=== PATIENT | female | born 1960 | race Caucasian/White ===

== ENCOUNTER → 2019-10-01 00:01 | Outpatient (RCR) | payer MEDICAID, SELFPAY | LOC: WOUND 09-03 13:32 | PROVIDERS: Family Provider Family Medicine; Visit Provider Thoracic Surgery (Cardiothoracic Vascular Surgery) | DX: I87.2 Venous insufficiency (chronic) (peripheral) (principal); L97.812 Non-pressure chronic ulcer of other part of right lower leg with fat layer exposed | CPT/HCPCS: 11042 ×4 ==

== ENCOUNTER 2019-10-16 17:57 | Outpatient (CLI) | payer MEDICAID, SELFPAY ==
[2019-10-16 18:36] LABS: Glucose Urine UA Trace (Normal); Specific Gravity, Urine 1.015 (1.005-1.030); Urine Appearance Cloudy (CLEAR); Urine Color Yellow (Yellow); pH Urine 5 (5-7)
[2019-10-16 18:37] LABS: Add Urine Microscopic? YES; Bilirubin Urine Neg (NEGATIVE); Blood Urine 3+ (Negative); Ketones Urine Negative (Negative); Leukocyte Esterase Urine 2+ (Negative); Nitrate Urine Negative (Negative); Protein Urine 3+ (Negative); Urobilinogen Urine Norm (Negative)
[2019-10-16 18:44] LABS: Add Urine Culture? Yes; Bacteria Urine 2+; Mucus Urine 1+; RBC Urine 25-40 /hpf (0-2); WBC Urine >100 /hpf (0-5)
== END 2019-10-16 17:58 | disposition home or self-care (01) ==
PROVIDERS: Family Provider Family Medicine; PCP Family Medicine; Visit Provider Family Medicine
DX: R32 Unspecified urinary incontinence (principal)
CPT/HCPCS: 81003; 87077; 87086; 87186

== ENCOUNTER 2019-10-29 12:57 | Outpatient (RCR) | payer MEDICAID, SELFPAY | END 2019-11-01 23:59 | disposition home or self-care (01) | LOC: WOUND 12:57 | PROVIDERS: Family Provider Family Medicine; PCP Family Medicine; Visit Provider Thoracic Surgery (Cardiothoracic Vascular Surgery) | DX: I87.2 Venous insufficiency (chronic) (peripheral) (principal); L97.812 Non-pressure chronic ulcer of other part of right lower leg with fat layer exposed | CPT/HCPCS: 11042 ==

== ENCOUNTER 2019-11-26 10:46 | Outpatient (RCR) | payer MEDICAID, SELFPAY | END 2019-11-30 23:59 | disposition home or self-care (01) | LOC: WOUND 10:46 | PROVIDERS: Family Provider Family Medicine; PCP Family Medicine; Visit Provider Thoracic Surgery (Cardiothoracic Vascular Surgery) | DX: I87.2 Venous insufficiency (chronic) (peripheral) (principal); L97.812 Non-pressure chronic ulcer of other part of right lower leg with fat layer exposed | CPT/HCPCS: 11042 ==

== ENCOUNTER 2019-12-31 13:39 | Outpatient (RCR) | payer MEDICAID, SELFPAY | END 2019-12-31 23:59 | disposition home or self-care (01) | LOC: WOUND 13:39 | PROVIDERS: Family Provider Family Medicine; PCP Family Medicine; Visit Provider Thoracic Surgery (Cardiothoracic Vascular Surgery) | DX: I87.2 Venous insufficiency (chronic) (peripheral) (principal); L97.812 Non-pressure chronic ulcer of other part of right lower leg with fat layer exposed | CPT/HCPCS: 11042; 15271; Q4110 ==

== ENCOUNTER 2020-01-28 15:02 | Outpatient (RCR) | payer MEDICAID, SELFPAY | END 2020-01-30 23:59 | disposition home or self-care (01) | LOC: WOUND 15:02 | PROVIDERS: Family Provider Family Medicine; PCP Family Medicine; Visit Provider Thoracic Surgery (Cardiothoracic Vascular Surgery) | DX: I87.2 Venous insufficiency (chronic) (peripheral) (principal); L97.822 Non-pressure chronic ulcer of other part of left lower leg with fat layer exposed; L97.812 Non-pressure chronic ulcer of other part of right lower leg with fat layer exposed | CPT/HCPCS: 11042; 97597 ==

== ENCOUNTER 2020-02-04 14:13 | Outpatient (CLI) | payer MEDICAID, SELFPAY | END 2020-02-04 14:14 | disposition home or self-care (01) | LOC: WOUND 14:14 | PROVIDERS: Family Provider Family Medicine; PCP Family Medicine; Visit Provider Thoracic Surgery (Cardiothoracic Vascular Surgery) | DX: I87.2 Venous insufficiency (chronic) (peripheral) (principal); L97.812 Non-pressure chronic ulcer of other part of right lower leg with fat layer exposed | CPT/HCPCS: 11042 ==

== ENCOUNTER 2020-02-07 19:51 | Outpatient (CLI) | payer MEDICAID, SELFPAY ==
[2020-02-07 20:48] LABS: Add Urine Microscopic? YES; Bilirubin Urine Neg (NEGATIVE); Blood Urine 2+ (Negative); Glucose Urine UA Norm (Normal); Ketones Urine Negative (Negative); Leukocyte Esterase Urine 2+ (Negative); Nitrate Urine Negative (Negative); Protein Urine 1+ (Negative); Specific Gravity, Urine 1.005 (1.005-1.030); Urine Appearance Cloudy (CLEAR); Urine Color Straw (Yellow); Urobilinogen Urine Norm (Negative); pH Urine 7 (5-7)
[2020-02-07 20:49] LABS: WBC Urine >100 /hpf (0-5)
[2020-02-07 20:50] LABS: Add Urine Culture? Yes; Amorphous Sediment Urine 2+; Bacteria Urine 3+; Squamous Epithelial Cell Urine 0-4 (0-5)
== END 2020-02-07 19:52 | disposition home or self-care (01) ==
LOC: LAB 19:55
PROVIDERS: PCP Family Medicine; Visit Provider Family Medicine
DX: R32 Unspecified urinary incontinence (principal)
CPT/HCPCS: 81001; 87077; 87086; 87186

== ENCOUNTER 2020-02-11 13:26 | Outpatient (CLI) | payer MEDICAID, SELFPAY | END 2020-02-11 13:27 | disposition home or self-care (01) | LOC: WOUND 13:27 | PROVIDERS: PCP Family Medicine; Visit Provider Thoracic Surgery (Cardiothoracic Vascular Surgery) | DX: I87.2 Venous insufficiency (chronic) (peripheral) (principal); L97.812 Non-pressure chronic ulcer of other part of right lower leg with fat layer exposed | CPT/HCPCS: 11042 ==

== ENCOUNTER 2020-02-18 13:56 | Outpatient (CLI) | payer MEDICAID, SELFPAY | END 2020-02-18 13:57 | disposition home or self-care (01) | LOC: WOUND 13:57 | PROVIDERS: PCP Family Medicine; Visit Provider Thoracic Surgery (Cardiothoracic Vascular Surgery) | DX: I87.2 Venous insufficiency (chronic) (peripheral) (principal); L97.812 Non-pressure chronic ulcer of other part of right lower leg with fat layer exposed | CPT/HCPCS: 11042 ==

== ENCOUNTER 2020-02-25 13:51 | Outpatient (CLI) | payer MEDICAID, SELFPAY | END 2020-02-25 13:52 | disposition home or self-care (01) | LOC: WOUND 13:52 | PROVIDERS: PCP Family Medicine; Visit Provider Thoracic Surgery (Cardiothoracic Vascular Surgery) | DX: I87.2 Venous insufficiency (chronic) (peripheral) (principal); L97.812 Non-pressure chronic ulcer of other part of right lower leg with fat layer exposed | CPT/HCPCS: 11042 ==

== ENCOUNTER 2020-03-03 13:54 | Outpatient (CLI) | payer MEDICAID, SELFPAY | END 2020-03-03 13:55 | disposition home or self-care (01) | LOC: WOUND 13:54 | PROVIDERS: PCP Family Medicine; Visit Provider Thoracic Surgery (Cardiothoracic Vascular Surgery) | DX: Z09 Encounter for follow-up examination after completed treatment for conditions other than malignant neoplasm (principal) | CPT/HCPCS: 99212 ==

== ENCOUNTER → 2020-03-11 12:48 | Outpatient (BNVA) | payer MEDICAID, SELFPAY | PROVIDERS: PCP Family Medicine; Visit Provider Family Medicine | DX: N39.0 Urinary tract infection, site not specified (principal) | CPT/HCPCS: 80053; 81000; 87077; 87086; 87186 ==

== ENCOUNTER → 2020-04-22 12:03 | Outpatient (BNVA) | payer MEDICAID, SELFPAY | PROVIDERS: PCP Family Medicine; Visit Provider Family Medicine | DX: E11.59 Type 2 diabetes mellitus with other circulatory complications (principal); R52 Pain, unspecified; E11.9 Type 2 diabetes mellitus without complications | CPT/HCPCS: 83036 ==

== ENCOUNTER 2020-04-28 12:42 | Outpatient (CLI) | payer MEDICAID, SELFPAY ==
--- NOTE | 2020-04-28 13:00 | MM_ITS ---
WS: [id number] BILATERAL DIGITAL SCREENING MAMMOGRAPHY WITH CAD CLINICAL INFORMATION: screen HISTORY: Screening mammogram. No current complaints. COMPARISON: 5 16,019 and 4 17,019. TECHNIQUE: Bilateral CC and MLO views. FINDINGS: Postoperative changes right breast with lumpectomy and surgical clips. Proximal fibrosis. V ascular calcification. Lucent centered calcifications. Scattered fibroglandular densities bilaterally. No suspicious focal mass, asymmetry, calcifications, or architectural distortion. No evidence of malignancy. MM/[place] [id number] IMPRESSION: BI-RADS: 2-Benign FOLLOW UP: 1 Year Follow-up Recommend return to annual diagnostic mammography..
== END 2020-04-28 12:43 | disposition home or self-care (01) ==
PROVIDERS: PCP Family Medicine; Visit Provider Family Medicine
DX: Z12.31 Encounter for screening mammogram for malignant neoplasm of breast (principal)
CPT/HCPCS: 77067

== ENCOUNTER 2020-07-02 16:06 | Outpatient (CLI) | payer MEDICAID, SELFPAY ==
[2020-07-02 16:37] LABS: Add Urine Microscopic? YES; Bilirubin Urine Neg (Negative); Blood Urine 2+ (Negative); Glucose Urine UA Norm (Normal); Ketones Urine 1+ (Negative); Leukocyte Esterase Urine 2+ (Negative); Nitrate Urine Negative (Negative); Protein Urine 3+ (Negative); RBC Urine 15-25 /hpf (0-2); Urine Appearance Cloudy (CLEAR); Urine Color Yellow (Yellow); Urobilinogen Urine Norm (Negative)
[2020-07-02 16:38] LABS: Add Urine Culture? Yes; Bacteria Urine 4+ /hpf; Mucus Urine TRACE /hpf; Squamous Epithelial Cell Urine 0-4 /hpf (0-5); WBC Urine 25-40 /hpf (0-5)
== END 2020-07-02 16:07 | disposition home or self-care (01) ==
LOC: LAB 16:08
PROVIDERS: PCP Family Medicine; Visit Provider Family Medicine
DX: Z87.440 Personal history of urinary (tract) infections (principal)
CPT/HCPCS: 81001

== ENCOUNTER 2020-08-25 16:07 | Outpatient (CLI) | payer MEDICAID, SELFPAY ==
[2020-08-25 17:10] LABS: Add Urine Microscopic? YES; Bilirubin Urine Neg (Negative); Blood Urine 3+ (Negative); Glucose Urine UA Trace (Normal); Ketones Urine 1+ (Negative); Leukocyte Esterase Urine 2+ (Negative); Nitrate Urine Negative (Negative); Protein Urine 3+ (Negative); Specific Gravity, Urine 1.015 (1.005-1.030); Urine Appearance Cloudy (CLEAR); Urine Color Yellow (Yellow); Urobilinogen Urine Norm (Negative); pH Urine 5 (5-7)
[2020-08-25 17:12] LABS: Add Urine Culture? Yes; Bacteria Urine 1+ /hpf; Calcium Oxalate Crystals Urine 25-40 /hpf; WBC Urine >100 /hpf (0-5)
== END 2020-08-25 16:08 | disposition home or self-care (01) ==
LOC: LAB 16:08
PROVIDERS: PCP Family Medicine; Visit Provider Family Medicine
DX: N39.0 Urinary tract infection, site not specified (principal)
CPT/HCPCS: 81001; 87077; 87086; 87186

== ENCOUNTER 2020-10-14 11:26 | Outpatient (CLI) | payer MEDICAID, SELFPAY ==
--- NOTE | 2020-10-14 11:42 | US_ITS ---
WS: [id number] LEFT DIGITAL MAMMOGRAPHY WITH CAD CLINICAL INFORMATION: N63.20 - Unspecified lump in the left breast, unspecified quadrant HISTORY: Left breast lump. Left breast pain and soreness. COMPARISON: April 28, 2020 and TECHNIQUE: 7 views of the left breast were obtained. FINDINGS: Scattered fibroglandular densities of the left breast. Punctate and lucent centered calcifications. V ascular calcification. Benign clustered calcifications. No mammographic abnormalities in the area of palpable marker. Ultrasound is pending. ULTRASOUND BREAST LEFT TECHNIQUE: Ultrasound left breast focused area of concern. CLINICAL INFORMATION: N63.20 - Unspecified lump in the left breast, unspecified quadrant COMPARISON: None. FINDINGS: Ultrasound left breast at the 10:00 position. Prominent vessel in the area of palpable concern. No ev idence of pathologic mass or lesion. No lesions to target for biopsy. US/US breast LT limited* [id number] BI-RADS: 2-Benign FOLLOW UP: 1 Year Follow-up Recommend return to annual diagnostic mammography.
--- NOTE | 2020-10-14 12:00 | MM_ITS ---
WS: [id number] LEFT DIGITAL MAMMOGRAPHY WITH CAD CLINICAL INFORMATION: N63.20 - Unspecified lump in the left breast, unspecified quadrant HISTORY: Left breast lump. Left breast pain and soreness. COMPARISON: April 28, 2020 and TECHNIQUE: 7 views of the left breast were obtained. FINDINGS: Scattered fibroglandular densities of the left breast. Punctate and lucent centered calcifications. V ascular calcification. Benign clustered calcifications. No mammographic abnormalities in the area of palpable marker. Ultrasound is pending. ULTRASOUND BREAST LEFT TECHNIQUE: Ultrasound left breast focused area of concern. CLINICAL INFORMATION: N63.20 - Unspecified lump in the left breast, unspecified quadrant COMPARISON: None. FINDINGS: Ultrasound left breast at the 10:00 position. Prominent vessel in the area of palpable concern. No ev idence of pathologic mass or lesion. No lesions to target for biopsy. MM/[place] [id number] BI-RADS: 2-Benign FOLLOW UP: 1 Year Follow-up Recommend return to annual diagnostic mammography.
== END 2020-10-14 11:27 | disposition home or self-care (01) ==
LOC: RADSHAW 11:33
PROVIDERS: PCP Family Medicine; Visit Provider Family Medicine
DX: N63.21 Unspecified lump in the left breast, upper outer quadrant (principal)
CPT/HCPCS: 76642; 77065

== ENCOUNTER → 2020-12-10 12:35 | Outpatient (BNVA) | payer MEDICAID, SELFPAY | PROVIDERS: PCP Family Medicine; Visit Provider Family Medicine | DX: N39.0 Urinary tract infection, site not specified (principal) | CPT/HCPCS: 81000; 87077; 87086; 87184 ==

== ENCOUNTER 2021-01-30 18:53 | Emergency (ER) | payer MEDICAID, SELFPAY ==
[2021-01-30] VITALS (16 sets, daily range): BP systolic 87–148; BP diastolic 37–82; PULSE 39–46; RESP 13–30; TEMP 36.3–37.2; O2SAT 96–100; BMI 74.2
--- NOTE | 2021-01-30 19:04 | XRR_ITS ---
PROCEDURE INFORMATION: Exam: XR Chest Exam date and time: 01/30/2021 7:15 PM Age: 60 years old Clinical indication: Dyspnea TECHNIQUE: Imaging protocol: XR of the chest. Views: 1 view. Total images: 1 COMPARISON: No relevant prior studies available. FINDINGS: Lungs: Diffuse right pneumonitis/pneumonia with predominantly ground-glass interstitial lung disease and early consolidated alveolar airspace disease. Minimal discoid atelectasis left lung base. Pleural spaces: Unremarkable. No pleural effusion. No pneumothorax. Heart/Mediastinum: Cardiac structures and configuration with cardiomegaly and arteriosclerosis. Hiatal hernia. Bones/joints: Unremarkable. Other findings: Obesity. XR/XR chest 1V portable [id number] IMPRESSION: 1. Right pneumonitis/pneumonia. 2. Minimal discoid atelectasis left mid lung. 3. Cardiomegaly with arteriosclerosis. 4. Hiatal hernia.
--- NOTE | 2021-01-30 19:05 | ECG_ITS ---
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1960 Requested By: Jules Polanco Order Number: [id number] Morgan MD: LYNNETTE CROOK Measurements Intervals [place] Rate: 49 P: MD: QRS: -12 QRSD: 119 T: 182 QT: 526 QTc: 479 Interpretive Statements ATRIAL FIBRILLATION WITH SLOW VENTRICULAR RESPONSE MODERATE INTRAVENTRICULAR CONDUCTION DELAY [105+ ms QRS DURATION, 80+ ms Q/S IN V1/V2, NO Q AND 60+ ms R IN I/aVL/V5/V6] MODERATE T-WAVE ABNORMALITY, CONSIDER LATERAL ISCHEMIA [-0.1+ mV T WAVE IN I/aVL/V5/V6] MODERATE T-WAVE ABNORMALITY, CONSIDER INFERIOR ISCHEMIA [-0.1+ mV T WAVE IN II/aVF] No previous ECG available for comparison Electronically Signed On 01-31-2021 22:24:39 CDT by LYNNETTE CROOK [id number]
[2021-01-30 19:22] LABS: ABG PCO2 43.8 mmHg (35-45); Arterial Blood Gas Hematocrit 20.1 % (37-47); Base Excess ABG 2.3 mmol/L (-2.0-2.0); Blood Gas Allen Test Pos; Blood Gas Sample Site Brachial, right; Blood Gas Sample Type Arterial; Carboxyhemoglobin 1.7 %THgb (0.4-20.1); HCO3 ABG 27.3 mmol/L (22-26); HGB O2 Sat 89.8 % (95-100); Methemoglobin 1.3 % (0.4-1.5); PO2 ABG 60.5 mmHg (80.0-100.0); Total Hemoglobin 6.6 g/dL (12-16)
[2021-01-30 19:47] LABS: Basophils # 0.1 10^3/uL (0.0-0.1); Basophils % 0.6 %; Eosinophils # 0.6 10^3/uL (0.0-0.8); Eosinophils % 3.3 %; Lymphocytes # 1.4 10^3/uL (0.8-4.8); Lymphocytes % 8.3 %; Mean Corpuscular HGB Conc 32.1 g/dL (30.0-36.0); Mean Corpuscular Hemoglobin 32.2 pg (28.0-34.0); Mean Corpuscular Volume 100.5 fL (81-99); Mean Platelet Volume 9.5 fL (7.4-10.4); Monocytes % 5.7 %; Neutrophils # 13.86 10^3/uL (1.8-7.7); Neutrophils % 80.9 %; Nucleated Red Blood Cells % 0 %; Platelet Count 516 10^3/cmm (130-400); Red Blood Count 1.83 10^6/uL (4.1-5.3); Red Cell Distribution Width 17.9 % (12.1-15.1); White Blood Count 17.1 10^3/uL (4.0-10.0)
[2021-01-30 19:56] LABS: Add Urine Microscopic? YES; Bilirubin Urine Neg (Negative); Blood Urine 2+ (Negative); Glucose Urine UA Norm (Normal); Ketones Urine 1+ (Negative); Leukocyte Esterase Urine 2+ (Negative); Nitrate Urine Negative (Negative); Protein Urine Trace (Negative); Urine Color Yellow (Yellow); Urobilinogen Urine Norm (Negative); pH Urine 5 (5-7)
[2021-01-30 19:58] LABS: Hematocrit 18.4 % (37.0-47.0); Hemoglobin 5.9 g/dL (11.5-15.3)
[2021-01-30 20:03] LABS: Lactate (Lactic Acid level) 2.6 mmol/L (0.5-2.2)
[2021-01-30 20:07] LABS: Troponin(5th) Baseline 227 ng/L (0-10)
[2021-01-30 20:11] LABS: WBC Urine TOO NUMEROUS TO CNT /hpf (0-5)
[2021-01-30 20:12] LABS: Add Urine Culture? No; Amorphous Sediment Urine 1+ /hpf; Bacteria Urine 4+ /hpf; Mucus Urine 2+ /hpf; Squamous Epithelial Cell Urine >100 /hpf (0-5)
[2021-01-30 20:15] LABS: Alanine Aminotransferase 8 U/L (0-33); Albumin Level 3.6 g/dL (3.5-5.2); Alkaline Phosphatase 69 IU/L (35-105); Anion Gap 18.7 (5-19); Aspartate Amino Transferase 18 U/L (0-32); Calcium 8.7 mg/dL (8.5-10.5); Carbon Dioxide 26 mmol/L (22-29); Chloride 91 mmol/L (98-107); Globulin 2.2 g/dL (1.3-4.6); Glomerular Filtration Rate 19.5 mL/min (90-130); Glucose 140 mg/dL (65-115); NT Pro B Type Natriuretic Pept 3557 pg/mL (0-125); Potassium 4.7 mmol/L (3.5-5.1); Sodium 131 mmol/L (136-145); Total Bilirubin 0.6 mg/dL (0.15-1.2); Total Protein 5.8 g/dL (6.6-8.7)
[2021-01-30 20:25] LABS: Osmolality Calculated 313 mOsm/kg (285-295)
[2021-01-30 20:26] LABS: Blood Urea Nitrogen 122 mg/dL (8-23)
[2021-01-30] MEDS: aspirin 81 mg Chew Tablet 324 MG PO (20:31)
--- NOTE | 2021-01-30 21:05 | ECG_ITS ---
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1960 Requested By: Jules Polanco Order Number: [id number] Morgan MD: LYNNETTE CROOK Measurements Intervals [place] Rate: 39 P: -48 MT: 134 QRS: -10 QRSD: 119 T: 200 QT: 578 QTc: 470 Interpretive Statements Junctional rhythm/bradycardia MODERATE INTRAVENTRICULAR CONDUCTION DELAY [105+ ms QRS DURATION, 80+ ms Q/S IN V1/V2, NO Q AND 60+ ms R IN I/aVL/V5/V6] ST DEVIATION AND MODERATE T-WAVE ABNORMALITY, CONSIDER ANTEROLATERAL ISCHEMIA [-0.1+ mV T WAVE IN V3-V6] ST DEVIATION AND MODERATE T-WAVE ABNORMALITY, CONSIDER INFERIOR ISCHEMIA [-0.1+ mV T WAVE IN II/aVF] PROLONGED QT INTERVAL CRITICAL TEST RESULT Compared to ECG 01/30/2021 19:06:17 Prolonged QT interval now present Atrial fibrillation no longer present T-wave abnormality still present Possible ischemia still present Electronically Signed On 01-31-2021 22:28:29 CDT by LYNNETTE CROOK [id number]
[2021-01-30] MEDS: sodium chloride 0.9% 1,000 ML 30 ML IV (21:28)
--- NOTE | 2021-01-30 21:41 | PC.PHAR ---
Vancomycin is dosed at 1gm IVPB every 24 hours to produce a predicted trough level of 15.53 (population based pharmacokinetic analysis). A trough level has been ordered to be obtained before the fourth dose to confirm and adjust if needed. The Zosyn is dosed at 3.375gm IVPB every 8 hours on basis of the creatinine clearance of 35.45
[2021-01-30] MEDS: vancomycin 1,000 MG in sodium chloride 0.9% 250 ML 250 MG IV (21:44)
[2021-01-30 22:04] LABS: Lactate (Lactic Acid level) 1.7 mmol/L (0.5-2.2)
[2021-01-30 22:07] LABS: Troponin 5 2HR 226.8 ng/L (0-10); Troponin 5 2HR Delta -0.2 ABS# (0-10)
[2021-01-30] MEDS: piperacillin-tazobactam 3.375 GM in sodium chloride 0.9% (plus) 50 ML IV (22:56)
--- NOTE | 2021-01-30 23:25 | PM.HP ---
Providers/Chief Complaint Primary Care Provider: Wang Tillman DO Chief Complaint: pain all over/stents recently placed History of Present Illness Nia Gomes is a 60 year old female Medications/Allergies Home Medications Medication Instructions Recorded Confirmed Last Taken Type acetaminophen 325 mg capsule 325 mg PO Q6H PRN cap 10/21/19 07/06/20 Unknown History albuterol sulfate 90 mcg/actuation 2 puff INHALATION Q6H PRN 10/21/19 07/06/20 Unknown History aerosol inhaler budesonide-formoterol HFA 160 2 puff INHALATION BID 10/21/19 07/06/20 Unknown History mcg-4.5 mcg/actuation aerosol inhaler cholecalciferol (vitamin D3) 25 2,000 unit PO QDAY cap 10/21/19 07/06/20 Unknown History mcg (1,000 unit) capsule fluticasone propionate 50 1 spray INTRANASAL BID 10/21/19 07/06/20 Unknown History mcg/actuation nasal spray,suspension multivitamin 1 tab PO QAM 10/21/19 07/06/20 Unknown History mv-min-vit C-ascorb mg PO DAILY tab 10/28/19 07/06/20 Unknown History En-Bct-Ahe-herb #124 333 mg-1.7 mg chewable tablet pioglitazone 30 mg tablet 30 mg PO QDAY #30 tab 10/28/19 07/06/20 Unknown Rx guaifenesin 600 mg tablet, 600 mg PO Q12H PRN 02/12/20 07/06/20 Unknown History extended release 12 hr cranberry 400 mg capsule 400 mg PO BID cap 04/22/20 07/06/20 Unknown History glipizide 10 mg tablet 10 mg PO BID #60 tab 04/22/20 07/06/20 Unknown Rx metformin 500 mg tablet 500 mg PO BID #30 tab 05/20/20 07/06/20 Unknown Rx cetirizine 10 mg capsule 10 mg PO QDAY #30 cap 07/13/20 Unknown Rx pantoprazole 40 mg tablet,delayed See Rx Instructions .ROUTE 08/11/20 Unknown Rx release .COMPLEX #30 tab ciprofloxacin HCl 500 mg tablet 500 mg PO BID 7 Days #14 tab 08/26/20 Unknown Rx amoxicillin 500 mg-potassium 1 tab PO TID #21 tab 08/31/20 Unknown Rx clavulanate 125 mg tablet furosemide 80 mg tablet See Rx Instructions .ROUTE 09/07/20 Unknown Rx .COMPLEX #30 tab ondansetron 4 mg disintegrating See Rx Instructions .ROUTE 10/13/20 Unknown Rx tablet .COMPLEX #30 tab carvedilol 6.25 mg tablet 6.25 mg PO DAILY #90 tab 11/03/20 Unknown Rx tramadol 50 mg tablet 50 mg PO BID #60 tab 12/03/20 Unknown Rx oxybutynin chloride 15 mg 15 mg PO QDAY #30 tab 12/07/20 Unknown Rx tablet,extended release 24 hr amoxicillin 500 mg-potassium 1 tab PO TID #30 tab 12/16/20 Unknown Rx clavulanate 125 mg tablet Allergies Allergy/AdvReac Type Severity Reaction Status Date / Time Sulfa (Sulfonamide Allergy Severe ALGY-Anaphy Verified 05/20/20 09:04 Antibiotics) laxis aspirin Allergy Intermediate nose bleeds Verified 05/20/20 09:04 clonidine Allergy Unknown chest pain Verified 05/20/20 09:04 rofecoxib [From Vioxx] Allergy Unknown unknown Verified 05/20/20 09:04 PFSH Acute PFSH: Medical History Acid reflux CAD (coronary artery disease) Cellulitis of left leg CHF (congestive heart failure) Diabetes Diabetes Hypertension Ischemic cardiomyopathy Lump of breast, right OAB (overactive bladder) Pain UTI (urinary tract infection) Surgical History H/O breast biopsy right H/O: section S/P cardiac cath Family History Other CAD (coronary artery disease) Hypertension Stroke Social History Smoking and tobacco status: former smoker Alcohol intake: never Vitals/I&O/Wt Last Vital Signs Temp 97.5 F L 01/30/21 22:53 Pulse 39 L 01/30/21 23:01 Resp 16 01/30/21 23:01 BP 134/60 01/30/21 23:01 Pulse Ox 100 01/30/21 23:01 01/30/21 01/30/21 01/31/21 14:59 22:59 06:59 Intake Total 250 / 250 Balance 250 / 250 Weight last 48 hrs Weight 172.365 kg Data : 01/30/21 19:34 01/30/21 19:34 A&P Assessment and plan (1) Pneumonia: Status: Acute (2) Bradycardia: Status: Acute (3) UTI (urinary tract infection): Status: Acute (4) NSTEMI (non-ST elevated myocardial infarction): Status: Acute (5) Acute on chronic anemia: Status: Acute (6) TAWNY (acute kidney injury): Status: Acute (7) Acute and chronic respiratory failure with hypoxia: Status: Acute Coding Level of Care Code Acute Meter Technician for [facility] Fwd Diagnoses Pneumonia J18.9 Bradycardia R00.1 UTI (urinary tract infection) N39.0 NSTEMI (non-ST elevated myocardial infarction) I21.4 Acute on chronic anemia D64.9 TAWNY (acute kidney injury) N17.9 Acute and chronic respiratory failure with hypoxia J96.21
[2021-01-31] VITALS (11 sets, daily range): BP systolic 140–156; BP diastolic 33–68; PULSE 40–100; RESP 15–26; TEMP 36.4; O2SAT 41–100
[2021-01-31 00:06] LABS: Magnesium 2.4 mg/dL (1.7-2.3); Thyroid Stimulating Hormone 14.06 uIU/mL (0.27-4.20)
--- NOTE | 2021-01-31 00:31 | ED_ITS ---
HPI - SOB/Dyspnea General: Chief Complaint: Shortness of Breath/Dyspnea Stated Complaint: pain all over/stents recently placed Time Seen by Provider: 01/30/21 19:03 History of Present Illness: HPI Narrative: The patient is a 60-year-old female with past medical history congestive heart failure with EF of 29%, chronic respiratory failure on 4 L oxygen and CPAP at night, diabetes, super morbid obesity, coronary artery disease with recent stenting procedure, aortic stenosis mild. She comes to the ER [address] [facility] where she stayed for 2 weeks and had cardiac stents as well as multiple other vascular procedures. She comes in today complaining of shortness of breath and is satting well on her baseline 4 L oxygen but says she is becoming more short of breath. 20 minutes after arrival she asks to be placed on CPAP because she wants to go to sleep. She is arousable and does answer questions appropriately MD elicited complaint: shortness of breath Pertinent past history: congestive heart failure and diabetes Timing: constant Severity: moderate Exacerbating factors: exertion and movement Associated symptoms: Deny chest pain, cough, dizziness, extremity pain, fever(s), nausea, polyuria or vomiting Review of Systems General: Reports: 10 or more systems reviewed and unremarkable except in HPI and below Const: Reports: fatigue; Denies: fever(s) or chills Eyes: Denies: change in vision, blurry vision or eye redness ENMT: Denies: throat pain, swelling of lips/tongue, ear or mastoid pain or nasal congestion Card: Denies: chest pain Resp: Reports: dyspnea; Denies: productive cough or non-productive cough GI: Denies: nausea or vomiting : Denies: flank pain, difficulty voiding, urinary frequency or urinary urgency Musc: Denies: neck pain, back pain, extremity pain, joint pain, joint redness, limited range of motion or muscle weakness Skin/Breast: Denies: rash, pruritus, erythema, skin pain or skin tenderness Neuro: Denies: headache(s), numbness in extremities, weakness in extremities, sensory changes, difficulty walking, dizziness, confusion or Slurred speech present Psych: Denies: anxiety or depression Endo: Denies: polyuria All/Imm: Denies: urticaria, throat swelling or tongue swelling PFSH ED PFSH: Medical History Acid reflux CAD (coronary artery disease) Cellulitis of left leg CHF (congestive heart failure) Diabetes Diabetes Hypertension Ischemic cardiomyopathy Lump of breast, right OAB (overactive bladder) Pain UTI (urinary tract infection) Surgical History H/O breast biopsy right H/O: section S/P cardiac cath Family History Other CAD (coronary artery disease) Hypertension Stroke Social History Smoking and tobacco status: former smoker Alcohol intake: never Physical Exam Narrative: EXAM NARRATIVE: The patient is super morbidly obese. She has bruising to her pannus and upper leg thigh area from where she had her stenting procedures done at [facility]. She wears a chronic Bonilla. She has dark stool that tested guaiac positive in the ED. somnolent. Const: COMMON NORMALS: patient oriented x3 and alert GENERAL APPEARANCE: ill appearing ORIENTATION/CONSCIOUSNESS: Yes oriented to person, Yes oriented to place and Yes oriented to time HENMT: COMMON NORMALS: normocephalic, external ears normal and Normal external nose present HEAD & SCALP: normal to inspection and normocephalic NOSE: Normal external nose present EXTERNAL EAR: Yes external ears normal MOUTH: Normal oral and palatal mucosa present THROAT: posterior oropharynx normal Eye: COMMON NORMALS: Equal, round and reactive pupils present and EOMs intact bilaterally GENERAL EYE: appearance normal, both eyes and all related struc tures PUPIL: Yes Equal, round and reactive pupils present Neck/C-Spine: COMMON NORMALS: full ROM, no lymphadenopathy, no meningeal signs and no JVD GENERAL: Yes normal visual inspection Lymph: LYMPHATIC: no lymphadenopathy noted Chest: COMMONS NORMALS: normal inspection of the chest and normal palpation of entire chest wall Resp: COMMON NORMALS: normal respiratory effort, No retractions and No use of accessory muscles EFFORT & INSPECTION: Yes able to speak in complete sentences AUSCULTATION: rhonchi and diminished lung sounds Cardio: COMMON NORMALS: no JVD, regular rhythm, S1 normal heart sound present, S2 normal heart sound present and Peripheral pulses 2+ throughout RATE: bradycardic RHYTHM: regular rhythm HEART SOUNDS: S1 normal heart sound present and S2 normal heart sound present PERIPHERAL PULSES: Peripheral pulses 2+ throughout GI: COMMON NORMALS: Normal to inspection, nondistended, normoactive bowel sounds present, Soft to palpation, non-tender and no masses INSPECTION: Yes normal to inspection PALPATION: Yes Soft to palpation : COMMON NORMALS: Yes no CVA tenderness BLADDER/KIDNEY EXAM: Yes no CVA tenderness Back/Pelvis: COMMON NORMALS: no CVA tenderness, thoracic and lumbar spine normal to inspection, no thoracic nor lumbar tenderness and thoraco-lumbar ROM normal Extremity: COMMON NORMALS: normal to inspection, full ROM, capillary refill normal, no joint enlargement and no pedal edema GENERAL: Yes normal exam except as noted Neuro: COMMON NORMALS: patient oriented x3, CN's II-XII intact bilaterally, moves all extremities, no focal motor deficits, no sensory deficits noted and gait normal SENSORIUM/ORIENTATION: Yes alert, Yes oriented to person, Yes oriented to place and Yes oriented to time MENINGEAL SIGNS: Yes no meningeal signs Psych: COMMON NORMALS: mental status grossly normal, Normal thought process present, cooperative, normal affect and speech normal ATTITUDE: Yes calm SPEECH: Yes normal speech THOUGHT PROCESS: Normal thought process present Skin: COMMON NORMALS: no rashes or lesions noted GENERAL SKIN EXAM: no rashes or lesions noted Course Vital Signs: Vital signs: Vital Signs Temperature 97.5 F L 01/31/21 00:18 Pulse Rate 42 L 01/31/21 00:26 Respiratory Rate 26 H 01/31/21 00:26 Blood Pressure 140/40 01/31/21 00:18 Pulse Oximetry 100 01/31/21 00:26 MDM - SOB/Dyspnea MDM Narrative: Medical decision making narrative: The patient is a 60-year-old female who comes to the ER critically ill. She comes in complaining of shortness of breath and does have a right-sided pneumonia, white count 17, elevated lactic acid. She has chronic respiratory failure and wears oxygen. She is on BiPAP because she requested to go to sleep and wear CPAP at night. Also she is severely anemic and has black stool in the ED. She was typed and screened and set to transfuse 2 units of blood. She also has an acute kidney injury. Elevated troponin initially in the 2-hour is unchanged. She is in sinus bradycardia with a rate of [address] changes significantly on the EKGs. Discussed with Dr. De Dios who will follow the patient if needed. Discussed with Meche to get further history and it seems she has severe CHF with an ejection fraction of 29 and mild aortic stenosis. 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 Discussion with the hospitalist Dr. Avila feels she needs evaluation by vascular surgery as well which we do not have here. She will be transferred to [facility] in [place]. Discussed with Dr. Moses with [facility] cardiology who accepts transfer. Pending Bed and Air evac transfer. Lab Data: Labs: Lab Results 01/30/21 01/30/21 01/30/21 Range/Units 19:15 19:34 19:34 WBC 17.1 H (4.0-10.0) 10^3/ uL RBC 1.83 L (4.1-5.3) 10^6/u L Hgb 5.9 L* (11.5-15.3) g/dL Hct 18.4 L* (37.0-47.0) % MCV 100.5 H (81-99) fL MCH 32.2 (28.0-34.0) pg MCHC 32.1 (30.0-36.0) g/dL RDW 17.9 H (12.1-15.1) % Plt Count 516 H (130-400) 10^3/c mm MPV 9.5 (7.4-10.4) fL Neut % (Auto) 80.9 % Lymph % (Auto) 8.3 % [place] % (Auto) 5.7 % Eos % (Auto) 3.3 % Baso % (Auto) 0.6 % Neut # (Auto) 13.86 H (1.8-7.7) 10^3/u L Lymph # (Auto) 1.4 (0.8-4.8) 10^3/u L [place] # (Auto) 1.0 H (0.2-0.9) 10^3/u L Eos # (Auto) 0.6 (0.0-0.8) 10^3/u L Baso # (Auto) 0.1 (0.0-0.1) 10^3/u L Nucleated RBC % (a uto) 0 % Nucleated RBCs # 0.0 /100WBC Specimen Type Arterial Sample Site Brachial, right ABG pH 7.40 (7.35-7.45) ABG pCO2 43.8 (35-45) mmHg ABG pO2 60.5 L (80.0-100.0) mmH g ABG HCO3 27.3 H (22-26) mmol/L ABG Base Excess 2.3 H (-2.0-2.0) mmol/ L [place] Test Pos Hematocrit 20.1 L (37-47) % Hgb O2 Saturation 89.8 L (95-100) % Carboxyhemoglobin 1.7 (0.4-20.1) %THgb Methemoglobin 1.3 (0.4-1.5) % Total Hemoglobin 6.6 L (12-16) g/dL O2 Delivery Device None FiO2 21.0 % Optometric Coordinator ID [id number] Sodium 131 L (136-145) mmol/L Potassium 4.7 (3.5-5.1) mmol/L Chloride 91 L (98-107) mmol/L Carbon Dioxide 26 (22-29) mmol/L Anion Gap 18.7 (5-19) BUN 122 H* (8-23) mg/dL Creatinine 2.5 H (0.5-0.9) mg/dL GFR Calculation 19.5 L (90-130) mL/min Glucose 140 H (65-115) mg/dL Calculated Osmolal ity 313 H (285-295) mOsm/k g Lactate (0.5-2.2) mmol/L Calcium 8.7 (8.5-10.5) mg/dL Magnesium (1.7-2.3) mg/dL Total Bilirubin 0.6 (0.15-1.2) mg/dL AST 18 (0-32) U/L ALT 8 (0-33) U/L Alkaline Phosphata se 69 (35-105) IU/L Troponin T Baselin e (0-10) ng/L Troponin T 120 Min [place] (0-10) ng/L Delta Troponin T (0-10) ABS# NT-Pro-B Natriuret Pep 3557 H (0-125) pg/mL Total Protein 5.8 L (6.6-8.7) g/dL Albumin 3.6 (3.5-5.2) g/dL Globulin 2.2 (1.3-4.6) g/dL TSH (0.27-4.20) uIU/ mL Urine Color (Yellow) Urine Appearance (CLEAR) Urine pH (5-7) Ur Specific Gravit y (1.005-1.030) Urine Protein (Negative) Urine Glucose (UA) (Normal) Urine Ketones (Negative) Urine Blood (Negative) Urine Nitrate (Negative) Urine Bilirubin (Negative) Urine Urobilinogen (Negative) mg/dL Ur Leukocyte Luz ase (Negative) Urine RBC (0-2) /hpf Urine WBC (0-5) /hpf Ur Squamous Epith Cells (0-5) /hpf Amorphous Sediment /hpf Urine Bacteria (NONE) /hpf Urine Mucus /hpf Urine Yeast /hpf Blood Type Rho(D) Type Antibody Screen Crossmatch 01/30/21 01/30/21 01/30/21 Range/Units 19:34 19:34 19:42 WBC (4.0-10.0) 10^3/ uL RBC (4.1-5.3) 10^6/u L Hgb (11.5-15.3) g/dL Hct (37.0-47.0) % MCV (81-99) fL MCH (28.0-34.0) pg MCHC (30.0-36.0) g/dL RDW (12.1-15.1) % Plt Count (130-400) 10^3/c mm MPV (7.4-10.4) fL Neut % (Auto) % Lymph % (Auto) % [place] % (Auto) % Eos % (Auto) % Baso % (Auto) % Neut # (Auto) (1.8-7.7) 10^3/u L Lymph # (Auto) (0.8-4.8) 10^3/u L [place] # (Auto) (0.2-0.9) 10^3/u L Eos # (Auto) (0.0-0.8) 10^3/u L Baso # (Auto) (0.0-0.1) 10^3/u L Nucleated RBC % (a uto) % Nucleated RBCs # /100WBC Specimen Type Sample Site ABG pH (7.35-7.45) ABG pCO2 (35-45) mmHg ABG pO2 (80.0-100.0) mmH g ABG HCO3 (22-26) mmol/L ABG Base Excess (-2.0-2.0) mmol/ L [place] Test Hematocrit (37-47) % Hgb O2 Saturation (95-100) % Carboxyhemoglobin (0.4-20.1) %THgb Methemoglobin (0.4-1.5) % Total Hemoglobin (12-16) g/dL O2 Delivery Device FiO2 % Optometric Coordinator ID Sodium (136-145) mmol/L Potassium (3.5-5.1) mmol/L Chloride (98-107) mmol/L Carbon Dioxide (22-29) mmol/L Anion Gap (5-19) BUN (8-23) mg/dL Creatinine (0.5-0.9) mg/dL GFR Calculation (90-130) mL/min Glucose (65-115) mg/dL Calculated Osmolal ity (285-295) mOsm/k g Lactate 2.6 H (0.5-2.2) mmol/L Calcium (8.5-10.5) mg/dL Magnesium (1.7-2.3) mg/dL Total Bilirubin (0.15-1.2) mg/dL AST (0-32) U/L ALT (0-33) U/L Alkaline Phosphata se (35-105) IU/L Troponin T Baselin e 227 H* (0-10) ng/L Troponin T 120 Min [place] (0-10) ng/L Delta Troponin T (0-10) ABS# NT-Pro-B Natriuret Pep (0-125) pg/mL Total Protein (6.6-8.7) g/dL Albumin (3.5-5.2) g/dL Globulin (1.3-4.6) g/dL TSH (0.27-4.20) uIU/ mL Urine Color Yellow (Yellow) Urine Appearance Sl cloudy A (CLEAR) Urine pH 5 (5-7) Ur Specific Gravit y 1.020 (1.005-1.030) Urine Protein Trace (Negative) Urine Glucose (UA) Norm (Normal) Urine Ketones 1+ H (Negative) Urine Blood 2+ H (Negative) Urine Nitrate Negative (Negative) Urine Bilirubin Neg (Negative) Urine Urobilinogen Norm (Negative) mg/dL Ur Leukocyte Luz ase 2+ H (Negative) Urine RBC 10-15 H (0-2) /hpf Urine WBC Too numerous to c nt H (0-5) /hpf Ur Squamous Epith Cells >100 H (0-5) /hpf Amorphous Sediment 1+ /hpf Urine Bacteria 4+ H (NONE) /hpf Urine Mucus 2+ /hpf Urine Yeast 1+ H /hpf Blood Type Rho(D) Type Antibody Screen Crossmatch 01/30/21 01/30/21 01/30/21 Range/Units 20:10 21:37 21:37 WBC (4.0-10.0) 10^3/ uL RBC (4.1-5.3) 10^6/u L Hgb (11.5-15.3) g/dL Hct (37.0-47.0) % MCV (81-99) fL MCH (28.0-34.0) pg MCHC (30.0-36.0) g/dL RDW (12.1-15.1) % Plt Count (130-400) 10^3/c mm MPV (7.4-10.4) fL Neut % (Auto) % Lymph % (Auto) % [place] % (Auto) % Eos % (Auto) % Baso % (Auto) % Neut # (Auto) (1.8-7.7) 10^3/u L Lymph # (Auto) (0.8-4.8) 10^3/u L [place] # (Auto) (0.2-0.9) 10^3/u L Eos # (Auto) (0.0-0.8) 10^3/u L Baso # (Auto) (0.0-0.1) 10^3/u L Nucleated RBC % (a uto) % Nucleated RBCs # /100WBC Specimen Type Sample Site ABG pH (7.35-7.45) ABG pCO2 (35-45) mmHg ABG pO2 (80.0-100.0) mmH g ABG HCO3 (22-26) mmol/L ABG Base Excess (-2.0-2.0) mmol/ L [place] Test Hematocrit (37-47) % Hgb O2 Saturation (95-100) % Carboxyhemoglobin (0.4-20.1) %THgb Methemoglobin (0.4-1.5) % Total Hemoglobin (12-16) g/dL O2 Delivery Device FiO2 % Optometric Coordinator ID Sodium (136-145) mmol/L Potassium (3.5-5.1) mmol/L Chloride (98-107) mmol/L Carbon Dioxide (22-29) mmol/L Anion Gap (5-19) BUN (8-23) mg/dL Creatinine (0.5-0.9) mg/dL GFR Calculation (90-130) mL/min Glucose (65-115) mg/dL Calculated Osmolal ity (285-295) mOsm/k g Lactate 1.7 (0.5-2.2) mmol/L Calcium (8.5-10.5) mg/dL Magnesium (1.7-2.3) mg/dL Total Bilirubin (0.15-1.2) mg/dL AST (0-32) U/L ALT (0-33) U/L Alkaline Phosphata se (35-105) IU/L Troponin T Baselin e (0-10) ng/L Troponin T 120 Min [place] 226.8 H (0-10) ng/L Delta Troponin T -0.2 L (0-10) ABS# NT-Pro-B Natriuret Pep (0-125) pg/mL Total Protein (6.6-8.7) g/dL Albumin (3.5-5.2) g/dL Globulin (1.3-4.6) g/dL TSH (0.27-4.20) uIU/ mL Urine Color (Yellow) Urine Appearance (CLEAR) Urine pH (5-7) Ur Specific Gravit y (1.005-1.030) Urine Protein (Negative) Urine Glucose (UA) (Normal) Urine Ketones (Negative) Urine Blood (Negative) Urine Nitrate (Negative) Urine Bilirubin (Negative) Urine Urobilinogen (Negative) mg/dL Ur Leukocyte Luz ase (Negative) Urine RBC (0-2) /hpf Urine WBC (0-5) /hpf Ur Squamous Epith Cells (0-5) /hpf Amorphous Sediment /hpf Urine Bacteria (NONE) /hpf Urine Mucus /hpf Urine Yeast /hpf Blood Type O Positive Rho(D) Type Positive / 4+ Antibody Screen Negative Crossmatch See Detail 01/30/21 Range/Units 21:37 WBC (4.0-10.0) 10^3/ uL RBC (4.1-5.3) 10^6/u L Hgb (11.5-15.3) g/dL Hct (37.0-47.0) % MCV (81-99) fL MCH (28.0-34.0) pg MCHC (30.0-36.0) g/dL RDW (12.1-15.1) % Plt Count (130-400) 10^3/c mm MPV (7.4-10.4) fL Neut % (Auto) % Lymph % (Auto) % [place] % (Auto) % Eos % (Auto) % Baso % (Auto) % Neut # (Auto) (1.8-7.7) 10^3/u L Lymph # (Auto) (0.8-4.8) 10^3/u L [place] # (Auto) (0.2-0.9) 10^3/u L Eos # (Auto) (0.0-0.8) 10^3/u L Baso # (Auto) (0.0-0.1) 10^3/u L Nucleated RBC % (a uto) % Nucleated RBCs # /100WBC Specimen Type Sample Site ABG pH (7.35-7.45) ABG pCO2 (35-45) mmHg ABG pO2 (80.0-100.0) mmH g ABG HCO3 (22-26) mmol/L ABG Base Excess (-2.0-2.0) mmol/ L [place] Test Hematocrit (37-47) % Hgb O2 Saturation (95-100) % Carboxyhemoglobin (0.4-20.1) %THgb Methemoglobin (0.4-1.5) % Total Hemoglobin (12-16) g/dL O2 Delivery Device FiO2 % Optometric Coordinator ID Sodium (136-145) mmol/L Potassium (3.5-5.1) mmol/L Chloride (98-107) mmol/L Carbon Dioxide (22-29) mmol/L Anion Gap (5-19) BUN (8-23) mg/dL Creatinine (0.5-0.9) mg/dL GFR Calculation (90-130) mL/min Glucose (65-115) mg/dL Calculated Osmolal ity (285-295) mOsm/k g Lactate (0.5-2.2) mmol/L Calcium (8.5-10.5) mg/dL Magnesium 2.4 H (1.7-2.3) mg/dL Total Bilirubin (0.15-1.2) mg/dL AST (0-32) U/L ALT (0-33) U/L Alkaline Phosphata se (35-105) IU/L Troponin T Baselin e (0-10) ng/L Troponin T 120 Min [place] (0-10) ng/L Delta Troponin T (0-10) ABS# NT-Pro-B Natriuret Pep (0-125) pg/mL Total Protein (6.6-8.7) g/dL Albumin (3.5-5.2) g/dL Globulin (1.3-4.6) g/dL TSH 14.06 H (0.27-4.20) uIU/ mL Urine Color (Yellow) Urine Appearance (CLEAR) Urine pH (5-7) Ur Specific Gravit y (1.005-1.030) Urine Protein (Negative) Urine Glucose (UA) (Normal) Urine Ketones (Negative) Urine Blood (Negative) Urine Nitrate (Negative) Urine Bilirubin (Negative) Urine Urobilinogen (Negative) mg/dL Ur Leukocyte Luz ase (Negative) Urine RBC (0-2) /hpf Urine WBC (0-5) /hpf Ur Squamous Epith Cells (0-5) /hpf Amorphous Sediment /hpf Urine Bacteria (NONE) /hpf Urine Mucus /hpf Urine Yeast /hpf Blood Type Rho(D) Type Antibody Screen Crossmatch Discharge Plan Discharge Patient Disposition: Xfer Short-Term Hosp Clinical Impression: Acute on chronic anemia, TAWNY (acute kidney injury), Bradycardia, Pneumonia, Acute and chronic respiratory failure with hypoxia, Urinary tract infection with hematuria, Morbidly obese, Community acquired pneumonia, Congestive heart failure, Elevated troponin Condition: Stable Referrals: Wang Tillman DO [Primary Care Provider] - Coding Level of Care Code ED Crew Chief for Joey Cabral
[2021-01-31 00:52] LABS: SARS Covid-2 Antigen Negative (Negative)
[2021-01-31] MEDS: HYDROcodone-acetaminophen 5-325 mg Tablet 1 TAB PO (01:24)
[2021-01-31 02:11] LABS: Troponin 5 6HR Delta 9.8 ng/L (0-12)
[2021-01-31 02:15] LABS: Troponin 5 6HR 236.8 ng/L (0-10)
== END 2021-01-31 03:46 | disposition short-term general hospital (02) ==
PROVIDERS: Emergency Provider Family Medicine; PCP Family Medicine
DX: I11.0 Hypertensive heart disease with heart failure (principal); I50.9 Heart failure, unspecified; D64.89 Other specified anemias; N17.9 Acute kidney failure, unspecified; R00.1 Bradycardia, unspecified; J18.9 Pneumonia, unspecified organism; J96.21 Acute and chronic respiratory failure with hypoxia; N39.0 Urinary tract infection, site not specified; E66.01 Morbid (severe) obesity due to excess calories; R77.8 Other specified abnormalities of plasma proteins; I25.10 Atherosclerotic heart disease of native coronary artery without angina pectoris; E11.9 Type 2 diabetes mellitus without complications; Z87.440 Personal history of urinary (tract) infections; Z87.891 Personal history of nicotine dependence; Z99.81 Dependence on supplemental oxygen
CPT/HCPCS: 36415; 36430; 36600; 71045; 80053; 81001; 82805; 83605; 83735; 83880; 84443; 84484; 85025; 86850; 86900; 86920; 87426; 93005; 94660; 96365; 96366; 96367; 99291; J2543; J3370; J7030; J7050; P9016

== ENCOUNTER → 2021-03-19 11:36 | Outpatient (BNVA) | payer MEDICAID, SELFPAY | PROVIDERS: PCP Family Medicine; Visit Provider Nurse Practitioner Family | DX: I10 Essential (primary) hypertension (principal); E11.59 Type 2 diabetes mellitus with other circulatory complications; I50.9 Heart failure, unspecified | CPT/HCPCS: 80053; 80061; 83036; 84443; 85025 ==

== ENCOUNTER → 2021-03-23 15:51 | Outpatient (BNVA) | payer MEDICAID, SELFPAY | PROVIDERS: PCP Family Medicine; Visit Provider Nurse Practitioner Family | DX: N17.9 Acute kidney failure, unspecified (principal) | CPT/HCPCS: 80053 ==

== ENCOUNTER 2021-04-01 18:05 | Outpatient (CLI) | payer MEDICAID, SELFPAY ==
[2021-04-01 19:45] LABS: Add Urine Culture? No; Add Urine Microscopic? YES; Bacteria Urine 1+ /hpf; Bilirubin Urine Neg (Negative); Blood Urine 2+ (Negative); Glucose Urine UA Norm (Normal); Ketones Urine Negative (Negative); Leukocyte Esterase Urine Negative (Negative); Nitrate Urine Negative (Negative); Protein Urine 1+ (Negative); Specific Gravity, Urine 1.015 (1.005-1.030); Urine Appearance Clear (CLEAR); Urine Color Yellow (Yellow); Urobilinogen Urine Norm (Negative); WBC Urine 0-4 /hpf (0-5); pH Urine 5 (5-7)
== END 2021-04-01 18:06 | disposition home or self-care (01) ==
LOC: LAB 18:11
PROVIDERS: PCP Family Medicine; Visit Provider Family Medicine
DX: N39.0 Urinary tract infection, site not specified (principal)
CPT/HCPCS: 81001

== ENCOUNTER 2021-06-04 14:03 | Outpatient (CLI) | payer MEDICAID, SELFPAY ==
--- NOTE | 2021-06-04 14:09 | MM_ITS ---
WS: [id number] BILATERAL SCREENING DIGITAL MAMMOGRAM WITH CAD HISTORY: SCREENING COMPARISON: 10/14/2020 and 04/28/2020 and 05/21/2019 Bilateral CC and MLO views submitted. Computer aided detection analyzed. Breast composition: There are scattered areas of fibroglandular density. No suspicious masses, microc alcifications or architectural distortion. There are numerous benign calcifications. There is a postb iopsy cavity in the central RIGHT breast. Vascular calcifications and benign calcifications are also present. This examination is significantly limited due to patient's clinical condition. The entire br easts are not imaged. This is the best sequence of radiographs obtainable. MM/[id number] IMPRESSION: BI-RADS: 2-Benign FOLLOW UP: 1 Year Follow-up
== END 2021-06-04 14:04 | disposition home or self-care (01) ==
LOC: RADSHAW 14:08
PROVIDERS: PCP Family Medicine; Visit Provider Family Medicine
DX: Z12.31 Encounter for screening mammogram for malignant neoplasm of breast (principal)
CPT/HCPCS: 77067

== ENCOUNTER → 2021-07-29 13:39 | Outpatient (BNVA) | payer MEDICAID, SELFPAY | PROVIDERS: PCP Family Medicine; Visit Provider Nurse Practitioner Family | DX: R10.9 Unspecified abdominal pain (principal) | CPT/HCPCS: 81000; 87077; 87086; 87184 ==

== ENCOUNTER → 2021-09-28 16:43 | Outpatient (BNVA) | payer MEDICAID, SELFPAY | PROVIDERS: PCP Family Medicine; Visit Provider Nurse Practitioner Family | DX: N39.0 Urinary tract infection, site not specified (principal); I10 Essential (primary) hypertension; E11.59 Type 2 diabetes mellitus with other circulatory complications | CPT/HCPCS: 80053; 80061; 81000; 83036 ==

== ENCOUNTER 2021-10-13 11:56 | Emergency (ER) | payer MEDICAID, SELFPAY ==
[2021-10-13 11:57] VITALS: BP 186/53; PULSE 52; RESP 18; TEMP 37; O2SAT 99; BMI 63.8
--- NOTE | 2021-10-13 12:17 | XRR_ITS ---
PROCEDURE INFORMATION: Exam: XR Right Foot Exam date and time: 10/13/2021 12:17 PM Age: 61 years old Clinical indication: Trauma. Walker fell on right foot. Right foot swelling. Evaluate for Lisfranc injury. TECHNIQUE: Imaging protocol: XR Right foot. Views: 3 or more views. COMPARISON: CR Tibia and Fibula RIGHT [id number] 07/04/2019 3:10 PM FINDINGS: Bones/joints: Small plantar calcaneal spur. Possible mild Achilles tendinosis. Mild scattered degenerative changes. Soft tissues: There is dorsal soft tissue swelling involving the foot. XR/XR foot RT min 3V* [id number] IMPRESSION: 1. No acute fracture is identified. 2. Dorsal soft tissue swelling.
--- NOTE | 2021-10-13 12:20 | ED_ITS ---
HPI - General Adult General: Chief complaint: Extremity Injury, Lower Stated complaint: R FOOT INJURY Time Seen by Provider: 10/13/21 11:57 History of Present Illness: HPI narrative: Patient is a 61-year-old female history of morbid obesity, chronic oxygen requirement, who uses a walker presenting to the emergency room with complaints of 1 week of right lower extremity foot pain. Patient was told to come to the emergency room for evaluation for possible fracture. Patient tells me that last week, she was walking with a walker when her walker stepped onto her foot and says he has noticed pain and bruises over the dorsal anterior foot. Patient has no other focal complaints including ankle pain, lower extremity pain, other injuries. Patient denies hitting her head. Patient is not on any blood thinners. Patient is able to bear weight on the foot after the fall. Onset:1 week ago Duration:ongoing Location:home Severity:moderate Associated symptoms: Deny chest pain, dyspnea, nausea, rash, palpitations or vomiting Review of Systems Const: Denies: fever(s) or chills Eyes: Denies: change in vision ENMT: Denies: mouth pain Card: Denies: chest pain or palpitations Resp: Denies: dyspnea or non-productive cough GI: Denies: abdominal pain, nausea, vomiting or diarrhea : Denies: dysuria Musc: Reports: other (+R foot bruise and pain) Skin/Breast: Denies: rash or new lesions Neuro: Denies: weakness in extremities Psych: Reports: other (Normal mood) Kaiser/Lymph: Denies: easy bruising FORMERLY [facility], 1928–1983 ED PFSH: Medical History (Updated 10/13/21 @ 12:19 by Beto Washington MD) Acid reflux CAD (coronary artery disease) Cellulitis of left leg CHF (congestive heart failure) Diabetes Diabetes Hypertension Ischemic cardiomyopathy Lump of breast, right OAB (overactive bladder) Pain Recurrent UTI UTI (urinary tract infection) Surgical History H/O breast biopsy right H/O: section S/P cardiac cath Family History Other CAD (coronary artery disease) Hypertension Stroke Social History Alcohol intake: never Physical Exam Const: COMMON NORMALS: alert HENMT: COMMON NORMALS: atraumatic HEAD & SCALP: atraumatic MOUTH: moist mucous membranes not abnormal Eye: COMMON NORMALS: EOMs intact bilaterally and conjunctivae normal CONJUNCTIVA: Yes conjunctivae normal Neck/C-Spine: COMMON NORMALS: full ROM and supple Resp: COMMON NORMALS: normal respiratory effort and clear to auscultation bilaterally AUSCULTATION: clear to auscultation bilaterally Cardio: COMMON NORMALS: regular rate RATE: regular rate GI: COMMON NORMALS: Soft to palpation and non-tender PALPATION: Yes Soft to palpation Extremity: COMMON NORMALS: full ROM OTHER: +Anterior dorsal foot bruise, moderate tenderness to palpation over the anterior foot, no foot tenderness to palpation, no ankle tenderness palpation, 3+ DP/PT pulses, neurovascular exam of the right lower extremity intact Neuro: SENSORIUM/ORIENTATION: Yes alert MOTOR EXAM: No Abnormal motor strength present and Other motor observations present (no focal motor deficits) Psych: COMMON NORMALS: speech normal SPEECH: Yes normal speech MOOD & AFFECT: Yes euthymic mood Course Vital Signs: Vital signs: Vital Signs Temperature 98.6 F 10/13/21 11:57 Pulse Rate 52 L 10/13/21 13:35 Respiratory Rate 16 10/13/21 13:35 Blood Pressure 143/69 10/13/21 13:35 Pulse Oximetry 99 10/13/21 13:35 MDM - General Adult MDM Narrative: Medical decision making narrative: 61-year-old female presenting to the emergency room for evaluation of right anterior foot bruise and pain. On exam, patient has moderate tenderness to palpation of the anterior foot. Neurovascular exam is intact. X-ray showed no acute fracture. I have given patient follow up with our field nurse case manager to be seen by our outpatient podiatry for foot pain. Patient aware of a call from our field nurse case manager to schedule for appointment(s) and verbalizes understanding of the importance of following up. Rx tylenol PRN pain, menthol PRN pain Disposition: Discharge. Patient counseled regarding diagnostic impression, treatment plan. Patient given ED strict return precautions to return for continuation, worsening, or development of new symptoms. Instructed to f/u w/ PCP and podiatry regarding symptoms today. Patient verbalized understanding. Imaging Data^: Other Imaging: Radiologist's impression: [address] [id number] ReportSigned Patient: Nia Gomes #: [id number]: [id number]#:[id number]/Sex: 61 / FADM Date: 10/13/21Loc: ERRoom/Bed:Attending Dr: Ordering Provider/Ordering MD: Beto Washington MD Date of Service: 10/13/21 Procedure(s): XR foot RT min 3V* [id number] Accession Number(s): [id number] Report Number: [id number] PROCEDURE INFORMATION: Exam: XR Right Foot Exam date and time: 10/13/2021 12:17 PM Age: 61 years old Clinical indication: Trauma. Walker fell on right foot. Right foot swelling. Evaluate for Lisfranc injury. TECHNIQUE: Imaging protocol: XR Right foot. Views: 3 or more views. COMPARISON: CR Tibia and Fibula RIGHT [id number] 07/04/2019 3:10 PM FINDINGS: Bones/joints: Small plantar calcaneal spur. Possible mild Achilles tendinosis. Mild scattered degenerative changes. Soft tissues: There is dorsal soft tissue swelling involving the foot. XR/XR foot RT min 3V* [id number] IMPRESSION: 1. No acute fracture is identified. 2. Dorsal soft tissue swelling. Dictated By:Jesus Milianigned By:Ad Milian Date/Time:10/13/21 1249DD/ 1217 Discharge Plan Discharge Patient Disposition: Home Clinical Impression: Foot pain, Superficial bruising of foot Condition: Stable Prescriptions: New acetaminophen 500 mg tablet 500 mg PO Q6H PRN (Reason: pain) 5 Days Qty: 20 RF: 0 Biofreeze (menthol) 5 % gel 1 ea topical BID PRN (Reason: pain) 10 Days Qty: 1 RF: 0 No Action multivitamin Tablet 1 tab PO QAM RF: 0 acetaminophen [Tylenol] 325 mg capsule 325 mg PO Q6H PRNRF: 0 cholecalciferol (vitamin D3) 1,000 unit capsule 2,000 unit PO QDAY RF: 0 fluticasone propionate 50 mcg/actuation spray,suspension 1 spray INTRANASAL BID RF: 0 aspirin [Adult Aspirin Regimen] 81 mg tablet,delayed release (DR/EC) 81 mg PO DAILY RF: 0 GlucaGen HypoKit 1 mg recon soln 1 mg SUBCUT Q20M PRNRF: 0 cranberry 500 mg capsule 500 mg PO BID RF: 0 Symbicort 160-4.5 mcg/actuation HFA aerosol inhaler 2 puff INHALATION BID Qty: 10.2 RF: 5 atorvastatin 80 mg tablet See Rx Instructions .ROUTE .COMPLEX Qty: 90 RF: 1 carvedilol 6.25 mg tablet 6.25 mg PO DAILY Qty: 90 RF: 3 metformin 500 mg tablet 500 mg PO BID Qty: 180 RF: 1 lisinopril 2.5 mg tablet See Rx Instructions .ROUTE .COMPLEX Qty: 90 RF: 2 omeprazole 20 mg tablet,delayed release (DR/EC) 20 mg PO DAILY Qty: 90 RF: 3 Lantus U-100 Insulin 100 unit/mL solution 16 unit SUBCUT .COMPLEX RF: 0 ondansetron 4 mg tablet,disintegrating See Rx Instructions .ROUTE .COMPLEX Qty: 30 RF: 11 oxybutynin chloride 15 mg tablet extended release 24hr 15 mg PO QDAY Qty: 30 RF: 11 nitroglycerin 0.4 mg tablet, sublingual 0.4 mg sublingual Q5M Qty: 25 RF: 0 albuterol sulfate [ProAir HFA] 90 mcg/actuation HFA aerosol inhaler See Rx Instructions .ROUTE .COMPLEX Qty: 8.5 RF: 5 All Day Allergy (cetirizine) 10 mg capsule 10 mg PO QDAY Qty: 30 RF: 11 Brilinta 90 mg tablet See Rx Instructions .ROUTE .COMPLEX Qty: 60 RF: 4 pen needle, diabetic [TechLITE Pen Needle] 32 gauge x 5/32 needle See Rx Instructions .ROUTE .COMPLEX Qty: 100 RF: 3 ciprofloxacin HCl [Cipro] 500 mg tablet 500 mg PO BID 7 Days Qty: 14 RF: 0 furosemide 80 mg tablet See Rx Instructions .ROUTE .COMPLEX Qty: 30 RF: 11 Discharge Orders: Discharge ED (Routine); Ordered 10/13/21 Ordered By: Beto Washington Referrals: Wang Tillman, [Primary Care Provider] - Discharge Diet: Advance as tolerated Discharge Activity: Resume usual activity Patient Instructions: Arthralgia (ED) Activity Restrictions/Additional Instructions: Our field nurse case manager will have you follow-up with podiatry in the next few days. You would be expected to have a phone call with our field nurse case manager who will put you on the schedule. Come back if there is any worsening pain, swelling, numbness, difficulty moving the foot or any new extremity complaints Coding Level of Care Code ED Tourist Guide for Joey Cabral Exam Comprehensive
[2021-10-13] MEDS: acetaminophen 500 mg Tablet PO (12:58)
[2021-10-13 13:35] VITALS: BP 143/69; PULSE 52; RESP 16; O2SAT 99
--- NOTE | 2021-10-13 15:59 | DCPLANNER ---
manager of transportation had message to schedule a follow up appointment for patient with ortho. manager of transportation called the ortho clinic, spoke with Cecy, gave clinic patients information. manager of transportation was told that patients information would be printed and reviewed. Clinic will call patient with appointment information.
--- NOTE | 2021-10-13 18:11 | PC.NURSE ---
EMS arrived for transport. Pt transported home.
--- NOTE | 2021-10-15 08:13 | DCPLANNER ---
Addendum entered by Olga De La O 11/04/21 17:35: Patient had a follow up appointment scheduled for 10.20.21 with ortho - patient did not attend appointment. Original Note: Patient has a follow up appointment scheduled for Wednesday, October 20, 2021 at 3:[address] Rodriguez at ortho. Clinic will call patient with appointment information.
== END 2021-10-13 18:11 | disposition home or self-care (01) ==
PROVIDERS: Emergency Provider Emergency Medicine; PCP Family Medicine
DX: S90.31XA Contusion of right foot, initial encounter (principal); M79.671 Pain in right foot; Z79.82 Long term (current) use of aspirin; Z79.84 Long term (current) use of oral hypoglycemic drugs; Z79.4 Long term (current) use of insulin; I25.10 Atherosclerotic heart disease of native coronary artery without angina pectoris; I11.0 Hypertensive heart disease with heart failure; I50.9 Heart failure, unspecified; E11.9 Type 2 diabetes mellitus without complications; X58.XXXA Exposure to other specified factors, initial encounter
CPT/HCPCS: 73630; 99283

== ENCOUNTER 2021-12-02 23:03 | Emergency (ER) | payer MEDICAID, SELFPAY ==
[2021-12-02 23:05] VITALS: PULSE 57; RESP 16; TEMP 36.7; O2SAT 98; BMI 64.4
--- NOTE | 2021-12-02 23:13 | CTR_ITS ---
PROCEDURE INFORMATION: Exam: CT Abdomen And Pelvis With Contrast Exam date and time: 12/02/2021 11:13 PM Age: 61 years old Clinical indication: Other: Gross hematuria. ; Prior surgery; Surgery type: Coronary stents. Csection. ; Patient HX: Gross hematuria in card bag. TECHNIQUE: Imaging protocol: Computed tomography of the abdomen and pelvis with contrast. Radiation optimization: All CT scans at this facility use at least one of these dose optimization techniques: automated exposure control; mA and/or kV adjustment per patient size (includes targeted exams where dose is matched to clinical indication); or iterative reconstruction. Contrast material: VISI 320; Contrast volume: 95 ml; Contrast route: INTRAVENOUS (IV); COMPARISON: CR XR chest 1V portable [id number] 01/30/2021 7:46 PM RADIATION DOSE METRICS: Total DLP (mGy-cm): 2179.52 FINDINGS: Tubes, catheters and devices: A Card catheter is present. Liver: Normal. No mass. Gallbladder and bile ducts: The common bile duct is prominent measuring 9 mm in its midportion tapering to normal caliber within the pancreas. Pancreas: Normal. No ductal dilation. Spleen: Normal. No splenomegaly. Adrenal glands: Normal. No mass. Kidneys and ureters: Normal. No hydronephrosis. Stomach and bowel: There is a prominent hiatal hernia present measuring 7.4 cm transverse dimension containing the proximal stomach. Appendix: No evidence of appendicitis. Intraperitoneal space: Unremarkable. No free air. No significant fluid collection. Vasculature: Unremarkable. No abdominal aortic aneurysm. Lymph nodes: Unremarkable. No enlarged lymph nodes. Urinary bladder: Punctate gas densities seen within the bladder possibly secondary to instrumentation. However, cystitis cannot be entirely excluded. Reproductive: Unremarkable as visualized. Bones/joints: There is a diffuse loss of disc height seen within the thoracolumbar spine with vacuum disc phenomenon seen at the L3-L4 level compatible with degenerative disc disease. Soft tissues: There is some soft tissue attenuation superimposed over the Card balloon superiorly into the right and some gas densities are seen adjacent to the Card balloon. This could represent clotted blood. CT/CT abdomen pelvis w con* [id number] IMPRESSION: 1. A Card catheter is present. There is intermediate attenuation material that superimposes over the Card balloon superiorly on the right containing some gas densities. A gas densities also seen adjacent to the bladder wall anteriorly. These findings could represent clotted blood and gas densities possibly secondary to instrumentation although cystitis cannot be excluded. 2. Prominent hiatal hernia containing the proximal stomach 3. There is no evidence for ureteral obstruction
--- NOTE | 2021-12-02 23:16 | ED_ITS ---
HPI - Female Genitourinary General: Chief complaint: Urogenital-Female Stated complaint: BLOOD IN TIERNEY Time Seen by Provider: 12/02/21 23:09 Source: patient Mode of arrival: ambulatory Limitations: no limitations History of Present Illness: 61-year-old female states that she has a chronic Tierney in place. States that she had some slight blood out of Tierney yesterday and the nurse that does home health change did not tonight she has had increased blood with blood clots she does have blood clots in the Tierney at this time. She denies any pain denies any fever she is not on any blood thinners. Associated symptoms: Deny abdominal pain, headache(s) or nausea Review of Systems Const: Denies: fever(s), chills, body aches or change in appetite Eyes: Denies: blurry vision or eye discomfort ENMT: Denies: throat pain or dental pain Card: Denies: chest pain Resp: Denies: dyspnea GI: Denies: abdominal pain, nausea, vomiting or diarrhea : Reports: hematuria; Denies: dysuria Musc: Denies: neck pain or back pain Skin/Breast: Denies: rash Neuro: Denies: headache(s) Psych: Denies: depression Kaiser/Lymph: Denies: easy bruising All/Imm: Denies: urticaria PFSH ED PFSH: Medical History Acid reflux CAD (coronary artery disease) Cellulitis of left leg CHF (congestive heart failure) Diabetes Diabetes Hypertension Ischemic cardiomyopathy Lump of breast, right OAB (overactive bladder) Pain Recurrent UTI UTI (urinary tract infection) Surgical History H/O breast biopsy right H/O: section S/P cardiac cath Family History Other CAD (coronary artery disease) Hypertension Stroke Social History Alcohol intake: never Physical Exam Const: COMMON NORMALS: no acute distress and patient oriented x3 NUTRITIONAL APPEARANCE: obese HENMT: COMMON NORMALS: normocephalic and atraumatic HEAD & SCALP: normocephalic and atraumatic Eye: COMMON NORMALS: Equal, round and reactive pupils present and EOMs intact bilaterally PUPIL: Yes Equal, round and reactive pupils present Neck/C-Spine: COMMON NORMALS: full ROM and supple Chest: COMMONS NORMALS: normal inspection of the chest and normal palpation of entire chest wall Resp: COMMON NORMALS: normal respiratory effort, No retractions, No use of accessory muscles and clear to auscultation bilaterally AUSCULTATION: clear to auscultation bilaterally Cardio: COMMON NORMALS: regular rate, regular rhythm and No murmurs present (Cardio) RATE: regular rate RHYTHM: regular rhythm GI: COMMON NORMALS: Normal to inspection, nondistended, normoactive bowel sounds present, Soft to palpation, non-tender and no masses PALPATION: Yes Soft to palpation : OTHER: Tierney in place with blood clots noted Extremity: COMMON NORMALS: normal to inspection and full ROM Neuro: COMMON NORMALS: patient oriented x3, moves all extremities and no focal motor deficits Psych: COMMON NORMALS: mental status grossly normal, Normal thought process present and cooperative THOUGHT PROCESS: Normal thought process present Skin: COMMON NORMALS: no rashes or lesions noted and no wounds GENERAL SKIN EXAM: no rashes or lesions noted Course Vital Signs: Vital signs: Vital Signs Temperature 98.0 F 12/02/21 23:05 Pulse Rate 60 12/03/21 03:25 Respiratory Rate 16 12/03/21 03:25 Blood Pressure 164/52 12/03/21 03:25 Pulse Oximetry 99 12/03/21 03:25 MDM - Female Medical Decision Making Patient presents with hematuria likely from her recent catheter change did have blood clots we switched out the Tierney flushed and irrigated and its clear urine now. CT scan here showed the blood possible cystitis will treat with antibiotics and have her follow-up with urology. Lab Data : 12/02/21 23:46 12/02/21 23:46 Radiology Impressions Abdomen/Pelvis CT 12/02/21 23:13 IMPRESSION: 1. A Tierney catheter is present. There is intermediate attenuation material that superimposes over the Tierney balloon superiorly on the right containing some gas densities. A gas densities also seen adjacent to the bladder wall anteriorly. These findings could represent clotted blood and gas densities possibly secondary to instrumentation although cystitis cannot be excluded. 2. Prominent hiatal hernia containing the proximal stomach 3. There is no evidence for ureteral obstruction Laboratory Results WBC 8.8 10^3/uL (4.0-10.0) 12/02/21 23:46 RBC 3.15 10^6/uL (4.1-5.3) L 12/02/21 23:46 Hgb 10.0 g/dL (11.5-15.3) L 12/02/21 23:46 Hct 31.0 % (37.0-47.0) L 12/02/21 23:46 MCV 98.4 fl (81-99) 12/02/21 23:46 MCH 31.7 pg (28.0-34.0) 12/02/21 23:46 MCHC 32.3 g/dL (30.0-36.0) 12/02/21 23:46 RDW 12.4 % (12.1-15.1) 12/02/21 23:46 Plt Count 367 10^3/cmm (130-400) 12/02/21 23:46 MPV 9.0 fL (7.4-10.4) 12/02/21 23:46 Neut % (Auto) 60.6 % 12/02/21 23:46 Lymph % (Auto) 27.8 % 12/02/21 23:46 [place] % (Auto) 7.6 % 12/02/21 23:46 Eos % (Auto) 3.2 % 12/02/21 23:46 Baso % (Auto) 0.6 % 12/02/21 23:46 Neut # (Auto) 5.31 10^3/uL (1.8-7.7) 12/02/21 23:46 Lymph # (Auto) 2.4 10^3/uL (0.8-4.8) 12/02/21 23:46 [place] # (Auto) 0.7 10^3/uL (0.2-0.9) 12/02/21 23:46 Eos # (Auto) 0.3 10^3/uL (0.0-0.8) 12/02/21 23:46 Baso # (Auto) 0.1 10^3/uL (0.0-0.1) 12/02/21 23:46 Nucleated RBC % (auto) 0 % 12/02/21 23:46 Nucleated RBCs # 0.0 /100WBC 12/02/21 23:46 PT 13.20 SECONDS (12.1-14.9) 12/02/21 23:46 INR 0.97 (0.8-1.2) 12/02/21 23:46 Sodium 138 mmol/L (136-145) 12/02/21 23:46 Potassium 4.3 mmol/L (3.5-5.1) 12/02/21 23:46 Chloride 100 mmol/L (98-107) 12/02/21 23:46 Carbon Dioxide 26 mmol/L (22-29) 12/02/21 23:46 Anion Gap 16.3 (5-19) 12/02/21 23:46 BUN 42 mg/dL (8-23) H 12/02/21 23:46 Creatinine 0.9 mg/dL (0.5-0.9) 12/02/21 23:46 GFR Calculation 63.2 mL/min (90-130) L 12/02/21 23:46 Glucose 153 mg/dL (65-115) H 12/02/21 23:46 Calculated Osmolality 300 mOsm/kg (285-295) H 12/02/21 23:46 Calcium 8.4 mg/dL (8.5-10.5) L 12/02/21 23:46 Total Bilirubin 0.2 mg/dL (0.15-1.2) 12/02/21 23:46 AST 13 U/L (0-32) 12/02/21 23:46 ALT 10 U/L (0-33) 12/02/21 23:46 Alkaline Phosphatase 105 IU/L (35-105) 12/02/21 23:46 Total Protein 6.5 g/dL (6.6-8.7) L 12/02/21 23:46 Albumin 4.1 g/dL (3.5-5.2) 12/02/21 23:46 Globulin 2.4 g/dL (1.3-4.6) 12/02/21 23:46 Urine Color Red (Yellow) 12/03/21 01:11 Urine Appearance Bloody (CLEAR) A 12/03/21 01:11 Urine pH 6.5 (5-7) 12/03/21 01:11 Ur Specific [place] 1.010 (1.005-1.030) 12/03/21 01:11 Urine Protein 3+ (Negative) H 12/03/21 01:11 Urine Glucose (UA) Norm (Normal) 12/03/21 01:11 Urine Ketones Negative (Negative) 12/03/21 01:11 Urine Blood 3+ (Negative) H 12/03/21 01:11 Urine Nitrate Negative (Negative) 12/03/21 01:11 Urine Bilirubin Neg (Negative) 12/03/21 01:11 Urine Urobilinogen Norm mg/dL (Negative) 12/03/21 01:11 Ur Leukocyte Esterase Negative (Negative) 12/03/21 01:11 Urine RBC Too numerous to cnt /hpf (0-2) H 12/03/21 01:11 Urine WBC 5-10 /hpf (0-5) H 12/03/21 01:11 Ur Squamous Epith Cells 0-4 /hpf (0-5) H 12/03/21 01:11 Amorphous Sediment Not Reportable 12/03/21 01:11 Urine Bacteria Trace /hpf (NONE) 12/03/21 01:11 Discharge Plan Discharge Patient Disposition: Home Clinical Impression: Hematuria, Complication, blocked Tierney catheter Condition: Stable Prescriptions: New cephalexin 500 mg capsule 500 mg PO TID 7 Days Qty: 21 0RF No Action multivitamin Tablet 1 tab PO QAM 0RF acetaminophen [Tylenol] 325 mg capsule 325 mg PO Q6H PRN0RF cholecalciferol (vitamin D3) 1,000 unit capsule 2,000 unit PO QDAY 0RF fluticasone propionate 50 mcg/actuation spray,suspension 1 spray INTRANASAL BID 0RF aspirin [Adult Aspirin Regimen] 81 mg tablet,delayed release (DR/EC) 81 mg PO DAILY 0RF GlucaGen HypoKit 1 mg recon soln 1 mg SUBCUT Q20M PRN0RF Rx Instructions: until target blood sugar attained cranberry 500 mg capsule 500 mg PO BID 0RF Rx Instructions: administer with meals Symbicort 160-4.5 mcg/actuation HFA aerosol inhaler 2 puff INHALATION BID Qty: 10.2 5RF atorvastatin 80 mg tablet See Rx Instructions .ROUTE .COMPLEX Qty: 90 1RF Dose Instruction: TAKE ONE TABLET BY MOUTH ONCE DAILY Rx Instructions: TAKE ONE TABLET BY MOUTH ONCE DAILY carvedilol 6.25 mg tablet 6.25 mg PO DAILY Qty: 90 3RF lisinopril 2.5 mg tablet See Rx Instructions .ROUTE .COMPLEX Qty: 90 2RF Dose Instruction: TAKE ONE TABLET BY MOUTH ONCE DAILY Rx Instructions: TAKE ONE TABLET BY MOUTH ONCE DAILY omeprazole 20 mg tablet,delayed release (DR/EC) 20 mg PO DAILY Qty: 90 3RF Lantus U-100 Insulin 100 unit/mL solution 16 unit SUBCUT .COMPLEX 0RF Rx Instructions: 16 units SUBCUT ; ondansetron 4 mg tablet,disintegrating See Rx Instructions .ROUTE .COMPLEX Qty: 30 11RF Dose Instruction: DISSOLVE 1 TABLET ON THE TONGUE EVERY 6 HOURS NEEDED FOR NAUSEA AND VOMITING Rx Instructions: DISSOLVE 1 TABLET ON THE TONGUE EVERY 6 HOURS NEEDED FOR NAUSEA AND VOMITING oxybutynin chloride 15 mg tablet extended release 24hr 15 mg PO QDAY Qty: 30 11RF nitroglycerin 0.4 mg tablet, sublingual 0.4 mg sublingual Q5M Qty: 25 0RF Rx Instructions: do not exceed 3 doses per episode Call ambulance if you have to take the third Nitro. albuterol sulfate [ProAir HFA] 90 mcg/actuation HFA aerosol inhaler See Rx Instructions .ROUTE .COMPLEX Qty: 8.5 5RF Dose Instruction: INHALE 2 PUFFS BY MOUTH EVERY 4 HOURS NEEDED Rx Instructions: INHALE 2 PUFFS BY MOUTH EVERY 4 HOURS NEEDED All Day Allergy (cetirizine) 10 mg capsule 10 mg PO QDAY Qty: 30 11RF Brilinta 90 mg tablet See Rx Instructions .ROUTE .COMPLEX Qty: 60 4RF Dose Instruction: TAKE ONE TABLET BY MOUTH TWICE A DAY Rx Instructions: TAKE ONE TABLET BY MOUTH TWICE A DAY pen needle, diabetic [TechLITE Pen Needle] 32 gauge x 5/32 needle See Rx Instructions .ROUTE .COMPLEX Qty: 100 3RF Dose Instruction: USE DIRECTED ONE TIME DAILY WITH LANTUS Rx Instructions: USE DIRECTED ONE TIME DAILY WITH LANTUS ciprofloxacin HCl [Cipro] 500 mg tablet 500 mg PO BID 7 Days Qty: 14 0RF furosemide 80 mg tablet See Rx Instructions .ROUTE .COMPLEX Qty: 30 11RF Dose Instruction: TAKE 1 TABLET BY MOUTH DAILY Rx Instructions: TAKE 1 TABLET BY MOUTH DAILY metformin 500 mg tablet 500 mg PO BID Qty: 180 3RF Discharge Orders: Discharge ED (Routine); Ordered 12/03/21 Ordered By: Shaye Sanchez Referrals: Wang Tillman DO [Primary Care Provider] - Bipin Kumar MD [Physician] - 1-3 days Discharge Diet: Advance as tolerated Discharge Activity: Resume usual activity Patient Instructions: Tierney Catheter Placement and Care (ED), Hematuria (ED) Coding Level of Care Code ED Media Production Manager for Chg Fwd Exam Comprehensive
[2021-12-03 00:05] LABS: INR 0.97 (0.8-1.2)
[2021-12-03 00:08] LABS: Basophils # 0.1 10^3/uL (0.0-0.1); Basophils % 0.6 %; Eosinophils # 0.3 10^3/uL (0.0-0.8); Eosinophils % 3.2 %; Lymphocytes # 2.4 10^3/uL (0.8-4.8); Lymphocytes % 27.8 %; Mean Corpuscular HGB Conc 32.3 g/dL (30.0-36.0); Mean Corpuscular Hemoglobin 31.7 pg (28.0-34.0); Mean Corpuscular Volume 98.4 fl (81-99); Monocytes # 0.7 10^3/uL (0.2-0.9); Monocytes % 7.6 %; Neutrophils # 5.31 10^3/uL (1.8-7.7); Neutrophils % 60.6 %; Nucleated Red Blood Cells % 0 %; Platelet Count 367 10^3/cmm (130-400); Red Blood Count 3.15 10^6/uL (4.1-5.3); Red Cell Distribution Width 12.4 % (12.1-15.1); White Blood Count 8.8 10^3/uL (4.0-10.0)
[2021-12-03 00:09] LABS: Alanine Aminotransferase 10 U/L (0-33); Albumin Level 4.1 g/dL (3.5-5.2); Alkaline Phosphatase 105 IU/L (35-105); Anion Gap 16.3 (5-19); Aspartate Amino Transferase 13 U/L (0-32); Blood Urea Nitrogen 42 mg/dL (8-23); Calcium 8.4 mg/dL (8.5-10.5); Carbon Dioxide 26 mmol/L (22-29); Chloride 100 mmol/L (98-107); Globulin 2.4 g/dL (1.3-4.6); Glomerular Filtration Rate 63.2 mL/min (90-130); Glucose 153 mg/dL (65-115); Osmolality Calculated 300 mOsm/kg (285-295); Potassium 4.3 mmol/L (3.5-5.1); Sodium 138 mmol/L (136-145); Total Bilirubin 0.2 mg/dL (0.15-1.2); Total Protein 6.5 g/dL (6.6-8.7)
[2021-12-03] MEDS: iodixanol 320 mg/mL 100mL Btl IV (00:13)
[2021-12-03 00:14] VITALS: BP 168/50; RESP 18
[2021-12-03 01:43] LABS: Add Urine Culture? Yes; Bacteria Urine TRACE /hpf; Bilirubin Urine Neg (Negative); Blood Urine 3+ (Negative); Glucose Urine UA Norm (Normal); Ketones Urine Negative (Negative); Leukocyte Esterase Urine Negative (Negative); Nitrate Urine Negative (Negative); Protein Urine 3+ (Negative); RBC Urine TOO NUMEROUS TO CNT /hpf (0-2); Squamous Epithelial Cell Urine 0-4 /hpf (0-5); Urine Appearance Bloody (CLEAR); Urine Color Red (Yellow); Urobilinogen Urine Norm (Negative); pH Urine 6.5 (5-7)
[2021-12-03 01:44] LABS: Add Urine Microscopic? YES
--- NOTE | 2021-12-03 02:19 | PC.NURSE ---
I have changed patients drainage bag after manually flushing catheter 3 times. Each time I have flushed the catheter several small blood clots come out of the bladder. I am able to flush and pull out same amount of fluid that I have put in. The urine is still red, but is clearing.
[2021-12-03 03:25] VITALS: BP 164/52; PULSE 60; RESP 16; O2SAT 99
--- NOTE | 2021-12-03 05:00 | PC.NURSE ---
Pt. waiting on EMS to come transfer her to her home. Pt.'s urine is now yellow and clear.
--- NOTE | 2021-12-03 07:43 | PC.NURSE ---
WHILE AT BEDSIDE PT IS IN NAD PT IS RESTING QUIETLY WITH EYES CLOSED SUPINE IN BED.
--- NOTE | 2021-12-03 09:19 | PC.NURSE ---
WHILE AT BEDSIDE PT IS IN NAD. PT ASSISTED WITH TV AND DENIES ANY FURTHER NEEDS.
--- NOTE | 2021-12-03 09:22 | DCPLANNER ---
Addendum entered by Olga De La O 01/07/22 08:32: Patient had a follow up appointment scheduled with Dr. Kumar - appointment was cancelled Addendum entered by Olga De La O 12/07/21 07:09: Patient has a follow up appointment scheduled for Monday, December 15, 2021 at 1:[address] Kumar. Clinic will call patient with appointment information. Original Note: auto fleet manager had message to schedule a follow up appointment for patient with Dr. Kumar. auto fleet manager emailed patients information to Praveena Shanks in the office of Dr. Kumar. Patients information will be printed and reviewed. Clinic will call patient with appointment information.
[2021-12-03 10:16] VITALS: BP 185/55; PULSE 56; RESP 16; O2SAT 97
--- NOTE | 2021-12-03 10:16 | PC.NURSE ---
informed dr. Jerome of bp of 185/55 verbal order to continue with dc with instruction to take prescribed anti hypertensives at home.
== END 2021-12-03 10:18 | disposition home or self-care (01) ==
PROVIDERS: Emergency Provider Emergency Medicine; PCP Family Medicine
DX: T83.098A Other mechanical complication of other urinary catheter, initial encounter (principal); Z79.84 Long term (current) use of oral hypoglycemic drugs; Z79.82 Long term (current) use of aspirin; Z79.4 Long term (current) use of insulin; I25.10 Atherosclerotic heart disease of native coronary artery without angina pectoris; I11.0 Hypertensive heart disease with heart failure; I50.9 Heart failure, unspecified; E11.9 Type 2 diabetes mellitus without complications
CPT/HCPCS: 74177; 80053; 81001; 85025; 85610; 87077; 87086; 87186; 99284; Q9967

== ENCOUNTER 2022-01-13 | Outpatient (CLI) | payer MEDICAID, SELFPAY | END 2022-01-13 23:59 | disposition home or self-care (01) | LOC: LAB 05-03 15:44 | PROVIDERS: PCP Family Medicine; Visit Provider Family Medicine | DX: Z46.6 Encounter for fitting and adjustment of urinary device (principal) | CPT/HCPCS: 81003 ==

== ENCOUNTER → 2022-02-24 15:37 | Outpatient (BNVA) | payer MEDICAID, SELFPAY | PROVIDERS: PCP Family Medicine; Visit Provider Nurse Practitioner Family | DX: Z00.00 Encounter for general adult medical examination without abnormal findings (principal); Z79.899 Other long term (current) drug therapy | CPT/HCPCS: 81003 ==

== ENCOUNTER → 2022-03-29 11:51 | Outpatient (BNVA) | payer MEDICAID, SELFPAY | PROVIDERS: PCP Family Medicine; Visit Provider Family Medicine | DX: E11.59 Type 2 diabetes mellitus with other circulatory complications (principal); E66.01 Morbid (severe) obesity due to excess calories; J44.9 Chronic obstructive pulmonary disease, unspecified; I35.0 Nonrheumatic aortic (valve) stenosis; I50.9 Heart failure, unspecified; E11.9 Type 2 diabetes mellitus without complications | CPT/HCPCS: 80053; 83036; 85025 ==

== ENCOUNTER → 2022-04-05 12:59 | Outpatient (BNVA) | payer MEDICAID, SELFPAY | PROVIDERS: PCP Family Medicine; Visit Provider Nurse Practitioner Family | DX: D64.9 Anemia, unspecified (principal); I50.9 Heart failure, unspecified | CPT/HCPCS: 80053; 85025 ==

== ENCOUNTER → 2022-04-07 16:38 | Outpatient (BNVA) | payer MEDICAID, SELFPAY | PROVIDERS: PCP Family Medicine; Visit Provider Family Medicine | DX: I50.9 Heart failure, unspecified (principal) | CPT/HCPCS: 80053 ==

== ENCOUNTER → 2022-04-26 08:01 | Outpatient (BNVA) | payer MEDICAID, SELFPAY | PROVIDERS: PCP Family Medicine; Visit Provider Nurse Practitioner Family | DX: D64.9 Anemia, unspecified (principal); E87.5 Hyperkalemia | CPT/HCPCS: 80053; 85025 ==

== ENCOUNTER → 2022-05-19 12:53 | Outpatient (BNVA) | payer MEDICAID, SELFPAY | PROVIDERS: PCP Family Medicine; Visit Provider Nurse Practitioner Family | DX: I50.9 Heart failure, unspecified (principal) | CPT/HCPCS: 80053; 82607; 85025 ==

== ENCOUNTER → 2022-06-07 14:11 | Outpatient (BNVA) | payer MEDICAID, SELFPAY | PROVIDERS: PCP Family Medicine; Visit Provider Nurse Practitioner Family | DX: R39.9 Unspecified symptoms and signs involving the genitourinary system (principal) | CPT/HCPCS: 81003; 87077; 87086; 87184 ==

== ENCOUNTER → 2022-08-24 16:53 | Outpatient (BNVA) | payer MEDICAID, SELFPAY | PROVIDERS: PCP Family Medicine; Visit Provider Family Medicine | DX: R30.0 Dysuria (principal) | CPT/HCPCS: 81000; 87077; 87086; 87184 ==

== ENCOUNTER 2022-12-03 05:52 | Emergency (ER) | payer MEDICAID, SELFPAY ==
[2022-12-03 05:54] VITALS: BP 215/77; PULSE 58; RESP 18; TEMP 37.1; O2SAT 100; BMI 44.3
--- NOTE | 2022-12-03 05:59 | ED_ITS ---
HPI - Female Genitourinary General: Chief complaint: Urogenital-Female Stated complaint: POSSIBLE UTI Time Seen by Provider: 12/03/22 05:59 History of Present Illness: Ms. Gomes is a 62-year-old lady with complex past medical history including but not limited to morbid obesity, decreased mobility, hypertension, hyperlipidemia, chronic hypoxic respiratory failure secondary to COPD, CHF, urinary incontinence with indwelling Bonilla catheter presenting to the emergency department for concern over urinary tract infection. She reports having a Bonilla catheter last changed approximately 4 months ago just before she left from a [place] [facility] facility. She has not had it changed since that time and apparently lost her home health. She started having increased lower abdominal and bladder spasming and pain over the past few days. She has also noticed foul-smelling urine. Intensity of symptoms is moderate. Course has persisted. She notes various other maladies but these are mostly chronic in nature. No other specific changes in health, exacerbating, or alleviating factors identified. Onset (ago): day(s) Location of symptoms: suprapubic and pelvis Severity: moderate Quality of pain: cramping and other Vaginal discharge: none Urinary symptoms: Difficulty Urinating, Dysuria, Foul Smelling Urine and Urgency Exacerbating factors: none Relieving factors: none Associated symptoms: Reports no associated symptoms Review of Systems General: Reports: 10 or more systems reviewed and unremarkable except in HPI and below PFSH ED PFSH: Medical History Acid reflux CAD (coronary artery disease) Cellulitis of left leg CHF (congestive heart failure) Diabetes Diabetes Hypertension Ischemic cardiomyopathy Lump of breast, right OAB (overactive bladder) Pain Recurrent UTI UTI (urinary tract infection) Surgical History H/O breast biopsy right H/O: section S/P cardiac cath Family History Other CAD (coronary artery disease) Hypertension Stroke Social History Smoking and tobacco status: former smoker Alcohol intake: never Physical Exam Const: COMMON NORMALS: alert GENERAL APPEARANCE: cooperative, well dev eloped and ill appearing (Chronically) HENMT: COMMON NORMALS: normocephalic and atraumatic HEAD & SCALP: normocephalic and atraumatic THROAT: posterior oropharynx normal Eye: COMMON NORMALS: conjunctivae normal CONJUNCTIVA: Yes conjunctivae normal SCLERA: sclerae normal Neck/C-Spine: COMMON NORMALS: supple GENERAL: Yes trachea midline Resp: COMMON NORMALS: normal respiratory effort and clear to auscultation bilaterally EFFORT & INSPECTION: Yes able to speak in complete sentences AUSCULTATION: clear to auscultation bilaterally Cardio: COMMON NORMALS: regular rate and regular rhythm RATE: regular rate RHYTHM: regular rhythm GI: COMMON NORMALS: Soft to palpation PALPATION: Yes Soft to palpation and No Tenderness to palpation present (GI) Extremity: GENERAL: Yes normal exam except as noted and Yes edema Neuro: COMMON NORMALS: moves all extremities SENSORIUM/ORIENTATION: Yes alert and No Orientation impaired Psych: COMMON NORMALS: mental status grossly normal and Normal thought process present THOUGHT PROCESS: Normal thought process present Course Vital Signs: Vital signs: Vital Signs Temperature 98.7 F 12/03/22 05:54 Pulse Rate 85 12/03/22 10:45 Respiratory Rate 18 12/03/22 10:45 Blood Pressure 129/70 12/03/22 10:45 Pulse Oximetry 96 12/03/22 10:45 Oxygen Delivery Me thod 12/03/22 06:28 Oxygen Flow Rate 3 12/03/22 06:28 MDM - Female Medical Decision Making 62-year-old lady with very complex past medical history presenting with concern over UTI in the context of Bonilla catheter that has not been adequately maintained. She also endorses various other concerns. Exam is nonfocal and as noted above. EKG notable for sinus bradycardia or junctional rhythm, left axis deviation, interventricular conduction delay, no STEMI Labs notable for no leukocytosis, near baseline normocytic anemia. Metabolic panel with perhaps mild evidence of dehydration. Patient's creatinine has varied in the past. Urinalysis is concerning for urinary tract infection. Prior cultures reviewed. Given physical exam and clinical history provided I do not believe that there is indication for imaging at this time. Bonilla catheter was exchanged. Most likely etiology of patient's symptoms is UTI. Patient also has likely superficial fungal infection of the skin. Patient is appropriate for outpatient management with antibiotics and antifungal. The results of ED evaluation were discussed with the patient including prescriptions and/or symptomatic cares (if applicable) including appropriate and responsible use, followup plan, and return precautions. The patient verbalized understanding and felt safe for discharge. Medical Records I reviewed the patient's medical records. Lab Data I reviewed the patient's lab results. 12/03/22 06:15 12/03/22 06:15 Laboratory Results WBC 9.4 10^3/uL (4.0-10.0) 12/03/22 06:15 RBC 3.40 10^6/uL (4.1-5.3) L 12/03/22 06:15 Hgb 10.6 g/dL (11.5-15.3) L 12/03/22 06:15 Hct 32.9 % (37.0-47.0) L 12/03/22 06:15 MCV 96.8 fl (81-99) 12/03/22 06:15 MCH 31.2 pg (28.0-34.0) 12/03/22 06:15 MCHC 32.2 g/dL (30.0-36.0) 12/03/22 06:15 RDW 12.2 % (12.1-15.1) 12/03/22 06:15 Plt Count 446 10^3/cmm (130-400) H 12/03/22 06:15 MPV 9.0 fL (7.4-10.4) 12/03/22 06:15 Neut % (Auto) 66.9 % 12/03/22 06:15 Lymph % (Auto) 20.8 % 12/03/22 06:15 [place] % (Auto) 7.4 % 12/03/22 06:15 Eos % (Auto) 3.8 % 12/03/22 06:15 Baso % (Auto) 0.6 % 12/03/22 06:15 Neut # (Auto) 6.26 10^3/uL (1.8-7.7) 12/03/22 06:15 Lymph # (Auto) 2.0 10^3/uL (0.8-4.8) 12/03/22 06:15 [place] # (Auto) 0.7 10^3/uL (0.2-0.9) 12/03/22 06:15 Eos # (Auto) 0.4 10^3/uL (0.0-0.8) 12/03/22 06:15 Baso # (Auto) 0.1 10^3/uL (0.0-0.1) 12/03/22 06:15 Nucleated RBC % (auto) 0 % 12/03/22 06:15 Nucleated RBCs # 0.0 /100WBC 12/03/22 06:15 Sodium 133 mmol/L (136-145) L 12/03/22 06:15 Potassium 4.2 mmol/L (3.5-5.1) 12/03/22 06:15 Chloride 94 mmol/L (98-107) L 12/03/22 06:15 Carbon Dioxide 25 mmol/L (22-29) 12/03/22 06:15 Anion Gap 18.2 (5-19) 12/03/22 06:15 BUN 40 mg/dL (8-23) H 12/03/22 06:15 Creatinine 1.5 mg/dL (0.5-0.9) H 12/03/22 06:15 GFR Calculation 35.0 mL/min (90-130) L 12/03/22 06:15 Glucose 168 mg/dL (65-115) H 12/03/22 06:15 Calculated Osmolality 290 mOsm/kg (285-295) 12/03/22 06:15 Calcium 9.8 mg/dL (8.5-10.5) 12/03/22 06:15 Total Bilirubin 0.2 mg/dL (0.15-1.2) 12/03/22 06:15 AST 12 U/L (0-32) 12/03/22 06:15 ALT 7 U/L (0-33) 12/03/22 06:15 Alkaline Phosphatase 115 U/L (35-105) H 12/03/22 06:15 Total Protein 7.8 g/dL (6.6-8.7) 12/03/22 06:15 Albumin 4.0 g/dL (3.5-5.2) 12/03/22 06:15 Globulin 3.8 g/dL (1.3-4.6) 12/03/22 06:15 Urine Color Yellow (Yellow) 12/03/22 06:28 Urine Appearance Cloudy (CLEAR) A 12/03/22 06:28 Urine pH 7 (5-7) 12/03/22 06:28 Ur Specific Prole 1.010 (1.005-1.030) 12/03/22 06:28 Urine Protein 3+ (Negative) H 12/03/22 06:28 Urine Glucose (UA) Norm (Normal) 12/03/22 06:28 Urine Ketones Negative (Negative) 12/03/22 06:28 Urine Blood 3+ (Negative) H 12/03/22 06:28 Urine Nitrate Negative (Negative) 12/03/22 06:28 Urine Bilirubin Neg (Negative) 12/03/22 06:28 Urine Urobilinogen Norm mg/dL (Negative) 12/03/22 06:28 Ur Leukocyte Esterase 2+ (Negative) H 12/03/22 06:28 Urine RBC 25-40 /hpf (0-2) H 12/03/22 06:28 Urine WBC Too numerous to cnt /hpf (0-5) H 12/03/22 06:28 Ur Squamous Epith Cells Rare /hpf (0-5) 12/03/22 06:28 Amorphous Sediment Not Reportable 12/03/22 06:28 Urine Bacteria 4+ /hpf (NONE) H 12/03/22 06:28 Discharge Plan Discharge Patient Disposition: Home Clinical Impression: Complicated urinary tract infection, Encounter for Bonilla catheter replacement, Normocytic anemia, Dehydration, mild, Candidal skin infection Condition: Stable Prescriptions: New fluconazole 150 mg tablet 150 mg PO DAILY Qty: 1 0RF Rx Instructions: administer on 12/05/22 amoxicillin-pot clavulanate 875-125 mg tablet 1 tab PO BID Qty: 20 0RF No Action multivitamin Tablet 1 tab PO QAM acetaminophen [Tylenol] 325 mg capsule 325 mg PO Q6H PRN cholecalciferol (vitamin D3) 1,000 unit capsule 2,000 unit PO QDAY aspirin [Adult Aspirin Regimen] 81 mg tablet,delayed release (DR/EC) 81 mg PO DAILY GlucaGen HypoKit 1 mg recon soln 1 mg SUBCUT Q20M PRN Rx Instructions: until target blood sugar attained cranberry 500 mg capsule 500 mg PO BID Rx Instructions: administer with meals Symbicort 160-4.5 mcg/actuation HFA aerosol inhaler 2 puff INHALATION BID Qty: 10.2 5RF omeprazole 20 mg tablet,delayed release (DR/EC) 20 mg PO DAILY Qty: 90 3RF nitroglycerin 0.4 mg tablet, sublingual 0.4 mg sublingual Q5M Qty: 25 0RF Rx Instructions: do not exceed 3 doses per episode Call ambulance if you have to take the third Nitro. pen needle, diabetic [TechLITE Pen Needle] 32 gauge x needle See Rx Instructions .ROUTE .COMPLEX Qty: 100 3RF Dose Instruction: USE DIRECTED ONE TIME DAILY WITH LANTUS Rx Instructions: USE DIRECTED ONE TIME DAILY WITH LANTUS oxybutynin chloride 15 mg tablet extended release 24hr 15 mg PO QDAY Qty: 30 11RF lisinopril 2.5 mg tablet See Rx Instructions .ROUTE .COMPLEX Qty: 90 2RF Dose Instruction: TAKE ONE TABLET BY MOUTH ONCE DAILY Rx Instructions: TAKE ONE TABLET BY MOUTH ONCE DAILY atorvastatin 80 mg tablet See Rx Instructions .ROUTE .COMPLEX Qty: 90 1RF Dose Instruction: TAKE ONE TABLET BY MOUTH ONCE DAILY Rx Instructions: TAKE ONE TABLET BY MOUTH ONCE DAILY All Day Allergy (cetirizine) 10 mg capsule 10 mg PO QDAY Qty: 30 11RF Brilinta 90 mg tablet See Rx Instructions .ROUTE .COMPLEX Qty: 60 4RF Dose Instruction: TAKE ONE TABLET BY MOUTH TWICE A DAY Rx Instructions: TAKE ONE TABLET BY MOUTH TWICE A DAY metformin 500 mg tablet See Rx Instructions .ROUTE .COMPLEX Qty: 180 1RF Dose Instruction: TAKE ONE TABLET BY MOUTH TWICE A DAY Rx Instructions: TAKE ONE TABLET BY MOUTH TWICE A DAY nystatin 100,000 unit/gram cream See Rx Instructions .ROUTE .COMPLEX Qty: 30 1RF Dose Instruction: APPLY ONE (1) APPLICATION TOPICALLY TWICE A DAY Rx Instructions: APPLY ONE (1) APPLICATION TOPICALLY TWICE A DAY albuterol sulfate [ProAir HFA] 90 mcg/actuation HFA aerosol inhaler See Rx Instructions .ROUTE .COMPLEX Qty: 8.5 0RF Dose Instruction: INHALE TWO (2) PUFFS BY MOUTH EVERY 12 HOURS NEEDED Rx Instructions: INHALE TWO (2) PUFFS BY MOUTH EVERY 12 HOURS NEEDED furosemide 80 mg tablet See Rx Instructions .ROUTE .COMPLEX Qty: 30 11RF Dose Instruction: TAKE 1 TABLET BY MOUTH DAILY Rx Instructions: TAKE 1 TABLET bid BY MOUTH DAILY insulin glargine [Lantus Solostar U-100 Insulin] 100 unit/mL (3 mL) insulin pen See Rx Instructions .ROUTE .COMPLEX Qty: 6 12RF Dose Instruction: INJECT SUBCUTANEOUSLY 12 UNITS DAILY Rx Instructions: INJECT SUBCUTANEOUSLY 12 UNITS DAILY ondansetron 4 mg tablet,disintegrating See Rx Instructions .ROUTE .COMPLEX Qty: 30 0RF Dose Instruction: DISSOLVE ONE (1) TABLET ON TOP OF THE TONGUE WHERE IT WILL DISSOLVE THEN SWALLOW EVERY 6 HOURS NEEDED Rx Instructions: DISSOLVE ONE (1) TABLET ON TOP OF THE TONGUE WHERE IT WILL DISSOLVE THEN SWALLOW EVERY 6 HOURS NEEDED carvedilol 6.25 mg tablet See Rx Instructions .ROUTE .COMPLEX Qty: 90 3RF Dose Instruction: TAKE ONE TABLET BY MOUTH ONCE DAILY Rx Instructions: TAKE ONE TABLET BY MOUTH ONCE DAILY fluticasone propionate 50 mcg/actuation spray,suspension See Rx Instructions .ROUTE .COMPLEX Qty: 16 0RF Dose Instruction: USE ONE (1) SPRAY IN EACH NOSTRIL ONCE DAILY Rx Instructions: USE ONE (1) SPRAY IN EACH NOSTRIL ONCE DAILY Discharge Orders: Discharge ED (Routine); Ordered 12/03/22 Ordered By: Sammy Adkins Referrals: Wang Tillman, [Primary Care Provider] - Discharge Diet: Usual diet Discharge Activity: Increase activity as tolerated Patient Instructions: Urinary Tract Infection in Women (ED), Bonilla Catheter Placement and Care (ED), Skin Yeast Infection (ED), Opioid Safety Activity Restrictions/Additional Instructions: Thank you for visiting the emergency department. You were seen and evaluated for urinary concerns. After exchange of her catheter you were found to have a urinary tract infection which will be treated with antibiotics. You also likely have a fungal skin infection. This will be treated. Please also use topical nystatin as previously prescribed. Your labs do demonstrate mild dehydration. I recommend follow-up with your primary care provider and repeat labs in 1 week to ensure resolution electrolyte abnormalities and improvement in kidney function. Return to the emergency department for uncontrolled symptoms or anything else that you are concerned about and feel needs emergency department evaluation. Coding Level of Care Code ED Lubricating Specialist for Joey Cabral
[2022-12-03 06:28] VITALS: BP 222/76; PULSE 57; RESP 18; O2SAT 100
[2022-12-03 06:44] LABS: Basophils # 0.1 10^3/uL (0.0-0.1); Basophils % 0.6 %; Eosinophils # 0.4 10^3/uL (0.0-0.8); Eosinophils % 3.8 %; Hematocrit 32.9 % (37.0-47.0); Hemoglobin 10.6 g/dL (11.5-15.3); Lymphocytes % 20.8 %; Mean Corpuscular HGB Conc 32.2 g/dL (30.0-36.0); Mean Corpuscular Hemoglobin 31.2 pg (28.0-34.0); Mean Corpuscular Volume 96.8 fl (81-99); Monocytes # 0.7 10^3/uL (0.2-0.9); Monocytes % 7.4 %; Neutrophils # 6.26 10^3/uL (1.8-7.7); Neutrophils % 66.9 %; Nucleated Red Blood Cells % 0 %; Platelet Count 446 10^3/cmm (130-400); Red Cell Distribution Width 12.2 % (12.1-15.1); White Blood Count 9.4 10^3/uL (4.0-10.0)
[2022-12-03 06:51] LABS: Protein Urine 3+ (Negative); Urine Appearance Cloudy (CLEAR); Urine Color Yellow (Yellow); pH Urine 7 (5-7)
[2022-12-03 06:52] VITALS: RESP 18; O2SAT 100
[2022-12-03 06:52] LABS: Add Urine Microscopic? YES; Bilirubin Urine Neg (Negative); Blood Urine 3+ (Negative); Glucose Urine UA Norm (Normal); Ketones Urine Negative (Negative); Leukocyte Esterase Urine 2+ (Negative); Nitrate Urine Negative (Negative); Urobilinogen Urine Norm (Negative)
[2022-12-03] MEDS: morphine 4 mg/mL SDV 1 mL IVP (06:52)
[2022-12-03 06:53] LABS: RBC Urine 25-40 /hpf (0-2)
[2022-12-03 06:54] LABS: Add Urine Culture? Yes; Bacteria Urine 4+ /hpf; Squamous Epithelial Cell Urine RARE /hpf (0-5); WBC Urine TOO NUMEROUS TO CNT /hpf (0-5)
[2022-12-03 07:04] LABS: Alanine Aminotransferase 7 U/L (0-33); Alkaline Phosphatase 115 U/L (35-105); Anion Gap 18.2 (5-19); Aspartate Amino Transferase 12 U/L (0-32); Blood Urea Nitrogen 40 mg/dL (8-23); Calcium 9.8 mg/dL (8.5-10.5); Carbon Dioxide 25 mmol/L (22-29); Chloride 94 mmol/L (98-107); Globulin 3.8 g/dL (1.3-4.6); Glucose 168 mg/dL (65-115); Osmolality Calculated 290 mOsm/kg (285-295); Potassium 4.2 mmol/L (3.5-5.1); Sodium 133 mmol/L (136-145); Total Bilirubin 0.2 mg/dL (0.15-1.2); Total Protein 7.8 g/dL (6.6-8.7)
--- NOTE | 2022-12-03 07:08 | ECG_ITS ---
[facility] Test Date: 2022-12-03 Pat Name: Nia Gomes Department: Room: Gender: Female Interior Design Program Chair: : 1960 Requested By: Sammy Adkins Order Number: [id number] Morgan MD: Kulwant Rousseau M.D. Measurements Intervals [place] Rate: 54 P: -71 ID: [id number] QRS: -28 QRSD: 118 T: 67 QT: 451 QTc: 430 Interpretive Statements JUNCTIONAL BRADYCARDIA BORDERLINE LEFT AXIS DEVIATION [QRS AXIS < -20] MODERATE INTRAVENTRICULAR CONDUCTION DELAY [110+ ms QRS DURATION] VOLTAGE CRITERIA FOR LVH [MEETS CRITERIA IN ONE OF: R(aVL), S(V1), R(V5), R(V5/V6)+S(V1)] NONSPECIFIC T-WAVE ABNORMALITY Compared to ECG 01/30/2021 21:28:25 Left ventricular hypertrophy now present Junctional rhythm no longer present Possible ischemia no longer present Prolonged QT interval no longer present T-wave abnormality still present Electronically Signed On 12-03-2022 16:08:25 DIRECTOR OF ADVERTISING SALES by Kulwant Rousseau M.D. [id number]
[2022-12-03] MEDS: ampicillin-sulbactam 3 GM in sodium chloride 0.9% (plus) 50 ML IV (07:15)
[2022-12-03] MEDS: ondansetron 2 mg/ML SDV 2 mL 4 MG IVP (07:15)
[2022-12-03] MEDS: fluconazole 100 mg Tablet 150 MG PO (07:16)
[2022-12-03] MEDS: lisinopril 2.5 mg Tablet PO (07:16)
[2022-12-03] MEDS: carvedilol 6.25 mg Tablet PO (07:16)
[2022-12-03] MEDS: sodium chloride 0.9% 500 ML 999 ML IV (07:24)
[2022-12-03 10:45] VITALS: BP 129/70; PULSE 85; RESP 18; O2SAT 96
--- NOTE | 2022-12-05 10:19 | DCPLANNER ---
product manager e commerce had message to speak with patient about home health services. product manager e commerce spoke with patient, she stated that she would like to get home health services back in the home. product manager e commerce explained that patient would need to follow up with her primary care physician and that the primary care physician would need to put in an order for home health to the company that patient wants to see. Patient stated that she understood.
== END 2022-12-03 10:46 | disposition home or self-care (01) ==
PROVIDERS: Emergency Provider Emergency Medicine; PCP Family Medicine
DX: T83.511A Infection and inflammatory reaction due to indwelling urethral catheter, initial encounter (principal); Y73.1 Therapeutic (nonsurgical) and rehabilitative gastroenterology and urology devices associated with adverse incidents; D64.9 Anemia, unspecified; E86.0 Dehydration; B37.2 Candidiasis of skin and nail; R00.1 Bradycardia, unspecified; Z46.6 Encounter for fitting and adjustment of urinary device
CPT/HCPCS: 36415; 51702; 80053; 81001; 85025; 87086; 93005; 96374; 96375; 99284; J0295; J2270; J2405; J7040

== ENCOUNTER 2023-03-07 13:19 | Emergency (ER) | payer MEDICAID, SELFPAY ==
[2023-03-07 13:30] VITALS: BP 133/68; PULSE 89; RESP 16; TEMP 36.9; O2SAT 94; BMI 52.7
--- NOTE | 2023-03-07 13:36 | ED_ITS ---
HPI - Female Genitourinary General: Chief complaint: Urogenital-Female Stated complaint: GENERALIZED WEAKNESS Time Seen by Provider: 03/07/23 13:22 Source: patient Mode of arrival: EMS History of Present Illness: 62-year-old female presents emergency room complaining of generalized weakness for the last 3 weeks. Approximately 4 weeks ago patient had a catheter placed for urinary retention and incontinence. She states her urine has turned purple she has been taking some cranberry tablets last couple days because she thought he may have a bladder infection she denies chest pain fever abdominal flank plain. No falls. No excessive shortness of breath no fever sweats or chills. Onset (ago): week(s) (3) Severity: mild Exacerbating factors: none Relieving factors: none Associated symptoms: Deny abdominal pain, short of breath, fevers/chills, headache(s), nausea, rash, seizures, syncope, vaginal bleeding or weakness Review of Systems Const: Denies: fever(s), chills, body aches, change in appetite, fatigue or malaise ENMT: Denies: throat pain, ear or mastoid pain, nasal discharge or nasal congestion Card: Denies: syncope Resp: Denies: dyspnea, productive cough or non-productive cough GI: Denies: abdominal pain or nausea : Denies: flank pain, difficulty voiding, dysuria, urinary frequency or urinary urgency Skin/Breast: Denies: rash or pruritus Neuro: Denies: headache(s) PFS ED PFSH: Medical History Acid reflux CAD (coronary artery disease) Cellulitis of left leg CHF (congestive heart failure) Diabetes Diabetes Hypertension Ischemic cardiomyopathy Lump of breast, right OAB (overactive bladder) Pain Recurrent UTI UTI (urinary tract infection) Surgical History H/O breast biopsy right H/O: section S/P cardiac cath Family History Other CAD (coronary artery disease) Hypertension Stroke Social History Smoking and tobacco status: former smoker Alcohol intake: never Physical Exam Const: GENERAL APPEARANCE: cooperative and comfortable ORIENTATION/CONSCIOUSNESS: Yes awake, Yes oriented to person, Yes oriented to place and Yes oriented to time HENMT: COMMON NORMALS: normocephalic, atraumatic and hearing grossly normal bilaterally HEAD & SCALP: normocephalic and atraumatic Resp: COMMON NORMALS: normal respiratory effort, No retractions, No use of accessory muscles and clear to auscultation bilaterally AUSCULTATION: clear to auscultation bilaterally Cardio: COMMON NORMALS: regular rate, regular rhythm and No murmurs present (Cardio) RATE: regular rate RHYTHM: regular rhythm GI: COMMON NORMALS: Soft to palpation and No hepatosplenomegaly present AUSCULTATION: Yes normoactive bowel sounds PALPATION: Yes Soft to palpation, No Tenderness to palpation present (GI), No Guarding due to palpation present (GI) and Yes No hepatosplenomegaly present : SPECULUM EXAM - VAGINA: No vaginal bleeding OB/EXTERNAL & SPECULUM: No vaginal bleeding Extremity: COMMON NORMALS: normal to inspection, capillary refill normal, no clubbing, cyanosis or edema, no calf tenderness and no pedal edema Neuro: SENSORIUM/ORIENTATION: Yes oriented to person, Yes oriented to place and Yes oriented to time Skin: COMMON NORMALS: no rashes or lesions noted GENERAL SKIN EXAM: no rashes or lesions noted Course Vital Signs: Vital signs: Vital Signs Temperature 98.4 F 03/07/23 13:30 Pulse Rate 69 03/07/23 20:07 Respiratory Rate 20 H 03/07/23 20:07 Blood Pressure 218/62 03/07/23 20:07 Pulse Oximetry 97 03/07/23 20:07 Oxygen Delivery Me thod Nasal Cannula 03/07/23 18:34 Oxygen Flow Rate 3 03/07/23 18:34 [facility] - Female Medical Decision Making Labs reviewed mild cystitis we will culture urine and blood. She does have a little bit of mild redness in her lower extremities also has significant edema we will increase her Lasix 120 daily for the next 3 days start her on Keflex follow-up with her primary care doctor. Return if she has further problems. Medical Records I reviewed the patient's medical records. Lab Data I reviewed the patient's lab results. 03/07/23 13:45 03/07/23 13:45 Laboratory Results WBC 10.3 10^3/uL (4.0-10.0) H 03/07/23 13:45 RBC 3.04 10^6/uL (4.1-5.3) L 03/07/23 13:45 Hgb 9.3 g/dL (11.5-15.3) L 03/07/23 13:45 Hct 30.5 % (37.0-47.0) L 03/07/23 13:45 MCV 100.3 fl (81-99) H 03/07/23 13:45 MCH 30.6 pg (28.0-34.0) 03/07/23 13:45 MCHC 30.5 g/dL (30.0-36.0) 03/07/23 13:45 RDW 12.8 % (12.1-15.1) 03/07/23 13:45 Plt Count 388 10^3/cmm (130-400) 03/07/23 13:45 MPV 8.8 fL (7.4-10.4) 03/07/23 13:45 Neut % (Auto) 78.5 % 03/07/23 13:45 Lymph % (Auto) 12.9 % 03/07/23 13:45 [place]rell % (Auto) 5.6 % 03/07/23 13:45 Eos % (Auto) 2.0 % 03/07/23 13:45 Baso % (Auto) 0.5 % 03/07/23 13:45 Neut # (Auto) 8.09 10^3/uL (1.8-7.7) H 03/07/23 13:45 Lymph # (Auto) 1.3 10^3/uL (0.8-4.8) 03/07/23 13:45 Tyrrell # (Auto) 0.6 10^3/uL (0.2-0.9) 03/07/23 13:45 Eos # (Auto) 0.2 10^3/uL (0.0-0.8) 03/07/23 13:45 Baso # (Auto) 0.1 10^3/uL (0.0-0.1) 03/07/23 13:45 Nucleated RBC % (auto) 0 % 03/07/23 13:45 Nucleated RBCs # 0.0 /100WBC 03/07/23 13:45 Sodium 139 mmol/L (136-145) 03/07/23 13:45 Potassium 4.7 mmol/L (3.5-5.1) 03/07/23 13:45 Chloride 101 mmol/L (98-107) 03/07/23 13:45 Carbon Dioxide 22 mmol/L (22-29) 03/07/23 13:45 Anion Gap 20.7 (5-19) H 03/07/23 13:45 BUN 52 mg/dL (8-23) H 03/07/23 13:45 Creatinine 1.4 mg/dL (0.5-0.9) H 03/07/23 13:45 GFR Calculation 37.9 mL/min (90-130) L 03/07/23 13:45 Glucose 112 mg/dL (65-115) 03/07/23 13:45 Calculated Osmolality 303 mOsm/kg (285-295) H 03/07/23 13:45 Calcium 9.5 mg/dL (8.5-10.5) 03/07/23 13:45 Total Bilirubin 0.3 mg/dL (0.15-1.2) 03/07/23 13:45 AST 18 U/L (0-32) 03/07/23 13:45 ALT 8 U/L (0-33) 03/07/23 13:45 Alkaline Phosphatase 91 U/L (35-105) 03/07/23 13:45 Total Protein 7.3 g/dL (6.6-8.7) 03/07/23 13:45 Albumin 4.1 g/dL (3.5-5.2) 03/07/23 13:45 Globulin 3.2 g/dL (1.3-4.6) 03/07/23 13:45 Urine Color Yellow (Yellow) 03/07/23 15:35 Urine Appearance Sl hazy (CLEAR) A 03/07/23 15:35 Urine pH 6 (5-7) 03/07/23 15:35 Ur Specific [place] 1.010 (1.005-1.030) 03/07/23 15:35 Urine Protein 2+ (Negative) H 03/07/23 15:35 Urine Glucose (UA) Norm (Normal) 03/07/23 15:35 Urine Ketones 1+ (Negative) H 03/07/23 15:35 Urine Blood 3+ (Negative) H 03/07/23 15:35 Urine Nitrate Negative (Negative) 03/07/23 15:35 Urine Bilirubin Neg (Negative) 03/07/23 15:35 Urine Urobilinogen Norm mg/dL (Negative) 03/07/23 15:35 Ur Leukocyte Esterase Trace (Negative) H 03/07/23 15:35 Urine RBC 25-40 /hpf (0-2) H 03/07/23 15:35 Urine WBC 10-15 /hpf (0-5) H 03/07/23 15:35 Ur Squamous Epith Cells 0-4 /hpf (0-5) H 03/07/23 15:35 Amorphous Sediment Not Reportable 03/07/23 15:35 Urine Bacteria Trace /hpf (NONE) 03/07/23 15:35 Urine Mucus 1+ /hpf 03/07/23 15:35 Discharge Plan Discharge Patient Disposition: Home Clinical Impression: Edema, Chronic indwelling Bonilla catheter Condition: Stable Prescriptions: New cephalexin 750 mg capsule 750 mg PO BID 7 Days Qty: 14 0RF No Action multivitamin Tablet 1 tab PO QAM acetaminophen [Tylenol] 325 mg capsule 325 mg PO Q6H PRN cholecalciferol (vitamin D3) 1,000 unit capsule 2,000 unit PO QDAY aspirin [Adult Aspirin Regimen] 81 mg tablet,delayed release (DR/EC) 81 mg PO DAILY GlucaGen HypoKit 1 mg recon soln 1 mg SUBCUT Q20M PRN Rx Instructions: until target blood sugar attained cranberry 500 mg capsule 500 mg PO BID Rx Instructions: administer with meals Symbicort 160-4.5 mcg/actuation HFA aerosol inhaler 2 puff INHALATION BID Qty: 10.2 5RF nitroglycerin 0.4 mg tablet, sublingual 0.4 mg sublingual Q5M Qty: 25 0RF Rx Instructions: do not exceed 3 doses per episode Call ambulance if you have to take the third Nitro. pen needle, diabetic [TechLITE Pen Needle] 32 gauge x 5/32 needle See Rx Instructions .ROUTE .COMPLEX Qty: 100 3RF Dose Instruction: USE DIRECTED ONE TIME DAILY WITH LANTUS Rx Instructions: USE DIRECTED ONE TIME DAILY WITH LANTUS lisinopril 2.5 mg tablet See Rx Instructions .ROUTE .COMPLEX Qty: 90 2RF Dose Instruction: TAKE ONE TABLET BY MOUTH ONCE DAILY Rx Instructions: TAKE ONE TABLET BY MOUTH ONCE DAILY atorvastatin 80 mg tablet See Rx Instructions .ROUTE .COMPLEX Qty: 90 1RF Dose Instruction: TAKE ONE TABLET BY MOUTH ONCE DAILY Rx Instructions: TAKE ONE TABLET BY MOUTH ONCE DAILY All Day Allergy (cetirizine) 10 mg capsule 10 mg PO QDAY Qty: 30 11RF metformin 500 mg tablet See Rx Instructions .ROUTE .COMPLEX Qty: 180 1RF Dose Instruction: TAKE ONE TABLET BY MOUTH TWICE A DAY Rx Instructions: TAKE ONE TABLET BY MOUTH TWICE A DAY albuterol sulfate [ProAir HFA] 90 mcg/actuation HFA aerosol inhaler See Rx Instructions .ROUTE .COMPLEX Qty: 8.5 0RF Dose Instruction: INHALE TWO (2) PUFFS BY MOUTH EVERY 12 HOURS NEEDED Rx Instructions: INHALE TWO (2) PUFFS BY MOUTH EVERY 12 HOURS NEEDED furosemide 80 mg tablet See Rx Instructions .ROUTE .COMPLEX Qty: 30 11RF Dose Instruction: TAKE 1 TABLET BY MOUTH DAILY Rx Instructions: TAKE 1 TABLET bid BY MOUTH DAILY insulin glargine [Lantus Solostar U-100 Insulin] 100 unit/mL (3 mL) insulin pen See Rx Instructions .ROUTE .COMPLEX Qty: 6 12RF Dose Instruction: INJECT SUBCUTANEOUSLY 12 UNITS DAILY Rx Instructions: INJECT SUBCUTANEOUSLY 12 UNITS DAILY ondansetron 4 mg tablet,disintegrating See Rx Instructions .ROUTE .COMPLEX Qty: 30 0RF Dose Instruction: DISSOLVE ONE (1) TABLET ON TOP OF THE TONGUE WHERE IT WILL DISSOLVE THEN SWALLOW EVERY 6 HOURS NEEDED Rx Instructions: DISSOLVE ONE (1) TABLET ON TOP OF THE TONGUE WHERE IT WILL DISSOLVE THEN SWALLOW EVERY 6 HOURS NEEDED carvedilol 6.25 mg tablet See Rx Instructions .ROUTE .COMPLEX Qty: 90 3RF Dose Instruction: TAKE ONE TABLET BY MOUTH ONCE DAILY Rx Instructions: TAKE ONE TABLET BY MOUTH ONCE DAILY fluticasone propionate 50 mcg/actuation spray,suspension See Rx Instructions .ROUTE .COMPLEX Qty: 16 0RF Dose Instruction: USE ONE (1) SPRAY IN EACH NOSTRIL ONCE DAILY Rx Instructions: USE ONE (1) SPRAY IN EACH NOSTRIL ONCE DAILY oxybutynin chloride 15 mg tablet extended release 24hr 15 mg PO QDAY Qty: 30 7RF Brilinta 90 mg tablet See Rx Instructions .ROUTE .COMPLEX Qty: 60 4RF Dose Instruction: TAKE ONE TABLET BY MOUTH TWICE A DAY Rx Instructions: TAKE ONE TABLET BY MOUTH TWICE A DAY nystatin 100,000 unit/gram cream See Rx Instructions .ROUTE .COMPLEX Qty: 30 1RF Dose Instruction: APPLY ONE (1) APPLICATION TOPICALLY TWICE A DAY Rx Instructions: APPLY ONE (1) APPLICATION TOPICALLY TWICE A DAY omeprazole 20 mg capsule,delayed release(DR/EC) See Rx Instructions .ROUTE .COMPLEX Qty: 30 0RF Dose Instruction: TAKE ONE CAPSULE BY MOUTH ONCE DAILY Rx Instructions: TAKE ONE CAPSULE BY MOUTH ONCE DAILY fluconazole 150 mg tablet 150 mg PO DAILY Qty: 1 0RF Rx Instructions: administer on 12/05/22 amoxicillin-pot clavulanate 875-125 mg tablet 1 tab PO BID Qty: 20 0RF Discharge Orders: Discharge ED (Routine); Ordered 03/07/23 Ordered By: Ritchie Jerome Referrals: Wang Tillman DO [Primary Care Provider] - Discharge Diet: Cardiac and Low Salt Discharge Activity: Resume usual activity Patient Instructions: Opioid Safety, Pain Management Activity Restrictions/Additional Instructions: You were seen today for a Bonilla problem and your Bonilla was replaced there is question of the mild bladder infection however in patients with chronic indwelling Bonilla's they are urine often appears abnormal. Will await urine culture results. There was some mild redness on your legs for which we will give you Keflex 750 mg 1 p.o. twice daily. Recommend you increase your Lasix to 120 mg daily for the next 3 days follow-up with your primary care doctor return if you have further problems. When you follow-up with your primary care doctor they can review your urine culture result as well. Coding Level of Care Code ED Materials Planner/Production Planner for Joey Cabral
[2023-03-07 13:56] LABS: Basophils # 0.1 10^3/uL (0.0-0.1); Basophils % 0.5 %; Eosinophils # 0.2 10^3/uL (0.0-0.8); Hematocrit 30.5 % (37.0-47.0); Hemoglobin 9.3 g/dL (11.5-15.3); Lymphocytes # 1.3 10^3/uL (0.8-4.8); Lymphocytes % 12.9 %; Mean Corpuscular HGB Conc 30.5 g/dL (30.0-36.0); Mean Corpuscular Hemoglobin 30.6 pg (28.0-34.0); Mean Corpuscular Volume 100.3 fl (81-99); Mean Platelet Volume 8.8 fL (7.4-10.4); Monocytes # 0.6 10^3/uL (0.2-0.9); Monocytes % 5.6 %; Neutrophils # 8.09 10^3/uL (1.8-7.7); Neutrophils % 78.5 %; Nucleated Red Blood Cells % 0 %; Platelet Count 388 10^3/cmm (130-400); Red Blood Count 3.04 10^6/uL (4.1-5.3); Red Cell Distribution Width 12.8 % (12.1-15.1); White Blood Count 10.3 10^3/uL (4.0-10.0)
[2023-03-07 14:22] LABS: Alanine Aminotransferase 8 U/L (0-33); Albumin Level 4.1 g/dL (3.5-5.2); Alkaline Phosphatase 91 U/L (35-105); Anion Gap 20.7 (5-19); Aspartate Amino Transferase 18 U/L (0-32); Blood Urea Nitrogen 52 mg/dL (8-23); Calcium 9.5 mg/dL (8.5-10.5); Carbon Dioxide 22 mmol/L (22-29); Chloride 101 mmol/L (98-107); Creatinine Clr Calc Pharmacy 48.8909; Globulin 3.2 g/dL (1.3-4.6); Glomerular Filtration Rate 37.9 mL/min (90-130); Glucose 112 mg/dL (65-115); Osmolality Calculated 303 mOsm/kg (285-295); Potassium 4.7 mmol/L (3.5-5.1); Sodium 139 mmol/L (136-145); Total Bilirubin 0.3 mg/dL (0.15-1.2); Total Protein 7.3 g/dL (6.6-8.7)
[2023-03-07] MEDS: FUROsemide 10 mg/mL SDV 10mL 100 MG IVP (16:34)
[2023-03-07 16:36] VITALS: PULSE 57; RESP 17; O2SAT 99
[2023-03-07 16:36] LABS: Add Urine Microscopic? YES; Bilirubin Urine Neg (Negative); Blood Urine 3+ (Negative); Glucose Urine UA Norm (Normal); Ketones Urine 1+ (Negative); Leukocyte Esterase Urine Trace (Negative); Nitrate Urine Negative (Negative); Protein Urine 2+ (Negative); Urine Appearance SL Hazy (CLEAR); Urine Color Yellow (Yellow); Urobilinogen Urine Norm (Negative); pH Urine 6 (5-7)
[2023-03-07 16:37] LABS: RBC Urine 25-40 /hpf (0-2)
[2023-03-07 16:38] LABS: Add Urine Culture? Yes; Bacteria Urine TRACE /hpf; Mucus Urine 1+ /hpf; Squamous Epithelial Cell Urine 0-4 /hpf (0-5)
[2023-03-07 18:34] VITALS: PULSE 58; O2SAT 98
--- NOTE | 2023-03-07 19:12 | PC.NURSE ---
Addendum entered by Josephine Malagon RN 03/07/23 19:58: Pt denies needs. Original Note: Pt report received from In[facility] [place]. Pt laying in bed and denies questions.
--- NOTE | 2023-03-07 20:01 | PC.NURSE ---
Pt manual bp 218/62, MD notified. MD said to proceed with discharge.
--- NOTE | 2023-03-07 20:03 | PC.NURSE ---
In report from dayshift RN this RN was told that pt card has been replaced. Upon reviewing the chart no documentation was done. Pt stated the catheter was new and had been placed, pt catheter emptied before transportation.
[2023-03-07 20:07] VITALS: BP 218/62; PULSE 69; RESP 20; O2SAT 97
== END 2023-03-07 20:12 | disposition home or self-care (01) ==
PROVIDERS: Emergency Provider Family Medicine; PCP Family Medicine
DX: R60.9 Edema, unspecified (principal); N30.90 Cystitis, unspecified without hematuria
CPT/HCPCS: 36415; 80053; 81001; 85025; 87040; 87077; 87086; 87186; 96374; 99284; J1940

== ENCOUNTER 2023-03-10 14:59 | Emergency (ER) | payer MEDICAID, SELFPAY ==
[2023-03-10 15:05] VITALS: BP 147/52; PULSE 68; RESP 18; TEMP 36.6; O2SAT 98; BMI 44.3
--- NOTE | 2023-03-10 17:02 | XRR_ITS ---
PROCEDURE INFORMATION: Exam: XR Chest Exam date and time: 03/10/2023 5:25 PM Age: 62 years old Clinical indication: Other: Weakness TECHNIQUE: Imaging protocol: Radiologic exam of the chest. Views: 1 view. COMPARISON: CR XR chest 1V portable [id number] 01/30/2021 7:46 PM FINDINGS: Lungs: Visualized portions of the lungs are clear. Pleural spaces: Unremarkable. No pleural effusion. No pneumothorax. Heart/Mediastinum: The heart is mildly enlarged. Bones/joints: There are degenerative changes in the thoracic spine. XR/XR chest 1V portable [id number] IMPRESSION: No acute infiltrate.
--- NOTE | 2023-03-10 17:38 | W.ED.WEAKNES ---
Documented by User: MARIO ALBERTO Powell 03/11/23 00:37 HPI - Weakness General: Chief complaint: Weakness Stated complaint: Weakness Time Seen by Provider: 03/10/23 17:01 History of Present Illness: Patient is a 62-year-old female who comes to the ED with bilateral lower extremity swelling and generalized weakness. Patient has past medical history of CHF, diabetes, hypertension and recurrent UTIs. Patient is on 3 L of oxygen at home. Symptoms of generalized weakness and lower extremity edema have been progressing over the past 3 months. Patient was seen here in the ED for same complaint 3 days ago on March 07 Patient denies any chest pain or shortness of breath. Approximately 4 weeks ago patient had a catheter placed for urinary retention and incontinence.?. Patient states that she has placement in [facility] but was told she needs to come here to the ED to get signed off and transferred to care home. Patient states the only reason she is here is because she was told if she came here to the ED because she was told we would sign off on patient and have her admitted to the [facility]. Denies any other complaints such as chest pain, shortness of breath, fevers, abdominal pain, nausea or vomiting. Associated symptoms: Denies chest pain, chills, dysuria, fever(s), headache(s), nausea or vomiting Review of Systems Const: Denies: fever(s), chills or fatigue Eyes: Denies: change in vision or eye discomfort ENMT: Denies: throat pain, odynophagia, nasal discharge or nasal congestion Card: Denies: chest pain, palpitations, edema, swelling of feet/ankles, dyspnea on exertion or orthopnea Resp: Denies: dyspnea, productive cough or non-productive cough GI: Denies: abdominal pain, nausea, vomiting, diarrhea, constipation or hematochezia : Denies: flank pain, dysuria or hematuria Musc: Reports: extremity pain (Bilateral lower extremity pain) and extremity swelling (Bilateral lower extremity edema); Denies: neck pain or back pain Skin/Breast: Denies: rash or new lesions Neuro: Denies: headache(s), numbness in extremities or weakness in extremities PFS ED PFSH: Medical History Acid reflux CAD (coronary artery disease) Cellulitis of left leg CHF (congestive heart failure) Diabetes Diabetes Hypertension Ischemic cardiomyopathy Lump of breast, right OAB (overactive bladder) Pain Recurrent UTI UTI (urinary tract infection) Surgical History H/O breast biopsy right H/O: section S/P cardiac cath Family History Other CAD (coronary artery disease) Hypertension Stroke Social History Smoking and tobacco status: former smoker Alcohol intake: never Physical Exam Const: COMMON NORMALS: patient oriented x3 and alert NUTRITIONAL APPEARANCE: obese morbidly obese HENMT: COMMON NORMALS: normocephalic HEAD & SCALP: normocephalic MOUTH: Normal oral and palatal mucosa present THROAT: posterior oropharynx normal and uvula midline Neck/C-Spine: COMMON NORMALS: supple GENERAL: Yes normal visual inspection Resp: COMMON NORMALS: normal respiratory effort, No retractions, No use of accessory muscles and clear to auscultation bilaterally AUSCULTATION: clear to auscultation bilaterally Cardio: COMMON NORMALS: regular rate, regular rhythm, S1 normal heart sound present, S2 normal heart sound present, No gallops present (Cardio), No clicks present (Cardio), No murmurs present (Cardio) and Peripheral pulses 2+ throughout RATE: regular rate RHYTHM: regular rhythm HEART SOUNDS: S1 normal heart sound present and S2 normal heart sound present PERIPHERAL PULSES: Peripheral pulses 2+ throughout GI: COMMON NORMALS: Normal to inspection, nondistended, normoactive bowel sounds present, Soft to palpation, non-tender and no masses PALPATION: Yes Soft to palpation : COMMON NORMALS: Yes no CVA tenderness BLADDER/KIDNEY EXAM: Yes no CVA tenderness Back/Pelvis: COMMON NORMALS: no CVA tenderness Extremity: GENERAL: Yes edema (Bilateral 3+ pitting edema in lower extremities, weeping present) OTHER: Right leg has some erythema as well. Neuro: COMMON NORMALS: patient oriented x3 SENSORIUM/ORIENTATION: Yes alert GAIT: Yes Normal gait present Skin: GENERAL SKIN EXAM: dry skin Course Vital Signs: Vital signs: Vital Signs Temperature 97.9 F 03/10/23 15:05 Pulse Rate 61 03/11/23 00:10 Respiratory Rate 18 03/11/23 00:10 Blood Pressure 147/52 03/10/23 15:05 Pulse Oximetry 99 03/11/23 00:10 Oxygen Delivery Me thod Nasal Cannula 03/10/23 15:05 Oxygen Flow Rate 3 03/10/23 15:05 MDM - Weakness Medical Decision Making Patient is a 62-year-old female who comes to the ED with bilateral lower extremity swelling and generalized weakness. Patient has past medical history of CHF, diabetes, hypertension and recurrent UTIs. Patient is on 3 L of oxygen at home. Symptoms of generalized weakness and lower extremity edema have been progressing over the past 3 months. Patient was seen here in the ED for same complaint 3 days ago on March 07 Patient denies any chest pain or shortness of breath. Approximately 4 weeks ago patient had a catheter placed for urinary retention and incontinence.? Patient states that she has placement in [facility] but was told she needs to come here to the ED to get signed off and transferred to care home. Patient states the only reason she is here is because she was told if she came here to the ED because she was told we would sign off on patient and have her admitted to the [place] care home. Denies any other complaints such as chest pain, shortness of breath, fevers, abdominal pain, nausea or vomiting. Vitals are stable. Exam of patient shows bilateral 3+ pitting edema in lower extremities with some weeping present. Right leg has some erythema as well. Rest of exam is benign. Troponins negative. CBC and CMP are unremarkable. EKG showed no acute findings. Chest x-ray showed no acute findings. BNP 2034, UA was unremarkable. I discussed patient case with Dr. Jerome he agreed that patient does not need to come to the ED to be transferred to care home in [place]. Patient was diagnosed with generalized weakness and bilateral lower extremity edema. Patient is currently on a prescription of Keflex and told to continue taking it. She was given a dose of IV Lasix here in the ED. She was discharged and told to follow-up with her PCP within the next week and to get set up with [facility]. Patient understood and agreed with plan. Lab Data I reviewed the patient's lab results. 03/10/23 18:00 03/10/23 18:00 Radiology Impressions Chest X-Ray 03/10/23 17:02 IMPRESSION: No acute infiltrate. Laboratory Results WBC 8.6 10^3/uL (4.0-10.0) 03/10/23 18:00 RBC 3.10 10^6/uL (4.1-5.3) L 03/10/23 18:00 Hgb 9.4 g/dL (11.5-15.3) L 03/10/23 18:00 Hct 30.7 % (37.0-47.0) L 03/10/23 18:00 MCV 99.0 fl (81-99) 03/10/23 18:00 MCH 30.3 pg (28.0-34.0) 03/10/23 18:00 MCHC 30.6 g/dL (30.0-36.0) 03/10/23 18:00 RDW 12.8 % (12.1-15.1) 03/10/23 18:00 Plt Count 413 10^3/cmm (130-400) H 03/10/23 18:00 MPV 9.0 fL (7.4-10.4) 03/10/23 18:00 Neut % (Auto) 76.9 % 03/10/23 18:00 Lymph % (Auto) 10.8 % 03/10/23 18:00 [place] % (Auto) 6.8 % 03/10/23 18:00 Eos % (Auto) 4.7 % 03/10/23 18:00 Baso % (Auto) 0.6 % 03/10/23 18:00 Neut # (Auto) 6.58 10^3/uL (1.8-7.7) 03/10/23 18:00 Lymph # (Auto) 0.9 10^3/uL (0.8-4.8) 03/10/23 18:00 [place] # (Auto) 0.6 10^3/uL (0.2-0.9) 03/10/23 18:00 Eos # (Auto) 0.4 10^3/uL (0.0-0.8) 03/10/23 18:00 Baso # (Auto) 0.1 10^3/uL (0.0-0.1) 03/10/23 18:00 Nucleated RBC % (auto) 0 % 03/10/23 18:00 Nucleated RBCs # 0.0 /100WBC 03/10/23 18:00 Sodium 139 mmol/L (136-145) 03/10/23 18:00 Potassium 4.3 mmol/L (3.5-5.1) 03/10/23 18:00 Chloride 101 mmol/L (98-107) 03/10/23 18:00 Carbon Dioxide 22 mmol/L (22-29) 03/10/23 18:00 Anion Gap 20.3 (5-19) H 03/10/23 18:00 BUN 56 mg/dL (8-23) H 03/10/23 18:00 Creatinine 1.4 mg/dL (0.5-0.9) H 03/10/23 18:00 GFR Calculation 37.9 mL/min (90-130) L 03/10/23 18:00 Glucose 125 mg/dL (65-115) H 03/10/23 18:00 Calculated Osmolality 305 mOsm/kg (285-295) H 03/10/23 18:00 Calcium 9.0 mg/dL (8.5-10.5) 03/10/23 18:00 Total Bilirubin 0.3 mg/dL (0.15-1.2) 03/10/23 18:00 AST 15 U/L (0-32) 03/10/23 18:00 ALT 8 U/L (0-33) 03/10/23 18:00 Alkaline Phosphatase 85 U/L (35-105) 03/10/23 18:00 Troponin T Baseline 38 ng/L (0-10) H 03/10/23 18:00 Troponin T 120 Minute 40.64 ng/L (0-10) H 03/10/23 20:00 Delta Troponin T 2.64 ABS# (0-10) 03/10/23 20:00 NT-Pro-B Natriuret Pep 2034 pg/mL (0-125) H 03/10/23 18:00 Total Protein 7.3 g/dL (6.6-8.7) 03/10/23 18:00 Albumin 4.0 g/dL (3.5-5.2) 03/10/23 18:00 Globulin 3.3 g/dL (1.3-4.6) 03/10/23 18:00 Urine Color Yellow (Yellow) 03/10/23 17:55 Urine Appearance Hazy (CLEAR) A 03/10/23 17:55 Urine pH 6 (5-7) 03/10/23 17:55 Ur Specific [place] 1.005 (1.005-1.030) 03/10/23 17:55 Urine Protein 1+ (Negative) H 03/10/23 17:55 Urine Glucose (UA) Norm (Normal) 03/10/23 17:55 Urine Ketones Negative (Negative) 03/10/23 17:55 Urine Blood 2+ (Negative) H 03/10/23 17:55 Urine Nitrate Negative (Negative) 03/10/23 17:55 Urine Bilirubin Neg (Negative) 03/10/23 17:55 Urine Urobilinogen Norm mg/dL (Negative) 03/10/23 17:55 Ur Leukocyte Esterase 2+ (Negative) H 03/10/23 17:55 Urine RBC 5-10 /hpf (0-2) H 03/10/23 17:55 Urine WBC 10-15 /hpf (0-5) H 03/10/23 17:55 Ur Squamous Epith Cells 0-4 /hpf (0-5) H 03/10/23 17:55 Amorphous Sediment Not Reportable 03/10/23 17:55 Urine Bacteria 1+ /hpf (NONE) H 03/10/23 17:55 Urine Mucus 1+ /hpf 03/10/23 17:55 EKG Data EKG 1: EKG interpretation date: 03/10/23 Interpretation: Normal sinus rhythm, no ST segment elevation or depression seen. 67 bpm. Discharge Plan Discharge Patient Disposition: Home Clinical Impression: Generalized weakness, Bilateral lower extremity edema Condition: Stable Prescriptions: No Action multivitamin Tablet 1 tab PO QAM acetaminophen [Tylenol] 325 mg capsule 325 mg PO Q6H PRN cholecalciferol (vitamin D3) 1,000 unit capsule 2,000 unit PO QDAY aspirin [Adult Aspirin Regimen] 81 mg tablet,delayed release (DR/EC) 81 mg PO DAILY GlucaGen HypoKit 1 mg recon soln 1 mg SUBCUT Q20M PRN Rx Instructions: until target blood sugar attained cranberry 500 mg capsule 500 mg PO BID Rx Instructions: administer with meals Symbicort 160-4.5 mcg/actuation HFA aerosol inhaler 2 puff INHALATION BID Qty: 10.2 5RF nitroglycerin 0.4 mg tablet, sublingual 0.4 mg sublingual Q5M Qty: 25 0RF Rx Instructions: do not exceed 3 doses per episode Call ambulance if you have to take the third Nitro. pen needle, diabetic [TechLITE Pen Needle] 32 gauge x /32 needle See Rx Instructions .ROUTE .COMPLEX Qty: 100 3RF Dose Instruction: USE DIRECTED ONE TIME DAILY WITH LANTUS Rx Instructions: USE DIRECTED ONE TIME DAILY WITH LANTUS lisinopril 2.5 mg tablet See Rx Instructions .ROUTE .COMPLEX Qty: 90 2RF Dose Instruction: TAKE ONE TABLET BY MOUTH ONCE DAILY Rx Instructions: TAKE ONE TABLET BY MOUTH ONCE DAILY atorvastatin 80 mg tablet See Rx Instructions .ROUTE .COMPLEX Qty: 90 1RF Dose Instruction: TAKE ONE TABLET BY MOUTH ONCE DAILY Rx Instructions: TAKE ONE TABLET BY MOUTH ONCE DAILY All Day Allergy (cetirizine) 10 mg capsule 10 mg PO QDAY Qty: 30 11RF metformin 500 mg tablet See Rx Instructions .ROUTE .COMPLEX Qty: 180 1RF Dose Instruction: TAKE ONE TABLET BY MOUTH TWICE A DAY Rx Instructions: TAKE ONE TABLET BY MOUTH TWICE A DAY albuterol sulfate [ProAir HFA] 90 mcg/actuation HFA aerosol inhaler See Rx Instructions .ROUTE .COMPLEX Qty: 8.5 0RF Dose Instruction: INHALE TWO (2) PUFFS BY MOUTH EVERY 12 HOURS NEEDED Rx Instructions: INHALE TWO (2) PUFFS BY MOUTH EVERY 12 HOURS NEEDED furosemide 80 mg tablet See Rx Instructions .ROUTE .COMPLEX Qty: 30 11RF Dose Instruction: TAKE 1 TABLET BY MOUTH DAILY Rx Instructions: TAKE 1 TABLET bid BY MOUTH DAILY insulin glargine [Lantus Solostar U-100 Insulin] 100 unit/mL (3 mL) insulin pen See Rx Instructions .ROUTE .COMPLEX Qty: 6 12RF Dose Instruction: INJECT SUBCUTANEOUSLY 12 UNITS DAILY Rx Instructions: INJECT SUBCUTANEOUSLY 12 UNITS DAILY ondansetron 4 mg tablet,disintegrating See Rx Instructions .ROUTE .COMPLEX Qty: 30 0RF Dose Instruction: DISSOLVE ONE (1) TABLET ON TOP OF THE TONGUE WHERE IT WILL DISSOLVE THEN SWALLOW EVERY 6 HOURS NEEDED Rx Instructions: DISSOLVE ONE (1) TABLET ON TOP OF THE TONGUE WHERE IT WILL DISSOLVE THEN SWALLOW EVERY 6 HOURS NEEDED carvedilol 6.25 mg tablet See Rx Instructions .ROUTE .COMPLEX Qty: 90 3RF Dose Instruction: TAKE ONE TABLET BY MOUTH ONCE DAILY Rx Instructions: TAKE ONE TABLET BY MOUTH ONCE DAILY fluticasone propionate 50 mcg/actuation spray,suspension See Rx Instructions .ROUTE .COMPLEX Qty: 16 0RF Dose Instruction: USE ONE (1) SPRAY IN EACH NOSTRIL ONCE DAILY Rx Instructions: USE ONE (1) SPRAY IN EACH NOSTRIL ONCE DAILY oxybutynin chloride 15 mg tablet extended release 24hr 15 mg PO QDAY Qty: 30 7RF Brilinta 90 mg tablet See Rx Instructions .ROUTE .COMPLEX Qty: 60 4RF Dose Instruction: TAKE ONE TABLET BY MOUTH TWICE A DAY Rx Instructions: TAKE ONE TABLET BY MOUTH TWICE A DAY nystatin 100,000 unit/gram cream See Rx Instructions .ROUTE .COMPLEX Qty: 30 1RF Dose Instruction: APPLY ONE (1) APPLICATION TOPICALLY TWICE A DAY Rx Instructions: APPLY ONE (1) APPLICATION TOPICALLY TWICE A DAY omeprazole 20 mg capsule,delayed release(DR/EC) See Rx Instructions .ROUTE .COMPLEX Qty: 30 0RF Dose Instruction: TAKE ONE CAPSULE BY MOUTH ONCE DAILY Rx Instructions: TAKE ONE CAPSULE BY MOUTH ONCE DAILY fluconazole 150 mg tablet 150 mg PO DAILY Qty: 1 0RF Rx Instructions: administer on 12/05/22 amoxicillin-pot clavulanate 875-125 mg tablet 1 tab PO BID Qty: 20 0RF cephalexin 750 mg capsule 750 mg PO BID 7 Days Qty: 14 0RF Discharge Orders: Discharge ED (Routine); Ordered 03/10/23 Ordered By: Yrn Cornejo Referrals: Wang Tillman DO [Primary Care Provider] - Discharge Diet: Regular Discharge Activity: Increase activity as tolerated Activity Restrictions/Additional Instructions: Follow-up with medical provider as directed in the next 5 to 7 days for reevaluation. Contact [facility] to get set up and moved into their facility. Continue taking all home medications as previously prescribed. Return to the ER or your medical provider if condition worsens. Please read and understand discharge instructions. Thank you for choosing [facility] for your healthcare needs today. Please realize this is an emergency room and that we are providing you with a medical screening exam and this may not be complete and all inclusive of all the testing and or work up that you may need to determine your ailment or severity of your illness. It is very important that you follow up as instructed or that you return to the Emergency Department should you have concerns or if your condition changes or worsens in any way. Coding Level of Care Code ED Torpedo Shooter for Aleishag Fwd Documented by User: Ritchie Jerome DO 03/11/23 05:19 HPI - Weakness General: Chief complaint: Weakness Stated complaint: Weakness Time Seen by Provider: 03/10/23 17:01 PFS ED PFSH: Medical History Acid reflux CAD (coronary artery disease) Cellulitis of left leg CHF (congestive heart failure) Diabetes Diabetes Hypertension Ischemic cardiomyopathy Lump of breast, right OAB (overactive bladder) Pain Recurrent UTI UTI (urinary tract infection) Surgical History H/O breast biopsy right H/O: section S/P cardiac cath Family History Other CAD (coronary artery disease) Hypertension Stroke Social History Smoking and tobacco status: former smoker Alcohol intake: never Course Vital Signs: Vital signs: Vital Signs Temperature 97.9 F 03/10/23 15:05 Pulse Rate 61 03/11/23 00:10 Respiratory Rate 18 03/11/23 00:10 Blood Pressure 147/52 03/10/23 15:05 Pulse Oximetry 99 03/11/23 00:10 Oxygen Delivery Me thod Nasal Cannula 03/10/23 15:05 Oxygen Flow Rate 3 03/10/23 15:05 MDM - Weakness Medical Decision Making Patient is a 62-year-old female who comes to the ED with bilateral lower extremity swelling and generalized weakness. Patient has past medical history of CHF, diabetes, hypertension and recurrent UTIs. Patient is on 3 L of oxygen at home. Symptoms of generalized weakness and lower extremity edema have been progressing over the past 3 months. Patient was seen here in the ED for same complaint 3 days ago on March 07 Patient denies any chest pain or shortness of breath. Approximately 4 weeks ago patient had a catheter placed for urinary retention and incontinence.? Patient states that she has placement in [facility] but was told she needs to come here to the ED to get signed off and transferred to care home. Patient states the only reason she is here is because she was told if she came here to the ED because she was told we would sign off on patient and have her admitted to the [place] care home. Denies any other complaints such as chest pain, shortness of breath, fevers, abdominal pain, nausea or vomiting. Vitals are stable. Exam of patient shows bilateral 3+ pitting edema in lower extremities with some weeping present. Right leg has some erythema as well. Rest of exam is benign. Troponins negative. CBC and CMP are unremarkable. EKG showed no acute findings. Chest x-ray showed no acute findings. BNP 2034, UA was unremarkable. I discussed patient case with Dr. Jerome he agreed that patient does not need to come to the ED to be transferred to care home in [place]. Patient was diagnosed with generalized weakness and bilateral lower extremity edema. Patient is currently on a prescription of Keflex and told to continue taking it. She was given a dose of IV Lasix here in the ED. She was discharged and told to follow-up with her PCP within the next week and to get set up with [facility]. Patient understood and agreed with plan. Chart reviewed and patient discussed with midlevel. Agree with assessment and plan. Lab Data 03/10/23 18:00 03/10/23 18:00 Radiology Impressions Chest X-Ray 03/10/23 17:02 IMPRESSION: No acute infiltrate. Laboratory Results WBC 8.6 10^3/uL (4.0-10.0) 03/10/23 18:00 RBC 3.10 10^6/uL (4.1-5.3) L 03/10/23 18:00 Hgb 9.4 g/dL (11.5-15.3) L 03/10/23 18:00 Hct 30.7 % (37.0-47.0) L 03/10/23 18:00 MCV 99.0 fl (81-99) 03/10/23 18:00 MCH 30.3 pg (28.0-34.0) 03/10/23 18:00 MCHC 30.6 g/dL (30.0-36.0) 03/10/23 18:00 RDW 12.8 % (12.1-15.1) 03/10/23 18:00 Plt Count 413 10^3/cmm (130-400) H 03/10/23 18:00 MPV 9.0 fL (7.4-10.4) 03/10/23 18:00 Neut % (Auto) 76.9 % 03/10/23 18:00 Lymph % (Auto) 10.8 % 03/10/23 18:00 [place] % (Auto) 6.8 % 03/10/23 18:00 Eos % (Auto) 4.7 % 03/10/23 18:00 Baso % (Auto) 0.6 % 03/10/23 18:00 Neut # (Auto) 6.58 10^3/uL (1.8-7.7) 03/10/23 18:00 Lymph # (Auto) 0.9 10^3/uL (0.8-4.8) 03/10/23 18:00 [place] # (Auto) 0.6 10^3/uL (0.2-0.9) 03/10/23 18:00 Eos # (Auto) 0.4 10^3/uL (0.0-0.8) 03/10/23 18:00 Baso # (Auto) 0.1 10^3/uL (0.0-0.1) 03/10/23 18:00 Nucleated RBC % (auto) 0 % 03/10/23 18:00 Nucleated RBCs # 0.0 /100WBC 03/10/23 18:00 Sodium 139 mmol/L (136-145) 03/10/23 18:00 Potassium 4.3 mmol/L (3.5-5.1) 03/10/23 18:00 Chloride 101 mmol/L (98-107) 03/10/23 18:00 Carbon Dioxide 22 mmol/L (22-29) 03/10/23 18:00 Anion Gap 20.3 (5-19) H 03/10/23 18:00 BUN 56 mg/dL (8-23) H 03/10/23 18:00 Creatinine 1.4 mg/dL (0.5-0.9) H 03/10/23 18:00 GFR Calculation 37.9 mL/min (90-130) L 03/10/23 18:00 Glucose 125 mg/dL (65-115) H 03/10/23 18:00 Calculated Osmolality 305 mOsm/kg (285-295) H 03/10/23 18:00 Calcium 9.0 mg/dL (8.5-10.5) 03/10/23 18:00 Total Bilirubin 0.3 mg/dL (0.15-1.2) 03/10/23 18:00 AST 15 U/L (0-32) 03/10/23 18:00 ALT 8 U/L (0-33) 03/10/23 18:00 Alkaline Phosphatase 85 U/L (35-105) 03/10/23 18:00 Troponin T Baseline 38 ng/L (0-10) H 03/10/23 18:00 Troponin T 120 Minute 40.64 ng/L (0-10) H 03/10/23 20:00 Delta Troponin T 2.64 ABS# (0-10) 03/10/23 20:00 NT-Pro-B Natriuret Pep 2034 pg/mL (0-125) H 03/10/23 18:00 Total Protein 7.3 g/dL (6.6-8.7) 03/10/23 18:00 Albumin 4.0 g/dL (3.5-5.2) 03/10/23 18:00 Globulin 3.3 g/dL (1.3-4.6) 03/10/23 18:00 Urine Color Yellow (Yellow) 03/10/23 17:55 Urine Appearance Hazy (CLEAR) A 03/10/23 17:55 Urine pH 6 (5-7) 03/10/23 17:55 Ur Specific [place] 1.005 (1.005-1.030) 03/10/23 17:55 Urine Protein 1+ (Negative) H 03/10/23 17:55 Urine Glucose (UA) Norm (Normal) 03/10/23 17:55 Urine Ketones Negative (Negative) 03/10/23 17:55 Urine Blood 2+ (Negative) H 03/10/23 17:55 Urine Nitrate Negative (Negative) 03/10/23 17:55 Urine Bilirubin Neg (Negative) 03/10/23 17:55 Urine Urobilinogen Norm mg/dL (Negative) 03/10/23 17:55 Ur Leukocyte Esterase 2+ (Negative) H 03/10/23 17:55 Urine RBC 5-10 /hpf (0-2) H 03/10/23 17:55 Urine WBC 10-15 /hpf (0-5) H 03/10/23 17:55 Ur Squamous Epith Cells 0-4 /hpf (0-5) H 03/10/23 17:55 Amorphous Sediment Not Reportable 03/10/23 17:55 Urine Bacteria 1+ /hpf (NONE) H 03/10/23 17:55 Urine Mucus 1+ /hpf 03/10/23 17:55 Discharge Plan Discharge Patient Disposition: Home Clinical Impression: Generalized weakness, Bilateral lower extremity edema Condition: Stable Prescriptions: No Action multivitamin Tablet 1 tab PO QAM acetaminophen [Tylenol] 325 mg capsule 325 mg PO Q6H PRN cholecalciferol (vitamin D3) 1,000 unit capsule 2,000 unit PO QDAY aspirin [Adult Aspirin Regimen] 81 mg tablet,delayed release (DR/EC) 81 mg PO DAILY GlucaGen HypoKit 1 mg recon soln 1 mg SUBCUT Q20M PRN Rx Instructions: until target blood sugar attained cranberry 500 mg capsule 500 mg PO BID Rx Instructions: administer with meals Symbicort 160-4.5 mcg/actuation HFA aerosol inhaler 2 puff INHALATION BID Qty: 10.2 5RF nitroglycerin 0.4 mg tablet, sublingual 0.4 mg sublingual Q5M Qty: 25 0RF Rx Instructions: do not exceed 3 doses per episode Call ambulance if you have to take the third Nitro. pen needle, diabetic [TechLITE Pen Needle] 32 gauge x 5/32 needle See Rx Instructions .ROUTE .COMPLEX Qty: 100 3RF Dose Instruction: USE DIRECTED ONE TIME DAILY WITH LANTUS Rx Instructions: USE DIRECTED ONE TIME DAILY WITH LANTUS lisinopril 2.5 mg tablet See Rx Instructions .ROUTE .COMPLEX Qty: 90 2RF Dose Instruction: TAKE ONE TABLET BY MOUTH ONCE DAILY Rx Instructions: TAKE ONE TABLET BY MOUTH ONCE DAILY atorvastatin 80 mg tablet See Rx Instructions .ROUTE .COMPLEX Qty: 90 1RF Dose Instruction: TAKE ONE TABLET BY MOUTH ONCE DAILY Rx Instructions: TAKE ONE TABLET BY MOUTH ONCE DAILY All Day Allergy (cetirizine) 10 mg capsule 10 mg PO QDAY Qty: 30 11RF metformin 500 mg tablet See Rx Instructions .ROUTE .COMPLEX Qty: 180 1RF Dose Instruction: TAKE ONE TABLET BY MOUTH TWICE A DAY Rx Instructions: TAKE ONE TABLET BY MOUTH TWICE A DAY albuterol sulfate [ProAir HFA] 90 mcg/actuation HFA aerosol inhaler See Rx Instructions .ROUTE .COMPLEX Qty: 8.5 0RF Dose Instruction: INHALE TWO (2) PUFFS BY MOUTH EVERY 12 HOURS NEEDED Rx Instructions: INHALE TWO (2) PUFFS BY MOUTH EVERY 12 HOURS NEEDED furosemide 80 mg tablet See Rx Instructions .ROUTE .COMPLEX Qty: 30 11RF Dose Instruction: TAKE 1 TABLET BY MOUTH DAILY Rx Instructions: TAKE 1 TABLET bid BY MOUTH DAILY insulin glargine [Lantus Solostar U-100 Insulin] 100 unit/mL (3 mL) insulin pen See Rx Instructions .ROUTE .COMPLEX Qty: 6 12RF Dose Instruction: INJECT SUBCUTANEOUSLY 12 UNITS DAILY Rx Instructions: INJECT SUBCUTANEOUSLY 12 UNITS DAILY ondansetron 4 mg tablet,disintegrating See Rx Instructions .ROUTE .COMPLEX Qty: 30 0RF Dose Instruction: DISSOLVE ONE (1) TABLET ON TOP OF THE TONGUE WHERE IT WILL DISSOLVE THEN SWALLOW EVERY 6 HOURS NEEDED Rx Instructions: DISSOLVE ONE (1) TABLET ON TOP OF THE TONGUE WHERE IT WILL DISSOLVE THEN SWALLOW EVERY 6 HOURS NEEDED carvedilol 6.25 mg tablet See Rx Instructions .ROUTE .COMPLEX Qty: 90 3RF Dose Instruction: TAKE ONE TABLET BY MOUTH ONCE DAILY Rx Instructions: TAKE ONE TABLET BY MOUTH ONCE DAILY fluticasone propionate 50 mcg/actuation spray,suspension See Rx Instructions .ROUTE .COMPLEX Qty: 16 0RF Dose Instruction: USE ONE (1) SPRAY IN EACH NOSTRIL ONCE DAILY Rx Instructions: USE ONE (1) SPRAY IN EACH NOSTRIL ONCE DAILY oxybutynin chloride 15 mg tablet extended release 24hr 15 mg PO QDAY Qty: 30 7RF Brilinta 90 mg tablet See Rx Instructions .ROUTE .COMPLEX Qty: 60 4RF Dose Instruction: TAKE ONE TABLET BY MOUTH TWICE A DAY Rx Instructions: TAKE ONE TABLET BY MOUTH TWICE A DAY nystatin 100,000 unit/gram cream See Rx Instructions .ROUTE .COMPLEX Qty: 30 1RF Dose Instruction: APPLY ONE (1) APPLICATION TOPICALLY TWICE A DAY Rx Instructions: APPLY ONE (1) APPLICATION TOPICALLY TWICE A DAY omeprazole 20 mg capsule,delayed release(DR/EC) See Rx Instructions .ROUTE .COMPLEX Qty: 30 0RF Dose Instruction: TAKE ONE CAPSULE BY MOUTH ONCE DAILY Rx Instructions: TAKE ONE CAPSULE BY MOUTH ONCE DAILY fluconazole 150 mg tablet 150 mg PO DAILY Qty: 1 0RF Rx Instructions: administer on 12/05/22 amoxicillin-pot clavulanate 875-125 mg tablet 1 tab PO BID Qty: 20 0RF cephalexin 750 mg capsule 750 mg PO BID 7 Days Qty: 14 0RF Discharge Orders: Discharge ED (Routine); Ordered 03/10/23 Ordered By: Yrn Cornejo Referrals: Wang Tillman DO [Primary Care Provider] - Discharge Diet: Regular Discharge Activity: Increase activity as tolerated Activity Restrictions/Additional Instructions: Follow-up with medical provider as directed in the next 5 to 7 days for reevaluation. Contact [facility] to get set up and moved into their facility. Continue taking all home medications as previously prescribed. Return to the ER or your medical provider if condition worsens. Please read and understand discharge instructions. Thank you for choosing [facility] for your healthcare needs today. Please realize this is an emergency room and that we are providing you with a medical screening exam and this may not be complete and all inclusive of all the testing and or work up that you may need to determine your ailment or severity of your illness. It is very important that you follow up as instructed or that you return to the Emergency Department should you have concerns or if your condition changes or worsens in any way. Coding Level of Care Code ED Torpedo Shooter for Joey Cabral
--- NOTE | 2023-03-10 18:05 | ECG_ITS ---
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 Measurements Intervals [place] Rate: 67 P: -59 IA: 112 QRS: -10 QRSD: 122 T: 79 QT: 426 QTc: 451 Interpretive Statements ECTOPIC ATRIAL RHYTHM WITH SHORT IA INTERVAL WITH OCCASIONAL SUPRAVENTRICULAR PREMATURE COMPLEXES MODERATE INTRAVENTRICULAR CONDUCTION DELAY [110+ ms QRS DURATION] NONSPECIFIC T-WAVE ABNORMALITY Compared to ECG 12/03/2022 07:08:38 Ectopic atrial rhythm now present Short IA interval now present Left ventricular hypertrophy no longer present T-wave abnormality still present Electronically Signed On 03-10-2023 18:31:31 CDT by Kulwant Rousseau M.D. [email or web address]
[2023-03-10 18:14] LABS: Basophils # 0.1 10^3/uL (0.0-0.1); Basophils % 0.6 %; Eosinophils # 0.4 10^3/uL (0.0-0.8); Eosinophils % 4.7 %; Hematocrit 30.7 % (37.0-47.0); Hemoglobin 9.4 g/dL (11.5-15.3); Lymphocytes # 0.9 10^3/uL (0.8-4.8); Lymphocytes % 10.8 %; Mean Corpuscular HGB Conc 30.6 g/dL (30.0-36.0); Mean Corpuscular Hemoglobin 30.3 pg (28.0-34.0); Monocytes # 0.6 10^3/uL (0.2-0.9); Monocytes % 6.8 %; Neutrophils # 6.58 10^3/uL (1.8-7.7); Neutrophils % 76.9 %; Nucleated Red Blood Cells % 0 %; Platelet Count 413 10^3/cmm (130-400); Red Cell Distribution Width 12.8 % (12.1-15.1); White Blood Count 8.6 10^3/uL (4.0-10.0)
[2023-03-10 18:38] LABS: Urine Color Yellow (Yellow)
[2023-03-10 18:39] LABS: Add Urine Microscopic? YES; Bilirubin Urine Neg (Negative); Blood Urine 2+ (Negative); Glucose Urine UA Norm (Normal); Ketones Urine Negative (Negative); Leukocyte Esterase Urine 2+ (Negative); Nitrate Urine Negative (Negative); Protein Urine 1+ (Negative); Specific Gravity, Urine 1.005 (1.005-1.030); Urine Appearance Hazy (CLEAR); Urobilinogen Urine Norm (Negative); pH Urine 6 (5-7)
[2023-03-10 18:46] LABS: Troponin(5th) Baseline 38 ng/L (0-10)
[2023-03-10 18:51] LABS: Add Urine Culture? Yes; Bacteria Urine 1+ /hpf; Mucus Urine 1+ /hpf; Squamous Epithelial Cell Urine 0-4 /hpf (0-5)
[2023-03-10 18:54] LABS: Alanine Aminotransferase 8 U/L (0-33); Alkaline Phosphatase 85 U/L (35-105); Anion Gap 20.3 (5-19); Aspartate Amino Transferase 15 U/L (0-32); Blood Urea Nitrogen 56 mg/dL (8-23); Carbon Dioxide 22 mmol/L (22-29); Chloride 101 mmol/L (98-107); Globulin 3.3 g/dL (1.3-4.6); Glomerular Filtration Rate 37.9 mL/min (90-130); Glucose 125 mg/dL (65-115); NT Pro B Type Natriuretic Pept 2034 pg/mL (0-125); Osmolality Calculated 305 mOsm/kg (285-295); Potassium 4.3 mmol/L (3.5-5.1); Sodium 139 mmol/L (136-145); Total Bilirubin 0.3 mg/dL (0.15-1.2); Total Protein 7.3 g/dL (6.6-8.7)
--- NOTE | 2023-03-10 19:03 | ECG_ITS ---
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 Measurements Intervals [place] Rate: 70 P: 0 CT: 0 QRS: -2 QRSD: 126 T: 127 QT: 386 QTc: 417 Interpretive Statements ATRIAL FIBRILLATION MODERATE INTRAVENTRICULAR CONDUCTION DELAY [110+ ms QRS DURATION] MINIMAL VOLTAGE CRITERIA FOR LVH, CONSIDER NORMAL VARIANT [MEETS CRITERIA IN ONE OF: R(aVL), S(V1), R(V5), R(V5/V6)+S(V1)] NONSPECIFIC ST & T-WAVE ABNORMALITY Compared to ECG 03/10/2023 18:05:26 Ectopic atrial rhythm no longer present Short CT interval no longer present T-wave abnormality still present Electronically Signed On 03-10-2023 22:05:17 CDT by Kulwant Rousseau M.D. [id number]
[2023-03-10 20:31] LABS: Troponin 5 2HR 40.64 ng/L (0-10)
[2023-03-10 20:37] LABS: Troponin 5 2HR Delta 2.64 ABS# (0-10)
[2023-03-10] MEDS: morphine 4 mg/mL SDV 1 mL IVP (20:40)
[2023-03-10] MEDS: ondansetron 2 mg/ML SDV 2 mL 4 MG IVP (20:40)
[2023-03-10] MEDS: FUROsemide 10 mg/mL SDV 10mL 60 MG IVP (23:58)
[2023-03-11 00:10] VITALS: PULSE 61; RESP 18; O2SAT 99
[2023-03-11] MEDS: HYDROcodone-acetaminophen 5-325 mg Tablet 1 TAB PO (03:20)
[2023-03-11] MEDS: HYDROcodone-acetaminophen 7.5-325 mg Tablet 1 TAB PO (10:07)
--- NOTE | 2023-03-11 10:42 | PC.NURSE ---
Pt wanted to get up from her bed and move to her wheelchair because she had been in her bed all night and was having pain. Pt was assisted by staff with a walker to the wheelchair at bedside. Pt tolerated well, her feet were elevated, coffee and breakfast given to patient. She is still waiting on ambulance transport.
== END 2023-03-11 10:54 | disposition home or self-care (01) ==
PROVIDERS: Emergency Provider Physician Assistant; PCP Family Medicine
DX: R53.1 Weakness (principal); R60.0 Localized edema; Z79.82 Long term (current) use of aspirin; Z79.84 Long term (current) use of oral hypoglycemic drugs; Z79.4 Long term (current) use of insulin; Z87.891 Personal history of nicotine dependence; I25.10 Atherosclerotic heart disease of native coronary artery without angina pectoris; I11.0 Hypertensive heart disease with heart failure; I50.9 Heart failure, unspecified; E11.9 Type 2 diabetes mellitus without complications
CPT/HCPCS: 36415; 71045; 80053; 81001; 83880; 84484; 85025; 87077; 87086; 87186; 93005; 96374; 96375; 99285; J1940; J2270; J2405

== ENCOUNTER → 2023-04-06 11:57 | Outpatient (BNVA) | payer MEDICAID, SELFPAY | PROVIDERS: PCP Family Medicine; Visit Provider Nurse Practitioner Family | DX: N23 Unspecified renal colic (principal) | CPT/HCPCS: 81003 ==

== ENCOUNTER → 2023-07-03 16:16 | Outpatient (BNVA) | payer MEDICAID, SELFPAY | PROVIDERS: PCP Family Medicine; Visit Provider Nurse Practitioner Family | DX: R30.0 Dysuria (principal); N39.0 Urinary tract infection, site not specified | CPT/HCPCS: 81003; 87077; 87086; 87184 ==

== ENCOUNTER 2023-07-07 20:41 | Emergency (ER) | payer MEDICAID, SELFPAY ==
[2023-07-07 20:43] VITALS: BP 205/89; PULSE 86; RESP 18; TEMP 36.6; O2SAT 95; BMI 44.3
--- NOTE | 2023-07-07 20:56 | CTR_ITS ---
PROCEDURE INFORMATION: Exam: CT Abdomen And Pelvis Without Contrast Exam date and time: 07/07/2023 9:16 PM Age: 62 years old Clinical indication: Abdominal pain; Localized; Prior surgery; Surgery date: 6+ months; Surgery type: Breast biopsy. Csection; Patient HX: Lower abd pain with gross hematuria in card; Additional info: Hematuria, abd pain TECHNIQUE: Imaging protocol: Computed tomography of the abdomen and pelvis without contrast. Radiation optimization: All CT scans at this facility use at least one of these dose optimization techniques: automated exposure control; mA and/or kV adjustment per patient size (includes targeted exams where dose is matched to clinical indication); or iterative reconstruction. REPORTING DATA: Count of CT and Cardiac NM exams in prior 12 months: This patient has received 0 known CTs and 0 known cardiac nuclear medicine studies in the 12 months prior to the current study. COMPARISON: CT abdomen pelvis w con* [id number] 12/03/2021 12:09 AM RADIATION DOSE METRICS: Total DLP (mGy-cm): 1255.44 FINDINGS: Lungs: Mild atelectasis in the lung bases. Coronary arteries: Coronary artery calcifications. Liver: Normal. No mass. Gallbladder and bile ducts: Normal. No calcified stones. No ductal dilation. Pancreas: Normal. No ductal dilation. Spleen: Normal. No splenomegaly. Adrenal glands: Normal. No mass. Kidneys and ureters: The kidneys are unremarkable. No calculus or hydronephrosis. There is artifact through the posterior left kidney. Stomach and bowel: Large hiatal/gastric hernia. Appendix: The appendix is visualized and is normal. Intraperitoneal space: Unremarkable. No free air. No significant fluid collection. Vasculature: Calcifications in the liver hilum are most likely vascular. Diffuse arterial calcifications. No aneurysm. Lymph nodes: Calcified mediastinal and hilar lymph nodes. Urinary bladder: The urinary bladder is distended measuring 10.3 cm in length and is filled with homogeneous hyperdense material. No wall thickening. Reproductive: Unremarkable as visualized. Bones/joints: Curvature and degenerative changes of the spine. No acute fracture. Soft tissues: Severe obesity. Clips in the right breast. CT/CT kidney stone [id number] IMPRESSION: 1. The urinary bladder is distended with inhomogeneous hyperdense material, most likely a large blood clot. A definite cause for the bleeding is not identified. An underlying mass in the urinary bladder is not excluded. Follow-up with cystoscopy should be considered.
[2023-07-07 21:14] LABS: Basophils # 0.1 10^3/uL (0.0-0.1); Basophils % 0.5 %; Eosinophils # 0.3 10^3/uL (0.0-0.8); Eosinophils % 2.2 %; Hematocrit 29.1 % (36-47); Lymphocytes # 1.1 10^3/uL (0.8-4.8); Lymphocytes % 7.2 %; Mean Corpuscular HGB Conc 32.3 g/dL (30-55); Mean Corpuscular Hemoglobin 31.4 pg (27-33); Mean Corpuscular Volume 97.3 fl (85-98); Mean Platelet Volume 8.8 fL (7.4-10.4); Monocytes % 6.6 %; Neutrophils # 12.64 10^3/uL (1.8-7.7); Neutrophils % 83.1 %; Nucleated Red Blood Cells % 0 %; Platelet Count 423 10^3/cmm (157-399); Red Blood Count 2.99 10^6/uL (3.85-5.65); Red Cell Distribution Width 12.8 % (12.1-15.1)
[2023-07-07 21:30] VITALS: BP 153/97; O2SAT 95
[2023-07-07 21:31] LABS: Alanine Aminotransferase 10 U/L (0-33); Albumin Level 3.8 g/dL (3.5-5.2); Alkaline Phosphatase 105 U/L (35-105); Anion Gap 18.6 (5-19); Aspartate Amino Transferase 13 U/L (0-32); Blood Urea Nitrogen 47 mg/dL (8-23); C Reactive Protein 9.7 mg/L (0.0-4.9); Calcium 9.2 mg/dL (8.5-10.5); Carbon Dioxide 25 mmol/L (22-29); Chloride 95 mmol/L (98-107); Globulin 3.2 g/dL (1.3-4.6); Glomerular Filtration Rate 37.9 mL/min (90-130); Glucose 236 mg/dL (65-115); Osmolality Calculated 296 mOsm/kg (285-295); Potassium 5.6 mmol/L (3.5-5.1); Sodium 133 mmol/L (136-145); Total Bilirubin 0.3 mg/dL (0.15-1.2)
--- NOTE | 2023-07-07 21:54 | W.ED.FEMALGU ---
HPI - Female Genitourinary General: Chief complaint: Urogenital-Female Stated complaint: VAG BLEEDING Time Seen by Provider: 07/07/23 20:44 History of Present Illness: 62-year-old female presenting from a intermediate environment. She had a Bonilla placed a couple of days ago. She then began the have symptoms of urinary tract infection and was placed on amoxicillin. She presents to the emergency room with blood in her Bonilla catheter. Evidently there was blood in her brief as well. This was concerning to the intermediate. She denies fever. No vomiting. She does have some continued burning sensations. Associated symptoms: Deny abdominal pain Review of Systems Const: Denies: fever(s) ENMT: Denies: throat pain Card: Denies: chest pain Resp: Reports: dyspnea (Chronic) GI: Denies: abdominal pain or vomiting PFSH ED PFSH: Medical History Acid reflux CAD (coronary artery disease) Cellulitis of left leg CHF (congestive heart failure) Diabetes Diabetes Hypertension Ischemic cardiomyopathy Lump of breast, right OAB (overactive bladder) Pain Recurrent UTI UTI (urinary tract infection) Surgical History H/O breast biopsy right H/O: section S/P cardiac cath Family History Other CAD (coronary artery disease) Hypertension Stroke Social History Smoking and tobacco status: former smoker Alcohol intake: never Physical Exam Const: COMMON NORMALS: no acute distress GENERAL APPEARANCE: frail appearing; not ill appearing HENMT: COMMON NORMALS: normocephalic, atraumatic and Normal external nose present HEAD & SCALP: normocephalic and atraumatic NOSE: Normal external nose present Eye: COMMON NORMALS: Equal, round and reactive pupils present and EOMs intact bilaterally PUPIL: Yes Equal, round and reactive pupils present Resp: COMMON NORMALS: normal respiratory effort Cardio: COMMON NORMALS: regular rate and regular rhythm RATE: regular rate RHYTHM: regular rhythm GI: COMMON NORMALS: Normal to inspection, nondistended, normoactive bowel sounds present PALPATION: No Tenderness to palpation present (GI) Neuro: NOA COMA SCALE: document GCS findings Volin coma scale eye opening: Spontaneous Volin coma scale verbal response: Orientated Volin coma scale motor response: Obey commands Noa coma scale total score: 15 Course Vital Signs: Vital signs: Vital Signs Temperature 98.0 F 07/08/23 07:35 Pulse Rate 65 07/08/23 07:35 Respiratory Rate 18 07/08/23 07:35 Blood Pressure 114/63 07/08/23 07:35 Pulse Oximetry 95 07/08/23 07:35 Oxygen Delivery Me thod Nasal Cannula 07/08/23 07:35 Oxygen Flow Rate 3 07/08/23 07:35 MDM - Female Medical Decision Making Hemoglobin is 9.4. Potassium is 5.6. Creatinine is 1.4. CT shows bladder distention with blood. Attempting to flush Bonilla currently. Bonilla was not able to be flushed. It was pulled, and a 20 [place] three-way catheter was placed for irrigation. Attempted CBI was made, but clots Forming in the catheter preventing adequate gravitational drainage. We consulted with urology at [facility], they suggested placing a 24 Nigerian catheter which was done. At this point, the bladder has been irrigated to the point that strawberry colored urine is coming out, without significant clots. The patient had clot passage around the Bonilla catheter from the urethra prior to this, which prompted vaginal and rectal exams that were both negative for bleeding. We have no urology services at this hospital. With continued bleeding, she may require further intervention. Urology at [facility] agreed to consult on the patient. I spoke with Dr. Mondragon, hospitalist at [facility] who is agreed to admit the patient. She will go by ground transfer. Lab Data 07/07/23 21:09 07/07/23 21:09 Radiology Impressions Abdomen/Pelvis CT 07/07/23 20:56 IMPRESSION: 1. The urinary bladder is distended with inhomogeneous hyperdense material, most likely a large blood clot. A definite cause for the bleeding is not identified. An underlying mass in the urinary bladder is not excluded. Follow-up with cystoscopy should be considered. Laboratory Results WBC 15.20 10^3/uL (3.29-11.43) H 07/07/23 21:09 RBC 2.99 10^6/uL (3.85-5.65) L 10/06/23 21:09 Hgb 9.40 g/dL (11.27-16.99) L 07/07/23 21:09 Hct 29.1 % (36-47) L 07/07/23 21:09 MCV 97.3 fl (85-98) 07/07/23 21:09 MCH 31.4 pg (27-33) 07/07/23 21:09 MCHC 32.3 g/dL (30-55) 07/07/23 21:09 RDW 12.8 % (12.1-15.1) 07/07/23 21:09 Plt Count 423 10^3/cmm (157-399) H 07/07/23 21:09 MPV 8.8 fL (7.4-10.4) 07/07/23 21:09 Neut % (Auto) 83.1 % 07/07/23 21:09 Lymph % (Auto) 7.2 % 07/07/23 21:09 Harris % (Auto) 6.6 % 07/07/23 21:09 Eos % (Auto) 2.2 % 07/07/23 21:09 Baso % (Auto) 0.5 % 07/07/23 21:09 Neut # (Auto) 12.64 10^3/uL (1.8-7.7) H 07/07/23 21:09 Lymph # (Auto) 1.1 10^3/uL (0.8-4.8) 07/07/23 21:09 Harris # (Auto) 1.0 10^3/uL (0.2-0.9) H 07/07/23 21:09 Eos # (Auto) 0.3 10^3/uL (0.0-0.8) 07/07/23 21:09 Baso # (Auto) 0.1 10^3/uL (0.0-0.1) 07/07/23 21:09 Nucleated RBC % (auto) 0 % 07/07/23 21:09 Nucleated RBCs # 0.0 /100WBC 07/07/23 21:09 Sodium 133 mmol/L (136-145) L 07/07/23 21:09 Potassium 5.6 mmol/L (3.5-5.1) H 07/07/23 21:09 Chloride 95 mmol/L (98-107) L 07/07/23 21:09 Carbon Dioxide 25 mmol/L (22-29) 07/07/23 21:09 Anion Gap 18.6 (5-19) 07/07/23 21:09 BUN 47 mg/dL (8-23) H 07/07/23 21:09 Creatinine 1.4 mg/dL (0.5-0.9) H 07/07/23 21:09 GFR Calculation 37.9 mL/min (90-130) L 07/07/23 21:09 Glucose 236 mg/dL (65-115) H 07/07/23 21:09 Calculated Osmolality 296 mOsm/kg (285-295) H 07/07/23 21:09 Calcium 9.2 mg/dL (8.5-10.5) 07/07/23 21:09 Total Bilirubin 0.3 mg/dL (0.15-1.2) 07/07/23 21:09 AST 13 U/L (0-32) 07/07/23 21:09 ALT 10 U/L (0-33) 07/07/23 21:09 Alkaline Phosphatase 105 U/L (35-105) 07/07/23 21:09 C-Reactive Protein 9.7 mg/L (0.0-4.9) H 07/07/23 21:09 Total Protein 7.0 g/dL (6.6-8.7) 07/07/23 21:09 Albumin 3.8 g/dL (3.5-5.2) 07/07/23 21:09 Globulin 3.2 g/dL (1.3-4.6) 07/07/23 21:09 Urine Color Red (Yellow) A 07/08/23 00:10 Urine Appearance Turbid (CLEAR) A 07/08/23 00:10 Urine pH 9 (5-7) H 07/08/23 00:10 Ur Specific [place] 1.010 (1.005-1.030) 07/08/23 00:10 Urine Protein 3+ (Negative) H 07/08/23 00:10 Urine Glucose (UA) Norm (Normal) 07/08/23 00:10 Urine Ketones Negative (Negative) 07/08/23 00:10 Urine Blood 3+ (Negative) H 07/08/23 00:10 Urine Nitrate Positive (Negative) H 07/08/23 00:10 Urine Bilirubin Neg (Negative) 07/08/23 00:10 Urine Urobilinogen Neg mg/dL (Negative) 07/08/23 00:10 Ur Leukocyte Esterase 2+ (Negative) H 07/08/23 00:10 Urine RBC Too numerous to cnt /hpf (0-2) H 07/08/23 00:10 Urine WBC None /hpf (0-5) 07/08/23 00:10 Ur Squamous Epith Cells None /hpf (0-5) 07/08/23 00:10 Amorphous Sediment Not Reportable 07/08/23 00:10 Urine Bacteria None /hpf (NONE) 07/08/23 00:10 All radiology interpretation(s) finalized by discharge Discharge Plan Discharge Patient Disposition: Xfer Short-Term Hosp Clinical Impression: UTI (urinary tract infection), Gross hematuria Condition: Stable Referrals: Wang Tillman DO [Primary Care Provider] - Coding Level of Care Code ED Typesetters Printer for Joey Cabral
[2023-07-08 00:59] LABS: Urine Appearance Turbid (CLEAR); Urine Color Red (Yellow)
[2023-07-08 01:00] LABS: Add Urine Culture? Yes; Add Urine Microscopic? YES; Bilirubin Urine Neg (Negative); Blood Urine 3+ (Negative); Glucose Urine UA Norm (Normal); Ketones Urine Negative (Negative); Leukocyte Esterase Urine 2+ (Negative); Nitrate Urine Positive (Negative); Protein Urine 3+ (Negative); RBC Urine TOO NUMEROUS TO CNT /hpf (0-2); Urobilinogen Urine Neg (Negative); pH Urine 9 (5-7)
[2023-07-08 01:40] VITALS: RESP 18; O2SAT 97
[2023-07-08] MEDS: morphine 4 mg/mL SDV 1 mL IVP (01:40)
[2023-07-08] MEDS: phenazopyridine 100 mg Tablet PO (01:41)
--- NOTE | 2023-07-08 02:21 | PC.NURSE ---
Upon arrival to ER, Dr Shukla had this nurse flush patient's Bonilla. Large clots were expelled via manual irrigation of Bonilla with 2000ml sterile water. CBI has been started to prevent Bonilla catheter from clotting off.
--- NOTE | 2023-07-08 03:36 | PC.NURSE ---
Pt. continuous bladder irrigation is producing pink tinged / clear urine. Spoke with Dr. Shukla , states that it looks alot better and may be close to time for discontinuing irrigation.
[2023-07-08 03:37] VITALS: BP 167/69; PULSE 58; RESP 20; O2SAT 100
--- NOTE | 2023-07-08 04:54 | PC.NURSE ---
Report was called to Iesha Reid RN at [facility] to [id number] on 7B. All questions and concerns were addressed at time of report.
--- NOTE | 2023-07-08 04:57 | PC.NURSE ---
CBI stopped at this time per Dr Shukla. Urinary output was reported to Dr Shukla as clear, pink, and no clots observed.
--- NOTE | 2023-07-08 07:00 | PC.NURSE ---
Report from WELLINGTON Arauz. Pt resting quietly. Warm blanket provided.
[2023-07-08 07:35] VITALS: BP 114/63; PULSE 65; RESP 18; TEMP 36.7; O2SAT 95
== END 2023-07-08 07:44 | disposition short-term general hospital (02) ==
PROVIDERS: Emergency Provider Emergency Medicine; PCP Family Medicine
DX: N39.0 Urinary tract infection, site not specified (principal); R31.0 Gross hematuria; Z87.891 Personal history of nicotine dependence; I25.10 Atherosclerotic heart disease of native coronary artery without angina pectoris; I11.0 Hypertensive heart disease with heart failure; I50.9 Heart failure, unspecified; E11.9 Type 2 diabetes mellitus without complications; Z87.440 Personal history of urinary (tract) infections
CPT/HCPCS: 36415; 74176; 80053; 81001; 85025; 86140; 87077; 87086; 87186; 96374; 99285; J2270

== ENCOUNTER → 2023-08-07 16:04 | Outpatient (BNVA) | payer MEDICAID, SELFPAY | PROVIDERS: PCP Family Medicine; Visit Provider Nurse Practitioner Family | DX: R30.0 Dysuria (principal) | CPT/HCPCS: 81000; 87077; 87086; 87184 ==

== ENCOUNTER → 2023-08-21 15:26 | Outpatient (BNVA) | payer MEDICAID, SELFPAY | PROVIDERS: PCP Family Medicine; Visit Provider Family Medicine | DX: R30.0 Dysuria (principal); R41.0 Disorientation, unspecified | CPT/HCPCS: 81003; 87077; 87086; 87184 ==

== ENCOUNTER → 2023-10-03 15:18 | Outpatient (BNVA) | payer MEDICAID, SELFPAY | PROVIDERS: PCP Family Medicine; Visit Provider Nurse Practitioner Family | DX: R30.0 Dysuria (principal) | CPT/HCPCS: 81000; 87077; 87086; 87184 ==

== ENCOUNTER 2024-03-22 10:58 | Emergency (ER) | payer MEDICAID, SELFPAY ==
[2024-03-22] VITALS (80 sets, daily range): BP systolic 142–174; BP diastolic 45–74; PULSE 46–71; RESP 13–27; TEMP 36.7; O2SAT 97–100; BMI 52.7
--- NOTE | 2024-03-22 11:06 | USCV_ITS ---
Nia Gomes Age: 63 Gender: F : 1960 Exam Date: 03/22/2024 11:23 Ordering Phys: Nicholas Kwok Technologist: CT Exam [place] [facility] [place] Indication: pain PROCEDURES: The venous duplex Doppler examination of both lower extremities was performed in the standard fashion. Bilaterally, the common femoral, superficial femoral, profunda femoral, popliteal, posterior tibial, greater saphenous veins, and the peroneal trunk were identified and interrogated in the standard fashion. These veins were found to be easily compressible with spontaneous blood flow. No evidence of insufficiency or thrombus noted. FINDINGS: no dvt CONCLUSIONS No evidence of right lower extremity DVT. No evidence of left lower extremity DVT. José Antonio Longo MD (Electronically Signed) Final Date: 22 March 2024 12:46 S
--- NOTE | 2024-03-22 11:10 | ED_ITS ---
HPI - Extremity Problem 2 General: Chief complaint: Extremity Problem,Nontraumatic Stated complaint: left leg pain Time Seen by Provider: 03/22/24 11:01 History of Present Illness: 63-year-old female presents emerged depa rtment by EMS with a chief complaint of bilateral lower extremity swelling and edema patient apparently is on blood thinners which has been recent taken off of due to excessive bruising which there is concerns from the retirement facility that she resides at that she may have a blood clot patient does endorse a palpable noted to the left lateral thigh patient reports she is neurovascular tact distally she does not endorse any shortness of breath or chest pain or palpitations or any other associated symptoms. Associated symptoms: Deny chest pain, fever(s) or rash Review of Systems 2 General: Reports: 10 or more systems reviewed and unremarkable except in HPI and below Const: Denies: fever(s), chills, fatigue or malaise Eyes: Denies: change in vision or blurry vision Card: Denies: chest pain or palpitations Resp: Denies: dyspnea or productive cough GI: Denies: abdominal pain, nausea or vomiting : Denies: flank pain Musc: Denies: extremity pain or extremity swelling Skin/Breast: Reports: erythema, skin tenderness, skin swelling and non-healing lesions; Denies: rash or pruritus Neuro: Denies: headache(s) Psych: Denies: anxiety or depression [facility]/Lymph: Denies: easy bleeding All/Imm: Denies: urticaria, throat swelling or facial swelling PFSH ED 2 PFSH: Medical History Anemia in other chronic diseases classified elsewhere Acquired hyperlipoproteinemia Essential (primary) hypertension Gastro-esophageal reflux disease without esophagitis Primary generalized (osteo)arthritis Depression, unspecified Anxiety disorder, unspecified Obstructive sleep apnea (adult) (pediatric) Type 2 diabetes mellitus with diabetic polyneuropathy Other nonspecific abnormal finding of lung field Cardiomegaly Epistaxis Hyperkalemia Body mass index [BMI] 50.0-59.9, adult Morbid (severe) obesity due to excess calories Acute kidney failure, unspecified Type 2 diabetes mellitus with diabetic peripheral angiopathy without gangrene 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 Heart failure, unspecified Recurrent UTI Diabetes Ischemic cardiomyopathy CHF (congestive heart failure) CAD (coronary artery disease) OAB (overactive bladder) Acid reflux Lump of breast, right Cellulitis of left leg Pain UTI (urinary tract infection) Hypertension Diabetes Surgical History S/P cardiac cath H/O: section H/O breast biopsy right Family History Other CAD (coronary artery disease) Hypertension Stroke Social History Smoking and tobacco/nicotine status: former use of tobacco/nicotine Alcohol intake: never Housing: Intermediate Physical Exam 2 Const: COMMON NORMALS: no acute distress, patient oriented x3 and healthy appearing HENMT: COMMON NORMALS: normocephalic and atraumatic HEAD & SCALP: n ormocephalic and atraumatic Eye: COMMON NORMALS: Equal, round and reactive pupils present and EOMs intact bilaterally PUPIL: Yes Equal, round and reactive pupils present Neck/C-Spine: COMMON NORMALS: full ROM, supple and no JVD Lymph: LYMPHATIC: no lymphadenopathy noted Chest: COMMONS NORMALS: normal inspection of the chest and normal palpation of entire chest wall Resp: COMMON NORMALS: normal respiratory effort, No retractions and clear to auscultation bilaterally EFFORT & INSPECTION: Yes able to speak in complete sentences and Yes symmetric chest movement AUSCULTATION: clear to auscultation bilaterally Cardio: COMMON NORMALS: no JVD, regular rate and regular rhythm RATE: r egular rate RHYTHM: regular rhythm GI: COMMON NORMALS: Normal to inspection, nondistended, normoactive bowel sounds present, Soft to palpation and non-tender INSPECTION: Yes normal to inspection PALPATION: Yes Soft to palpation : COMMON NORMALS: Yes no CVA tenderness BLADDER/KIDNEY EXAM: Yes no CVA tenderness Back/Pelvis: COMMON NORMALS: no CVA tenderness Extremity: COMMON NORMALS: normal to inspection and full ROM; negative for no pedal edema (What appears to be a palpable hematoma appreciated left lateral thigh with ) Neuro: COMMON NORMALS: patient oriented x3, CN's II-XII intact bilaterally, moves all extremities and no focal motor deficits Psych: COMMON NORMALS: mental status grossly normal, Normal thought process present, cooperative and normal affect THOUGHT PROCESS: Normal thought process present Skin: COMMON NORMALS: no rashes or lesions noted GENERAL SKIN EXAM: no rashes or lesions noted Course 2 Vital Signs: Vital signs: Vital Signs Temperature 98.1 F 03/22/24 11:00 Pulse Rate 48 L 03/22/24 13:55 Respiratory Rate 20 H 03/22/24 13:55 Blood Pressure 154/65 03/22/24 13:55 Pulse Oximetry 99 03/22/24 13:55 Oxygen Delivery Me thod Nasal Cannula 03/22/24 13:55 Oxygen Flow Rate 3 03/22/24 13:55 MDM - Extremity (Nontraumatic) Medical Decision Making On exam there is no drainage expressed or fluctuance appreciated patient does have some bilateral lower extremity swelling we will be obtaining a ultrasound of lower extremities with basic labs will continue to follow. On exam this appears to be a palpable hematoma based upon its location and overlying bruising surrounding it no obvious signs suggestive of cellulitis is appreciated. Due to patient's symptoms and condition lab work and imaging will be obtained. Patient's labs reveal mild renal impairment due to being dehydrated otherwise unremarkable ultrasound venous came back unremarkable no blood clots appreciated patient appears to be suffering from a hematoma with overlying skin changes patient is stable for discharge back to the retirement patient encouraged increase her p.o. intake of fluids especially water which advised further follow-up primary care in 3 to 5 days in which instructed to return the interim if any of her symptoms persist or worse. Lab Data 03/22/24 12:52 03/22/24 12:52 Laboratory Results WBC 8.80 10^3/uL (3.29-11.43) 03/22/24 12:52 RBC 2.90 10^6/uL (3.85-5.65) L 03/22/24 12:52 Hgb 9.60 g/dL (11.27-16.99) L 03/22/24 12:52 Hct 28.4 % (36-47) L 03/22/24 12:52 MCV 97.9 fl (85-98) 03/22/24 12:52 MCH 33.1 pg (27-33) H 03/22/24 12:52 MCHC 33.8 g/dL (30-55) 03/22/24 12:52 RDW 12.7 % (12.1-15.1) 03/22/24 12:52 Plt Count 484 10^3/cmm (157-399) H 03/22/24 12:52 MPV 8.5 fL (7.4-10.4) 03/22/24 12:52 Neut % (Auto) 70.9 % 03/22/24 12:52 Lymph % (Auto) 18.8 % 03/22/24 12:52 [place] % (Auto) 6.1 % 03/22/24 12:52 Eos % (Auto) 3.1 % 03/22/24 12:52 Baso % (Auto) 0.5 % 03/22/24 12:52 Neut # (Auto) 6.25 10^3/uL (1.8-7.7) 03/22/24 12:52 Lymph # (Auto) 1.7 10^3/uL (0.8-4.8) 03/22/24 12:52 [place] # (Auto) 0.5 10^3/uL (0.2-0.9) 03/22/24 12:52 Eos # (Auto) 0.3 10^3/uL (0.0-0.8) 03/22/24 12:52 Baso # (Auto) 0.0 10^3/uL (0.0-0.1) 03/22/24 12:52 Nucleated RBC % (auto) 0 % 03/22/24 12:52 Nucleated RBCs # 0.0 /100WBC 03/22/24 12:52 PT 13.50 SECONDS (12.1-14.9) 03/22/24 12:52 INR 1.00 (0.8-1.2) 03/22/24 12:52 Sodium 136 mmol/L (136-145) 03/22/24 12:52 Potassium 5.1 mmol/L (3.5-5.1) 03/22/24 12:52 Chloride 99 mmol/L (98-107) 03/22/24 12:52 Carbon Dioxide 24 mmol/L (22-29) 03/22/24 12:52 Anion Gap 18.1 (5-19) 03/22/24 12:52 BUN 44 mg/dL (8-23) H 03/22/24 12:52 Creatinine 2.2 mg/dL (0.5-0.9) H 03/22/24 12:52 GFR Calculation 22.4 mL/min (90-130) L 03/22/24 12:52 Glucose 164 mg/dL (65-115) H 03/22/24 12:52 Calculated Osmolality 297 mOsm/kg (285-295) H 03/22/24 12:52 Calcium 9.3 mg/dL (8.5-10.5) 03/22/24 12:52 Total Bilirubin 0.2 mg/dL (0.15-1.2) 03/22/24 12:52 AST 15 U/L (0-32) 03/22/24 12:52 ALT 8 U/L (0-33) 03/22/24 12:52 Alkaline Phosphatase 85 U/L (35-105) 03/22/24 12:52 Total Protein 6.2 g/dL (6.6-8.7) L 03/22/24 12:52 Albumin 3.7 g/dL (3.5-5.2) 03/22/24 12:52 Globulin 2.5 g/dL (1.3-4.6) 03/22/24 12:52 All radiology interpretation(s) finalized by discharge Discharge Plan Discharge Patient Disposition: Home Clinical Impression: Hematoma and contusion, Dehydration Condition: Stable Prescriptions: No Action multivitamin Tablet 1 tab PO QAM acetaminophen [Tylenol] 325 mg capsule 325 mg PO Q6H PRN cholecalciferol (vitamin D3) 1,000 unit capsule 2,000 unit PO QDAY aspirin [Adult Aspirin Regimen] 81 mg tablet,delayed release (DR/EC) 81 mg PO DAILY GlucaGen HypoKit 1 mg recon soln 1 mg SUBCUT Q20M PRN Rx Instructions: until target blood sugar attained cranberry 500 mg capsule 500 mg PO BID Rx Instructions: administer with meals lidocaine HCl [Lidocaine Viscous] 2 % solution 1 applic topical ONCE Qty: 1 0RF lidocaine HCl [Lidocaine Viscous] 2 % solution 1 applic topical ONCE Qty: 1 0RF lidocaine HCl [Lidocaine Viscous] 2 % solution 1 applic topical ONCE Qty: 1 0RF lidocaine HCl [Lidocaine Viscous] 2 % solution 1 applic topical ONCE Qty: 1 0RF nitroglycerin 0.4 mg tablet, sublingual 0.4 mg sublingual Q5M Qty: 25 0RF Rx Instructions: do not exceed 3 doses per episode Call ambulance if you have to take the third Nitro. pen needle, diabetic [TechLITE Pen Needle] 32 gauge x 5/32 needle See Rx Instructions .ROUTE .COMPLEX Qty: 100 3RF Dose Instruction: USE DIRECTED ONE TIME DAILY WITH LANTUS Rx Instructions: USE DIRECTED ONE TIME DAILY WITH LANTUS lisinopril 2.5 mg tablet See Rx Instructions .ROUTE .COMPLEX Qty: 90 2RF Dose Instruction: TAKE ONE TABLET BY MOUTH ONCE DAILY Rx Instructions: TAKE ONE TABLET BY MOUTH ONCE DAILY atorvastatin 80 mg tablet See Rx Instructions .ROUTE .COMPLEX Qty: 90 1RF Dose Instruction: TAKE ONE TABLET BY MOUTH ONCE DAILY Rx Instructions: TAKE ONE TABLET BY MOUTH ONCE DAILY All Day Allergy (cetirizine) 10 mg capsule 10 mg PO QDAY Qty: 30 11RF metformin 500 mg tablet See Rx Instructions .ROUTE .COMPLEX Qty: 180 1RF Dose Instruction: TAKE ONE TABLET BY MOUTH TWICE A DAY Rx Instructions: TAKE ONE TABLET BY MOUTH TWICE A DAY albuterol sulfate [ProAir HFA] 90 mcg/actuation HFA aerosol inhaler See Rx Instructions .ROUTE .COMPLEX Qty: 8.5 0RF Dose Instruction: INHALE TWO (2) PUFFS BY MOUTH EVERY 12 HOURS NEEDED Rx Instructions: INHALE TWO (2) PUFFS BY MOUTH EVERY 12 HOURS NEEDED furosemide 80 mg tablet See Rx Instructions .ROUTE .COMPLEX Qty: 30 11RF Dose Instruction: TAKE 1 TABLET BY MOUTH DAILY Rx Instructions: TAKE 1 TABLET bid BY MOUTH DAILY insulin glargine [Lantus Solostar U-100 Insulin] 100 unit/mL (3 mL) insulin pen See Rx Instructions .ROUTE .COMPLEX Qty: 6 12RF Dose Instruction: INJECT SUBCUTANEOUSLY 12 UNITS DAILY Rx Instructions: INJECT SUBCUTANEOUSLY 12 UNITS DAILY ondansetron 4 mg tablet,disintegrating See Rx Instructions .ROUTE .COMPLEX Qty: 30 0RF Dose Instruction: DISSOLVE ONE (1) TABLET ON TOP OF THE TONGUE WHERE IT WILL DISSOLVE THEN SWALLOW EVERY 6 HOURS NEEDED Rx Instructions: DISSOLVE ONE (1) TABLET ON TOP OF THE TONGUE WHERE IT WILL DISSOLVE THEN SWALLOW EVERY 6 HOURS NEEDED carvedilol 6.25 mg tablet See Rx Instructions .ROUTE .COMPLEX Qty: 90 3RF Dose Instruction: TAKE ONE TABLET BY MOUTH ONCE DAILY Rx Instructions: TAKE ONE TABLET BY MOUTH ONCE DAILY fluticasone propionate 50 mcg/actuation spray,suspension See Rx Instructions .ROUTE .COMPLEX Qty: 16 0RF Dose Instruction: USE ONE (1) SPRAY IN EACH NOSTRIL ONCE DAILY Rx Instructions: USE ONE (1) SPRAY IN EACH NOSTRIL ONCE DAILY oxybutynin chloride 15 mg tablet extended release 24hr 15 mg PO QDAY Qty: 30 7RF Brilinta 90 mg tablet See Rx Instructions .ROUTE .COMPLEX Qty: 60 4RF Dose Instruction: TAKE ONE TABLET BY MOUTH TWICE A DAY Rx Instructions: TAKE ONE TABLET BY MOUTH TWICE A DAY nystatin 100,000 unit/gram cream See Rx Instructions .ROUTE .COMPLEX Qty: 30 1RF Dose Instruction: APPLY ONE (1) APPLICATION TOPICALLY TWICE A DAY Rx Instructions: APPLY ONE (1) APPLICATION TOPICALLY TWICE A DAY omeprazole 20 mg capsule,delayed release(DR/EC) See Rx Instructions .ROUTE .COMPLEX Qty: 30 0RF Dose Instruction: TAKE ONE CAPSULE BY MOUTH ONCE DAILY Rx Instructions: TAKE ONE CAPSULE BY MOUTH ONCE DAILY Breztri Aerosphere 160-9-4.8 mcg/actuation HFA aerosol inhaler 2 inh inhalation BID Qty: 10.7 11RF Discharge Orders: Discharge ED (Routine); Ordered 03/22/24 Ordered By: Nicholas Kwok Referrals: Wang Tillman, [Primary Care Provider] - 4-7 days Discharge Diet: Advance as tolerated Patient Instructions: Dehydration (ED), Contusion in Adults (ED), Hematoma (ED) Activity Restrictions/Additional Instructions: Your lab work and imaging today did not reveal any obvious blood clots. You were found to be mildly dehydrated it is advised you to increase your oral intake of water please further follow-up your primary care doctor as indicated in 4-7 ays in which to return the interim if any of your symptoms persist or worse. Coding Level of Care Code ED Hand Bender for Joey Cabral
[2024-03-22 12:58] LABS: Basophils % 0.5 %; Eosinophils # 0.3 10^3/uL (0.0-0.8); Eosinophils % 3.1 %; Hematocrit 28.4 % (36-47); Lymphocytes # 1.7 10^3/uL (0.8-4.8); Lymphocytes % 18.8 %; Mean Corpuscular HGB Conc 33.8 g/dL (30-55); Mean Corpuscular Hemoglobin 33.1 pg (27-33); Mean Corpuscular Volume 97.9 fl (85-98); Mean Platelet Volume 8.5 fL (7.4-10.4); Monocytes # 0.5 10^3/uL (0.2-0.9); Monocytes % 6.1 %; Neutrophils # 6.25 10^3/uL (1.8-7.7); Neutrophils % 70.9 %; Nucleated Red Blood Cells % 0 %; Platelet Count 484 10^3/cmm (157-399); Red Cell Distribution Width 12.7 % (12.1-15.1)
[2024-03-22 13:16] LABS: Alanine Aminotransferase 8 U/L (0-33); Albumin Level 3.7 g/dL (3.5-5.2); Alkaline Phosphatase 85 U/L (35-105); Anion Gap 18.1 (5-19); Aspartate Amino Transferase 15 U/L (0-32); Blood Urea Nitrogen 44 mg/dL (8-23); Calcium 9.3 mg/dL (8.5-10.5); Carbon Dioxide 24 mmol/L (22-29); Chloride 99 mmol/L (98-107); Globulin 2.5 g/dL (1.3-4.6); Glomerular Filtration Rate 22.4 mL/min (90-130); Glucose 164 mg/dL (65-115); Osmolality Calculated 297 mOsm/kg (285-295); Potassium 5.1 mmol/L (3.5-5.1); Sodium 136 mmol/L (136-145); Total Bilirubin 0.2 mg/dL (0.15-1.2); Total Protein 6.2 g/dL (6.6-8.7)
== END 2024-03-22 18:40 | disposition home or self-care (01) ==
PROVIDERS: Emergency Provider Emergency Medicine; PCP Family Medicine
DX: S70.12XA Contusion of left thigh, initial encounter (principal); E86.0 Dehydration; Z79.82 Long term (current) use of aspirin; Z79.4 Long term (current) use of insulin; Z79.84 Long term (current) use of oral hypoglycemic drugs; Z87.891 Personal history of nicotine dependence; I11.0 Hypertensive heart disease with heart failure; I50.9 Heart failure, unspecified; E11.42 Type 2 diabetes mellitus with diabetic polyneuropathy; I25.10 Atherosclerotic heart disease of native coronary artery without angina pectoris; X58.XXXA Exposure to other specified factors, initial encounter
CPT/HCPCS: 36415; 80053; 85025; 85610; 93970; 99284

== ENCOUNTER → 2024-04-17 08:06 | Outpatient (BNVA) | payer MEDICAID, SELFPAY | PROVIDERS: PCP Nurse Practitioner Family; Visit Provider Thoracic Surgery (Cardiothoracic Vascular Surgery) | DX: I96 Gangrene, not elsewhere classified (principal); L98.492 Non-pressure chronic ulcer of skin of other sites with fat layer exposed; R30.0 Dysuria | CPT/HCPCS: 11042; 87070; 87086; 87176; 87205; 99213 ==

== ENCOUNTER 2024-04-29 12:00 | Emergency (ER) | payer MEDICAID, SELFPAY ==
[2024-04-29] VITALS (13 sets, daily range): BP systolic 125–186; BP diastolic 40–107; PULSE 43–59; RESP 17–26; TEMP 36.4; O2SAT 94–100; BMI 58.6
--- NOTE | 2024-04-29 12:03 | XR_ITS ---
WS: [id number] PORTABLE CHEST HISTORY: dyspnea/cough COMPARISON: 03/10/2023 Lung volumes are slightly decreased. Mild pulmonary congestion. There is hazy attenuation throughout both lungs. Increasing attenuation posterior to the LEFT heart. Part of the increased attenuation is probably due to a hiatal hernia that was previously noted. No pleural effusion or pneumothorax. Cardiac size: Moderately enlarged heart. Mediastinum/Aorta: Atherosclerosis aorta. No osseous abnormality seen. XR/XR chest 1V portable [id number] IMPRESSION: 1. Cardiomegaly, similar to the prior study. 2. Mild pulmonary congestion. 3. Increasing consolidation posterior the LEFT heart. In part this is due to a hiatal hernia that has been previously described. Pneumonia is not excluded.
--- NOTE | 2024-04-29 12:05 | ED_ITS ---
HPI - General Adult 2 General: Chief complaint: Recheck/Abnormal Lab/Rx Stated complaint: renal failure Time Seen by Provider: 04/29/24 12:03 History of Present Illness: 63-year-old female presents emergency ro om presents to the emergency room once EMS complaints of acute renal failure per the assisted patient has a chronic Bonilla in place the report was that he had abnormal labs we do not have copies of his labs initially. Medications reviewed she is diabetic she denies abdominal pain or chest pain or shortness of breath clear urine in the Bonilla. Associated symptoms: Reports malaise; Deny chest pain or dyspnea Review of Systems 2 Const: Reports: fatigue and malaise; Denies: fever(s) or chills Card: Denies: chest pain Resp: Denies: dyspnea GI: Denies: abdominal pain : Denies: dysuria, urinary frequency or urinary urgency Musc: Denies: neck pain or back pain Skin/Breast: Reports: other (Decubitus ulcer left lateral thigh) PFSH ED 2 PFSH: Medical History (Updated 04/29/24 @ 16:16 by Ritchie Jerome DO) Chronic respiratory failure with hypoxia Peripheral vascular disease COPD (chronic obstructive pulmonary disease) NSTEMI (non-ST elevated myocardial infarction) Aortic stenosis Anemia in other chronic diseases classified elsewhere Acquired hyperlipoproteinemia Gastro-esophageal reflux disease without esophagitis Primary generalized (osteo)arthritis Depression, unspecified Anxiety disorder, unspecified Obstructive sleep apnea (adult) (pediatric) Type 2 diabetes mellitus with diabetic polyneuropathy Other nonspecific abnormal finding of lung field Body mass index [BMI] 50.0-59.9, adult Morbid (severe) obesity due to excess calories 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 Recurrent UTI Ischemic cardiomyopathy CHF (congestive heart failure) (~04/16/24) CAD (coronary artery disease) OAB (overactive bladder) Lump of breast, right Hypertension Surgical History S/P cardiac cath H/O: section H/O breast biopsy right Family History Other CAD (coronary artery disease) Hypertension Stroke Social History Smoking and tobacco/nicotine status: former use of tobacco/nicotine Alcohol intake: never Housing: [facility] Physical Exam 2 Const: GENERAL APPEARANCE: cooperative and comfortable O RIENTATION/CONSCIOUSNESS: Yes awake, Yes oriented to person, Yes oriented to place and Yes oriented to time HENMT: COMMON NORMALS: normocephalic, atraumatic and hearing grossly normal bilaterally HEAD & SCALP: normocephalic and atraumatic Resp: COMMON NORMALS: normal respiratory effort, No retractions, No use of accessory muscles and clear to auscultation bilaterally AUSCULTATION: clear to auscultation bilaterally Cardio: COMMON NORMALS: regular rate, regular rhythm and No murmurs present (Cardio) RATE: regular rate RHYTHM: regular rhythm GI: COMMON NORMALS: Soft to palpation and No hepatosplenomegaly present A USCULTATION: Yes normoactive bowel sounds PALPATION: Yes Soft to palpation, No Tenderness to palpation present (GI), No Guarding due to palpation present (GI) and Yes No hepatosplenomegaly present Extremity: COMMON NORMALS: normal to inspection, capillary refill normal, no clubbing, cyanosis or edema, no calf tenderness and no pedal edema OTHER: Decubitus ulcer left lateral thigh wound dressing removed wound does not appear to be open or draining is moist secondary to topical medications. No surrounding erythema no active drainage Neuro: SENSORIUM/ORIENTATION: Yes oriented to person, Yes oriented to place and Yes oriented to time Skin: COMMON NORMALS: no rashes or lesions noted GENERAL SKIN EXAM: no rashes or lesions noted Course 2 Vital Signs: Vital signs: Vital Signs Temperature 97.5 F L 04/29/24 12:03 Pulse Rate 44 L 04/29/24 21:30 Respiratory Rate 23 H 04/29/24 21:30 Blood Pressure 177/47 04/29/24 19:22 Pulse Oximetry 97 04/29/24 21:30 Oxygen Delivery Me thod Nasal Cannula 04/29/24 21:30 Oxygen Flow Rate 3 04/29/24 20:00 MDM - General Adult Medical Decision Making Labs reviewed hemoglobin improved from the hemoglobin she had 2 days ago at the assisted. Recommend that she hold her lisinopril and her Lasix recheck BMP in 2 days. She is not hyperkalemic at this point. CT of the abdomen and chest x-ray were unremarkable there is comment about possible pneumonia versus hiatal hernia. Patient is not having any symptoms of pneumonia and she is at her baseline oxygen with normal saturations. Do not believe she clinically has pneumonia at this time is no leukocytosis either. Patient did have a urinary tract infection, she is currently on oral antibiotics at the assisted for this. Discharge back to assisted. Lab Data 04/29/24 12:36 04/29/24 12:36 Radiology Impressions Chest X-Ray 04/29/24 12:03 IMPRESSION: 1. Cardiomegaly, similar to the prior study. 2. Mild pulmonary congestion. 3. Increasing consolidation posterior the LEFT heart. In part this is due to a hiatal hernia that has been previously described. Pneumonia is not excluded. Abdomen/Pelvis CT 04/29/24 14:01 IMPRESSION: 1. No hydronephrosis in either kidney. Bonilla catheter in place. Bladder is relatively decompressed. 2. Dense pancolonic constipation. 3. Area of focal increased density in the cecum nonspecific but cecal neoplasm not excluded. This area measures 3.2 x 3.2 cm. Recommend follow-up with colonoscopy. 4. Moderate esophageal hiatal hernia appears similar to previous. 5. No other interval changes. Laboratory Results WBC 9.87 10^3/uL (3.29-11.43) 04/29/24 12:36 RBC 2.50 10^6/uL (3.85-5.65) L 04/29/24 12:36 Hgb 8.00 g/dL (11.27-16.99) L 04/29/24 12:36 Hct 25.2 % (36-47) L 04/29/24 12:36 MCV 100.8 fl (85-98) H 04/29/24 12:36 MCH 32.0 pg (27-33) 04/29/24 12:36 MCHC 31.7 g/dL (30-55) 04/29/24 12:36 RDW 13.2 % (12.1-15.1) 04/29/24 12:36 Plt Count 419 10^3/cmm (157-399) H 04/29/24 12:36 MPV 8.0 fL (7.4-10.4) 04/29/24 12:36 Neut % (Auto) 78.2 % 04/29/24 12:36 Lymph % (Auto) 10.3 % 04/29/24 12:36 [place] % (Auto) 7.1 % 04/29/24 12:36 Eos % (Auto) 3.4 % 04/29/24 12:36 Baso % (Auto) 0.2 % 04/29/24 12:36 Neut # (Auto) 7.71 10^3/uL (1.8-7.7) H 04/29/24 12:36 Lymph # (Auto) 1.0 10^3/uL (0.8-4.8) 04/29/24 12:36 [place] # (Auto) 0.7 10^3/uL (0.2-0.9) 04/29/24 12:36 Eos # (Auto) 0.3 10^3/uL (0.0-0.8) 04/29/24 12:36 Baso # (Auto) 0.0 10^3/uL (0.0-0.1) 04/29/24 12:36 Nucleated RBC % (auto) 0 % 04/29/24 12:36 Nucleated RBCs # 0.0 /100WBC 04/29/24 12:36 Sodium 131 mmol/L (136-145) L 04/29/24 12:36 Potassium 4.8 mmol/L (3.5-5.1) 04/29/24 12:36 Chloride 97 mmol/L (98-107) L 04/29/24 12:36 Carbon Dioxide 19 mmol/L (22-29) L 04/29/24 12:36 Anion Gap 19.8 (5-19) H 04/29/24 12:36 BUN 59 mg/dL (8-23) H 04/29/24 12:36 Creatinine 2.8 mg/dL (0.5-0.9) H 04/29/24 12:36 GFR Calculation 17.0 mL/min (90-130) L 04/29/24 12:36 Glucose 88 mg/dL (65-115) 04/29/24 12:36 Calculated Osmolality 288 mOsm/kg (285-295) 04/29/24 12:36 Calcium 9.4 mg/dL (8.5-10.5) 04/29/24 12:36 Magnesium 2.2 mg/dL (1.7-2.3) 04/29/24 12:36 Total Bilirubin 0.2 mg/dL (0.15-1.2) 04/29/24 12:36 AST 15 U/L (0-32) 04/29/24 12:36 ALT 8 U/L (0-33) 04/29/24 12:36 Alkaline Phosphatase 85 U/L (35-105) 04/29/24 12:36 Total Protein 6.9 g/dL (6.6-8.7) 04/29/24 12:36 Albumin 3.3 g/dL (3.5-5.2) L 04/29/24 12:36 Globulin 3.6 g/dL (1.3-4.6) 04/29/24 12:36 Urine Color Yellow (Yellow) 04/29/24 12:45 Urine Appearance Cloudy (CLEAR) A 04/29/24 12:45 Urine pH 5 (5-7) 04/29/24 12:45 Ur Specific [place] 1.010 (1.005-1.030) 04/29/24 12:45 Urine Protein 1+ (Negative) H 04/29/24 12:45 Urine Glucose (UA) Norm (Normal) 04/29/24 12:45 Urine Ketones Negative (Negative) 04/29/24 12:45 Urine Blood 2+ (Negative) H 04/29/24 12:45 Urine Nitrate Negative (Negative) 04/29/24 12:45 Urine Bilirubin Neg (Negative) 04/29/24 12:45 Urine Urobilinogen Neg mg/dL (Negative) 04/29/24 12:45 Ur Leukocyte Esterase 2+ (Negative) H 04/29/24 12:45 Urine RBC 5-10 /hpf (0-2) H 04/29/24 12:45 Urine WBC 15-25 /hpf (0-5) H 04/29/24 12:45 Ur Squamous Epith Cells 0-4 /hpf (0-5) H 04/29/24 12:45 Amorphous Sediment Not Reportable 04/29/24 12:45 Urine Bacteria 3+ /hpf (NONE) H 04/29/24 12:45 Urine Yeast 4+ /hpf H 04/29/24 12:45 All radiology interpretation(s) finalized by discharge Discharge Plan Discharge Patient Disposition: Home Clinical Impression: UTI (urinary tract infection), Aortic stenosis, Hypertension, Chronic kidney disease, unspecified Condition: Stable Prescriptions: Held furosemide 80 mg tablet 80 mg PO DAILY Hold Instructions: Resume on 05/06/24. No Action multivitamin Tablet 1 tab PO QAM cholecalciferol (vitamin D3) 1,000 unit capsule 2,000 unit PO QDAY cranberry 500 mg capsule 500 mg PO BID Rx Instructions: administer with meals nitroglycerin 0.4 mg tablet, sublingual 0.4 mg sublingual Q5M Qty: 25 0RF Rx Instructions: do not exceed 3 doses per episode Call ambulance if you have to take the third Nitro. All Day Allergy (cetirizine) 10 mg capsule 10 mg PO QDAY Qty: 30 11RF oxybutynin chloride 15 mg tablet extended release 24hr 15 mg PO QDAY Qty: 30 7RF clindamycin HCl 300 mg capsule 300 mg PO TID 7 Days Qty: 21 0RF Rx Instructions: THROUGH 05/01/24 ipratropium-albuterol 0.5 mg-3 mg(2.5 mg base)/3 mL Solution For Nebulization 3 ml INHALATION Q4H PRN (Reason: Shortness Of Breath Or Wheezing) fluconazole 150 mg Tablet 150 mg PO DAILY ondansetron HCl 8 mg Tablet 8 mg PO Q8H PRN (Reason: Nausea And Vomiting) isosorbide mononitrate 30 mg Tablet Extended Release 24 Hr 30 mg PO QAM loperamide 2 mg Tablet 2 mg PO Q6H PRN (Reason: Diarrhea) hydralazine 25 mg Tablet 25 mg PO QID amlodipine 5 mg Tablet 5 mg PO DAILY acetaminophen 500 mg Tablet 1,000 mg PO BID Era-Tussin 100 mg/5 mL Liquid 200 mg PO Q4H PRN (Reason: COUGH AND CONGESTION) spironolactone 25 mg Tablet 25 mg PO DAILY Milk of Magnesia 400 mg/5 mL Suspension 30 ml PO DAILY PRN (Reason: Constipation) bisacodyl 10 mg Suppository 10 mg KS DAILY PRN (Reason: Constipation) Fleet Enema 19-7 gram/118 mL Enema 118 ml KS DAILY PRN (Reason: Constipation) Lactobacillus acidophilus Capsule 10 mg PO BID Rx Instructions: THROUGH 05/04/24 Ventolin HFA 90 mcg/actuation Hfa Aerosol Inhaler 2 puff INHALATION BID PRN (Reason: Shortness Of Breath) Tylenol PM Extra Strength 25-500 mg Tablet 2 tab PO BEDTIME cefdinir 300 mg capsule 300 mg PO BID Rx Instructions: THROUGH 05/06/24 bisacodyl 5 mg Tablet 5 mg PO DAILY PRN (Reason: Constipation) Novolog FlexPen U-100 Insulin 100 unit/mL (3 mL) Insulin Pen See Rx Instructions .ROUTE .COMPLEX Rx Instructions: INJECT PER SLIDING SCALE: BS 141-180=2 UNITS, 181-220=3 UNITS, 221-260=4 UNITS, 261-300=5 UNITS, 301-350=6 UNITS, 351+ =7 UNITS AND NOTIFY MD. ranolazine 500 mg Tablet Extended Release 12 Hr 500 mg PO BID Symbicort 160-4.5 mcg/actuation Hfa Aerosol Inhaler 2 puff INHALATION BID Mucinex 600 mg Tablet Extended Release 12hr 600 mg PO Q12H PRN (Reason: EXPECTORANT) Glucagon (HCl) Emergency Kit 1 mg Recon Soln 1 mg SUBCUT Q20M PRN (Reason: BLOOD SUGAR) Rx Instructions: until target blood sugar attained atorvastatin 80 mg tablet 80 mg PO QPM carvedilol 6.25 mg tablet 6.25 mg PO DAILY nystatin 100,000 unit/gram cream 1 applic topical BID fluticasone propionate 50 mcg/actuation spray,suspension 1 spray intranasal DAILY Lantus Solostar U-100 Insulin 100 unit/mL (3 mL) insulin pen 20 unit SUBCUT BID Discharge Orders: Discharge ED (Routine); Ordered 04/29/24 Ordered By: Ritchie Jerome Referrals: Nadiya Torre, RADIAL D[employer]LL [employer] OPERATOR [employer] [Primary Care Provider] - Discharge Diet: Usual diet Discharge Activity: Resume usual activity Patient Instructions: Opioid Safety, Pain Management Activity Restrictions/Additional Instructions: Thank you for choosing [facility] for your healthcare needs today. It is very important that you follow up as instructed or that you return to the Emergency Department should you have concerns or if your condition changes or worsens in any way. Your kidney function has already improved. Continue antibiotics you are currently taking for the bladder infection. Recommend that you hold your Lasix and recheck a basic metabolic profile in 2 to 3 days Coding Level of Care Code ED Planning And Analysis Manager for Joey Cabral
[2024-04-29 12:45] LABS: Basophils % 0.2 %; Eosinophils # 0.3 10^3/uL (0.0-0.8); Eosinophils % 3.4 %; Hematocrit 25.2 % (36-47); Lymphocytes % 10.3 %; Mean Corpuscular HGB Conc 31.7 g/dL (30-55); Mean Corpuscular Volume 100.8 fl (85-98); Monocytes # 0.7 10^3/uL (0.2-0.9); Monocytes % 7.1 %; Neutrophils # 7.71 10^3/uL (1.8-7.7); Neutrophils % 78.2 %; Nucleated Red Blood Cells % 0 %; Platelet Count 419 10^3/cmm (157-399); Red Cell Distribution Width 13.2 % (12.1-15.1); White Blood Count 9.87 10^3/uL (3.29-11.43)
[2024-04-29 13:02] LABS: Alanine Aminotransferase 8 U/L (0-33); Albumin Level 3.3 g/dL (3.5-5.2); Alkaline Phosphatase 85 U/L (35-105); Anion Gap 19.8 (5-19); Aspartate Amino Transferase 15 U/L (0-32); Blood Urea Nitrogen 59 mg/dL (8-23); Calcium 9.4 mg/dL (8.5-10.5); Carbon Dioxide 19 mmol/L (22-29); Chloride 97 mmol/L (98-107); Creatinine Clr Calc Pharmacy 25.8451; Globulin 3.6 g/dL (1.3-4.6); Glucose 88 mg/dL (65-115); Magnesium 2.2 mg/dL (1.7-2.3); Osmolality Calculated 288 mOsm/kg (285-295); Potassium 4.8 mmol/L (3.5-5.1); Sodium 131 mmol/L (136-145); Total Bilirubin 0.2 mg/dL (0.15-1.2); Total Protein 6.9 g/dL (6.6-8.7)
--- NOTE | 2024-04-29 13:12 | PC.PHAR ---
PT IS FROM [facility] ([facility]
[2024-04-29] MEDS: sodium chloride 0.9% 1,000 ML 999 ML IV (13:38)
[2024-04-29 13:42] LABS: Protein Urine 1+ (Negative); Urine Appearance Cloudy (CLEAR); Urine Color Yellow (Yellow); pH Urine 5 (5-7)
[2024-04-29 13:43] LABS: Add Urine Culture? Yes; Add Urine Microscopic? YES; Bacteria Urine 3+ /hpf; Bilirubin Urine Neg (Negative); Blood Urine 2+ (Negative); Glucose Urine UA Norm (Normal); Ketones Urine Negative (Negative); Leukocyte Esterase Urine 2+ (Negative); Nitrate Urine Negative (Negative); Squamous Epithelial Cell Urine 0-4 /hpf (0-5); Urobilinogen Urine Neg (Negative); WBC Urine 15-25 /hpf (0-5)
--- NOTE | 2024-04-29 14:01 | CT_ITS ---
WS: [id number] CT ABDOMEN PELVIS TECHNIQUE: Noncontrast CT of the abdomen and pelvis with coronal and sagittal reformatted images. CLINICAL INFORMATION: flank pain COMPARISON: CT 07/07/23 DLP: 1264.[address] scans at [facility] use at least one of these dose optimization techniques: automated e xposure control; mA and/or kV adjustment per patient size (includes targeted exams where dose is matc hed to clinical indication); or iterative reconstruction. FINDINGS: Hazy reticulation in the lung bases with areas of air trapping. Cardiomegaly. Coronary calcification. Moderate esophageal hiatal hernia with air-fluid level. Calcified granuloma RIGHT upper lobe. Bibasi lar atelectasis. Normal noncontrast liver. Dense vascular calcification. Splenic artery calcification. Densely calcifi ed abdominal aorta. Fatty atrophy of the pancreas. Small LEFT adrenal adenoma. RIGHT adrenal gland is normal. No hydronephrosis in either kidney. Parenchymal scarring both kidneys. No evidence of obstru cting renal or ureteral calculi. Bonilla catheter. Bladder is relatively decompressed. No significant free fluid in the pelvis. Dense sigmoid constipation. Tortuous colon. Constipation of the cecum and transverse colon and splenic flexure extending into the descending colon and sigmoid co jossie. Masslike intraluminal density in the cecum near the ileocecal valve. Cecal neoplasm not excluded . Recommend follow-up with colonoscopy. This area measures 3.2 x 3.2 cm. Advanced spondylitic changes thoracic and lumbar spine. CT/CT kidney stone [id number] IMPRESSION: 1. No hydronephrosis in either kidney. Bonilla catheter in place. Bladder is rel atively decompressed. 2. Dense pancolonic constipation. 3. Area of focal increased density in the cecum nonspecific but cecal neoplasm not excluded. This area measures 3.2 x 3.2 cm. Recommend follow-up with colono scopy. 4. Moderate esophageal hiatal hernia appears similar to previous. 5. No other interval changes.
== END 2024-04-29 22:36 | disposition home or self-care (01) ==
PROVIDERS: Emergency Provider Family Medicine; PCP Nurse Practitioner Family
DX: N39.0 Urinary tract infection, site not specified (principal); I35.0 Nonrheumatic aortic (valve) stenosis; I13.0 Hypertensive heart and chronic kidney disease with heart failure and stage 1 through stage 4 chronic kidney disease, or unspecified chronic kidney disease; E11.22 Type 2 diabetes mellitus with diabetic chronic kidney disease; N18.9 Chronic kidney disease, unspecified; I50.9 Heart failure, unspecified; J44.9 Chronic obstructive pulmonary disease, unspecified; I25.2 Old myocardial infarction; I25.10 Atherosclerotic heart disease of native coronary artery without angina pectoris; I25.5 Ischemic cardiomyopathy; Z87.891 Personal history of nicotine dependence
CPT/HCPCS: 36415; 71045; 74176; 80053; 81001; 83735; 85025; 87086; 87186; 96360; 96361; 99285; J7030

== ENCOUNTER 2024-05-05 11:07 | Inpatient (IN) | payer MEDICAID, SELFPAY ==
[2024-05-05] VITALS (8 sets, daily range): BP systolic 152–196; BP diastolic 44–94; PULSE 46–68; RESP 18–24; TEMP 36.8–36.9; O2SAT 94–96; BMI 49.6
--- NOTE | 2024-05-05 11:13 | XRR_ITS ---
PROCEDURE INFORMATION: Exam: XR Chest Exam date and time: 05/05/2024 11:36 AM Age: 63 years old Clinical indication: Cough and dyspnea; Patient HX: Dyspnea; Cough TECHNIQUE: Imaging protocol: Radiologic exam of the chest. Views: 1 view. COMPARISON: CR XR chest 1V portable [id number] 04/29/2024 12:21 PM FINDINGS: Lungs: Mild interstitial pulmonary edema. Pleural spaces: Blunting of bilateral costophrenic angles suggestive of small pleural effusions. Heart/Mediastinum: Cardiomegaly. Hiatal hernia. Coronary stents. Vasculature: Aortic arch calcifications. Bones/joints: Mild degenerative disease of bilateral acromioclavicular joints. Degenerative disease of the thoracic spine. XR/XR chest 1V portable [id number] IMPRESSION: Mild interstitial pulmonary edema.
--- NOTE | 2024-05-05 11:15 | ED_ITS ---
HPI - SOB/Dyspnea 2 General: Chief Complaint: Shortness of Breath/Dyspnea Stated Complaint: sob Time Seen by Provider: 05/05/24 11:12 History of Present Illness: HPI Narrative: 63-year-old female presents to the emerg ency room with complaints of increased swelling and shortness of breath. She was seen 5 days ago there was concerned about her kidney function her Lasix was held with instructions for a follow-up BMP. Now she has developed increased fluid retention. She is typically on oxygen at 3 L/min on arrival here she is at 4 L/min. She has a history of aortic stenosis as well. She has chronic decubiti which are being treated to the wound care clinic. No report of fever sweats chills abdominal or chest pain Associated symptoms: Reports orthopnea; Deny abdominal pain, chest pain or fever(s) Review of Systems 2 Const: Denies: fever(s) or chills Card: Reports: edema, swelling of feet/ankles, dyspnea on exertion and orthopnea; Denies: chest pain Resp: Reports: dyspnea GI: Denies: abdominal pain : Denies: dysuria, urinary frequency or urinary urgency Musc: Denies: neck pain or back pain Skin/Breast: Denies: rash PFSH ED 2 PFSH: Medical History Chronic respiratory failure with hypoxia Peripheral vascular disease COPD (chronic obstructive pulmonary disease) NSTEMI (non-ST elevated myocardial infarction) Aortic stenosis Anemia in other chronic diseases classified elsewhere Acquired hyperlipoproteinemia Gastro-esophageal reflux disease without esophagitis Primary generalized (osteo)arthritis Depression, unspecified Anxiety disorder, unspecified Obstructive sleep apnea (adult) (pediatric) Type 2 diabetes mellitus with diabetic polyneuropathy Other nonspecific abnormal finding of lung field Body mass index [BMI] 50.0-59.9, adult Morbid (severe) obesity due to excess calories 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 Recurrent UTI Ischemic cardiomyopathy CHF (congestive heart failure) (~04/16/24) CAD (coronary artery disease) OAB (overactive bladder) Lump of breast, right Hypertension Surgical History S/P cardiac cath H/O: section H/O breast biopsy right Family History Other CAD (coronary artery disease) Hypertension Stroke Social History Smoking and tobacco/nicotine status: former use of tobacco/nicotine Alcohol intake: never Housing: Skilled Nursing Physical Exam 2 Const: GENERAL APPEARANCE: cooperative ORIENTATION/CONSCIOUSNESS: Yes awake, Yes oriented to person, Yes oriented to place and Yes oriented to time HENMT: COMMON NORMALS: normocephalic, atraumatic and hearing grossly normal bilaterally HEAD & SCALP: normocephalic and atraumatic Resp: COMMON NORMALS: normal respiratory effort, No retractions and No use of accessory muscles AUSCULTATION: crackles Cardio: COMMON NORMALS: regular rate, regular rhythm and No murmurs present (Cardio) RATE: regular rate RHYTHM: regular rhythm GI: COMMON NORMALS: Soft to palpation and No hepatosplenomegaly present A USCULTATION: Yes normoactive bowel sounds PALPATION: Yes Soft to palpation, No Tenderness to palpation present (GI), No Guarding due to palpation present (GI) and Yes No hepatosplenomegaly present Extremity: COMMON NORMALS: capillary refill normal OTHER: Ulcer on the left lateral thigh. Lower extremities bilaterally 3+ edema pitting Neuro: SENSORIUM/ORIENTATION: Yes oriented to person, Yes oriented to place and Yes oriented to time Skin: COMMON NORMALS: no rashes or lesions noted GENERAL SKIN EXAM: no rashes or lesions noted Course 2 Vital Signs: Vital signs: Vital Signs Temperature 98.3 F 05/05/24 16:00 Pulse Rate 60 05/05/24 16:00 Respiratory Rate 18 05/05/24 14:51 Blood Pressure 193/72 05/05/24 16:00 Pulse Oximetry 96 05/05/24 16:00 Oxygen Delivery Me thod Nasal Cannula 05/05/24 16:00 Oxygen Flow Rate 6 05/05/24 14:51 MDM - SOB/Dyspnea Medical Decision Making Acute kidney injury hyponatremia exacerbated congestive heart failure based on physical exam and on chest x-ray. Patient also has some anemia and a cystitis with resistant E. coli. Discussed with the hospitalist will admit for the above. Patient given diuresis in the emergency room. Discussed with hospitalist will initiate antibiotics based on recent culture findings. Admission orders written Medical Records I reviewed the patient's medical records. Lab Data I reviewed the patient's lab results. 05/05/24 11:30 05/05/24 11:30 Labs/Radiology: Radiology Impressions Chest X-Ray 05/05/24 11:13 IMPRESSION: Mild interstitial pulmonary edema. Laboratory Results WBC 11.79 10^3/uL (3.29-11.43) H 05/05/24 11:30 RBC 2.46 10^6/uL (3.85-5.65) L 05/05/24 11:30 Hgb 8.00 g/dL (11.27-16.99) L 05/05/24 11:30 Hct 25.4 % (36-47) L 05/05/24 11:30 MCV 103.3 fl (85-98) H 05/05/24 11:30 MCH 32.5 pg (27-33) 05/05/24 11:30 MCHC 31.5 g/dL (30-55) 05/05/24 11:30 RDW 13.7 % (12.1-15.1) 05/05/24 11:30 Plt Count 429 10^3/cmm (157-399) H 05/05/24 11:30 MPV 8.4 fL (7.4-10.4) 05/05/24 11:30 Neut % (Auto) 80.1 % 05/05/24 11:30 Lymph % (Auto) 9.6 % 05/05/24 11:30 [place] % (Auto) 8.0 % 05/05/24 11:30 Eos % (Auto) 1.7 % 05/05/24 11:30 Baso % (Auto) 0.3 % 05/05/24 11:30 Neut # (Auto) 9.46 10^3/uL (1.8-7.7) H 05/05/24 11:30 Lymph # (Auto) 1.1 10^3/uL (0.8-4.8) 05/05/24 11:30 [place] # (Auto) 0.9 10^3/uL (0.2-0.9) 05/05/24 11:30 Eos # (Auto) 0.2 10^3/uL (0.0-0.8) 05/05/24 11:30 Baso # (Auto) 0.0 10^3/uL (0.0-0.1) 05/05/24 11:30 Nucleated RBC % (auto) 0 % 05/05/24 11:30 Nucleated RBCs # 0.0 /100WBC 05/05/24 11:30 Specimen Type Arterial 05/05/24 11:48 Sample Site Radial, left 05/05/24 11:48 ABG pH 7.45 (7.35-7.45) 05/05/24 11:48 ABG pCO2 29.2 mmHg (35-45) L 05/05/24 11:48 ABG pO2 72.7 mmHg (80.0-100.0) L 05/05/24 11:48 ABG HCO3 20.2 mmol/L (22-26) L 05/05/24 11:48 ABG O2 Saturation 96.4 05/05/24 11:48 ABG Base Excess -3.3 mmol/L (-2.0-2.0) L 05/05/24 11:48 [place] Test Pos 05/05/24 11:48 A-a O2 Gradient 5.2 mmHg (5-10) 05/05/24 11:48 Hematocrit 24.1 % (37-47) L 05/05/24 11:48 Hgb O2 Saturation 95.3 % (95-100) 05/05/24 11:48 Carboxyhemoglobin 1.6 %THgb (0.4-20.1) 05/05/24 11:48 Methemoglobin < 0.0 % (0.4-1.5) L 05/05/24 11:48 Total Hemoglobin 7.9 g/dL (12-16) L 05/05/24 11:48 Sodium 131.0 mmol/L (131-143) 05/05/24 11:48 Potassium 6.1 mmol/L (3.5-5.0) H 05/05/24 11:48 Glucose 146.0 mg/dL (70-115) H 05/05/24 11:48 Ionized Calcium 1.3 mmol/L (1.1-1.4) 05/05/24 11:48 O2 Delivery Device Nc 05/05/24 11:48 O2 Liters/Min 5.0 % 05/05/24 11:48 [employer] Secretary ID [place] 05/05/24 11:48 Sodium 130 mmol/L (136-145) L 05/05/24 11:30 Potassium 5.8 mmol/L (3.5-5.1) H 05/05/24 11:30 Chloride 98 mmol/L (98-107) 05/05/24 11:30 Carbon Dioxide 18 mmol/L (22-29) L 05/05/24 11:30 Anion Gap 19.8 (5-19) H 05/05/24 11:30 BUN 56 mg/dL (8-23) H 05/05/24 11:30 Creatinine 2.3 mg/dL (0.5-0.9) H 05/05/24 11:30 GFR Calculation 21.3 mL/min (90-130) L 05/05/24 11:30 Glucose 154 mg/dL (65-115) H 05/05/24 11:30 Calculated Osmolality 289 mOsm/kg (285-295) 05/05/24 11:30 Calcium 9.4 mg/dL (8.5-10.5) 05/05/24 11:30 Total Bilirubin 0.3 mg/dL (0.15-1.2) 05/05/24 11:30 AST 15 U/L (0-32) 05/05/24 11:30 ALT 9 U/L (0-33) 05/05/24 11:30 Alkaline Phosphatase 86 U/L (35-105) 05/05/24 11:30 Troponin T Baseline 60 ng/L (0-10) H 05/05/24 11:30 NT-Pro-B Natriuret Pep 6464 pg/mL (0-125) H 05/05/24 11:30 Total Protein 7.1 g/dL (6.6-8.7) 05/05/24 11:30 Albumin 3.4 g/dL (3.5-5.2) L 05/05/24 11:30 Globulin 3.7 g/dL (1.3-4.6) 05/05/24 11:30 Urine Color Yellow (Yellow) 05/05/24 11:32 Urine Appearance Cloudy (CLEAR) A 05/05/24 11:32 Urine pH 5.0 (5-7) 05/05/24 11:32 Ur Specific [place] 1.015 (1.005-1.030) 05/05/24 11:32 Urine Protein 2+ (Negative) A 05/05/24 11:32 Urine Glucose (UA) Negative (Normal) 05/05/24 11:32 Urine Ketones Negative (Negative) 05/05/24 11:32 Urine Blood Negative (Negative) 05/05/24 11:32 Urine Nitrate Negative (Negative) 05/05/24 11:32 Urine Bilirubin Negative (Negative) 05/05/24 11:32 Urine Urobilinogen 0.2 mg/dL (Negative) 05/05/24 11:32 Ur Leukocyte Esterase 2+ (Negative) A 05/05/24 11:32 Urine RBC >100 /hpf (0-2) H 05/05/24 11:32 Urine WBC >100 /hpf (0-5) H 05/05/24 11:32 Ur Squamous Epith Cells 0-5 /hpf (0-5) 05/05/24 11:32 Amorphous Sediment Not Reportable 05/05/24 11:32 Urine Bacteria None seen /hpf (NONE) 05/05/24 11:32 Hyaline Casts 2.46 /lpf 05/05/24 11:32 Urine Yeast 1+ /hpf H 05/05/24 11:32 All radiology interpretation(s) finalized by discharge Discharge Plan Discharge Patient Disposition: Admitted As Inpatient Admit Provider: Mary Howell Clinical Impression: CHF (congestive heart failure), UTI (urinary tract infection), Hypertension, Aortic stenosis, Type 2 diabetes mellitus with diabetic polyneuropathy, Morbidly obese, Chronic kidney disease, unspecified, Anemia Condition: Stable Coding Level of Care Code ED Clerk Cashier for Joey Cabral
[2024-05-05 11:37] LABS: Charge for UA Resulting for Rev
[2024-05-05 11:37] LABS: Basophils % 0.3 %; Eosinophils # 0.2 10^3/uL (0.0-0.8); Eosinophils % 1.7 %; Hematocrit 25.4 % (36-47); Lymphocytes # 1.1 10^3/uL (0.8-4.8); Lymphocytes % 9.6 %; Mean Corpuscular HGB Conc 31.5 g/dL (30-55); Mean Corpuscular Hemoglobin 32.5 pg (27-33); Mean Corpuscular Volume 103.3 fl (85-98); Mean Platelet Volume 8.4 fL (7.4-10.4); Monocytes # 0.9 10^3/uL (0.2-0.9); Neutrophils # 9.46 10^3/uL (1.8-7.7); Neutrophils % 80.1 %; Nucleated Red Blood Cells % 0 %; Platelet Count 429 10^3/cmm (157-399); Red Blood Count 2.46 10^6/uL (3.85-5.65); Red Cell Distribution Width 13.7 % (12.1-15.1); White Blood Count 11.79 10^3/uL (3.29-11.43)
[2024-05-05 11:42] LABS: Bilirubin Urine Negative (Negative); Blood Urine Negative (Negative); Glucose Urine UA Negative (Normal); Ketones Urine Negative (Negative); Leukocyte Esterase Urine 2+ (Negative); Nitrate Urine Negative (Negative); Protein Urine 2+ (Negative); Specific Gravity, Urine 1.015 (1.005-1.030); Urine Appearance Cloudy (CLEAR); Urine Color Yellow (Yellow); Urobilinogen Urine 0.2 mg/dL (Negative)
[2024-05-05] MEDS: FUROsemide 10 mg/mL SDV 10mL 60 MG IVP (11:45)
[2024-05-05 11:46] LABS: Bacteria Urine None Seen /hpf; Hyaline Casts Urine 2.46 /lpf; RBC Urine >100 /hpf (0-2); Squamous Epithelial Cell Urine 0-5 /hpf (0-5); WBC Urine >100 /hpf (0-5)
[2024-05-05 11:56] LABS: Add Urine Culture? Yes
[2024-05-05 12:00] LABS: ABG PCO2 29.2 mmHg (35-45); ABG PH Result 7.45 (7.35-7.45); Alveolar-Arterial Oxygen Gradi 5.2 mmHg (5-10); Arterial Blood Gas Hematocrit 24.1 % (37-47); Base Excess ABG -3.3 mmol/L (-2.0-2.0); Blood Gas Allen Test Pos; Blood Gas Operator Identificat WALCI; Blood Gas Sample Site Radial, left; Blood Gas Sample Type Arterial; Carboxyhemoglobin 1.6 %THgb (0.4-20.1); HCO3 ABG 20.2 mmol/L (22-26); HGB O2 Sat 95.3 % (95-100); Ionized Calcium Level - ABG 1.3 mmol/L (1.1-1.4); Methemoglobin < 0.0 % (0.4-1.5); Oxygen Device NC; Oxygen Saturation ABG 96.4; PO2 ABG 72.7 mmHg (80.0-100.0); Potassium Level - ABG 6.1 mmol/L (3.5-5.0); Total Hemoglobin 7.9 g/dL (12-16)
--- NOTE | 2024-05-05 12:02 | ECG_ITS ---
[facility] Test Date: 2024-05-05 Pat Name: Nia Gomes Department: Room: Gender: Female Efficiency Expert: : 1960 Requested By: Ritchie Payne Order Number: [id number] Morgan MD: Kenton Krishnamurthy M.D. Measurements Intervals [place] Rate: 52 P: 0 SC: 0 QRS: -12 QRSD: 132 T: 134 QT: 438 QTc: 408 Interpretive Statements UNCERTAIN REGULAR RHYTHM, probably junctional INTRAVENTRICULAR CONDUCTION DELAY [130+ ms QRS DURATION] Compared to ECG 03/10/2023 20:09:38 Atrial fibrillation no longer present T-wave abnormality no longer present Electronically Signed On 05-06-2024 14:07:08 CDT by Kenton Krishnamurthy M.D. [id number]
[2024-05-05 12:10] LABS: Troponin(5th) Baseline 60 ng/L (0-10)
[2024-05-05 12:14] LABS: Alanine Aminotransferase 9 U/L (0-33); Albumin Level 3.4 g/dL (3.5-5.2); Alkaline Phosphatase 86 U/L (35-105); Anion Gap 19.8 (5-19); Aspartate Amino Transferase 15 U/L (0-32); Blood Urea Nitrogen 56 mg/dL (8-23); Calcium 9.4 mg/dL (8.5-10.5); Carbon Dioxide 18 mmol/L (22-29); Chloride 98 mmol/L (98-107); Globulin 3.7 g/dL (1.3-4.6); Glomerular Filtration Rate 21.3 mL/min (90-130); Glucose 154 mg/dL (65-115); NT Pro B Type Natriuretic Pept 6464 pg/mL (0-125); Osmolality Calculated 289 mOsm/kg (285-295); Potassium 5.8 mmol/L (3.5-5.1); Sodium 130 mmol/L (136-145); Total Bilirubin 0.3 mg/dL (0.15-1.2); Total Protein 7.1 g/dL (6.6-8.7)
[2024-05-05 12:40] LABS: Creatinine Clr Calc Pharmacy 31.4636
--- NOTE | 2024-05-05 13:27 | ECG_ITS ---
[facility] Test Date: 2024-05-05 Pat Name: Nia Gomes Department: Room: Gender: Female Client Service Professional: : 1960 Requested By: Ritchie Payne Order Number: [id number] Morgan MD: Kenton Krishnamurthy M.D. Measurements Intervals [place] Rate: 46 P: 0 NM: 0 QRS: -7 QRSD: 132 T: 112 QT: 452 QTc: 396 Interpretive Statements Junctional rhythm INTRAVENTRICULAR CONDUCTION DELAY [130+ ms QRS DURATION] Compared to ECG 05/05/2024 12:02:12 No significant changes Electronically Signed On 05-06-2024 14:12:27 CDT by Kenton Krishnamurthy M.D. [id number]
[2024-05-05 13:42] LABS: Troponin 5 2HR 59.25 ng/L (0-10)
[2024-05-05 13:47] LABS: Troponin 5 2HR Delta -0.75 ABS# (0-10)
--- NOTE | 2024-05-05 14:03 | PM.HP ---
Providers/Chief Complaint Admitting Physician: Mary Howell MD Primary Care Provider: Nadiya Torre NP Chief Complaint: sob History of Present Illness Nia Gomes is a 63 year old female With past medical history of NSTEMI, COPD, peripheral vascular disease, GERD, osteoarthritis, depression, anxiety, obstructive sleep apnea, type 2 diabetes mellitus, obesity, ischemic cardiomyopathy, CAD, CHF, hypertension presented to the hospital for complaint of increased swelling and shortness of breath. Right leg is swollen more than left leg. She says lately she has had more edema. Her main complaint is shortness of breath and denies any other complaints at this time. She is typically on 2 L of oxygen at home. Patient has a history of aortic stenosis. She does have a chronic decubitus ulcer which are being currently treated at the wound care clinic. She has Klebsiella pneumonia ESBL and E. coli ESBL and wound cultures positive from before. She was recently seen in the ER few days prior at which time she presented with an TAWNY and was told to hold off on her lisinopril and Lasix for a few days and to have repeat labs completed. At that visit her urine culture was also obtained which has now resulted positive for Ann glabrata and E. coli ESBL sensitive to Zosyn. Today white count 11.79, hemoglobin 8.0, creatinine 2.3, anion gap 19.8, bicarb 18, potassium 5.8, sodium 130. ABG obtained around noon showed 7.45/29.2/72. BNP 6500, delta troponin -0.75, chest x-ray shows interstitial pulmonary edema. UA positive for greater than 100 WBC, greater than 100 RBC, 2+ leukocyte esterase, 1+ yeast. Medications/Allergies Home Medications Medication Instructions Recorded Confirmed Last Taken Type cholecalciferol (vitamin D3) 25 2,000 unit PO QDAY 10/21/19 04/29/24 04/29/24 History mcg (1,000 unit) capsule multivitamin 1 tab PO QAM 10/21/19 04/29/24 04/29/24 History nitroglycerin 0.4 mg sublingual 0.4 mg sublingual Q5M #25 tabs 04/08/21 04/29/24 Unknown Rx tablet cranberry 500 mg capsule 500 mg PO BID 09/28/21 04/29/24 04/29/24 History cetirizine 10 mg capsule (All Day 10 mg PO QDAY #30 caps 04/29/22 04/29/24 04/29/24 Rx Allergy (cetirizine)) oxybutynin chloride 15 mg 15 mg PO QDAY #30 tabs 12/21/22 04/29/24 04/29/24 Rx tablet,extended release 24 hr clindamycin HCl 300 mg capsule 300 mg PO TID 1 week #21 caps 04/22/24 04/29/24 04/29/24 Rx Lactobacillus acidophilus 10 mg PO BID 04/29/24 04/29/24 04/29/24 History acetaminophen 500 mg tablet 1,000 mg PO BID 04/29/24 04/29/24 04/29/24 History albuterol sulfate 90 mcg/actuation 2 puff inhalation BID PRN 04/29/24 04/29/24 Unknown History aerosol inhaler (Ventolin HFA) Shortness Of Breath amlodipine 5 mg tablet 5 mg PO DAILY 04/29/24 04/29/24 04/29/24 History atorvastatin 80 mg tablet 80 mg PO QPM 04/29/24 04/29/24 04/28/24 History bisacodyl 10 mg rectal suppository 10 mg NM DAILY PRN Constipation 04/29/24 04/29/24 Unknown History bisacodyl 5 mg tablet 5 mg PO DAILY PRN Constipation 04/29/24 04/29/24 Unknown History budesonide-formoterol HFA 160 2 puff inhalation BID 04/29/24 04/29/24 04/29/24 History mcg-4.5 mcg/actuation aerosol inhaler (Symbicort) carvedilol 6.25 mg tablet 6.25 mg PO DAILY 04/29/24 04/29/24 04/29/24 History cefdinir 300 mg capsule 300 mg PO BID 04/29/24 04/29/24 04/29/24 History diphenhydramine 25 2 tab PO BEDTIME 04/29/24 04/29/24 04/28/24 History mg-acetaminophen 500 mg tablet (Tylenol PM Extra Strength) fluconazole 150 mg tablet 150 mg PO DAILY 04/29/24 04/29/24 04/29/24 History fluticasone propionate 50 1 spray intranasal DAILY 04/29/24 04/29/24 04/29/24 History mcg/actuation nasal spray,suspension furosemide 80 mg tablet 80 mg PO DAILY 04/29/24 04/29/24 04/29/24 History glucagon HCl 1 mg solution for 1 mg SUBCUT Q20M PRN BLOOD SUGAR 04/29/24 04/29/24 Unknown History injection (Glucagon (HCl) Emergency Kit) guaifenesin 100 mg/5 mL oral 200 mg PO Q4H PRN COUGH AND 04/29/24 04/29/24 Unknown History liquid (Era-Tussin) CONGESTION guaifenesin 600 mg tablet, 600 mg PO Q12H PRN EXPECTORANT 04/29/24 04/29/24 Unknown History extended release 12 hr (Mucinex) hydralazine 25 mg tablet 25 mg PO QID 04/29/24 04/29/24 04/29/24 History insulin aspart U-100 100 unit/mL See Rx Instructions .Route .COMPLEX 04/29/24 04/29/24 04/29/24 History (3 mL) subcutaneous pen (Novolog FlexPen U-100 Insulin aspart) insulin glargine 100 unit/mL (3 20 unit SUBCUT BID 04/29/24 04/29/24 04/29/24 History mL) subcutaneous pen (Lantus Solostar U-100 Insulin) ipratropium 0.5 mg-albuterol 3 mg 3 ml inhalation Q4H PRN Shortness 04/29/24 04/29/24 Unknown History (2.5 mg base)/3 mL nebulization Of Breath Or Wheezing soln isosorbide mononitrate 30 mg 30 mg PO QAM 04/29/24 04/29/24 04/29/24 History tablet,extended release 24 hr loperamide 2 mg tablet 2 mg PO Q6H PRN Diarrhea 04/29/24 04/29/24 Unknown History magnesium hydroxide 400 mg/5 mL 30 ml PO DAILY PRN Constipation 04/29/24 04/29/24 Unknown History oral suspension (Milk of Magnesia) nystatin 100,000 unit/gram topical 1 applic topical BID 04/29/24 04/29/24 04/29/24 History cream ondansetron HCl 8 mg tablet 8 mg PO Q8H PRN Nausea And Vomiting 04/29/24 04/29/24 Unknown History ranolazine 500 mg tablet,extended 500 mg PO BID 04/29/24 04/29/24 04/29/24 History release,12 hr sodium phosphates 19 gram-7 118 ml NM DAILY PRN Constipation 04/29/24 04/29/24 Unknown History gram/118 mL enema (Fleet Enema) spironolactone 25 mg tablet 25 mg PO DAILY 04/29/24 04/29/24 04/29/24 History hydrocodone 5 mg-acetaminophen 325 1 tab PO DAILY PRN pain 5 days #5 05/02/24 Unknown Rx mg tablet tabs Allergies Allergy/AdvReac Type Severity Reaction Status Date / Time Sulfa (Sulfonamide Allergy Severe ALGY-Anaphy Verified 04/17/24 13:35 Antibiotics) laxis aspirin Allergy Intermediate nose bleeds Verified 04/17/24 13:35 clonidine Allergy Unknown chest pain Verified 04/17/24 13:35 rofecoxib [From Vioxx] Allergy Unknown unknown Verified 04/17/24 13:35 PFSH Acute PFSH: Medical History Chronic respiratory failure with hypoxia Peripheral vascular disease COPD (chronic obstructive pulmonary disease) NSTEMI (non-ST elevated myocardial infarction) Aortic stenosis Anemia in other chronic diseases classified elsewhere Acquired hyperlipoproteinemia Gastro-esophageal reflux disease without esophagitis Primary generalized (osteo)arthritis Depression, unspecified Anxiety disorder, unspecified Obstructive sleep apnea (adult) (pediatric) Type 2 diabetes mellitus with diabetic polyneuropathy Other nonspecific abnormal finding of lung field Body mass index [BMI] 50.0-59.9, adult Morbid (severe) obesity due to excess calories 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 Recurrent UTI Ischemic cardiomyopathy CHF (congestive heart failure) (~04/16/24) CAD (coronary artery disease) OAB (overactive bladder) Lump of breast, right Hypertension Surgical History S/P cardiac cath H/O: section H/O breast biopsy right Family History Other CAD (coronary artery disease) Hypertension Stroke Social History Smoking and tobacco/nicotine status: former use of tobacco/nicotine Alcohol intake: never Housing: [facility] Vitals/I&O/Wt Last Vital Signs Temp 98.2 F 05/05/24 11:12 Pulse 56 L 05/05/24 13:51 Resp 18 05/05/24 11:12 BP 152/60 05/05/24 13:51 Pulse Ox 96 05/05/24 13:51 O2 Del Method Nasal Cannula 05/05/24 13:51 O2 Flow Rate 5 05/05/24 13:51 Weight last 48 hrs Weight 136.078 kg Physical Exam Narrative: General: Alert oriented x3, patient seen sitting up in bed on 6 L nasal cannula at this time. HEENT: Normocephalic, atraumatic, EOMI, breathing comfortably, no acute respiratory distress Cardio: Regular rate rhythm, normal S1-S2 Respiratory: Crackles bilaterally at bases no gross wheezes or rhonchi. GI: Abdomen soft, nontender, bowel sounds + Extremities: 1+ edema bilateral lower extremities, left thigh wound covered with dressing at that time. Data 05/05/24 11:30 05/05/24 11:30 A&P Assessment and plan (1) Hypertension: (2) CHF (congestive heart failure): (3) Aortic stenosis: (4) CAD (coronary artery disease): (5) Peripheral vascular disease: (6) Type 2 diabetes mellitus with diabetic polyneuropathy: (7) senior living (current) use of insulin: (8) Gastro-esophageal reflux disease without esophagitis: (9) Chronic kidney disease, unspecified: (10) UTI (urinary tract infection): (11) Dependence on supplemental oxygen: (12) Obstructive sleep apnea (adult) (pediatric): (13) Pressure ulcer: Plan #Diastolic CHF exacerbation #Hyperkalemia #Hyponatremia #Diabetic left thigh wound #COPD #Peripheral vascular disease #History of ischemic cardiomyopathy #Hypertension #Type 2 diabetes mellitus #Obesity #Obstructive sleep apnea #History of E. coli ESBL, Klebsiella ESBL #UTI, positive for Ann glabrata, E. coli ? Patient appears to be fluid overloaded. Lasix was held on last ER stay. Patient received Lasix 40 IV x 1 in the ER. ? Will continue Lasix 40 IV daily ? Continue to monitor kidney function. Creatinine 2.3 today. Baseline creatinine 1.4 range. Elevation most likely secondary to fluid overload at this time. I expect this to improve with diuresis. BNP 6500. ? Check echo ? Avoid IV fluids at this time ? Most recent urine culture on 04/29 showed positivity for Ann glabrata, E. coli. Will order Zosyn and fluconazole 100 daily at this time to treat for that. Will recheck urine culture today. ? Patient follows with wound care for left thigh wound which was recently debrided 2 weeks ago. Will discuss with wound care if further debridement needed at this time. Will consult Dr. Her. ? Check blood cultures ? Continue BiPAP as needed ? Continue amlodipine, carvedilol. Continue to hold lisinopril ? Sliding scale insulin moderate dose intensity ? Hold off on basal insulin. ? Will need to complete med rec. ? I will hold off on ranolazine secondary to TAWNY. ? Patient denies any chest pain at this time. Troponins delta negative at 2 hours. Await 6-hour troponin. EKG initially shows A-fib with SVR. ? Check hemoglobin A1c ? Check venous Dopplers bilateral lower extremities ? Continue Imdur ? Continue hydralazine ? Potassium 5.8 in ER. It is suspected that patient continue to take her potassium supplements by ER doctor however I do not see potassium on home medication list at this time however that is an accurate. Will need to [facility] whether patient was on potassium. There is spironolactone listed here unsure if patient was still taking. ? Stat BMP repeat. If potassium still elevated will treat accordingly. ? Sodium 130 most likely secondary to fluid overload at this time, will check urine sodium, urine, serum osmolality. Patient appears to be hypervolemic. Full code DVT prophylaxis: Heparin SQ twice daily Attestations Medical Necessity Statement*: Greater than 2 midnight stay for management of diastolic CHF exacerbation, UTI, hyperkalemia, hyponatremia Diagnoses Hypertension I10 CHF (congestive heart failure) I50.9 Aortic stenosis I35.0 CAD (coronary artery disease) I25.10 Peripheral vascular disease I73.9 Type 2 diabetes mellitus with diabetic polyneuropathy E11.42 senior living (current) use of insulin Z79.4 Gastro-esophageal reflux disease without esophagitis K21.9 Chronic kidney disease, unspecified N18.9 UTI (urinary tract infection) N39.0 Dependence on supplemental oxygen Z99.81 Obstructive sleep apnea (adult) (pediatric) G47.33 Pressure ulcer L89.90
--- NOTE | 2024-05-05 14:37 | PC.NURSE ---
Patient transferred from ED to CSU via a bed, she has a chronic card, at 1435.
--- NOTE | 2024-05-05 15:23 | USR_ITS ---
PROCEDURE INFORMATION: Exam: US Duplex Lower Extremity Veins, Bilateral Exam date and time: 05/05/2024 6:55 PM Age: 63 years old Clinical indication: Edema, localized; Lower extremity, bilateral; Additional info: Rule out dvt, swollen legs TECHNIQUE: Imaging protocol: Real-time duplex ultrasound of the bilateral extremities with 2-D hunter scale, color Doppler flow and spectral waveform analysis including responses to compression and other maneuvers (when performed) with image documentation. Complete exam focused on the lower extremity veins. COMPARISON: CT kidney stone [id number] 04/29/2024 2:35 PM FINDINGS: Right deep veins: Unremarkable. The common femoral, femoral, proximal profunda femoral and popliteal veins are patent without thrombus. Normal Doppler waveforms. Normal compressibility and/or augmentation response. Left deep veins: Unremarkable. The common femoral, femoral, proximal profunda femoral and popliteal veins are patent without thrombus. Normal Doppler waveforms. Normal compressibility and/or augmentation response. Superficial veins: Greater saphenous veins at the saphenofemoral junctions are patent bilaterally without thrombus. Soft tissues: Unremarkable. US/CV venous duplex [facility] [id number] IMPRESSION: No evidence of deep vein thrombosis.
--- NOTE | 2024-05-05 15:27 | PC.NURSE ---
Provider ordered bilateral duplex of lower extremities to rule out DVT, legs are swollen. Provider also ordered 1 gram of calcium gluconate for now since potassuim is 5.8. Give lasix 40mg at 1800 per provider since ED gave lasix at 1145.
[2024-05-05] MEDS: calcium gluconate 0.9% NaCL 1 GM/50 ML PREMIX IV (16:00)
[2024-05-05 16:39] LABS: Glucose Point of Care 128 mg/dL (70-110)
[2024-05-05] MEDS: heparin 5,000 unit/mL INJ 1 mL 5000 UNIT SUBCUT (16:41)
[2024-05-05] MEDS: piperacillin-tazobactam 3.375 GM in sodium chloride 0.9% (plus) 50 ML IV ×2 (16:42→23:33)
[2024-05-05] MEDS: fluconazole premix 100 MG in empty flexible container 1 EACH 50 MG IV (16:42)
--- NOTE | 2024-05-05 17:13 | ECG_ITS ---
[facility] Test Date: 2024-05-05 Pat Name: Nia Gomes Department: Room: 105 Gender: Female Radiologist Physician: : 1960 Requested By: Ritchie Payne Order Number: [id number] Morgan MD: Kenton Krishnamurthy M.D. Measurements Intervals [place] Rate: 50 P: 0 CO: 0 QRS: -15 QRSD: 138 T: 151 QT: 436 QTc: 401 Interpretive Statements Junctional rhythm with atrial PREMATURE COMPLEXES INTRAVENTRICULAR CONDUCTION DELAY [130+ ms QRS DURATION] Compared to ECG 05/05/2024 13:27:00 Ventricular premature complex(es) now present Aberrant conduction of supraventricular beat(s) now present Electronically Signed On 05-06-2024 14:15:36 CDT by Kenton Krishnamurthy M.D. [id number]
[2024-05-05 17:17] LABS: Anion Gap 17.8 (5-19); Blood Urea Nitrogen 56 mg/dL (8-23); Calcium 9.6 mg/dL (8.5-10.5); Carbon Dioxide 20 mmol/L (22-29); Chloride 100 mmol/L (98-107); Glomerular Filtration Rate 23.6 mL/min (90-130); Glucose 118 mg/dL (65-115); Lactic Sepsis W/Reflex 0.6 mmol/L (0.5-2.2); Osmolality Calculated 291 mOsm/kg (285-295); Potassium 5.8 mmol/L (3.5-5.1); Sodium 132 mmol/L (136-145)
[2024-05-05 17:21] LABS: Procalcitonin 0.12 ng/mL (0-0.5)
[2024-05-05] MEDS: FUROsemide 10 mg/mL SDV 4mL 40 MG IVP (18:14)
--- NOTE | 2024-05-05 19:28 | PC.NURSE ---
Provider called and asked nursing staff to order a timed BMP for 2100. Nursing staff will call on-call provider with results to see if any new orders are needed.
[2024-05-05] MEDS: insulin regular-human 10 UNIT in SYRINGE 1 EACH IVP (19:45)
[2024-05-05] MEDS: sodium polystyrene sulfonate 15 gm/60 mL Btl PO (19:45)
[2024-05-05 20:41] LABS: Glucose Point of Care 47 mg/dL (70-110)
[2024-05-05 20:41] LABS: Glucose Point of Care 45 mg/dL (70-110)
[2024-05-05 21:09] LABS: Glucose Point of Care 54 mg/dL (70-110)
[2024-05-05 21:50] LABS: Glucose Point of Care 82 mg/dL (70-110)
[2024-05-05 22:16] LABS: Anion Gap 18.1 (5-19); Blood Urea Nitrogen 53 mg/dL (8-23); Calcium 9.7 mg/dL (8.5-10.5); Carbon Dioxide 21 mmol/L (22-29); Chloride 102 mmol/L (98-107); Creatinine Clr Calc Pharmacy 27.0734; Glomerular Filtration Rate 20.3 mL/min (90-130); Glucose 43 mg/dL (65-115); Osmolality Calculated 293 mOsm/kg (285-295); Potassium 5.1 mmol/L (3.5-5.1); Sodium 136 mmol/L (136-145)
[2024-05-05 22:17] LABS: Troponin 5 6HR 62.77 ng/L (0-10); Troponin 5 6HR Delta 2.77 ng/L (0-12)
[2024-05-06] VITALS (14 sets, daily range): BP systolic 110–167; BP diastolic 32–74; PULSE 52–88; RESP 16–29; TEMP 36.3–36.8; O2SAT 89–97
[2024-05-06 01:53] LABS: Glucose Point of Care 98 mg/dL (70-110)
[2024-05-06 03:20] LABS: Basophils % 0.3 %; Eosinophils # 0.3 10^3/uL (0.0-0.8); Eosinophils % 3.7 %; Hematocrit 21.6 % (36-47); Lymphocytes % 13.3 %; Mean Corpuscular HGB Conc 31.9 g/dL (30-55); Mean Corpuscular Hemoglobin 32.9 pg (27-33); Mean Corpuscular Volume 102.9 fl (85-98); Mean Platelet Volume 8.5 fL (7.4-10.4); Monocytes # 0.8 10^3/uL (0.2-0.9); Monocytes % 10.1 %; Neutrophils # 5.64 10^3/uL (1.8-7.7); Neutrophils % 72.1 %; Nucleated Red Blood Cells % 0 %; Platelet Count 371 10^3/cmm (157-399); Red Cell Distribution Width 13.8 % (12.1-15.1); White Blood Count 7.82 10^3/uL (3.29-11.43)
[2024-05-06] MEDS: heparin 5,000 unit/mL INJ 1 mL 5000 UNIT SUBCUT (03:21)
[2024-05-06 03:34] LABS: Alanine Aminotransferase 7 U/L (0-33); Albumin Level 3.1 g/dL (3.5-5.2); Alkaline Phosphatase 70 U/L (35-105); Anion Gap 17.4 (5-19); Aspartate Amino Transferase 13 U/L (0-32); Blood Urea Nitrogen 54 mg/dL (8-23); Calcium 9.3 mg/dL (8.5-10.5); Carbon Dioxide 20 mmol/L (22-29); Chloride 101 mmol/L (98-107); Creatinine Clr Calc Pharmacy 27.0734; Glomerular Filtration Rate 20.3 mL/min (90-130); Glucose 95 mg/dL (65-115); Magnesium 2.2 mg/dL (1.7-2.3); Osmolality Calculated 291 mOsm/kg (285-295); Potassium 5.4 mmol/L (3.5-5.1); Sodium 133 mmol/L (136-145); Total Bilirubin 0.3 mg/dL (0.15-1.2); Total Protein 6.1 g/dL (6.6-8.7)
[2024-05-06] MEDS: piperacillin-tazobactam 3.375 GM in sodium chloride 0.9% (plus) 50 ML IV ×3 (06:39→22:39)
[2024-05-06 06:49] LABS: Glucose Point of Care 106 mg/dL (70-110)
--- NOTE | 2024-05-06 07:01 | PC.NURSE ---
Addendum entered by Lynn Lorenzana RN 05/06/24 07:05: pt was asymptomatic during this low blood sugar event. Original Note: after administering the insulin around 830 pt blood sugar dropped to 45, it was repeated again, confirmed low sugar. pt was given orange juice and rechecked 30 mins later. blood sugar increased and increased through the night.
[2024-05-06] MEDS: acetaminophen 325 mg Tablet 650 MG PO (10:01)
[2024-05-06 11:12] LABS: Glucose Point of Care 168 mg/dL (70-110)
[2024-05-06] MEDS: insulin lispro 100 unit/1 mL SUBCUT ×2 (12:16→21:07)
[2024-05-06 13:11] LABS: Hematocrit 23.8 % (36-47)
--- NOTE | 2024-05-06 13:12 | P.PN_ITS ---
Subjective 2 Subjective: Patient is debridement of left hip wound, will keep her n.p.o. after midnight Hyperkalemia creatinine 2.4 Adequate urine output Will go back to [facility] after debridement tomorrow Patient feeling better on 3 L nasal cannula Vitals/I&O/Wt Last Vital Signs Temp 98.2 F 05/06/24 12:00 Pulse 76 05/06/24 12:00 Resp 24 H 05/06/24 12:00 BP 140/74 05/06/24 12:00 Pulse Ox 95 05/06/24 12:00 O2 Del Method Nasal Cannula 05/06/24 09:35 O2 Flow Rate 4 05/06/24 09:35 05/05/24 05/06/24 05/06/24 22:59 06:59 14:59 Intake Total 550.1 / 550.1 50 / 600.1 170 / 170 Output Total 1650 / 1650 200 / 1850 Balance -1099.9 / -1099.9 -150 / -1249.9 170 / 170 Weight last 48 hrs Weight 114.305 kg Weight 115.212 kg Weight 136.078 kg Physical Exam 2 Narrative: Patient is morbidly obese Able to work with PT Lymphedema of lower extremities Left hip ulcer with eschar with foul-smelling discharge Awake and alert nonfocal neuroexam Currently on room 4 L nasal cannula blood pressures as high S1, S2 Normotensive Urinary Catheter Management: Bonilla: Cath Placed During This Visit: no Reason for Continuing Indwelling Catheter: Accurate Measurement of Urinary Output in Critically Ill Patients Data 05/06/24 12:23 05/06/24 02:24 Micro: Microbiology 05/05/24 11:32 Urine Culture - Preliminary Urine,Clean Catch 05/05/24 21:17 Blood Culture - Preliminary Blood SPECIMEN COLLECTED 05/05/24 16:47 Blood Culture - Preliminary Blood SPECIMEN COLLECTED A&P Assessment and plan (1) Hypertension: (2) CHF (congestive heart failure): (3) Aortic stenosis: (4) CAD (coronary artery disease): (5) Peripheral vascular disease: (6) Type 2 diabetes mellitus with diabetic polyneuropathy: (7) intermission coordinator (current) use of insulin: (8) Gastro-esophageal reflux disease without esophagitis: (9) Chronic kidney disease, unspecified: (10) UTI (urinary tract infection): (11) Dependence on supplemental oxygen: (12) Obstructive sleep apnea (adult) (pediatric): (13) Pressure ulcer: Plan Patient will need debridement of left hip purulent cellulitis Will keep her n.p.o. after midnight General surgery consulted Will keep her n.p.o. after midnight No active fever Acute on chronic kidney disease cardiorenal improving with diuresis Hyperkalemia: Given Kayexalate and diuresis Bedbound related to lymphedema and lower extremity swelling working with PT, uses a walker at cancer assisted Acute on chronic hypoxia currently on 4 L, Macrocytic anemia check B12 and folate, hemoglobin 7.6 on repeat H&H Attestations 2 Medical Necessity Statement*: Debridement tomorrow Diagnoses Hypertension I10 CHF (congestive heart failure) I50.9 Aortic stenosis I35.0 CAD (coronary artery disease) I25.10 Peripheral vascular disease I73.9 Type 2 diabetes mellitus with diabetic polyneuropathy E11.42 intermission coordinator (current) use of insulin Z79.4 Gastro-esophageal reflux disease without esophagitis K21.9 Chronic kidney disease, unspecified N18.9 UTI (urinary tract infection) N39.0 Dependence on supplemental oxygen Z99.81 Obstructive sleep apnea (adult) (pediatric) G47.33 Pressure ulcer L89.90
--- NOTE | 2024-05-06 13:27 | P.CONIM_ITS ---
Providers/Reason For Consult 2 Consulting Physician/Specialty*: General surgery Reason for Consult*: Left hip decubitus ulcer Attending Physician: Mary Avila MD Primary Care Provider: Nadiya Torre NP History of Present Illness History of Present Illness This is a 63-year-old female who is bedbound and was recently admitted to the hospital with anemia, I have been asked to see patient for left hip decubitus ulcer that requires debridement. Current to the patient she has had this wound for a long time is getting local wound care, states that she does not have any other wounds that require active attention. Review of Systems 2 General: Reports: 10 or more systems reviewed and unremarkable except in HPI and below Medications/Allergies Home Medications Medication Instructions Recorded Confirmed Last Taken Type cholecalciferol (vitamin D3) 25 2,000 unit PO QDAY 10/21/19 05/06/24 04/29/24 History mcg (1,000 unit) capsule multivitamin 1 tab PO QAM 10/21/19 05/06/24 04/29/24 History cranberry 500 mg capsule 500 mg PO BID 09/28/21 05/06/24 04/29/24 History cetirizine 10 mg capsule (All Day 10 mg PO QDAY #30 caps 04/29/22 05/06/24 04/29/24 Rx Allergy (cetirizine)) oxybutynin chloride 15 mg 15 mg PO QDAY #30 tabs 12/21/22 05/06/24 04/29/24 Rx tablet,extended release 24 hr acetaminophen 500 mg tablet 1,000 mg PO BID 04/29/24 05/06/24 04/29/24 History albuterol sulfate 90 mcg/actuation 2 puff inhalation BID PRN 04/29/24 05/06/24 Unknown History aerosol inhaler (Ventolin HFA) Shortness Of Breath amlodipine 5 mg tablet 5 mg PO DAILY 04/29/24 05/06/24 04/29/24 History atorvastatin 80 mg tablet 80 mg PO QPM 04/29/24 05/06/24 04/28/24 History bisacodyl 10 mg rectal suppository 10 mg VT DAILY PRN Constipation 04/29/24 05/06/24 Unknown History bisacodyl 5 mg tablet 5 mg PO DAILY PRN Constipation 04/29/24 05/06/24 Unknown History budesonide-formoterol HFA 160 2 puff inhalation BID 04/29/24 05/06/24 04/29/24 History mcg-4.5 mcg/actuation aerosol inhaler (Symbicort) carvedilol 6.25 mg tablet 6.25 mg PO DAILY 04/29/24 05/06/24 04/29/24 History cefdinir 300 mg capsule 300 mg PO BID 04/29/24 05/06/24 04/29/24 History diphenhydramine 25 2 tab PO BEDTIME 04/29/24 05/06/24 04/28/24 History mg-acetaminophen 500 mg tablet (Tylenol PM Extra Strength) fluconazole 150 mg tablet 150 mg PO DAILY 04/29/24 05/06/24 04/29/24 History fluticasone propionate 50 1 spray intranasal DAILY 04/29/24 05/06/24 04/29/24 History mcg/actuation nasal spray,suspension glucagon HCl 1 mg solution for 1 mg SUBCUT Q20M PRN BLOOD SUGAR 04/29/24 05/06/24 Unknown History injection (Glucagon (HCl) Emergency Kit) guaifenesin 100 mg/5 mL oral 200 mg PO Q4H PRN COUGH AND 04/29/24 05/06/24 Unknown History liquid (Era-Tussin) CONGESTION guaifenesin 600 mg tablet, 600 mg PO Q12H PRN EXPECTORANT 04/29/24 05/06/24 Unknown History extended release 12 hr (Mucinex) hydralazine 25 mg tablet 25 mg PO QID 04/29/24 05/06/24 04/29/24 History insulin aspart U-100 100 unit/mL See Rx Instructions .Route .COMPLEX 04/29/24 05/06/24 04/29/24 History (3 mL) subcutaneous pen (Novolog FlexPen U-100 Insulin aspart) insulin glargine 100 unit/mL (3 20 unit SUBCUT BID 04/29/24 05/06/24 04/29/24 History mL) subcutaneous pen (Lantus Solostar U-100 Insulin) ipratropium 0.5 mg-albuterol 3 mg 3 ml inhalation Q4H PRN Shortness 04/29/24 05/06/24 Unknown History (2.5 mg base)/3 mL nebulization Of Breath Or Wheezing soln isosorbide mononitrate 30 mg 30 mg PO QAM 04/29/24 05/06/24 04/29/24 History tablet,extended release 24 hr loperamide 2 mg tablet 2 mg PO Q6H PRN Diarrhea 04/29/24 05/06/24 Unknown History magnesium hydroxide 400 mg/5 mL 30 ml PO DAILY PRN Constipation 04/29/24 05/06/24 Unknown History oral suspension (Milk of Magnesia) nystatin 100,000 unit/gram topical 1 applic topical BID PRN Skin 04/29/24 05/06/24 04/29/24 History cream Irritation ondansetron HCl 8 mg tablet 8 mg PO Q8H PRN Nausea And Vomiting 04/29/24 05/06/24 Unknown History ranolazine 500 mg tablet,extended 500 mg PO BID 04/29/24 05/06/24 04/29/24 History release,12 hr sodium phosphates 19 gram-7 118 ml VT DAILY PRN Constipation 04/29/24 05/06/24 Unknown History gram/118 mL enema (Fleet Enema) spironolactone 25 mg tablet 25 mg PO DAILY 04/29/24 05/06/24 04/29/24 History furosemide 40 mg tablet See Rx Instructions .Route .COMPLEX 05/06/24 05/06/24 Unknown History hydrocodone 5 mg-acetaminophen 325 1 tab PO BEDTIME pain 05/06/24 05/06/24 Unknown History mg tablet nitroglycerin 0.4 mg sublingual 0.4 mg sublingual Q5M PRN Chest 05/06/24 05/06/24 Unknown History tablet Pain nystatin 100,000 unit/gram topical See Rx Instructions .Route .COMPLEX 05/06/24 05/06/24 Unknown History powder triamcinolone acetonide 0.1 % 1 applic topical BID PRN Skin 05/06/24 05/06/24 Unknown History topical cream Irritation Allergies Allergy/AdvReac Type Severity Reaction Status Date / Time Sulfa (Sulfonamide Allergy Severe ALGY-Anaphy Verified 04/17/24 13:35 Antibiotics) laxis aspirin Allergy Intermediate nose bleeds Verified 04/17/24 13:35 clonidine Allergy Unknown chest pain Verified 04/17/24 13:35 rofecoxib [From Vioxx] Allergy Unknown unknown Verified 04/17/24 13:35 Current Medications Generic Name Dose Route Start Last Admin Trade Name Rashaad PRN Reason Stop Dose Admin Acetaminophen 650 mg 05/05/24 14:03 05/06/24 10:01 Acetaminophen 325 Mg Tablet PO 650 mg Q6H PRN Administration Mild/Mod Pain Or Temp >/= 101 Furosemide 40 mg 05/05/24 15:00 05/05/24 18:14 Furosemide 10 Mg/Ml Sdv 4ml IVP 40 mg Q24H SHERYL Administration Heparin Sodium (Porcine) 5,000 unit 05/05/24 16:00 05/06/24 03:21 Heparin 5,000 Unit/Ml Inj 1 Ml SUBCUT 5,000 unit Q12H SHERYL Administration Piperacillin Sod/Tazobactam 50 mls @ 12.5 mls/hr 05/05/24 15:15 05/06/24 11:19 Sod 3.375 gm/ Sodium Chloride IV Infused Q8H SHERYL Infusion Protocol As Directed Fluconazole 100 mg/ N/A 50 mls @ 50 mls/hr 05/05/24 16:00 05/05/24 18:14 IV Infused Q24H SHERYL Infusion Insulin Human Lispro 0 unit 05/05/24 18:00 05/06/24 12:16 Insulin Lispro 100 Unit/1 Ml SUBCUT 4 unit WM&BEDTIME SHERYL Administration Protocol PFSH Acute 2 PFSH: Medical History Chronic respiratory failure with hypoxia Peripheral vascular disease COPD (chronic obstructive pulmonary disease) NSTEMI (non-ST elevated myocardial infarction) Aortic stenosis Anemia in other chronic diseases classified elsewhere Acquired hyperlipoproteinemia Gastro-esophageal reflux disease without esophagitis Primary generalized (osteo)arthritis Depression, unspecified Anxiety disorder, unspecified Obstructive sleep apnea (adult) (pediatric) Type 2 diabetes mellitus with diabetic polyneuropathy Other nonspecific abnormal finding of lung field Body mass index [BMI] 50.0-59.9, adult Morbid (severe) obesity due to excess calories 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 Recurrent UTI Ischemic cardiomyopathy CHF (congestive heart failure) (~04/16/24) CAD (coronary artery disease) OAB (overactive bladder) Lump of breast, right Hypertension Surgical History S/P cardiac cath H/O: section H/O breast biopsy right Family History Other CAD (coronary artery disease) Hypertension Stroke Social History Smoking and tobacco/nicotine status: former use of tobacco/nicotine Alcohol intake: never Housing: [place] Vitals/I&O/Wt Last Vital Signs Temp 98.2 F 05/06/24 12:00 Pulse 76 05/06/24 12:00 Resp 24 H 05/06/24 12:00 BP 140/74 05/06/24 12:00 Pulse Ox 95 05/06/24 12:00 O2 Del Method Nasal Cannula 05/06/24 09:35 O2 Flow Rate 4 05/06/24 09:35 05/05/24 05/06/24 05/06/24 22:59 06:59 14:59 Intake Total 550.1 / 550.1 50 / 600.1 170 / 170 Output Total 1650 / 1650 200 / 1850 Balance -1099.9 / -1099.9 -150 / -1249.9 170 / 170 Weight last 48 hrs Weight 252 lb Weight 254 lb Weight 300 lb Physical Exam 2 Narrative: Patient is bedbound, there is multiple superficial excoriations on bilateral lower extremity and in the lower back, on the left hip there is evidence of the decubitus ulcer that has a superficial eschar, the base of the ulcer appears to be to lyse, no evidence of purulence noted. Urinary Catheter Management: Bonilla: Cath Placed During This Visit: no Reason for Continuing Indwelling Catheter: Accurate Measurement of Urinary Output in Critically Ill Patients Data 05/06/24 12:23 05/06/24 02:24 Micro: Microbiology 05/05/24 11:32 Urine Culture - Preliminary Urine,Clean Catch 05/05/24 21:17 Blood Culture - Preliminary Blood SPECIMEN COLLECTED 05/05/24 16:47 Blood Culture - Preliminary Blood SPECIMEN COLLECTED A&P Assessment and plan (1) Morbidly obese: (2) Pressure ulcer: Plan After complete history, physical examination and review of all available clinical I have decided to offer the patient debridement of the left hip decubitus ulcer. I discussed all risk and benefits including the results of additional procedures, need for sequential debridements, infection, bleeding, damage to surrounding structures. Patient shows understanding and wishes to proceed. We will book debridement of the left hip decubitus ulcer for tomorrow. Patient shows understanding and agrees. Plan was discussed with medical team. Coding Level of Care Code 92559 Diagnoses Morbidly obese E66.01 Pressure ulcer L89.90
[2024-05-06 13:35] LABS: Iron 30 ug/dL (37-145); Percent Saturation 13.8 % (20-50); Total Iron Binding Capacity 217 mcg/dl; Unsaturated Iron Binding 187 ug/dL (112-347)
[2024-05-06 13:51] LABS: Vitamin B12 1356 pg/mL (232-1245)
[2024-05-06 14:21] LABS: Folate Level > 20.0 ng/mL (4.8-37.3)
[2024-05-06] MEDS: FUROsemide 10 mg/mL SDV 4mL 40 MG IVP (15:51)
[2024-05-06] MEDS: fluconazole premix 100 MG in empty flexible container 1 EACH 50 MG IV (16:28)
--- NOTE | 2024-05-06 16:49 | PC.NURSE ---
Provider was notified that patient was complaining of shortness of breath this morning. Patients O2 stats were 88-92% on 4L. Patient did get a breathing treatment which did calm her down. She is having some anxiety. Nursing staff has been in the room often reassuring the patient that her O2 levels are doing good and she needs to breath in through her nose. She is also moved up in the bed and her head raised. Patient this afternoon has been more comfortable.
[2024-05-06] MEDS: doxycycline 100 mg Tablet PO (18:11)
[2024-05-06 18:19] LABS: Glucose Point of Care 190 mg/dL (70-110)
[2024-05-06 20:45] LABS: Glucose Point of Care 215 mg/dL (70-110)
[2024-05-07] VITALS (25 sets, daily range): BP systolic 81–161; BP diastolic 34–88; PULSE 72–101; RESP 15–38; TEMP 36.2–36.9; O2SAT 92–100
[2024-05-07 05:00] LABS: Basophils % 0.4 %; Eosinophils # 0.1 10^3/uL (0.0-0.8); Eosinophils % 1.2 %; Hematocrit 24.4 % (36-47); Lymphocytes # 1.3 10^3/uL (0.8-4.8); Lymphocytes % 13.6 %; Mean Corpuscular HGB Conc 30.7 g/dL (30-55); Mean Corpuscular Hemoglobin 32.1 pg (27-33); Mean Corpuscular Volume 104.3 fl (85-98); Mean Platelet Volume 8.6 fL (7.4-10.4); Monocytes % 10.3 %; Neutrophils # 6.91 10^3/uL (1.8-7.7); Neutrophils % 74.1 %; Nucleated Red Blood Cells % 0 %; Platelet Count 438 10^3/cmm (157-399); Red Blood Count 2.34 10^6/uL (3.85-5.65); Red Cell Distribution Width 13.7 % (12.1-15.1); White Blood Count 9.33 10^3/uL (3.29-11.43)
[2024-05-07 05:32] LABS: Anion Gap 22.8 (5-19); Blood Urea Nitrogen 49 mg/dL (8-23); Calcium 9.1 mg/dL (8.5-10.5); Carbon Dioxide 17 mmol/L (22-29); Chloride 102 mmol/L (98-107); Glomerular Filtration Rate 23.6 mL/min (90-130); Glucose 126 mg/dL (65-115); Osmolality Calculated 299 mOsm/kg (285-295); Potassium 4.8 mmol/L (3.5-5.1); Sodium 137 mmol/L (136-145)
[2024-05-07 06:28] LABS: Glucose Point of Care 168 mg/dL (70-110)
[2024-05-07] MEDS: piperacillin-tazobactam 3.375 GM in sodium chloride 0.9% (plus) 50 ML IV ×2 (07:24→23:36)
[2024-05-07] MEDS: ipratropium-albuterol 3 mL Neb INHALATION (08:14)
--- NOTE | 2024-05-07 08:27 | PC.NURSE ---
Provider ordered a unit of blood for patient. Provider stood by nursing staff while entering order.
[2024-05-07] MEDS: doxycycline 100 mg Tablet PO ×2 (08:29→17:53)
--- NOTE | 2024-05-07 09:50 | PC.NURSE ---
[facility] is called for date of last card placement. Nurse at [facility] said that the last documented card was placed 04/05/2024. [facility] nurse did say that she has 30cc balloon and it hard to place.
[2024-05-07] MEDS: sodium chloride 0.9% 100 mL Bag 50 ML IV (10:38)
--- NOTE | 2024-05-07 11:08 | P.PN_ITS ---
Subjective 2 Subjective: Patient is planned for debridement of her wound around 3 PM which might evaluate for arranging a right to [place] [facility] I will give her 1 unit PRBC to keep her hemoglobin above 8 considering underlying CHF Creatinine improving Adequate urine output Breathing has improved Patient is very eager to return back to [place] [facility] Vitals/I&O/Wt Last Vital Signs Temp 97.8 F 05/07/24 07:30 Pulse 92 05/07/24 08:15 Resp 22 H 05/07/24 08:15 BP 124/42 05/07/24 07:30 Pulse Ox 94 05/07/24 08:15 O2 Del Method Nasal Cannula 05/07/24 08:15 O2 Flow Rate 4 05/07/24 08:15 05/06/24 05/07/24 05/07/24 22:59 06:59 14:59 Intake Total 500 / 790 50 / 840 Output Total 500 / 1700 400 / 2100 Balance 0 / -910 -350 / -1260 Weight last 48 hrs Weight 114.305 kg Weight 114.305 kg Weight 115.212 kg Weight 136.078 kg Physical Exam 2 Narrative: Awake and alert Morbid obesity Lymphedema Pleasant Sitting in a chair Currently on 4 L nasal cannula No active wheezing or crackles Pleasant cooperative Nonfocal neuroexam Urinary Catheter Management: Bonilla: Cath Placed During This Visit: no Reason for Continuing Indwelling Catheter: Accurate Measurement of Urinary Output in Critically Ill Patients Data 05/07/24 03:52 05/07/24 03:52 Micro: Microbiology 05/05/24 11:32 Urine Culture - Preliminary Urine,Clean Catch Yeast species 05/05/24 21:17 Blood Culture - Preliminary Blood NEGATIVE TO DATE 05/05/24 16:47 Blood Culture - Preliminary Blood NEGATIVE TO DATE A&P Assessment and plan (1) Hypertension: (2) CHF (congestive heart failure): (3) Aortic stenosis: (4) CAD (coronary artery disease): (5) Peripheral vascular disease: (6) Type 2 diabetes mellitus with diabetic polyneuropathy: (7) custodial (current) use of insulin: (8) Gastro-esophageal reflux disease without esophagitis: (9) Chronic kidney disease, unspecified: (10) UTI (urinary tract infection): (11) Dependence on supplemental oxygen: (12) Obstructive sleep apnea (adult) (pediatric): (13) Pressure ulcer: Plan Macrocytic anemia: No active bleed B12 folate normal Low iron Will give her 1 unit PRBC to keep her hemoglobin above 8 considering underlying CHF Purulent cellulitis with eschar left hip: Plan for surgical debridement around 3 PM today Lymphedema with CHF exacerbation Continue diuresis Acute on chronic kidney disease improving with diuresis which was cardiorenal in nature Chronic indwelling catheter I requested nurse to follow-up with the [place] [facility] to see if we can exchange of Bonilla catheter before discharge it gets changed every 3 weeks as per the patient It might be too late for her to go to [place] [facility] after her debridement today as per the production control planner, plan to discharge later today versus tomorrow morning DVT prophylaxis: SCDs Currently patient is doing well on 4 L nasal cannula at baseline uses 3 L, Attestations 2 Medical Necessity Statement*: Discharge likely later today versus tomorrow Diagnoses Hypertension I10 CHF (congestive heart failure) I50.9 Aortic stenosis I35.0 CAD (coronary artery disease) I25.10 Peripheral vascular disease I73.9 Type 2 diabetes mellitus with diabetic polyneuropathy E11.42 long term (current) use of insulin Z79.4 Gastro-esophageal reflux disease without esophagitis K21.9 Chronic kidney disease, unspecified N18.9 UTI (urinary tract infection) N39.0 Dependence on supplemental oxygen Z99.81 Obstructive sleep apnea (adult) (pediatric) G47.33 Pressure ulcer L89.90
[2024-05-07 12:19] LABS: Glucose Point of Care 152 mg/dL (70-110)
--- NOTE | 2024-05-07 12:53 | PC.NURSE ---
Addendum entered by Cece August RN 05/07/24 13:17: Provider ordered a midline for now. Original Note: Provider has been notified that nursing staff was unable to get another IV on patient. (3 different nurses with ultrasound have tried.)
[2024-05-07 13:10] LABS: Glucose Point of Care 178 mg/dL (70-110)
[2024-05-07] MEDS: acetaminophen 325 mg Tablet 650 MG PO (13:27)
--- NOTE | 2024-05-07 13:44 | P.HPUD_ITS ---
Surgery/Procedure H&P Update DATE OF PROCEDURE: May 07, 2024 DATE H&P PERFORMED: 05/06/24 H&P UPDATE INFORMATION: I have reviewed H&P completed within last 30 days, I have examined patient prior to procedure, No changes to prior documentation and H&P is in [facility] EMR on date indicated PLANNED PROCEDURE: Operation Date: 05/07/24 15:10 Proposed Procedures p Incision And Drainage left lower decubitus ulcer(Left) - Alex Pena MD
--- NOTE | 2024-05-07 14:58 | PC.NURSE ---
Patient left unit to surgery at 1440.
--- NOTE | 2024-05-07 15:05 | ANES.PREANE2 ---
Pre-Anesthetic Assessment Height/Weight: Height 1.52 m Weight 114.305 kg Temp Pulse Resp BP Pulse Ox O2 Del Method O2 Flow Rate 97.8 F 101 H 31 H 96/44 96 Nasal Cannula 4 05/07/24 07:30 05/07/24 12:00 05/07/24 12:00 05/07/24 12:00 05/07/24 12:00 05/07/24 12:00 05/07/24 08:15 Operation Date: 05/07/24 15:10 Proposed Procedures p Incision And Drainage left lower decubitus ulcer(Left) - Alex Pena MD Familial anesthetic complications: none Was Beta Corey taken within 24 hours: Yes Was Clonidine taken within 24 hours: N/A Social No alcohol and No tobacco (h/o smoking) Exam alert, oriented x 3 and regular rate & rhythm Airway Submandibular: within normal limits Cervical ROM: within normal limits Mallampati: Class II Dentition: false Pulmonary Chronic Obstructive Pulmonary Disease and Shortness of Breath CV/HEM Anemia, Coronary Artery Disease, Congestive Heart Failure, Hypertension, Myocardial Infarction, Murmur () and Peripheral Vascular Disease Chronic Renal Insufficiency Metabolic Diabetes Mellitus Anesthetic Plan ASA status: 4 Anesthesia: General Medications/Allergies Home Medications Medication Instructions Recorded Confirmed Last Taken Type cholecalciferol (vitamin D3) 25 2,000 unit PO QDAY 10/21/19 05/06/24 04/29/24 History mcg (1,000 unit) capsule multivitamin 1 tab PO QAM 10/21/19 05/06/24 04/29/24 History cranberry 500 mg capsule 500 mg PO BID 09/28/21 05/06/24 04/29/24 History cetirizine 10 mg capsule (All Day 10 mg PO QDAY #30 caps 04/29/22 05/06/24 04/29/24 Rx Allergy (cetirizine)) oxybutynin chloride 15 mg 15 mg PO QDAY #30 tabs 12/21/22 05/06/24 04/29/24 Rx tablet,extended release 24 hr acetaminophen 500 mg tablet 1,000 mg PO BID 04/29/24 05/06/24 04/29/24 History albuterol sulfate 90 mcg/actuation 2 puff inhalation BID PRN 04/29/24 05/06/24 Unknown History aerosol inhaler (Ventolin HFA) Shortness Of Breath amlodipine 5 mg tablet 5 mg PO DAILY 04/29/24 05/06/24 04/29/24 History atorvastatin 80 mg tablet 80 mg PO QPM 04/29/24 05/06/24 04/28/24 History bisacodyl 10 mg rectal suppository 10 mg NJ DAILY PRN Constipation 04/29/24 05/06/24 Unknown History bisacodyl 5 mg tablet 5 mg PO DAILY PRN Constipation 04/29/24 05/06/24 Unknown History budesonide-formoterol HFA 160 2 puff inhalation BID 04/29/24 05/06/24 04/29/24 History mcg-4.5 mcg/actuation aerosol inhaler (Symbicort) carvedilol 6.25 mg tablet 6.25 mg PO DAILY 04/29/24 05/06/24 04/29/24 History cefdinir 300 mg capsule 300 mg PO BID 04/29/24 05/06/24 04/29/24 History diphenhydramine 25 2 tab PO BEDTIME 04/29/24 05/06/24 04/28/24 History mg-acetaminophen 500 mg tablet (Tylenol PM Extra Strength) fluconazole 150 mg tablet 150 mg PO DAILY 04/29/24 05/06/24 04/29/24 History fluticasone propionate 50 1 spray intranasal DAILY 04/29/24 05/06/24 04/29/24 History mcg/actuation nasal spray,suspension glucagon HCl 1 mg solution for 1 mg SUBCUT Q20M PRN BLOOD SUGAR 04/29/24 05/06/24 Unknown History injection (Glucagon (HCl) Emergency Kit) guaifenesin 100 mg/5 mL oral 200 mg PO Q4H PRN COUGH AND 04/29/24 05/06/24 Unknown History liquid (Era-Tussin) CONGESTION guaifenesin 600 mg tablet, 600 mg PO Q12H PRN EXPECTORANT 04/29/24 05/06/24 Unknown History extended release 12 hr (Mucinex) hydralazine 25 mg tablet 25 mg PO QID 04/29/24 05/06/24 04/29/24 History insulin aspart U-100 100 unit/mL See Rx Instructions .Route .COMPLEX 04/29/24 05/06/24 04/29/24 History (3 mL) subcutaneous pen (Novolog FlexPen U-100 Insulin aspart) insulin glargine 100 unit/mL (3 20 unit SUBCUT BID 04/29/24 05/06/24 04/29/24 History mL) subcutaneous pen (Lantus Solostar U-100 Insulin) ipratropium 0.5 mg-albuterol 3 mg 3 ml inhalation Q4H PRN Shortness 04/29/24 05/06/24 Unknown History (2.5 mg base)/3 mL nebulization Of Breath Or Wheezing soln isosorbide mononitrate 30 mg 30 mg PO QAM 04/29/24 05/06/24 04/29/24 History tablet,extended release 24 hr loperamide 2 mg tablet 2 mg PO Q6H PRN Diarrhea 04/29/24 05/06/24 Unknown History magnesium hydroxide 400 mg/5 mL 30 ml PO DAILY PRN Constipation 04/29/24 05/06/24 Unknown History oral suspension (Milk of Magnesia) nystatin 100,000 unit/gram topical 1 applic topical BID PRN Skin 04/29/24 05/06/24 04/29/24 History cream Irritation ondansetron HCl 8 mg tablet 8 mg PO Q8H PRN Nausea And Vomiting 04/29/24 05/06/24 Unknown History ranolazine 500 mg tablet,extended 500 mg PO BID 04/29/24 05/06/24 04/29/24 History release,12 hr sodium phosphates 19 gram-7 118 ml NJ DAILY PRN Constipation 04/29/24 05/06/24 Unknown History gram/118 mL enema (Fleet Enema) spironolactone 25 mg tablet 25 mg PO DAILY 04/29/24 05/06/24 04/29/24 History furosemide 40 mg tablet See Rx Instructions .Route .COMPLEX 05/06/24 05/06/24 Unknown History hydrocodone 5 mg-acetaminophen 325 1 tab PO BEDTIME pain 05/06/24 05/06/24 Unknown History mg tablet nitroglycerin 0.4 mg sublingual 0.4 mg sublingual Q5M PRN Chest 05/06/24 05/06/24 Unknown History tablet Pain nystatin 100,000 unit/gram topical See Rx Instructions .Route .COMPLEX 05/06/24 05/06/24 Unknown History powder triamcinolone acetonide 0.1 % 1 applic topical BID PRN Skin 05/06/24 05/06/24 Unknown History topical cream Irritation Allergies Allergy/AdvReac Type Severity Reaction Status Date / Time Sulfa (Sulfonamide Allergy Severe ALGY-Anaphy Verified 04/17/24 13:35 Antibiotics) laxis aspirin Allergy Intermediate nose bleeds Verified 04/17/24 13:35 clonidine Allergy Unknown chest pain Verified 04/17/24 13:35 rofecoxib [From Vioxx] Allergy Unknown unknown Verified 04/17/24 13:35 Current Medications Generic Name Dose Route Start Last Admin Trade Name Freq PRN Reason Stop Dose Admin Acetaminophen 650 mg 05/05/24 14:03 05/07/24 13:27 Acetaminophen 325 Mg Tablet PO 650 mg Q6H PRN Administration Mild/Mod Pain Or Temp >/= 101 Albuterol/Ipratropium 3 ml 05/05/24 14:03 05/07/24 08:14 Ipratropium-Albuterol 3 Ml Neb INHALATION 3 ml Q6H.RESP PRN Administration SHORTNESS OF BREATH Doxycycline Monohydrate 100 mg 05/06/24 18:00 05/07/24 08:29 Doxycycline 100 Mg Tablet PO 100 mg BID SHERYL Administration Protocol Furosemide 40 mg 05/05/24 15:00 05/06/24 15:51 Furosemide 10 Mg/Ml Sdv 4ml IVP 40 mg Q24H SHERYL Administration Heparin Sodium (Porcine) 5,000 unit 05/05/24 16:00 05/06/24 03:21 Heparin 5,000 Unit/Ml Inj 1 Ml SUBCUT 5,000 unit Q12H SHERYL Administration Piperacillin Sod/Tazobactam 50 mls @ 12.5 mls/hr 05/05/24 15:15 05/07/24 11:58 Sod 3.375 gm/ Sodium Chloride IV Infused Q8H SHERYL Infusion Protocol As Directed Fluconazole 100 mg/ N/A 50 mls @ 50 mls/hr 05/05/24 16:00 05/06/24 17:30 IV Infused Q24H SHERYL Infusion Insulin Human Lispro 0 unit 05/05/24 18:00 05/07/24 13:08 Insulin Lispro 100 Unit/1 Ml SUBCUT Not Given WM&BEDTIME SHERYL Protocol Sodium Chloride 50 ml 05/07/24 08:27 05/07/24 10:38 Sodium Chloride 0.9% 100 Ml Bag IV 05/08/24 08:27 50 ml PRN PRN Administration Blood transfusion prime and flush [facility] Anesthesia Medical History Chronic respiratory failure with hypoxia Peripheral vascular disease COPD (chronic obstructive pulmonary disease) NSTEMI (non-ST elevated myocardial infarction) Aortic stenosis Anemia in other chronic diseases classified elsewhere Acquired hyperlipoproteinemia Gastro-esophageal reflux disease without esophagitis Primary generalized (osteo)arthritis Depression, unspecified Anxiety disorder, unspecified Obstructive sleep apnea (adult) (pediatric) Type 2 diabetes mellitus with diabetic polyneuropathy Other nonspecific abnormal finding of lung field Body mass index [BMI] 50.0-59.9, adult Morbid (severe) obesity due to excess calories 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 Recurrent UTI Ischemic cardiomyopathy CHF (congestive heart failure) (~04/16/24) CAD (coronary artery disease) OAB (overactive bladder) Lump of breast, right Hypertension Surgical History S/P cardiac cath H/O: section H/O breast biopsy right Family History Other CAD (coronary artery disease) Hypertension Stroke Social History Smoking and tobacco/nicotine status: former use of tobacco/nicotine Alcohol intake: never Housing: Jail Data Anesthesia 05/07/24 03:52 05/07/24 03:52 Short CBC 05/06/24 05/06/24 05/07/24 Range/Units 02:24 12:23 03:52 WBC 7.82 9.33 (3.29-11.43) 10^3/uL Hgb 6.90 L 7.60 L 7.50 L (11.27-16.99) g/dL Hct 21.6 L 23.8 L 24.4 L (36-47) % MCV 102.9 H 104.3 H (85-98) fl Plt Count 371 438 H (157-399) 10^3/cmm Neut % (Auto) 72.1 74.1 % Neut # (Auto) 5.64 6.91 (1.8-7.7) 10^3/uL BMP 05/05/24 05/05/24 05/06/24 16:47 21:17 02:24 Sodium 132 L 136 133 L Potassium 5.8 H 5.1 5.4 H Chloride 100 102 101 Carbon Dioxide 20 L 21 L 20 L BUN 56 H 53 H 54 H Creatinine 2.1 H 2.4 H 2.4 H Glucose 118 H 43 L 95 Calcium 9.6 9.7 9.3 05/07/24 03:52 Sodium 137 Potassium 4.8 Chloride 102 Carbon Dioxide 17 L BUN 49 H Creatinine 2.1 H Glucose 126 H Calcium 9.1 Cardiac Enzymes 05/05/24 Range/Units 21:17 Troponin T Hi Sens 6Hr 62.77 H (0-10) ng/L Troponin T Hi Sens 6Hr Delta 2.77 (0-12) ng/L Liver Function 05/06/24 Range/Units 02:24 Total Bilirubin 0.3 (0.15-1.2) mg/dL AST 13 (0-32) U/L ALT 7 (0-33) U/L Alkaline Phosphatase 70 (35-105) U/L Albumin 3.1 L (3.5-5.2) g/dL Blood Bank 05/06/24 12:23 Blood Type O Positive Rho(D) Type Rh positive Antibody Screen Negative Microbiology 05/05/24 11:32 Urine Culture - Preliminary Urine,Clean Catch Yeast species 05/05/24 21:17 Blood Culture - Preliminary Blood NEGATIVE TO DATE 05/05/24 16:47 Blood Culture - Preliminary Blood NEGATIVE TO DATE Cardiac Studies: No Data to Display
[2024-05-07] MEDS: BUPivacaine 0.25% INJ 10 mL 5 ML INJECTION (16:00)
[2024-05-07] MEDS: lidocaine-epi 1% 20 mL INJ 5 ML INJECTION (16:00)
--- NOTE | 2024-05-07 16:08 | PM.OP ---
Operative Report Date of procedure: May 07, 2024 Pre-op diagnosis: Left thigh pressure ulcer Post-op diagnosis: same Post-op findings: There was a large brochure ulcer on the left lower extremity that was covered with an eschar, after removal of the scar and debridement total measurement of the wound was 7 x 4 x 3 cm Procedure done: Debridement of left lower extremity decubitus ulcer Specimens removed/disposition: Tissue sample for culture Surgeon: Alex Pena MD Estimated blood loss: 5 Brief History: This is a 63-year-old female who had a left lower extremity decubitus ulcer that required debridement. After discussion risk benefits of document on my preop note we decided to proceed. Procedure: Patient was brought into the OR, she was placed in the supine position, general anesthesia was given, the left lower extremity was prepped and draped in the usual sterile fashion. Timeout was conducted. I measured the wound and it had a measurement of 6 x 4 x 0.5 cm and was covered by eschar. The scar was subsequently removed using scalpel, revealing underlying necrotic fat, with the help of a curette I evacuated all the necrotic fat the wound was noted to extend into subcutaneous tissue to the level of the fascia. Sharp debridement was used to eliminate all the necrotic tissue, I then proceeded to irrigate the wound using Pulsavac, 1 L of saline was used to irrigate the wound. I then obtained hemostasis and the new measurement of the wound that was 7 x 4 x 3 cm. The wound was packed with wet dressing and cover with a pressure dressing to prevent bleeding in the postoperative period. Patient tolerated well the procedure, at the end of the procedure all counts were correct the patient was transferred to the PACU in stable condition
--- NOTE | 2024-05-07 16:20 | ANE.PACU2 ---
Inpatient post-anesthesia follow up: Airway intact: Yes Vital signs: Temperature 97.9 F Pulse Rate 86 Respiratory Rate 22 Blood Pressure 115/65 Pulse Oximetry 96 Oxygen Delivery Me thod Nasal Cannula Oxygen Flow Rate 6 Fraction of Inspir ed Oxygen Hydration adequate: Yes Nausea and vomiting: No Pain level: 2 Mental status: Baseline
--- NOTE | 2024-05-07 16:53 | PC.NURSE ---
Patient returned to [facility] from surgery at 1650.
[2024-05-07 17:47] LABS: Glucose Point of Care 188 mg/dL (70-110)
[2024-05-07] MEDS: insulin lispro 100 unit/1 mL SUBCUT ×2 (17:54→22:04)
--- NOTE | 2024-05-07 19:10 | PC.NURSE ---
Day shift nurse was unable to administer blood product to patient due to IV access. Patient had several nurses attempt to get an IV with ultrasound. An order was placed for a midline. Midline was accessed and then patient went to surgery. Patient returned from surgery. Night nurse in report was given the circumstances and told that the blood has been ready in lab. Night nurse will administer. Provider also ordered to replace her chronic card since the nursing homes last placement was 04/05.
[2024-05-07 20:45] LABS: Glucose Point of Care 160 mg/dL (70-110)
[2024-05-08] VITALS: BP 138/88; PULSE 85; RESP 29; TEMP 36.6; O2SAT 98
[2024-05-08 02:05] VITALS: PULSE 87; O2SAT 97
[2024-05-08 02:20] VITALS: PULSE 88; RESP 20; O2SAT 93
[2024-05-08] MEDS: ipratropium-albuterol 3 mL Neb INHALATION (02:20)
--- NOTE | 2024-05-08 02:42 | PC.NURSE ---
urinary catheter present on patient's admission was exchanged for a new urinary catheter on 05/07/24 around 2300. protocol followed for procedure, pt tolerated exchange well. see documentation for specifics.
[2024-05-08 04:00] VITALS: BP 129/66; PULSE 94; RESP 21; TEMP 36.9; O2SAT 98
[2024-05-08 04:26] LABS: Basophils # 0.1 10^3/uL (0.0-0.1); Basophils % 0.4 %; Eosinophils # 0.3 10^3/uL (0.0-0.8); Eosinophils % 2.8 %; Hematocrit 27.7 % (36-47); Lymphocytes # 1.2 10^3/uL (0.8-4.8); Lymphocytes % 10.5 %; Mean Corpuscular HGB Conc 32.1 g/dL (30-55); Mean Corpuscular Hemoglobin 31.2 pg (27-33); Mean Corpuscular Volume 97.2 fl (85-98); Mean Platelet Volume 8.7 fL (7.4-10.4); Monocytes # 1.1 10^3/uL (0.2-0.9); Neutrophils # 8.67 10^3/uL (1.8-7.7); Neutrophils % 75.8 %; Nucleated Red Blood Cells % 0 %; Platelet Count 465 10^3/cmm (157-399); Red Blood Count 2.85 10^6/uL (3.85-5.65); Red Cell Distribution Width 16.7 % (12.1-15.1); White Blood Count 11.44 10^3/uL (3.29-11.43)
[2024-05-08 04:46] LABS: Anion Gap 25.4 (5-19); Blood Urea Nitrogen 48 mg/dL (8-23); Calcium 8.9 mg/dL (8.5-10.5); Carbon Dioxide 16 mmol/L (22-29); Chloride 104 mmol/L (98-107); Glomerular Filtration Rate 23.6 mL/min (90-130); Glucose 157 mg/dL (65-115); Osmolality Calculated 308 mOsm/kg (285-295); Potassium 4.4 mmol/L (3.5-5.1); Sodium 141 mmol/L (136-145)
[2024-05-08 06:00] VITALS: PULSE 87
[2024-05-08 07:24] LABS: Glucose Point of Care 163 mg/dL (70-110)
[2024-05-08 07:39] VITALS: BP 141/82; PULSE 89; RESP 16; TEMP 36.8; O2SAT 96
[2024-05-08] MEDS: doxycycline 100 mg Tablet PO (08:07)
[2024-05-08] MEDS: piperacillin-tazobactam 3.375 GM in sodium chloride 0.9% (plus) 50 ML IV (08:08)
[2024-05-08] MEDS: insulin lispro 100 unit/1 mL SUBCUT (08:08)
--- NOTE | 2024-05-08 09:16 | PC.NURSE ---
Report called to [facility] at [facility]. Patient taken by [facility].
--- NOTE | 2024-05-08 10:01 | PM.DCS ---
Discharge Providers Date of Admission: 05/05/24 13:11 Date of Discharge: May 08, 2024 Attending Provider at Admission: Mary Howell MD Attending Provider at Discharge: Mary Avila MD Primary Care Provider: Nadiya Torre NP Diagnoses at Discharge Discharge Diagnosis (1) Hypertension: Status: Chronic (2) CHF (congestive heart failure): Status: Chronic (3) Aortic stenosis: Status: Chronic (4) CAD (coronary artery disease): Status: Chronic (5) Peripheral vascular disease: Status: Chronic (6) Type 2 diabetes mellitus with diabetic polyneuropathy: Status: Chronic (7) correction (current) use of insulin: Status: Chronic (8) Gastro-esophageal reflux disease without esophagitis: Status: Chronic (9) Chronic kidney disease, unspecified: Status: Acute (10) UTI (urinary tract infection): Status: Acute (11) Dependence on supplemental oxygen: Status: Acute (12) Obstructive sleep apnea (adult) (pediatric): Status: Chronic (13) Pressure ulcer: Status: Acute Reason for Visit Reason for Visit: sob Hospital Course Hospital Course Nia Gomes is a 63 year old female With past medical history of NSTEMI, COPD, peripheral vascular disease, GERD, osteoarthritis, depression, anxiety, obstructive sleep apnea, type 2 diabetes mellitus, obesity, ischemic cardiomyopathy, CAD, CHF, hypertension presented to the hospital for complaint of increased swelling and shortness of breath. Recently patient was seen in the ER and for worsening of creatinine she was asked to stop her diuretics, patient came back with signs of worsening of fluid overload with pulm edema, lower extremity DVT was ruled out. She does have lymphedema. Patient is a resident of [facility], I have treated her with IV diuresis which improved her kidney function and fluid overloaded state. Patient had black eschar left hip area with drainage and foul-smelling odor, general surgery was consulted for surgical debridement. Patient had debridement done 05/07, she will be discharged with doxycycline and Augmentin, she has been instructed to continue using Lasix and probably she will need to increase the dose if she gets more short of breath or volume overloaded. Please note patient's hemoglobin has been fluctuating, she seems to have macrocytic anemia but B12 and folic acid were normal with a low iron level. No sign of active bleed no dark stools in the hospital. She was given 1 unit PRBC to keep her hemoglobin above 8 considering underlying multiple comorbid conditions and CHF. Creatinine at the time of discharge is 2.1 which is trending down from 2.8. She is being discharged with stable hemodynamics. Uses 3 L of oxygen at baseline, Physical Exam Narrative: Morbidly obese Lymphedema Abdomen soft Currently on 3 L + Cough Dressing on left hip wound debrided area Urinary Catheter Management: Bonilla: Cath Placed During This Visit: yes Reason for Continuing Indwelling Catheter: Accurate Measurement of Urinary Output in Critically Ill Patients Urinary Catheter Date of Insertion: 05/07/24 Urinary Catheter Time of Insertion: 23:07 Discharge Data Studies Completed and Pending Completed Studies During Hospitalization Category Date Time Status XR chest 1V portable [id number] Stat Exams 05/05/24 11:13 Completed US venous duplex lower extremity bilat [CV venous Ultrasound 05/05/24 15:23 [place] [id number]] Routine Pending at discharge Category Date Time Status Blood Culture Stat Lab 05/05/24 21:17 Results PRBC [Leukocyte Reduced RBC] Routine Lab 05/07/24 08:27 Results Type and Screen Routine Lab 05/07/24 08:27 Results Urine Culture Stat Lab 05/05/24 11:32 Results Pathology: Surgical [PTH] Routine Pth 05/07/24 16:12 Received Radiology Impressions Chest X-Ray 05/05/24 11:13 IMPRESSION: Mild interstitial pulmonary edema. Venous Duplex 05/05/24 15:23 IMPRESSION: No evidence of deep vein thrombosis. Laboratory Results WBC 11.44 10^3/uL (3.29-11.43) H 05/08/24 03:59 RBC 2.85 10^6/uL (3.85-5.65) L 05/08/24 03:59 Hgb 8.90 g/dL (11.27-16.99) L 05/08/24 03:59 Hct 27.7 % (36-47) L 05/08/24 03:59 MCV 97.2 fl (85-98) 05/08/24 03:59 MCH 31.2 pg (27-33) 05/08/24 03:59 MCHC 32.1 g/dL (30-55) 05/08/24 03:59 RDW 16.7 % (12.1-15.1) H 05/08/24 03:59 Plt Count 465 10^3/cmm (157-399) H 05/08/24 03:59 MPV 8.7 fL (7.4-10.4) 05/08/24 03:59 Neut % (Auto) 75.8 % 05/08/24 03:59 Lymph % (Auto) 10.5 % 05/08/24 03:59 [place] % (Auto) 10.0 % 05/08/24 03:59 Eos % (Auto) 2.8 % 05/08/24 03:59 Baso % (Auto) 0.4 % 05/08/24 03:59 Neut # (Auto) 8.67 10^3/uL (1.8-7.7) H 05/08/24 03:59 Lymph # (Auto) 1.2 10^3/uL (0.8-4.8) 05/08/24 03:59 [place] # (Auto) 1.1 10^3/uL (0.2-0.9) H 05/08/24 03:59 Eos # (Auto) 0.3 10^3/uL (0.0-0.8) 05/08/24 03:59 Baso # (Auto) 0.1 10^3/uL (0.0-0.1) 05/08/24 03:59 Nucleated RBC % (auto) 0 % 05/08/24 03:59 Nucleated RBCs # 0.0 /100WBC 05/08/24 03:59 Specimen Type Arterial 05/05/24 11:48 Sample Site Radial, left 05/05/24 11:48 ABG pH 7.45 (7.35-7.45) 05/05/24 11:48 ABG pCO2 29.2 mmHg (35-45) L 05/05/24 11:48 ABG pO2 72.7 mmHg (80.0-100.0) L 05/05/24 11:48 ABG HCO3 20.2 mmol/L (22-26) L 05/05/24 11:48 ABG O2 Saturation 96.4 05/05/24 11:48 ABG Base Excess -3.3 mmol/L (-2.0-2.0) L 05/05/24 11:48 [place] Test Pos 05/05/24 11:48 A-a O2 Gradient 5.2 mmHg (5-10) 05/05/24 11:48 Hematocrit 24.1 % (37-47) L 05/05/24 11:48 Hgb O2 Saturation 95.3 % (95-100) 05/05/24 11:48 Carboxyhemoglobin 1.6 %THgb (0.4-20.1) 05/05/24 11:48 Methemoglobin < 0.0 % (0.4-1.5) L 05/05/24 11:48 Total Hemoglobin 7.9 g/dL (12-16) L 05/05/24 11:48 Sodium 131.0 mmol/L (131-143) 05/05/24 11:48 Potassium 6.1 mmol/L (3.5-5.0) H 05/05/24 11:48 Glucose 146.0 mg/dL (70-115) H 05/05/24 11:48 Ionized Calcium 1.3 mmol/L (1.1-1.4) 05/05/24 11:48 O2 Delivery Device Nc 05/05/24 11:48 O2 Liters/Min 5.0 % 05/05/24 11:48 Senior Accounting Manager ID [place] 05/05/24 11:48 Sodium 141 mmol/L (136-145) 05/08/24 03:59 Potassium 4.4 mmol/L (3.5-5.1) 05/08/24 03:59 Chloride 104 mmol/L (98-107) 05/08/24 03:59 Carbon Dioxide 16 mmol/L (22-29) L 05/08/24 03:59 Anion Gap 25.4 (5-19) H 05/08/24 03:59 BUN 48 mg/dL (8-23) H 05/08/24 03:59 Creatinine 2.1 mg/dL (0.5-0.9) H 05/08/24 03:59 GFR Calculation 23.6 mL/min (90-130) L 05/08/24 03:59 Glucose 157 mg/dL (65-115) H 05/08/24 03:59 POC Glucose 163 mg/dL (70-110) H 05/08/24 06:34 Calculated Osmolality 308 mOsm/kg (285-295) H 05/08/24 03:59 Lactic Acid 0.6 mmol/L (0.5-2.2) 05/05/24 16:47 Calcium 8.9 mg/dL (8.5-10.5) 05/08/24 03:59 Magnesium 2.2 mg/dL (1.7-2.3) 05/06/24 02:24 Iron 30 ug/dL (37-145) L 05/06/24 12:23 TIBC 217 mcg/dl 05/06/24 12:23 % Saturation 13.8 % (20-50) L 05/06/24 12:23 Unsat Iron Binding 187 ug/dL (112-347) 05/06/24 12:23 Total Bilirubin 0.3 mg/dL (0.15-1.2) 05/06/24 02:24 AST 13 U/L (0-32) 05/06/24 02:24 ALT 7 U/L (0-33) 05/06/24 02:24 Alkaline Phosphatase 70 U/L (35-105) 05/06/24 02:24 Troponin T Baseline 60 ng/L (0-10) H 05/05/24 11:30 Troponin T 120 Minute 59.25 ng/L (0-10) H 05/05/24 13:19 Delta Troponin T -0.75 ABS# (0-10) L 05/05/24 13:19 Troponin T Hi Sens 6Hr 62.77 ng/L (0-10) H 05/05/24 21:17 Troponin T Hi Sens 6Hr Delta 2.77 ng/L (0-12) 05/05/24 21:17 NT-Pro-B Natriuret Pep 6464 pg/mL (0-125) H 05/05/24 11:30 Total Protein 6.1 g/dL (6.6-8.7) L 05/06/24 02:24 Albumin 3.1 g/dL (3.5-5.2) L 05/06/24 02:24 Globulin 3.0 g/dL (1.3-4.6) 05/06/24 02:24 Vitamin B12 1356 pg/mL (232-1245) H 05/06/24 12:23 Folate > 20.0 ng/mL (4.8-37.3) 05/06/24 12:23 Procalcitonin 0.12 ng/mL (0-0.5) 05/05/24 16:47 Urine Color Yellow (Yellow) 05/05/24 11:32 Urine Appearance Cloudy (CLEAR) A 05/05/24 11:32 Urine pH 5.0 (5-7) 05/05/24 11:32 Ur Specific [place] 1.015 (1.005-1.030) 05/05/24 11:32 Urine Protein 2+ (Negative) A 05/05/24 11:32 Urine Glucose (UA) Negative (Normal) 05/05/24 11:32 Urine Ketones Negative (Negative) 05/05/24 11:32 Urine Blood Negative (Negative) 05/05/24 11:32 Urine Nitrate Negative (Negative) 05/05/24 11:32 Urine Bilirubin Negative (Negative) 05/05/24 11:32 Urine Urobilinogen 0.2 mg/dL (Negative) 05/05/24 11:32 Ur Leukocyte Esterase 2+ (Negative) A 05/05/24 11:32 Urine RBC >100 /hpf (0-2) H 05/05/24 11:32 Urine WBC >100 /hpf (0-5) H 05/05/24 11:32 Ur Squamous Epith Cells 0-5 /hpf (0-5) 05/05/24 11:32 Amorphous Sediment Not Reportable 05/05/24 11:32 Urine Bacteria None seen /hpf (NONE) 05/05/24 11:32 Hyaline Casts 2.46 /lpf 05/05/24 11:32 Urine Yeast 1+ /hpf H 05/05/24 11:32 Blood Type O Positive 05/06/24 12:23 Rho(D) Type Rh positive 05/06/24 12:23 Antibody Screen Negative 05/06/24 12:23 Crossmatch See Detail 05/06/24 12:23 Vitals Last Vital Signs Temp 98.2 F 05/08/24 07:39 Pulse 89 05/08/24 07:39 Resp 16 05/08/24 07:39 BP 141/82 05/08/24 07:39 Pulse Ox 96 05/08/24 07:39 O2 Del Method Nasal Cannula 05/08/24 07:39 O2 Flow Rate 4 05/08/24 02:20 Discharge Plan Discharge Patient Disposition: Xfer SNF Condition: Stable Prescriptions: New doxycycline monohydrate 100 mg Tablet 100 mg PO BID Qty: 10 0RF amoxicillin-pot clavulanate 875-125 mg tablet 1 tab PO BID Qty: 20 0RF Continued multivitamin Tablet 1 tab PO QAM cholecalciferol (vitamin D3) 1,000 unit capsule 2,000 unit PO QDAY cranberry 500 mg capsule 500 mg PO BID Rx Instructions: administer with meals All Day Allergy (cetirizine) 10 mg capsule 10 mg PO QDAY Qty: 30 11RF oxybutynin chloride 15 mg tablet extended release 24hr 15 mg PO QDAY Qty: 30 7RF ipratropium-albuterol 0.5 mg-3 mg(2.5 mg base)/3 mL Solution For Nebulization 3 ml INHALATION Q4H PRN (Reason: Shortness Of Breath Or Wheezing) fluconazole 150 mg Tablet 150 mg PO DAILY ondansetron HCl 8 mg Tablet 8 mg PO Q8H PRN (Reason: Nausea And Vomiting) isosorbide mononitrate 30 mg Tablet Extended Release 24 Hr 30 mg PO QAM loperamide 2 mg Tablet 2 mg PO Q6H PRN (Reason: Diarrhea) amlodipine 5 mg Tablet 5 mg PO DAILY acetaminophen 500 mg Tablet 1,000 mg PO BID guaifenesin [Era-Tussin] 100 mg/5 mL Liquid 200 mg PO Q4H PRN (Reason: COUGH AND CONGESTION) magnesium hydroxide [Milk of Magnesia] 400 mg/5 mL Suspension 30 ml PO DAILY PRN (Reason: Constipation) bisacodyl 10 mg Suppository 10 mg IN DAILY PRN (Reason: Constipation) Fleet Enema 19-7 gram/118 mL Enema 118 ml IN DAILY PRN (Reason: Constipation) albuterol sulfate [Ventolin HFA] 90 mcg/actuation Hfa Aerosol Inhaler 2 puff INHALATION BID PRN (Reason: Shortness Of Breath) diphenhydramine-acetaminophen [Tylenol PM Extra Strength] 25-500 mg Tablet 2 tab PO BEDTIME bisacodyl 5 mg Tablet 5 mg PO DAILY PRN (Reason: Constipation) insulin aspart U-100 [Novolog FlexPen U-100 Insulin] 100 unit/mL (3 mL) Insulin Pen See Rx Instructions .ROUTE .COMPLEX Rx Instructions: INJECT PER SLIDING SCALE: BS 141-180=2 UNITS, 181-220=3 UNITS, 221-260=4 UNITS, 261-300=5 UNITS, 301-350=6 UNITS, 351+ =7 UNITS AND NOTIFY MD. ranolazine 500 mg Tablet Extended Release 12 Hr 500 mg PO BID budesonide-formoterol [Symbicort] 160-4.5 mcg/actuation Hfa Aerosol Inhaler 2 puff INHALATION BID guaifenesin [Mucinex] 600 mg Tablet Extended Release 12hr 600 mg PO Q12H PRN (Reason: EXPECTORANT) glucagon HCl [Glucagon (HCl) Emergency Kit] 1 mg Recon Soln 1 mg SUBCUT Q20M PRN (Reason: BLOOD SUGAR) Rx Instructions: until target blood sugar attained atorvastatin 80 mg tablet 80 mg PO QPM carvedilol 6.25 mg tablet 6.25 mg PO DAILY nystatin 100,000 unit/gram cream 1 applic topical BID PRN (Reason: Skin Irritation) fluticasone propionate 50 mcg/actuation spray,suspension 1 spray intranasal DAILY insulin glargine [Lantus Solostar U-100 Insulin] 100 unit/mL (3 mL) insulin pen 20 unit SUBCUT BID triamcinolone acetonide 0.1 % Cream 1 applic TOPICAL BID PRN (Reason: Skin Irritation) nystatin 100,000 unit/gram Powder See Rx Instructions .ROUTE .COMPLEX Rx Instructions: APPLY TO REDDENED AREAS EVERY DAY AND EVENING SHIFT. hydrocodone-acetaminophen 5-325 mg tablet 1 tab PO BEDTIME nitroglycerin 0.4 mg tablet, sublingual 0.4 mg sublingual Q5M PRN (Reason: Chest Pain) Rx Instructions: do not exceed 3 doses per episode Call ambulance if you have to take the third Nitro. furosemide 40 mg Tablet See Rx Instructions .ROUTE .COMPLEX Qty: 90 2RF Rx Instructions: TAKE 1 TABLET BY MOUTH IN THE MORNING AND 1 TABLET IN THE AFTERNOON. Changed hydralazine 25 mg Tablet 25 mg PO TID Qty: 60 0RF Discontinued spironolactone 25 mg Tablet 25 mg PO DAILY cefdinir 300 mg capsule 300 mg PO BID Rx Instructions: THROUGH 05/06/24 Discharge Orders: Discharge Order (Routine); Ordered 05/08/24 Ordered By: Mary Avila Referrals: Alex Pena MD [Physician] - 05/29/24 8:35 am Nadiya Torre NP [Primary Care Provider] - Patient Instructions: Doxycycline (By mouth), Amoxicillin (By mouth), Aortic Stenosis (DC), Peripheral Vascular Disease (DC), Acute Wound Care (DC), Anemia (DC), Post Anesthesia Care, Obstructive Sleep Apnea Discharge Attestations Time Spent in Discharge Care*: greater than 30 min Quality Metrics Clinical Quality Measures [ No reported AMI, CVA or VTE this stay] Coding Level of Care Code Acute Code for Chg Fwd Diagnoses Hypertension I10 CHF (congestive heart failure) I50.9 Aortic stenosis I35.0 CAD (coronary artery disease) I25.10 Peripheral vascular disease I73.9 Type 2 diabetes mellitus with diabetic polyneuropathy 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
== END 2024-05-08 10:00 | disposition skilled nursing facility (03) | DRG 264 ==
LOC: ER 11:17 → CSU 13:50
PROVIDERS: Surgery; Admitting Provider Internal Medicine; Emergency Provider Family Medicine; PCP Nurse Practitioner Family; Visit Provider Internal Medicine
DX: I13.0 Hypertensive heart and chronic kidney disease with heart failure and stage 1 through stage 4 chronic kidney disease, or unspecified chronic kidney disease (principal); L89.223 Pressure ulcer of left hip, stage 3; I50.33 Acute on chronic diastolic (congestive) heart failure; J96.21 Acute and chronic respiratory failure with hypoxia; N39.0 Urinary tract infection, site not specified; B37.49 Other urogenital candidiasis; Z68.42 Body mass index [BMI] 45.0-49.9, adult; N17.9 Acute kidney failure, unspecified; L03.116 Cellulitis of left lower limb; E87.1 Hypo-osmolality and hyponatremia; N18.9 Chronic kidney disease, unspecified; E11.22 Type 2 diabetes mellitus with diabetic chronic kidney disease; B96.20 Unspecified Escherichia coli [E. coli] as the cause of diseases classified elsewhere; I25.2 Old myocardial infarction; J44.9 Chronic obstructive pulmonary disease, unspecified; E11.51 Type 2 diabetes mellitus with diabetic peripheral angiopathy without gangrene; E11.42 Type 2 diabetes mellitus with diabetic polyneuropathy; K21.9 Gastro-esophageal reflux disease without esophagitis; F32.A Depression, unspecified; G47.33 Obstructive sleep apnea (adult) (pediatric); E66.01 Morbid (severe) obesity due to excess calories; Z79.51 Long term (current) use of inhaled steroids; Z74.01 Bed confinement status; Z79.4 Long term (current) use of insulin; Z99.81 Dependence on supplemental oxygen; I25.10 Atherosclerotic heart disease of native coronary artery without angina pectoris; E87.70 Fluid overload, unspecified; D63.1 Anemia in chronic kidney disease; E87.5 Hyperkalemia; I35.0 Nonrheumatic aortic (valve) stenosis; M19.90 Unspecified osteoarthritis, unspecified site; F41.9 Anxiety disorder, unspecified; I25.5 Ischemic cardiomyopathy; Z87.891 Personal history of nicotine dependence
CPT/HCPCS: 36415; 36416; 36430; 36569; 36592; 36600; 51702; 71045; 80048; 80051; 80053; 81003; 81015; 82330; 82607; 82746; 82805; 82962; 83540; 83550; 83605; 83735; 83880; 84145; 84484; 85014; 85018; 85025; 86850; 86900; 86920; 87040; 87086; 87106; 88307; 93005; 93970; 94640; 94660; 96372; 96374; 96375; 96376; 97161; 97530; 99285; A9270; C1751; J0612; J1450; J1644; J1815; J1940; J2543; J2704; J3010; J3490; P9016

== ENCOUNTER 2024-05-08 20:37 | Inpatient (IN) | payer MEDICAID, SELFPAY ==
[2024-05-08] VITALS (7 sets, daily range): BP systolic 148–154; BP diastolic 121–127; PULSE 87–91; RESP 20–28; TEMP 36.7; O2SAT 82–96; BMI 49.8
--- NOTE | 2024-05-08 20:44 | ECG_ITS ---
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 Measurements Intervals [place] Rate: 89 P: 53 SD: 169 QRS: -42 QRSD: 134 T: 172 QT: 394 QTc: 482 Interpretive Statements SINUS RHYTHM POSSIBLE LEFT ATRIAL ENLARGEMENT [-0.1mV P-WAVE IN V1/V2] LEFT AXIS DEVIATION [QRS AXIS < -30] INTRAVENTRICULAR CONDUCTION DELAY [130+ ms QRS DURATION] LEFT VENTRICULAR HYPERTROPHY AND ST-T CHANGE [VOLTAGE CRITERIA PLUS ST/T ABNORMALITY] ANTERIOR MYOCARDIAL INFARCTION , AGE INDETERMINATE Compared to ECG 05/05/2024 17:12:36 Left-axis deviation now present Left ventricular hypertrophy now present Atrial premature complex(es) no longer present Junctional rhythm no longer present Electronically Signed On 05-10-2024 15:31:19 CDT by Kulwant Rousseau M.D. [id number]
--- NOTE | 2024-05-08 20:51 | XRR_ITS ---
PROCEDURE INFORMATION: Exam: XR Chest Exam date and time: 05/08/2024 8:55 PM Age: 63 years old Clinical indication: Pain; Shortness of breath; On breathing; Prior surgery; Surgery date: 6+ months; Surgery type: Stents; Additional info: Cp TECHNIQUE: Imaging protocol: Radiologic exam of the chest. Views: 1 view. COMPARISON: CR (CHEST, ) 05/05/2024 11:36 AM FINDINGS: Lungs: Retrocardiac atelectasis versus consolidation. Pleural spaces: Small left-sided pleural effusion. Heart/Mediastinum: Cardiomegaly. Moderately sized hiatal hernia. Vasculature: Atherosclerotic calcifications. Bones/joints: Unremarkable. XR/XR chest 1V portable [id number] IMPRESSION: Small left-sided pleural effusion with adjacent atelectasis versus consolidation. Cardiomegaly.
--- NOTE | 2024-05-08 20:51 | ECG_ITS ---
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 Measurements Intervals [place] Rate: 87 P: 52 NC: 161 QRS: -42 QRSD: 140 T: 166 QT: 373 QTc: 451 Interpretive Statements SINUS RHYTHM POSSIBLE LEFT ATRIAL ENLARGEMENT [-0.1mV P-WAVE IN V1/V2] LEFT AXIS DEVIATION [QRS AXIS < -30] POSSIBLE RIGHT VENTRICULAR CONDUCTION DELAY [RSR (QR) IN V1/V2] LEFT BUNDLE BRANCH BLOCK [120+ ms QRS DURATION, 80+ ms Q/S IN V1/V2, 85+ ms R IN I/aVL/V5/V6] Compared to ECG 05/05/2024 17:12:36 Left-axis deviation now present Left bundle-branch block now present Atrial premature complex(es) no longer present Junctional rhythm no longer present Intraventricular conduction delay no longer present Electronically Signed On 05-09-2024 9:57:16 CDT by Kulwant Rousseau M.D. [id number]
--- NOTE | 2024-05-08 20:53 | W.ED.CHESTPA ---
HPI - Chest Pain General: Chief Complaint: Chest Pain Stated Complaint: CP Time Seen by Provider: 05/08/24 20:45 History of Present Illness: Patient presents to the ER from the [facility] in [place] with a diagnosis of chest pain, this started about 1800 tonight. Patient was given 324 mg aspirin at the fpc. Patient is having history of CHF, multiple stents, ischemic cardiomyopathy, NSTEMI, coronary artery disease, patient is has not seen a human anatomy teacher at our facility. She has a human anatomy teacher in [place]. She says her stents were multiple years ago. Patient states her pain is substernal in the middle of her chest and radiates to her left shoulder blade and into her left arm. Patient denies diaphoresis or shortness of breath. Patient was just released from our hospital earlier today. Patient was inpatient for CHF, UTI, hypertension, kidney disease PFSH ED PFSH: Medical History Chronic respiratory failure with hypoxia Peripheral vascular disease COPD (chronic obstructive pulmonary disease) NSTEMI (non-ST elevated myocardial infarction) Aortic stenosis Anemia in other chronic diseases classified elsewhere Acquired hyperlipoproteinemia Gastro-esophageal reflux disease without esophagitis Primary generalized (osteo)arthritis Depression, unspecified Anxiety disorder, unspecified Obstructive sleep apnea (adult) (pediatric) Type 2 diabetes mellitus with diabetic polyneuropathy Other nonspecific abnormal finding of lung field Body mass index [BMI] 50.0-59.9, adult Morbid (severe) obesity due to excess calories 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 Recurrent UTI Ischemic cardiomyopathy CHF (congestive heart failure) (~04/16/24) CAD (coronary artery disease) OAB (overactive bladder) Lump of breast, right Hypertension Surgical History S/P cardiac cath H/O: section H/O breast biopsy right Family History Other CAD (coronary artery disease) Hypertension Stroke Social History Smoking and tobacco/nicotine status: former use of tobacco/nicotine Alcohol intake: never Housing: Snf Physical Exam Const: COMMON NORMALS: no acute distress, average body habitus, patient oriented x3, no limitations, healthy appearing, alert and well nourished HENMT: COMMON NORMALS: normocephalic, atraumatic, hearing grossly normal bilaterally, external ears normal, Normal external nose present and moist oral mucous membranes HEAD & SCALP: normocephalic and atraumatic NOSE: Normal external nose present EXTERNAL EAR: Yes external ears normal Neck/C-Spine: COMMON NORMALS: no JVD Chest: COMMONS NORMALS: normal inspection of the chest and normal palpation of entire chest wall Resp: COMMON NORMALS: normal respiratory effort, No retractions, No use of accessory muscles and clear to auscultation bilaterally AUSCULTATION: clear to auscultation bilaterally Cardio: COMMON NORMALS: no JVD, regular rate, regular rhythm, S1 normal heart sound present, S2 normal heart sound present, No gallops present (Cardio), No clicks present (Cardio), No murmurs present (Cardio) and No rub (Cardio) RATE: regular rate RHYTHM: regular rhythm HEART SOUNDS: S1 normal heart sound present and S2 normal heart sound present GI: COMMON NORMALS: Normal to inspection, nondistended, normoactive bowel sounds present, Soft to palpation, non-tender, No hepatosplenomegaly present and no masses PALPATION: Yes Soft to palpation and Yes No hepatosplenomegaly present Neuro: COMMON NORMALS: patient oriented x3 SENSORIUM/ORIENTATION: Yes alert Course Vital Signs: Vital signs: Vital Signs Temperature 98.0 F 05/08/24 20:37 Pulse Rate 89 05/08/24 20:37 Respiratory Rate 20 H 05/08/24 21:07 Blood Pressure 148/121 05/08/24 20:37 Pulse Oximetry 96 05/08/24 21:07 Oxygen Delivery Me thod Nasal Cannula 05/08/24 20:37 Oxygen Flow Rate 4 05/08/24 20:37 MDM - Chest Pain Medical Decision Making Initial EKG computer interpretation as STEMI, mild ST elevation in lead V2 this was immediately sent to Dr. Krishnamurthy and an old and was sent. He said this is unlikely to be a STEMI he will come assess the patient. Second EKG was obtained approximately 15 minutes later this was reviewed with Dr. Krishnamurthy also. From his physical exam and review of the 2 EKGs we will await first troponin. Dr. Krishnamurthy notified for troponin send will admit to the hospitalist and he will follow. He did want her started on 5 mg of metoprolol now 125 twice daily as well as heparin bolus and drip and aspirin. Medical Records I reviewed the patient's medical records. Lab Data I reviewed the patient's lab results. 05/08/24 21:00 05/08/24 21:30 Radiology Impressions Chest X-Ray 05/08/24 20:51 IMPRESSION: Small left-sided pleural effusion with adjacent atelectasis versus consolidation. Cardiomegaly. Laboratory Results WBC 16.88 10^3/uL (3.29-11.43) H 05/08/24 21:00 RBC 2.95 10^6/uL (3.85-5.65) L 05/08/24 21:00 Hgb 9.30 g/dL (11.27-16.99) L 05/08/24 21:00 Hct 28.6 % (36-47) L 05/08/24 21:00 MCV 96.9 fl (85-98) 05/08/24 21:00 MCH 31.5 pg (27-33) 05/08/24 21:00 MCHC 32.5 g/dL (30-55) 05/08/24 21:00 RDW 17.2 % (12.1-15.1) H 05/08/24 21:00 Plt Count 494 10^3/cmm (157-399) H 05/08/24 21:00 MPV 8.7 fL (7.4-10.4) 05/08/24 21:00 Neut % (Auto) 83.6 % 05/08/24 21:00 Lymph % (Auto) 5.0 % 05/08/24 21:00 [place] % (Auto) 8.9 % 05/08/24 21:00 Eos % (Auto) 1.8 % 05/08/24 21:00 Baso % (Auto) 0.2 % 05/08/24 21:00 Neut # (Auto) 14.12 10^3/uL (1.8-7.7) H 05/08/24 21:00 Lymph # (Auto) 0.9 10^3/uL (0.8-4.8) 05/08/24 21:00 [place] # (Auto) 1.5 10^3/uL (0.2-0.9) H 05/08/24 21:00 Eos # (Auto) 0.3 10^3/uL (0.0-0.8) 05/08/24 21:00 Baso # (Auto) 0.0 10^3/uL (0.0-0.1) 05/08/24 21:00 Nucleated RBC % (auto) 0 % 05/08/24 21:00 Nucleated RBCs # 0.0 /100WBC 05/08/24 21:00 Sodium 136 mmol/L (136-145) 05/08/24 21:30 Potassium 4.2 mmol/L (3.5-5.1) 05/08/24 21:30 Chloride 103 mmol/L (98-107) 05/08/24 21:30 Carbon Dioxide 18 mmol/L (22-29) L 05/08/24 21:30 Anion Gap 19.2 (5-19) H 05/08/24 21:30 BUN 50 mg/dL (8-23) H 05/08/24 21:30 Creatinine 2.1 mg/dL (0.5-0.9) H 05/08/24 21:30 GFR Calculation 23.6 mL/min (90-130) L 05/08/24 21:30 Glucose 173 mg/dL (65-115) H 05/08/24 21:30 Calculated Osmolality 299 mOsm/kg (285-295) H 05/08/24 21:30 Calcium 8.7 mg/dL (8.5-10.5) 05/08/24 21:30 Total Bilirubin 0.3 mg/dL (0.15-1.2) 05/08/24 21:30 AST 20 U/L (0-32) 05/08/24 21:30 ALT 12 U/L (0-33) 05/08/24 21:30 Alkaline Phosphatase 79 U/L (35-105) 05/08/24 21:30 Troponin T Baseline 137 ng/L (0-10) H* 05/08/24 21:30 Total Protein 6.0 g/dL (6.6-8.7) L 05/08/24 21:30 Albumin 3.4 g/dL (3.5-5.2) L 05/08/24 21:30 Globulin 2.6 g/dL (1.3-4.6) 05/08/24 21:30 All radiology interpretation(s) finalized by discharge Discharge Plan Discharge Patient Disposition: Admitted As Inpatient Clinical Impression: Chest pain, Morbidly obese, Elevated troponin, Acute renal insufficiency Condition: Stable Coding Level of Care Code ED Gericare Aide Teacher for Joey Cabral
[2024-05-08 21:07] LABS: Basophils % 0.2 %; Eosinophils # 0.3 10^3/uL (0.0-0.8); Eosinophils % 1.8 %; Hematocrit 28.6 % (36-47); Lymphocytes # 0.9 10^3/uL (0.8-4.8); Mean Corpuscular HGB Conc 32.5 g/dL (30-55); Mean Corpuscular Hemoglobin 31.5 pg (27-33); Mean Corpuscular Volume 96.9 fl (85-98); Mean Platelet Volume 8.7 fL (7.4-10.4); Monocytes # 1.5 10^3/uL (0.2-0.9); Monocytes % 8.9 %; Neutrophils # 14.12 10^3/uL (1.8-7.7); Neutrophils % 83.6 %; Nucleated Red Blood Cells % 0 %; Platelet Count 494 10^3/cmm (157-399); Red Blood Count 2.95 10^6/uL (3.85-5.65); Red Cell Distribution Width 17.2 % (12.1-15.1); White Blood Count 16.88 10^3/uL (3.29-11.43)
[2024-05-08] MEDS: morphine 4 mg/mL SDV 1 mL IVP (21:07)
[2024-05-08 21:57] LABS: Alanine Aminotransferase 12 U/L (0-33); Albumin Level 3.4 g/dL (3.5-5.2); Alkaline Phosphatase 79 U/L (35-105); Anion Gap 19.2 (5-19); Aspartate Amino Transferase 20 U/L (0-32); Blood Urea Nitrogen 50 mg/dL (8-23); Calcium 8.7 mg/dL (8.5-10.5); Carbon Dioxide 18 mmol/L (22-29); Chloride 103 mmol/L (98-107); Creatinine Clr Calc Pharmacy 31.0176; Globulin 2.6 g/dL (1.3-4.6); Glomerular Filtration Rate 23.6 mL/min (90-130); Glucose 173 mg/dL (65-115); Osmolality Calculated 299 mOsm/kg (285-295); Potassium 4.2 mmol/L (3.5-5.1); Sodium 136 mmol/L (136-145); Total Bilirubin 0.3 mg/dL (0.15-1.2); Troponin(5th) Baseline 137 ng/L (0-10)
--- NOTE | 2024-05-08 22:17 | P.CONIM_ITS ---
Providers/Reason For Consult 2 Consulting Physician/Specialty*: Cardiovascular medicine Reason for Consult*: Abnormal EKG Requesting Physician: The emergency room Primary Care Provider: Nadiya Torre NP History of Present Illness History of Present Illness Nia Gomes is a 63 year old female who is seriously chronically ill living in a residential. She has been there for at least 2 years. She is massively overweight. She was just discharged from this hospital several hours ago after a 4-day stay for shortness of breath and the consideration for congestive heart failure. She developed a pressure ulcer on the lateral aspect of her left leg which required debridement. She was transferred back to the residential late this morning. She is in and out of the hospital in the emergency room very frequently with complications and exacerbations of her multiple medical problems. Those include poorly controlled diabetes, super morbid obesity, chronic respiratory failure with oxygen dependency, ill-defined peripheral arterial disease, supposed coronary disease with prior stents. Supposedly aortic stenosis, anemia, depression and anxiety, sleep apnea, hypertension, history of heart failure, GERD, dyslipidemia, chronic kidney disease, COPD and frequent urinary tract infections. She tells me that she has stents in her heart that were placed in [place] many years ago. We have no record of any of that and in fact have no record of any cardiac anomalies. She has chronic renal insufficiency. When she was admitted to the hospital on the fourth of this month her creatinine was 2.8. When she went home earlier today it was 2.1. Her BNP was greater than 6000. When she is hospitalized and troponins are assessed they usually run around 40-60. She is so obese that she is unable to walk. She spends the majority of time of her time in bed. She took an aspirin earlier this evening about 3 hours prior to admission and began to experience back pain. She is a very poor historian. She says that she developed pain between her shoulder blades that went up into her shoulders and then around to her chest. She cannot describe it any more completely than that. There was no shortness of breath, diaphoresis, nausea or vomiting. She called the ambulance and came back to the emergency room. Her initial EKG was at 4 hrs. which revealed sinus rhythm with what is an interventricular conduction delay versus a left bundle branch block. She has left ventricular hypertrophy. There is poor R wave progression however the computer called an anterior wall myocardial infarction, acute. It is for that reason that I was called to see her. Second EKG at 2109 hrs. showed sinus rhythm with what the computer is calling the left bundle branch block. Her previous EKGs have revealed junctional rhythms with lack of R wave progression intermittently. When talking to her she appears perfectly comfortable but states that she still is having chest and back pain. She does not appear to be in any distress. Her white blood cell count is now 16.8. Yesterday it was 9.33. Her creatinine remains 2.1. She is chronically acidotic with a CO2 of 18. Her BUN is 50. Today's troponin is 137. Review of Systems 2 Narrative: Review of systems is positive in essentially every distribution. Medications/Allergies Home Medications Medication Instructions Recorded Confirmed Last Taken Type cholecalciferol (vitamin D3) 25 2,000 unit PO QDAY 10/21/19 05/06/24 04/29/24 History mcg (1,000 unit) capsule multivitamin 1 tab PO QAM 10/21/19 05/06/24 04/29/24 History cranberry 500 mg capsule 500 mg PO BID 09/28/21 05/06/24 04/29/24 History cetirizine 10 mg capsule (All Day 10 mg PO QDAY #30 caps 04/29/22 05/06/24 04/29/24 Rx Allergy (cetirizine)) oxybutynin chloride 15 mg 15 mg PO QDAY #30 tabs 12/21/22 05/06/24 04/29/24 Rx tablet,extended release 24 hr acetaminophen 500 mg tablet 1,000 mg PO BID 04/29/24 05/06/24 04/29/24 History albuterol sulfate 90 mcg/actuation 2 puff inhalation BID PRN 04/29/24 05/06/24 Unknown History aerosol inhaler (Ventolin HFA) Shortness Of Breath amlodipine 5 mg tablet 5 mg PO DAILY 04/29/24 05/06/24 04/29/24 History atorvastatin 80 mg tablet 80 mg PO QPM 04/29/24 05/06/24 04/28/24 History bisacodyl 10 mg rectal suppository 10 mg HI DAILY PRN Constipation 04/29/24 05/06/24 Unknown History bisacodyl 5 mg tablet 5 mg PO DAILY PRN Constipation 04/29/24 05/06/24 Unknown History budesonide-formoterol HFA 160 2 puff inhalation BID 04/29/24 05/06/24 04/29/24 History mcg-4.5 mcg/actuation aerosol inhaler (Symbicort) carvedilol 6.25 mg tablet 6.25 mg PO DAILY 04/29/24 05/06/24 04/29/24 History diphenhydramine 25 2 tab PO BEDTIME 04/29/24 05/06/24 04/28/24 History mg-acetaminophen 500 mg tablet (Tylenol PM Extra Strength) fluconazole 150 mg tablet 150 mg PO DAILY 04/29/24 05/06/24 04/29/24 History fluticasone propionate 50 1 spray intranasal DAILY 04/29/24 05/06/24 04/29/24 History mcg/actuation nasal spray,suspension glucagon HCl 1 mg solution for 1 mg SUBCUT Q20M PRN BLOOD SUGAR 04/29/24 05/06/24 Unknown History injection (Glucagon (HCl) Emergency Kit) guaifenesin 100 mg/5 mL oral 200 mg PO Q4H PRN COUGH AND 04/29/24 05/06/24 Unknown History liquid (Era-Tussin) CONGESTION guaifenesin 600 mg tablet, 600 mg PO Q12H PRN EXPECTORANT 04/29/24 05/06/24 Unknown History extended release 12 hr (Mucinex) insulin aspart U-100 100 unit/mL See Rx Instructions .Route .COMPLEX 04/29/24 05/06/24 04/29/24 History (3 mL) subcutaneous pen (Novolog FlexPen U-100 Insulin aspart) insulin glargine 100 unit/mL (3 20 unit SUBCUT BID 04/29/24 05/06/24 04/29/24 History mL) subcutaneous pen (Lantus Solostar U-100 Insulin) ipratropium 0.5 mg-albuterol 3 mg 3 ml inhalation Q4H PRN Shortness 04/29/24 05/06/24 Unknown History (2.5 mg base)/3 mL nebulization Of Breath Or Wheezing soln isosorbide mononitrate 30 mg 30 mg PO QAM 04/29/24 05/06/24 04/29/24 History tablet,extended release 24 hr loperamide 2 mg tablet 2 mg PO Q6H PRN Diarrhea 04/29/24 05/06/24 Unknown History magnesium hydroxide 400 mg/5 mL 30 ml PO DAILY PRN Constipation 04/29/24 05/06/24 Unknown History oral suspension (Milk of Magnesia) nystatin 100,000 unit/gram topical 1 applic topical BID PRN Skin 04/29/24 05/06/24 04/29/24 History cream Irritation ondansetron HCl 8 mg tablet 8 mg PO Q8H PRN Nausea And Vomiting 04/29/24 05/06/24 Unknown History ranolazine 500 mg tablet,extended 500 mg PO BID 04/29/24 05/06/24 04/29/24 History release,12 hr sodium phosphates 19 gram-7 118 ml HI DAILY PRN Constipation 04/29/24 05/06/24 Unknown History gram/118 mL enema (Fleet Enema) hydrocodone 5 mg-acetaminophen 325 1 tab PO BEDTIME pain 05/06/24 05/06/24 Unknown History mg tablet nitroglycerin 0.4 mg sublingual 0.4 mg sublingual Q5M PRN Chest 05/06/24 05/06/24 Unknown History tablet Pain nystatin 100,000 unit/gram topical See Rx Instructions .Route .COMPLEX 05/06/24 05/06/24 Unknown History powder triamcinolone acetonide 0.1 % 1 applic topical BID PRN Skin 05/06/24 05/06/24 Unknown History topical cream Irritation amoxicillin 875 mg-potassium 1 tab PO BID #20 tabs 05/08/24 Unknown Rx clavulanate 125 mg tablet doxycycline monohydrate 100 mg 100 mg PO BID #10 tabs 05/08/24 Unknown Rx tablet furosemide 40 mg tablet See Rx Instructions .Route 05/08/24 Unknown Rx .COMPLEX #90 tabs hydralazine 25 mg tablet 25 mg PO TID #60 tabs 05/08/24 Unknown Rx Allergies Allergy/AdvReac Type Severity Reaction Status Date / Time Sulfa (Sulfonamide Allergy Severe ALGY-Anaphy Verified 05/08/24 20:51 Antibiotics) laxis aspirin Allergy Intermediate nose bleeds Verified 05/08/24 20:51 clonidine Allergy Unknown chest pain Verified 05/08/24 20:51 rofecoxib [From Vioxx] Allergy Unknown unknown Verified 05/08/24 20:51 PFSH Acute 2 PFSH: Medical History Chronic respiratory failure with hypoxia Peripheral vascular disease COPD (chronic obstructive pulmonary disease) NSTEMI (non-ST elevated myocardial infarction) Aortic stenosis Anemia in other chronic diseases classified elsewhere Acquired hyperlipoproteinemia Gastro-esophageal reflux disease without esophagitis Primary generalized (osteo)arthritis Depression, unspecified Anxiety disorder, unspecified Obstructive sleep apnea (adult) (pediatric) Type 2 diabetes mellitus with diabetic polyneuropathy Other nonspecific abnormal finding of lung field Body mass index [BMI] 50.0-59.9, adult Morbid (severe) obesity due to excess calories 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 Recurrent UTI Ischemic cardiomyopathy CHF (congestive heart failure) (~04/16/24) CAD (coronary artery disease) OAB (overactive bladder) Lump of breast, right Hypertension Surgical History S/P cardiac cath H/O: section H/O breast biopsy right Family History Other CAD (coronary artery disease) Hypertension Stroke Social History Smoking and tobacco/nicotine status: former use of tobacco/nicotine Alcohol intake: never Housing: Long-Term Vitals/I&O/Wt Last Vital Signs Temp 98.0 F 05/08/24 20:37 Pulse 89 05/08/24 20:37 Resp 20 H 05/08/24 21:07 BP 148/121 05/08/24 20:37 Pulse Ox 96 05/08/24 21:07 O2 Del Method Nasal Cannula 05/08/24 20:37 O2 Flow Rate 4 05/08/24 20:37 Weight last 48 hrs Weight 255 lb Physical Exam 2 Narrative: GENERAL: In general she looks perfectly comfortable is awake and alert and conversant. She is massively obese. HEENT: Exam within normal limits. NECK: Supple without jugular vein distention. The carotid upstroke is normal without bruits. BACK: Exam normal. LUNGS: Clear. HEART: Regular rate and rhythm. ABDOMEN: Benign without organomegaly or tenderness. EXTREMITIES: No edema. NEUROLOGIC: Exam normal. SKIN: There is a bandage on the left lateral aspect of the left leg just above the knee. Data 05/08/24 21:00 05/08/24 21:30 A&P Assessment and plan (1) Hypertension: (2) CAD (coronary artery disease): (3) CHF (congestive heart failure): (4) Aortic stenosis: (5) Acquired hyperlipoproteinemia: (6) Peripheral vascular disease: (7) Chest pain: Qualifiers: Chest pain type: unspecified Qualified Code(s): R07.9 - Chest pain, unspecified (8) Elevated troponin: (9) Type 2 diabetes mellitus with diabetic polyneuropathy: (10) Morbidly obese: (11) Body mass index [BMI] 50.0-59.9, adult: (12) Gastro-esophageal reflux disease without esophagitis: (13) Acute renal insufficiency: (14) Chronic kidney disease, unspecified: (15) Pressure ulcer: (16) COPD (chronic obstructive pulmonary disease): (17) Dependence on supplemental oxygen: (18) Obstructive sleep apnea (adult) (pediatric): Plan This presents a very difficult situation. Her creatinine puts her at high risk for contrast-induced nephropathy. I am not 100% certain that this is an acute myocardial infarction. Her EKG has changed slightly and she has developed at least intermittently a left bundle branch block. Now her heart rate is faster than it is typically and so this might be a rate related left bundle branch block. Her pain is atypical. Additionally, her massive obesity will make it extremely difficult to achieve access. She has so much adipose tissue on her arm that a radial access point is just not available. Otherwise the area of her common femoral artery will be difficult. I had a long discussion with her about what to do. I am concerned about the risk of the procedure and contrast- induced nephropathy. My preference is to treat her with heparin and a beta- roslyn and aspirin for now and follow her troponins. I spoke to her at length about this and she agrees. She is a little reluctant to undergo an attempted angiography as well. She remains chronically acidotic. Her white cell count has doubled since yesterday so I wonder about an infection. Consult Attestations 2 Medical Necessity Statement: Admission for management of multiple problems. and High Time for a total of 90 minutes, includes reviewing past or interval history, examining/interviewing patient, counseling patient/family/other support, updating patient/family/other support, discussing plan of care with staff, communicating with other healthcare providers and documenting encounter Diagnoses Hypertension I10 CAD (coronary artery disease) I25.10 CHF (congestive heart failure) I50.9 Aortic stenosis I35.0 Acquired hyperlipoproteinemia E78.5 Peripheral vascular disease I73.9 Chest pain R07.9 Chest pain type: unspecified Elevated troponin R79.89 Type 2 diabetes mellitus with diabetic polyneuropathy E11.42 Morbidly obese E66.01 Body mass index [BMI] 50.0-59.9, adult Z68.43 Gastro-esophageal reflux disease without esophagitis K21.9 Acute renal insufficiency N28.9 Chronic kidney disease, unspecified N18.9 Pressure ulcer L89.90 COPD (chronic obstructive pulmonary disease) J44.9 Dependence on supplemental oxygen Z99.81 Obstructive sleep apnea (adult) (pediatric) G47.33
[2024-05-08] MEDS: aspirin 325 mg Tablet PO (22:29)
[2024-05-08] MEDS: heparin 5,000 unit/mL INJ 1 mL 4000 UNIT IVP (22:30)
[2024-05-08] MEDS: metoprolol tartrate 1 mg/1 mL SDV 5 mL 5 MG IVP (22:33)
[2024-05-08] MEDS: nitroglycerin 0.4 mg sublingual Tablet SUBLINGUAL (22:36)
--- NOTE | 2024-05-08 23:05 | ECG_ITS ---
[facility] Test Date: 2024-05-08 Pat Name: Nia Gomes Department: Room: 112 Gender: Female Loom [employer]er: : 1960 Requested By: Shaye Sanchez Order Number: [id number] Morgan MD: Kulwant Rousseau M.D. Measurements Intervals [place] Rate: 74 P: 57 SD: 173 QRS: -40 QRSD: 134 T: 189 QT: 440 QTc: 491 Interpretive Statements SINUS RHYTHM POSSIBLE LEFT ATRIAL ENLARGEMENT [-0.1mV P-WAVE IN V1/V2] LEFT AXIS DEVIATION [QRS AXIS < -30] INTRAVENTRICULAR CONDUCTION DELAY [130+ ms QRS DURATION] LEFT VENTRICULAR HYPERTROPHY AND ST-T CHANGE [VOLTAGE CRITERIA PLUS ST/T ABNORMALITY] Compared to ECG 05/08/2024 21:10:20 Intraventricular conduction delay now present Left ventricular hypertrophy now present ST (T wave) deviation now present Left bundle-branch block no longer present Electronically Signed On 05-09-2024 10:00:05 CDT by Kulwant Rousseau M.D. [email or web address]
--- NOTE | 2024-05-08 23:31 | PM.HP ---
Providers/Chief Complaint Admitting Physician: Shara Patterson MD Primary Care Provider: Nadiya Torre NP Chief Complaint: CP History of Present Illness Nia Gomes is a 63 year old female, [place] resident with PMH NSTEMI, COPD, peripheral vascular disease, CAD, GERD, osteoarthritis, depression, anxiety, obstructive sleep apnea, type 2 diabetes mellitus, obesity, ischemic cardiomyopathy, CAD, CHF, hypertension recently admitted here for CHF exacerbation, discharged earlier today. Please see dictated discharge summary. She has a decubitus ulcer over the left leg which underwent I&D on 05/07/24. She has been receiving wound care at the [facility]. Recent cx from outpatient had shown Klebsiella ESBL , providentia spp. and MRSA. She returned to the ER tonight c/o substernal chest pain radiating into the back that started at dinner time. C/o mild nausea. No vomiting. no dyspnea. Typically on supplemental 02 at home. Initially there was concern for STEMI for which cardiology was consulted. Eventually she was determined not to have a STEMI. Her tropnins returned higher than past admission at 135 baseline, pending 2 hr and 6 hr trend. She has lymphedema affecting bilateral lower extremities. Complaining of pain at site of recent debridement over the left thigh and also over the right ankle where she has some new bruising. Review of Systems General: Reports: 10 or more systems reviewed and unremarkable except in HPI and below Const: Denies: fever(s), chills or body aches Eyes: Denies: change in vision, blurry vision or photophobia ENMT: Reports: hoarseness; Denies: throat pain, enlarged tonsils, odynophagia or nasal congestion Card: Denies: chest pain, palpitations, irregular heart rhythm, edema, swelling of feet/ankles, lightheadedness, pre-syncope, dyspnea on exertion or orthopnea Resp: Denies: dyspnea, productive cough, non-productive cough, wheezing, stridor, pain on inspiration, change in phlegm color, hemoptysis or chest congestion GI: Denies: abdominal pain, nausea, vomiting, hematemesis, coffee ground emesis, dysphagia, heartburn, diarrhea, constipation, GI cramping, change in stool character, hematochezia or melena : Denies: flank pain, difficulty voiding, dysuria, urinary frequency, urinary urgency, urinary hesitancy or hematuria Musc: Denies: neck pain, back pain, extremity pain, joint swelling, joint warmth or deformity Neuro: Denies: headache(s), numbness in extremities, weakness in extremities, sensory changes, difficulty walking, frequent falls, dizziness, vertigo, behavioral changes, Slurred speech present or seizure-like activity Psych: Denies: anxiety, depression, suicidal ideation or homicidal ideation Endo: Denies: polyuria, polydipsia, tired all the time, cold intolerance or hot flashes Kaiser/Lymph: Denies: easy bruising or easy bleeding Medications/Allergies Home Medications Medication Instructions Recorded Confirmed Last Taken Type cholecalciferol (vitamin D3) 25 2,000 unit PO QDAY 10/21/19 05/06/24 04/29/24 History mcg (1,000 unit) capsule multivitamin 1 tab PO QAM 10/21/19 05/06/24 04/29/24 History cranberry 500 mg capsule 500 mg PO BID 09/28/21 05/06/24 04/29/24 History cetirizine 10 mg capsule (All Day 10 mg PO QDAY #30 caps 04/29/22 05/06/24 04/29/24 Rx Allergy (cetirizine)) oxybutynin chloride 15 mg 15 mg PO QDAY #30 tabs 12/21/22 05/06/24 04/29/24 Rx tablet,extended release 24 hr acetaminophen 500 mg tablet 1,000 mg PO BID 04/29/24 05/06/24 04/29/24 History albuterol sulfate 90 mcg/actuation 2 puff inhalation BID PRN 04/29/24 05/06/24 Unknown History aerosol inhaler (Ventolin HFA) Shortness Of Breath amlodipine 5 mg tablet 5 mg PO DAILY 04/29/24 05/06/24 04/29/24 History atorvastatin 80 mg tablet 80 mg PO QPM 04/29/24 05/06/24 04/28/24 History bisacodyl 10 mg rectal suppository 10 mg ND DAILY PRN Constipation 04/29/24 05/06/24 Unknown History bisacodyl 5 mg tablet 5 mg PO DAILY PRN Constipation 04/29/24 05/06/24 Unknown History budesonide-formoterol HFA 160 2 puff inhalation BID 04/29/24 05/06/2404/29/24 History mcg-4.5 mcg/actuation aerosol inhaler (Symbicort) carvedilol 6.25 mg tablet 6.25 mg PO DAILY 04/29/24 05/06/24 04/29/24 History diphenhydramine 25 2 tab PO BEDTIME 04/29/24 05/06/24 04/28/24 History mg-acetaminophen 500 mg tablet (Tylenol PM Extra Strength) fluconazole 150 mg tablet 150 mg PO DAILY 04/29/24 05/06/24 04/29/24 History fluticasone propionate 50 1 spray intranasal DAILY 04/29/24 05/06/24 04/29/24 History mcg/actuation nasal spray,suspension glucagon HCl 1 mg solution for 1 mg SUBCUT Q20M PRN BLOOD SUGAR 04/29/24 05/06/24 Unknown History injection (Glucagon (HCl) Emergency Kit) guaifenesin 100 mg/5 mL oral 200 mg PO Q4H PRN COUGH AND 04/29/24 05/06/24 Unknown History liquid (Era-Tussin) CONGESTION guaifenesin 600 mg tablet, 600 mg PO Q12H PRN EXPECTORANT 04/29/24 05/06/24 Unknown History extended release 12 hr (Mucinex) insulin aspart U-100 100 unit/mL See Rx Instructions .Route .COMPLEX 04/29/24 05/06/24 04/29/24 History (3 mL) subcutaneous pen (Novolog FlexPen U-100 Insulin aspart) insulin glargine 100 unit/mL (3 20 unit SUBCUT BID 04/29/24 05/06/24 04/29/24 History mL) subcutaneous pen (Lantus Solostar U-100 Insulin) ipratropium 0.5 mg-albuterol 3 mg 3 ml inhalation Q4H PRN Shortness 04/29/24 05/06/24 Unknown History (2.5 mg base)/3 mL nebulization Of Breath Or Wheezing soln isosorbide mononitrate 30 mg 30 mg PO QAM 04/29/24 05/06/24 04/29/24 History tablet,extended release 24 hr loperamide 2 mg tablet 2 mg PO Q6H PRN Diarrhea 04/29/24 05/06/24 Unknown History magnesium hydroxide 400 mg/5 mL 30 ml PO DAILY PRN Constipation 04/29/24 05/06/24 Unknown History oral suspension (Milk of Magnesia) nystatin 100,000 unit/gram topical 1 applic topical BID PRN Skin 04/29/24 05/06/24 04/29/24 History cream Irritation ondansetron HCl 8 mg tablet 8 mg PO Q8H PRN Nausea And Vomiting 04/29/24 05/06/24 Unknown History ranolazine 500 mg tablet,extended 500 mg PO BID 04/29/24 05/06/24 04/29/24 History release,12 hr sodium phosphates 19 gram-7 118 ml ND DAILY PRN Constipation 04/29/24 05/06/24 Unknown History gram/118 mL enema (Fleet Enema) hydrocodone 5 mg-acetaminophen 325 1 tab PO BEDTIME pain 05/06/24 05/06/24 Unknown History mg tablet nitroglycerin 0.4 mg sublingual 0.4 mg sublingual Q5M PRN Chest 05/06/24 05/06/24 Unknown History tablet Pain nystatin 100,000 unit/gram topical See Rx Instructions .Route .COMPLEX 05/06/24 05/06/24 Unknown History powder triamcinolone acetonide 0.1 % 1 applic topical BID PRN Skin 05/06/24 05/06/24 Unknown History topical cream Irritation amoxicillin 875 mg-potassium 1 tab PO BID #20 tabs 05/08/24 Unknown Rx clavulanate 125 mg tablet doxycycline monohydrate 100 mg 100 mg PO BID #10 tabs 05/08/24 Unknown Rx tablet furosemide 40 mg tablet See Rx Instructions .Route 05/08/24 Unknown Rx .COMPLEX #90 tabs hydralazine 25 mg tablet 25 mg PO TID #60 tabs 05/08/24 Unknown Rx Allergies Allergy/AdvReac Type Severity Reaction Status Date / Time Sulfa (Sulfonamide Allergy Severe ALGY-Anaphy Verified 05/08/24 20:51 Antibiotics) laxis aspirin Allergy Intermediate nose bleeds Verified 05/08/24 20:51 clonidine Allergy Unknown chest pain Verified 05/08/24 20:51 rofecoxib [From Vioxx] Allergy Unknown unknown Verified 05/08/24 20:51 PFSH Acute PFSH: Medical History (Updated 05/09/24 @ 03:43 by Shara Patterson MD) Chronic kidney disease, unspecified Type 2 diabetes mellitus with diabetic polyneuropathy NSTEMI (non-ST elevated myocardial infarction) Anemia Pressure ulcer 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 (current) use of insulin Dependence on supplemental oxygen UTI (urinary tract infection) Morbidly obese Chronic respiratory failure with hypoxia Peripheral vascular disease COPD (chronic obstructive pulmonary disease) Aortic stenosis Anemia in other chronic diseases classified elsewhere Acquired hyperlipoproteinemia Gastro-esophageal reflux disease without esophagitis Primary generalized (osteo)arthritis Depression, unspecified Anxiety disorder, unspecified Obstructive sleep apnea (adult) (pediatric) Other nonspecific abnormal finding of lung field Body mass index [BMI] 50.0-59.9, adult Morbid (severe) obesity due to excess calories 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 Recurrent UTI Ischemic cardiomyopathy CHF (congestive heart failure) (~04/16/24) CAD (coronary artery disease) OAB (overactive bladder) Lump of breast, right Hypertension Surgical History S/P cardiac cath H/O: section H/O breast biopsy right Family History Other CAD (coronary artery disease) Hypertension Stroke Social History Smoking and tobacco/nicotine status: former use of tobacco/nicotine Alcohol intake: never Housing: [facility] Vitals/I&O/Wt Last Vital Signs Temp 98.0 F 05/08/24 20:37 Pulse 88 05/08/24 23:05 Resp 27 H 05/08/24 23:05 BP 154/127 05/08/24 23:05 Pulse Ox 92 05/08/24 23:05 O2 Del Method Nasal Cannula 05/08/24 20:37 O2 Flow Rate 4 05/08/24 20:37 Weight last 48 hrs Weight 115.666 kg Physical Exam Narrative: General: No acute distress, AO x3 HEENT: PERRLA, pupils bilaterally equal and reactive, pallors not present Chest: Normal vesicular breath sounds, no added sounds, equal good air entry bilaterally CVS: S1-S2 regular, no murmurs, no tachycardia, no gallops, no rubs Abdomen: Soft, nontender, no organomegaly, bowel sounds present Extremities: Bilateral lymphedema. Stasis dermatitis bilaterally. Right ankle bruising laterally. No open defects. Left upper thigh with known chronic ulcer, currently with overlying dressing. Data 05/08/24 21:00 05/08/24 21:30 A&P Assessment and plan (1) NSTEMI (non-ST elevated myocardial infarction): 63 year old lady with multiple comorbidities as listed above, just discharged after management of CHF and debridement of eschar over LLE returns with chest and back pain Initially thought to have STEMI but ruled out after cardiology assessment Baseline troponin 130, pending 2 and 6 hr trend. With chest pain, elevated troponins, concern for NSTEMI started on heparin drip in the ER, received ASA 325 mg Continue ASA 81mg daily, atorvastatin 80mg qd , continue carvedilol NPO for now in case needs angiogram for persisting symptoms/worsening troponins Patient leaning towards medical management (2) Eschar of lower leg: LLE decubitus ulcer for several months followed by wound care s/p recent debridemnet on 05/07 empiric meropenem and vanc given recent outpatient cx with ESBL Klebsiella and MRSA. No cultures available from recent debridement Per review of op note, necrotic fat was encountered in the bed of ulcer, all necrotic fat was evacuated, wound was noted to extend into the subcutaneous tissue to the level of fascia. I&D was performed down to this level. No adalberto abscess was encountered in the surgical bed. Check blood culture Currently has leukocytosis, concern for cellulitis and soft tissue infection of the left thigh. Venous duplex negative for DVT on 05/05/2024. Do not see any recent arterial studies; would avoid CTA with runoff for now given CKD, risk for LETICIA. Check x-ray of thigh to evaluate for underlying osteomyelitis of the femur Dressing change per wound care instructions from senior care-it appears she was on topical meropenem/tobramycin/linezolid and clindamycin preparation-we will have to check with pharmacy if this can be formulated and dispensed here. (3) Chronic kidney disease, unspecified: (4) Type 2 diabetes mellitus with diabetic polyneuropathy: Insulin sliding scale Cotninue Lantus 20U BID at home dosing Plan DVT ppx: currently on heparin drip Full code Attestations Medical Necessity Statement*: Greater than 2 midnight admission is anticipated in view of NSTEMI, left thigh SSTI requiring iv abx Coding Level of Care Code Acute Code for Chg Fwd High MDM includes number and complexity of problems actively addressed during encounter, amount and/or complexity of data reviewed/ordered and described risk of complication, morbidity or mortality of management as documented Diagnoses NSTEMI (non-ST elevated myocardial infarction) I21.4 Eschar of lower leg R23.4 Chronic kidney disease, unspecified N18.9 Type 2 diabetes mellitus with diabetic polyneuropathy E11.42
[2024-05-08] MEDS: heparin drip 25,000 UNIT/500 ML PREMIX 32 UNIT IV (23:36)
[2024-05-09] VITALS (17 sets, daily range): BP systolic 120–167; BP diastolic 69–86; PULSE 72–88; RESP 16–29; TEMP 36.7–36.8; O2SAT 90–96; BMI 47.0
[2024-05-09 00:05] LABS: Troponin 5 2HR Delta 4.8 ABS# (0-10)
[2024-05-09 00:08] LABS: Troponin 5 2HR 141.8 ng/L (0-10)
[2024-05-09 00:34] LABS: Glucose Point of Care 181 mg/dL (70-110)
[2024-05-09 00:45] LABS: D Dimer 1.48 ug/mLFEU (0-0.59)
[2024-05-09] MEDS: morphine 4 mg/mL SDV 1 mL 2 MG IVP ×3 (01:00→22:45)
[2024-05-09] MEDS: ondansetron 2 mg/ML SDV 2 mL 4 MG IVP ×2 (01:06→08:29)
[2024-05-09] MEDS: meropenem 1,000 mg SDV 1000 MG IVP ×2 (02:04→15:05)
[2024-05-09] MEDS: ipratropium-albuterol 3 mL Neb INHALATION ×3 (02:57→19:50)
[2024-05-09] MEDS: vancomycin 1,250 MG/250 ML PIGGYBACK 250 MG IV (02:58)
--- NOTE | 2024-05-09 03:03 | ECG_ITS ---
[facility] Test Date: 2024-05-09 Pat Name: Nia oGmes Department: Room: 112 Gender: Female Intake Rn: : 1960 Requested By: Shaye Sanchez Order Number: [id number] Morgan MD: Kulwant Rousseau M.D. Measurements Intervals [place] Rate: 74 P: 86 ND: 166 QRS: -53 QRSD: 137 T: 241 QT: 448 QTc: 499 Interpretive Statements SINUS RHYTHM POSSIBLE LEFT ATRIAL ENLARGEMENT [-0.1mV P-WAVE IN V1/V2] LEFT AXIS DEVIATION [QRS AXIS < -30] INTRAVENTRICULAR CONDUCTION DELAY [130+ ms QRS DURATION] LEFT VENTRICULAR HYPERTROPHY AND ST-T CHANGE [VOLTAGE CRITERIA PLUS ST/T ABNORMALITY] POSSIBLE SEPTAL MYOCARDIAL INFARCTION , PROBABLY OLD [30 ms Q WAVE IN V1/V2] Compared to ECG 05/08/2024 23:05:27 Myocardial infarct finding now present ST (T wave) deviation still present Electronically Signed On 05-09-2024 9:59:42 CDT by Kulwant Rousseau M.D. [id number]
[2024-05-09 03:27] LABS: Troponin 5 6HR Delta -0.5 ng/L (0-12)
[2024-05-09 03:29] LABS: Troponin 5 6HR 136.5 ng/L (0-10)
--- NOTE | 2024-05-09 05:45 | XR_ITS ---
WS: [id number] XR femur LT 1V [id number] REASON FOR EXAM: assess for osteomyelitis FINDINGS: Due to patient body habitus the images are somewhat underexposed. The femur appears intact without periosteal reaction or bone erosion. No osteolysis. Extremely extensive vascular calcifications. XR/XR femur LT 1V [id number] IMPRESSION: No evidence of osteomyelitis or other abnormality of the femur.
[2024-05-09 06:09] LABS: Basophils % 0.1 %; Eosinophils % 0.2 %; Hematocrit 25.8 % (36-47); Lymphocytes # 0.9 10^3/uL (0.8-4.8); Lymphocytes % 5.6 %; Mean Corpuscular HGB Conc 31.8 g/dL (30-55); Mean Corpuscular Hemoglobin 31.8 pg (27-33); Mean Platelet Volume 8.7 fL (7.4-10.4); Monocytes # 1.6 10^3/uL (0.2-0.9); Monocytes % 9.5 %; Neutrophils # 13.96 10^3/uL (1.8-7.7); Neutrophils % 83.8 %; Nucleated Red Blood Cells % 0 %; Platelet Count 432 10^3/cmm (157-399); Red Blood Count 2.58 10^6/uL (3.85-5.65); Red Cell Distribution Width 16.8 % (12.1-15.1); White Blood Count 16.68 10^3/uL (3.29-11.43)
[2024-05-09 06:24] LABS: Alanine Aminotransferase 11 U/L (0-33); Albumin Level 3.3 g/dL (3.5-5.2); Alkaline Phosphatase 66 U/L (35-105); Anion Gap 19.5 (5-19); Aspartate Amino Transferase 17 U/L (0-32); Blood Urea Nitrogen 50 mg/dL (8-23); Calcium 8.6 mg/dL (8.5-10.5); Carbon Dioxide 17 mmol/L (22-29); Chloride 102 mmol/L (98-107); Creatinine Clr Calc Pharmacy 27.3119; Glomerular Filtration Rate 21.3 mL/min (90-130); Glucose 179 mg/dL (65-115); Osmolality Calculated 296 mOsm/kg (285-295); Potassium 4.5 mmol/L (3.5-5.1); Sodium 134 mmol/L (136-145); Total Bilirubin 0.3 mg/dL (0.15-1.2); Total Protein 6.3 g/dL (6.6-8.7)
[2024-05-09 06:26] LABS: Estmated Average Glucose 105; Hemoglobin A1C 5.3 % (4.0-6.0)
[2024-05-09] MEDS: isosorbide mononitrate ER 30 mg Tablet PO (06:31)
[2024-05-09 06:40] LABS: C Reactive Protein 130.4 mg/L (0.0-4.9)
[2024-05-09 06:45] LABS: Partial Thromboplastin Time 194.9 SECONDS (23.9-36.7)
--- NOTE | 2024-05-09 06:52 | PC.NURSE ---
Patient pTT was 194.9, contacted dr Patterson paused heparin gtt and order for pTT in 4 hours. Also talked to pharmacy about wound care in snf documentation. Meropenemtobramycin tablet not available not bassa-gel. Leonardo was notified through voalte.
[2024-05-09 07:04] LABS: Glucose Point of Care 205 mg/dL (70-110)
--- NOTE | 2024-05-09 08:18 | P.PN_ITS ---
Subjective 2 Subjective: Nia is about the same this morning. She states that the discomfort she was having in the back between her shoulder blades in her chest is essentially gone. She is having some discomfort in the left leg at the site of the ulcer. She has a chronic indwelling Bonilla even while in the correction and this has been the case for months to years. No other new symptoms this morning. Hemodynamically stable overnight. Her blood pressure is actually been slightly high. This morning at 0745 it was 167/82. Her heart rates have been stable. Rhythm is sinus. She is afebrile. She is on oxygen 5 L with adequate saturations. Her white blood cell count remains elevated 16.6 this morning. She is on a heparin drip. BUN is 50 and her creatinine is slightly higher 2.3 this morning. Her troponins are flat. The initial 1 was 137, 2-hour troponin 142 in the 6- hour troponin 136. The third EKG at 3:00 this morning revealed sinus rhythm with an interventricular conduction delay, poor R wave progression and evidence of left ventricular hypertrophy with repolarization changes. She had an x-ray of her femur this morning which was difficult to interpret due to the body habitus but there was no evidence of osteomyelitis. Vitals/I&O/Wt Last Vital Signs Temp 98.3 F 05/09/24 00:15 Pulse 76 05/09/24 07:45 Resp 16 05/09/24 07:34 BP 167/82 05/09/24 03:18 Pulse Ox 91 05/09/24 07:34 O2 Del Method Nasal Cannula 05/09/24 07:34 O2 Flow Rate 5 05/09/24 07:34 05/08/24 05/09/24 05/09/24 22:59 06:59 14:59 Intake Total 481.467 / 481.467 Output Total 250 / 250 Balance 231.467 / 231.467 Weight last 48 hrs Weight 240 lb 14.4 oz Weight 240 lb 9 oz Weight 255 lb Physical Exam 2 Narrative: GENERAL: In general she looks and feels well. No pain this morning. Very talkative this morning HEENT: Exam within normal limits. NECK: Supple without jugular vein distention. The carotid upstroke is normal without bruits. BACK: Exam normal. LUNGS: Clear. HEART: Regular rate and rhythm. ABDOMEN: Benign without organomegaly or tenderness. EXTREMITIES: No edema. NEUROLOGIC: Exam normal. SKIN: Unremarkable. Data 05/09/24 05:45 05/09/24 05:45 Micro: Microbiology 05/08/24 23:39 Blood Culture - Preliminary Blood SPECIMEN COLLECTED 05/08/24 23:35 Blood Culture - Preliminary Blood SPECIMEN COLLECTED A&P Assessment and plan (1) Acquired hyperlipoproteinemia: (2) Chest pain: Qualifiers: Chest pain type: unspecified Qualified Code(s): R07.9 - Chest pain, unspecified (3) Elevated troponin: (4) Type 2 diabetes mellitus with diabetic polyneuropathy: (5) Body mass index [BMI] 50.0-59.9, adult: (6) Acute renal insufficiency: (7) Chronic kidney disease, unspecified: (8) Low hemoglobin: (9) 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: (10) COPD (chronic obstructive pulmonary disease): Plan Given that her EKGs have not changed and her troponins are flat, this now looks much more like a type II myocardial infarction rather than a true non-ST elevation DC. Given her all of her underlying medical problems and potential complications, I am still in favor of treating her medically. I certainly would not proceed with angiography at this point given her underlying comorbidities. At most and if necessary a chemical stress test could be performed in the future. She is a high risk patient for complications. I would leave the heparin in place for at least 48 hours and otherwise treat her medically. I would leave the Imdur in place. 1 could consider increasing the amlodipine from 5 mg daily to 10 mg daily due to her elevated blood pressure. I would not increase the carvedilol because of her tendency toward a junctional rhythm in the recent past. Attestations 2 Medical Necessity Statement*: Hospitalization for management of multiple serious medical problems and High Time for a total of 40 minutes, includes reviewing past or interval history, examining/interviewing patient, counseling patient/family/other support, updating patient/family/other support, discussing plan of care with staff, communicating with other healthcare providers and documenting encounter Diagnoses Acquired hyperlipoproteinemia E78.5 Chest pain R07.9 Chest pain type: unspecified Elevated troponin R79.89 Type 2 diabetes mellitus with diabetic polyneuropathy E11.42 Body mass index [BMI] 50.0-59.9, adult Z68.43 Acute renal insufficiency N28.9 Chronic kidney disease, unspecified N18.9 Low hemoglobin D64.9 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 L97.121 COPD (chronic obstructive pulmonary disease) J44.9
[2024-05-09] MEDS: aspirin 81 mg EC Tablet PO (08:29)
[2024-05-09] MEDS: amlodipine 5 mg Tablet PO (08:29)
[2024-05-09] MEDS: insulin glargine 100 units/1 mL 20 UNIT SUBCUT ×2 (08:29→17:24)
[2024-05-09] MEDS: carvedilol 6.25 mg Tablet PO ×2 (08:29→17:44)
[2024-05-09] MEDS: ranolazine (12HR) 500 mg Tablet PO ×2 (08:30→17:24)
[2024-05-09] MEDS: pantoprazole DR 40 mg Tablet PO (08:30)
[2024-05-09] MEDS: hyDRALAzine 25 mg Tablet PO ×3 (08:30→20:56)
--- NOTE | 2024-05-09 09:35 | PC.CHAP ---
Pastoral Care Encounter/Spiritual Assessment Type of Contact [] Declined rn circulating visit [] Patient/Family/Request visit [] Outpatient visit [] Follow-up visit [] Physician referral [] Code/Alert [] Routine visit [] Staff referral [] Actively dying [x] Patient sleeping [] Family support [] [] Out of room [] Palliative care [] [] Receiving care in room [] Pre-surgical visit [] Trauma [] Long length of stay [] ICU visit [] Other: Relational/Emotional Strength [] Patient feels connected with others/family/visitors/staff [] Distress [] Loneliness/isolation [] Abandonment Spirituality of Patient [] Person of Linda [] Attends Orthodoxy of their Linda [] Believes in Prayer [] Reads Bible or Taoist materials [] There are Spiritual issues to be addressed Grinder Set Up Operator External Interventions [] Prayer [] Active listening [] Non-anxious presence [] Spiritual/emotional support [] Crisis/trauma care [] Spiritual counseling [] Bereavement support [] Provided bereavement packet [] Provided Bible/devotional materials [] Provided toy/stuffed animal, coloring book to patient or family member [] Provided Communion [] Anointing/[place] [] Salvation [] Completed spiritual assessment [] Other: Impact on Illness or Injury [] Angry [] Fearful [] Anxious [] Often cries [] Exhaustion [] Unable to work [] Unable to attend lutheran [] Unable to walk/stand [] Unable to read [] Unable to drive [] Unable to eat/drink [] Unable to sleep [] Unable to be with family [] Patient intubated [] Other: Summary Time spent with patient
--- NOTE | 2024-05-09 11:15 | PC.NURSE ---
Heparin Protocol Patient ptt came back at 194.9 at 0545am. Patient heparin gtt was paused pending repeat ptt. Ptt came back at 11:00am at 35.6 per physician heparin gtt continued at dose/weight protocol pt rounded weight is 120kg. Physician requested repeat ptt within 3 hours of heparin initiation. No bolus.
[2024-05-09 11:22] LABS: Glucose Point of Care 186 mg/dL (70-110)
[2024-05-09 11:40] LABS: Partial Thromboplastin Time 35.6 SECONDS (23.9-36.7)
[2024-05-09] MEDS: heparin drip 25,000 UNIT/500 ML PREMIX 34 UNIT IV (11:56)
[2024-05-09] MEDS: insulin lispro 100 unit/1 mL SUBCUT ×2 (12:16→17:24)
[2024-05-09 16:12] LABS: Partial Thromboplastin Time 115.3 SECONDS (23.9-36.7)
--- NOTE | 2024-05-09 16:28 | PM.PN ---
Subjective Subjective: Admitted overnight. Today morning patient states she is feeling better but still having occasional episodes of chest pain but a lot better than how she had came into the hospital. Denies any nausea, vomiting. Has remained hemodynamically stable. Vitals/I&O/Wt Last Vital Signs Temp 98.3 F 05/09/24 00:15 Pulse 74 05/09/24 15:36 Resp 24 H 05/09/24 15:36 BP 149/70 05/09/24 15:36 Pulse Ox 91 05/09/24 15:36 O2 Del Method Nasal Cannula 05/09/24 14:04 O2 Flow Rate 4 05/09/24 14:04 05/09/24 05/09/24 05/09/24 06:59 14:59 22:59 Intake Total 481.467 / 481.467 118 / 118 Output Total 250 / 250 Balance 231.467 / 231.467 118 / 118 Weight last 48 hrs Weight 109.27 kg Weight 109.117 kg Weight 115.666 kg Physical Exam Narrative: General: No acute distress, AO x3, morbidly obese HEENT: PERRLA, pupils bilaterally equal and reactive, pallors not present Chest: Mitobronitol breaths in the lower lung mosqueda with occasional rhonchi, decreased air entry bilateral lower zone CVS: S1-S2 regular, no murmurs, no tachycardia, no gallops, no rubs Abdomen: Soft, nontender, no organomegaly, bowel sounds present Extremities: Bilateral lymphedema. Stasis dermatitis bilaterally. Right ankle bruising laterally. No open defects. Left upper thigh with known chronic ulcer, currently with overlying dressing. Data 05/09/24 05:45 05/09/24 05:45 Micro: Microbiology 05/08/24 23:39 Blood Culture - Preliminary Blood SPECIMEN COLLECTED 05/08/24 23:35 Blood Culture - Preliminary Blood SPECIMEN COLLECTED A&P Assessment and plan (1) NSTEMI (non-ST elevated myocardial infarction): Appreciate troponin cycle. Cardiology on board. After discussion between cardiology team and patient decision was made to treat medically. Continue with heparin drip. Continue with aspirin, statin, beta-roslyn with Coreg. Continue with home dose of Imdur. Appreciate A1c. Check lipid panel. Check echocardiogram for EF with concerns of congestive heart failure. (2) Eschar of lower leg: LLE decubitus ulcer for several months followed by wound care s/p recent debridemnet on 05/07 empiric meropenem and vanc given recent outpatient cx with ESBL Klebsiella and MRSA. No cultures available from recent debridement Per review of op note, necrotic fat was encountered in the bed of ulcer, all necrotic fat was evacuated, wound was noted to extend into the subcutaneous tissue to the level of fascia. I&D was performed down to this level. No adalberto abscess was encountered in the surgical bed. Follow-up blood culture Currently has leukocytosis, concern for cellulitis and soft tissue infection of the left thigh. Venous duplex negative for DVT on 05/05/2024. Do not see any recent arterial studies; would avoid CTA with runoff for now given CKD, risk for LETICIA. X-ray of the thigh negative for osteomyelitis. CRP elevated. Check arterial duplex given concerns for peripheral vascular disease. Dressing change per wound care instructions from intermediate-it appears she was on topical meropenem/tobramycin/linezolid and clindamycin preparation-we will have to check with pharmacy if this can be formulated and dispensed here. Given the wound cultures patient will most likely need to be discharged on IV antibiotics including ertapenem and vancomycin for at least 14 days. Case management alerted. Once blood cultures remain negative we will plan for PICC line placement. (3) Hypoxia: Baseline oxygen of supplementation requirement of 2 L. Recently as high as 4 L. Cannot rule out congestive heart failure in setting of CKD along with non-ST elevation KS. Does have history of COPD. Cannot rule out obstructive sleep apnea. Check proBNP, CT chest without contrast. Continue with DuoNeb every 6 hour. Add Pulmicort twice daily. IV Lasix 40 mg one-time. Echocardiogram as above. (4) Chronic kidney disease, unspecified: Baseline creatinine more recently ranging from 2.2-2.4. Currently 2.3. Medical reconciliation done for nephrotoxic drugs. Patient has chronic Bonilla catheterization. Change recently within the last 1 week. Continue to monitor urine output. (5) Type 2 diabetes mellitus with diabetic polyneuropathy: A1c 5.3. Insulin sliding scale at low-dose protocol. Continue Lantus 20U BID at home dosing. Will change the dose as per insulin requirements 4 hours. (6) Anemia: Baseline hemoglobin around 9. More recently since recent admission around 7.6-8.9. Received blood transfusion last admission. Check iron panel, vitamin B12 and folate level. Target hemoglobin more than 8. Will transfuse accordingly. (7) COPD (chronic obstructive pulmonary disease): Plan DVT ppx: currently on heparin drip Full code Protonix for PUD PPx Carb consistent diet Attestations Medical Necessity Statement*: Requires further hospitalization for management of non-ST elevation KS on medical management, ulcer of thigh with wound cultures growing ESBL while outpatient antibiotics are set up, hypoxia in setting of COPD and CHF Diagnoses NSTEMI (non-ST elevated myocardial infarction) I21.4 Eschar of lower leg R23.4 Hypoxia R09.02 Chronic kidney disease, unspecified N18.9 Type 2 diabetes mellitus with diabetic polyneuropathy E11.42 Anemia D64.9 COPD (chronic obstructive pulmonary disease) J44.9
--- NOTE | 2024-05-09 16:40 | PC.NURSE ---
Addendum entered by Petey Manriquez RN 05/09/24 16:40: pt o2 came off. applied her o2 via nasal cannula. suction set up. Original Note: applied o2 humidifier
[2024-05-09 16:59] LABS: Glucose Point of Care 170 mg/dL (70-110)
--- NOTE | 2024-05-09 17:12 | PC.NURSE ---
Heparin gtt Physician orders to do ptt q3h and continue to decrease per protocol.
--- NOTE | 2024-05-09 17:13 | USR_ITS ---
PROCEDURE INFORMATION: Exam: US Duplex Bilateral Lower Extremity Arteries Exam date and time: 05/09/2024 9:37 PM Age: 63 years old Clinical indication: Other: Patient is morbidly obese, very large, flaccid lower extremities with bilateral ankle deformities, does not ambulate. C/O non-healing ulcer lateral left mid thigh. Patient will not allow me to take left brachial pressures, nor will she allow me to take ankle pressures due to pain, profound edema. ; Additional info: Concern of arterial ulcer, with diana TECHNIQUE: Imaging protocol: Real-time ultrasound scan of the arteries of the bilateral lower extremities with 2-D hunter scale, color Doppler flow and spectral waveform analysis. Images documented and saved. COMPARISON: [place] [id number] 05/05/2024 6:55 PM FINDINGS: Right common femoral artery: No occlusion or significant stenosis. Normal waveform. Right superficial femoral artery: The proximal and mid sections are normal. The distal segment is occluded. Right popliteal artery: Occluded. Right calf/foot arteries: Occluded. Left common femoral artery: No occlusion or significant stenosis. Normal waveform. Left superficial femoral artery: No occlusion or significant stenosis. Normal waveform. Left popliteal artery: No occlusion or significant stenosis. Normal waveform. Left calf/foot arteries: No occlusion or significant stenosis in the visualized arteries. Normal waveforms. Dorsalis pedis artery is patent. Soft tissues: Soft tissue swelling of the lower extremities. US/[place] [id number] IMPRESSION: 1. Limited exam due to morbid obesity. 2. The distal right superficial femoral artery, popliteal, and posterior tibia, and dorsalis pedis is occluded.
--- NOTE | 2024-05-09 17:19 | USCV_ITS ---
Nia Gomes Age: 63 Gender: F : 1960 Exam Date: 05/09/2024 18:13 Ordering Phys: Andrew Norman MD Technologist: TRISH Exam Location: [facility] [place] Indication: NSTEMI, concern for CHF, history of CHF, hx CAD s/p multiple cardiac stents. BP: 149 / 70 HR: 69 Rhythm: Sinus Technical Quality: Adequate MEASUREMENTS (Male / Female) Normal Values 2D ECHO LV Diastolic Diameter PLAX 4.8 cm 4.2 - 5.9 / 3.9 - 5.3 cm IVS Diastolic Thickness 1.9 cm 0.6 - 1.0 / 0.6 - 0.9 cm IVS Systolic Thickness 2.0 cm LVPW Diastolic Thickness 1.3 cm 0.6 - 1.0 / 0.6 - 0.9 cm LVPW Systolic Thickness 1.4 cm LVOT Diameter 2.1 cm LV Ejection Fraction 2D Teich 40.6 % LV Ejection Fraction MOD 4C 28.9 % LV Ejection Fraction MOD 2C 25.3 % LV Ejection Fraction 2C AL 25.2 % LA Diameter 4.8 cm Aorta at Sinotubular Diameter 2.8 cm IVC Diameter 2.9 cm M-MODE LA Ao Ratio MM 1.6 AV Cusp Separation MM 1.1 cm DOPPLER AV Peak Velocity 300.0 cm/s LVOT Peak Velocity 59.0 cm/s AV Area Cont Eq vti 0.8 cm squared AV Area Cont Eq pk 0.7 cm squared MV Peak Velocity 134.0 cm/s MV Area PHT 5.6 cm squared Mitral E to A Ratio 0.7 TR Peak Velocity 293.0 cm/s TR Peak Gradient 34.3 mmHg TV Peak E Velocity 34.0 cm/s Right Atrial Pressure 10.0 mmHg Pulmonary Artery Systolic Pressu 44.3 mmHg PV Peak Velocity 88.0 cm/s FINDINGS Left Ventricle Left ventricle is normal in size. LV systolic function is severely reduced with EF of 20-25%. Severe global hypokinesis with akinetic apical wall. Grade 1 diastolic dysfunction Right Ventricle Normal in size and function Right Atrium Normal in size Left Atrium Dilated Mitral Valve Mild mitral annular calcification. Mild mitral regurgitation. Aortic Valve Aortic valve is thickened and calcified. Severe low-flow low gradient aortic stenosis with aortic valve area of 0.76 cm squared and mean gradient of 18 mmHg. Tricuspid Valve Mild tricuspid regurgitation. RVSP is 40 to 45 mmHg. This is consistent with a mild pulmonary hypertension Pulmonic Valve Not well visualized Pericardium Normal Aorta Normal in size IVC Dilated CONCLUSIONS LV systolic function is severely reduced with EF of 20-25% Grade 1 diastolic dysfunction Left atrial dilation Mild mitral regurgitation Severe low flow low gradient aortic stenosis Mild tricuspid regurgitation Mild pulmonary hypertension IVC is dilated. No comparison studies are available. Kulwant Rousseau MD (Electronically Signed) Final Date: 10 May 2024 08:01 S
--- NOTE | 2024-05-09 17:20 | CTR_ITS ---
PROCEDURE INFORMATION: Exam: CT Chest Without Contrast; Diagnostic Exam date and time: 05/09/2024 5:55 PM Age: 63 years old Clinical indication: Other: Hypoxia TECHNIQUE: Imaging protocol: Diagnostic computed tomography of the chest without contrast. Radiation optimization: All CT scans at this facility use at least one of these dose optimization techniques: automated exposure control; mA and/or kV adjustment per patient size (includes targeted exams where dose is matched to clinical indication); or iterative reconstruction. COMPARISON: CR (CHEST, ) 05/08/2024 8:55 PM RADIATION DOSE METRICS: Total DLP (mGy-cm): 581 FINDINGS: Thyroid: Thyroid is unremarkable. Trachea: The central airways are patent. Lungs: Mild atelectasis of the lung bases, [id number]-right. Pleural spaces: Trace right pleural effusion. No pneumothorax. Heart: Severe cardiomegaly. Small pericardial effusion. Coronary arteries: Coronary artery calcifications. Lymph nodes: Calcified mediastinal and hilar lymph nodes likely secondary to granulomatous disease. Vasculature: Atherosclerotic calcifications of the aorta. Diaphragm: Large hiatal hernia. Bones/joints: Moderate multilevel spondylosis. Soft tissues: Unremarkable. CT/CT chest wo con [id number] IMPRESSION: 1. Mild atelectasis of the lung bases, [id number]-cblp-right. Trace right pleural effusion. 2. Severe cardiomegaly. Small pericardial effusion. 3. Large hiatal hernia.
[2024-05-09] MEDS: atorvastatin 40 mg Tablet 80 MG PO (17:24)
[2024-05-09] MEDS: nitroglycerin 1 gm/inch oint Pkt 0.5 INCH TOPICAL (17:43)
[2024-05-09] MEDS: FUROsemide 10 mg/mL SDV 4mL 40 MG IVP (17:44)
[2024-05-09 18:45] LABS: Thyroid Stimulating Hormone 4.94 uIU/mL (0.27-4.20)
[2024-05-09 19:11] LABS: NT Pro B Type Natriuretic Pept > 70000 pg/mL (0-125)
[2024-05-09 19:34] LABS: ABG PCO2 29.9 mmHg (35-45); Alveolar-Arterial Oxygen Gradi 4.9 mmHg (5-10); Arterial Blood Gas Hematocrit 26.1 % (37-47); Base Excess ABG -5.4 mmol/L (-2.0-2.0); Blood Gas Allen Test Pos; Blood Gas Sample Type Arterial; Carboxyhemoglobin 1.3 %THgb (0.4-20.1); HCO3 ABG 18.6 mmol/L (22-26); HGB O2 Sat 94.1 % (95-100); Ionized Calcium Level - ABG 1.2 mmol/L (1.1-1.4); Methemoglobin 0.8 % (0.4-1.5); Oxygen Saturation ABG 96.1; PO2 ABG 73.5 mmHg (80.0-100.0); Potassium Level - ABG 4.5 mmol/L (3.5-5.0); Total Hemoglobin 8.5 g/dL (12-16)
[2024-05-09 19:35] LABS: Blood Gas Operator Identificat ED; Blood Gas Sample Site Radial, left; Oxygen Device OXY MASK
[2024-05-09] MEDS: budesonide 0.5 mg/2 mL Neb INHALATION (19:50)
[2024-05-09 20:06] LABS: Glucose Point of Care 116 mg/dL (70-110)
[2024-05-09 20:32] LABS: Charge for UA Resulting for Rev
[2024-05-09 20:42] LABS: Partial Thromboplastin Time 41.1 SECONDS (23.9-36.7)
[2024-05-09] MEDS: HYDROcodone-acetaminophen 5-325 mg Tablet 1 TAB PO (20:55)
[2024-05-09] MEDS: metOLazone 5 MG Tablet PO (20:55)
[2024-05-09 21:03] LABS: Urine Appearance Cloudy (CLEAR); Urine Color Yellow (Yellow)
[2024-05-09 21:04] LABS: Add Urine Culture? Yes; Bacteria Urine TRACE /hpf; RBC Urine 0-4 /hpf (0-2); Squamous Epithelial Cell Urine 0-4 /hpf (0-5); WBC Urine TOO NUMEROUS TO CNT /hpf (0-5)
[2024-05-10] VITALS (66 sets, daily range): BP systolic 76–177; BP diastolic 36–97; PULSE 0–89; RESP 13–28; TEMP 36.6–37; O2SAT 86–100
[2024-05-10] MEDS: heparin drip 25,000 UNIT/500 ML PREMIX 27 UNIT IV (00:04)
[2024-05-10 01:59] LABS: Basophils # 0.1 10^3/uL (0.0-0.1); Basophils % 0.4 %; Eosinophils # 0.1 10^3/uL (0.0-0.8); Hematocrit 25.7 % (36-47); Lymphocytes # 1.6 10^3/uL (0.8-4.8); Lymphocytes % 11.1 %; Mean Corpuscular HGB Conc 31.1 g/dL (30-55); Mean Corpuscular Hemoglobin 31.7 pg (27-33); Mean Platelet Volume 8.8 fL (7.4-10.4); Monocytes # 1.4 10^3/uL (0.2-0.9); Monocytes % 9.9 %; Neutrophils # 10.99 10^3/uL (1.8-7.7); Neutrophils % 76.9 %; Nucleated Red Blood Cells % 0 %; Platelet Count 406 10^3/cmm (157-399); Red Blood Count 2.52 10^6/uL (3.85-5.65); Red Cell Distribution Width 16.5 % (12.1-15.1); White Blood Count 14.28 10^3/uL (3.29-11.43)
[2024-05-10 02:16] LABS: Alanine Aminotransferase 16 U/L (0-33); Alkaline Phosphatase 62 U/L (35-105); Anion Gap 22.1 (5-19); Aspartate Amino Transferase 25 U/L (0-32); Blood Urea Nitrogen 57 mg/dL (8-23); Calcium 8.5 mg/dL (8.5-10.5); Carbon Dioxide 15 mmol/L (22-29); Chloride 98 mmol/L (98-107); Creatinine Clr Calc Pharmacy 22.4542; Globulin 2.9 g/dL (1.3-4.6); Glucose 140 mg/dL (65-115); Osmolality Calculated 288 mOsm/kg (285-295); Potassium 5.1 mmol/L (3.5-5.1); Sodium 130 mmol/L (136-145); Total Bilirubin 0.3 mg/dL (0.15-1.2); Total Protein 5.9 g/dL (6.6-8.7)
[2024-05-10] MEDS: ipratropium-albuterol 3 mL Neb INHALATION ×4 (02:16→20:07)
[2024-05-10 02:17] LABS: Cholesterol 84 mg/dL (0-200); HDL Cholesterol 56 mg/dL (60-100); LDL Cholesterol Calculated 17 mg/dL (50-129); Magnesium 1.9 mg/dL (1.7-2.3); Triglycerides 54 mg/dL (0-150); VLDL Cholestrol Calculation 11 mg/dL (0-30)
[2024-05-10 02:18] LABS: Partial Thromboplastin Time 94.8 SECONDS (23.9-36.7)
[2024-05-10] MEDS: meropenem 1,000 mg SDV 1000 MG IVP ×2 (02:35→14:50)
[2024-05-10] MEDS: morphine 4 mg/mL SDV 1 mL 2 MG IVP (02:44)
[2024-05-10 02:49] LABS: Folate Level > 20.0 ng/mL (4.8-37.3)
--- NOTE | 2024-05-10 03:07 | ECG_ITS ---
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 Measurements Intervals [place] Rate: 59 P: 0 SD: 0 QRS: -38 QRSD: 133 T: 172 QT: 484 QTc: 481 Interpretive Statements JUNCTIONAL RHYTHM LEFT AXIS DEVIATION [QRS AXIS < -30] INTRAVENTRICULAR CONDUCTION DELAY [130+ ms QRS DURATION] LEFT VENTRICULAR HYPERTROPHY AND ST-T CHANGE [VOLTAGE CRITERIA PLUS ST/T ABNORMALITY] POSSIBLE ANTERIOR MYOCARDIAL INFARCTION , OF INDETERMINATE AGE [30 ms Q WAVE IN V3/V4, OR R < 0.2 mV IN V4] Compared to ECG 05/09/2024 03:03:13 Sinus rhythm no longer present ST (T wave) deviation still present Myocardial infarct finding still present Electronically Signed On 05-10-2024 11:54:02 CDT by Kulwant Rousseau M.D. [id number]
--- NOTE | 2024-05-10 05:35 | PC.RESP ---
Therapist got called by the nurse to 112 for low sat. Patient is pale, heart rate has dropped to upper 40s lower 50s, and is requiring more oxygen. Oxygen is now 12LPM via oxymask. Therapist messaged for a possible Bipap. Still no answer. Nurse stated that she did call and spoke with her about status of patient.
[2024-05-10 06:22] LABS: ABG PCO2 35.4 mmHg (35-45); ABG PH Result 7.28 (7.35-7.45); Alveolar-Arterial Oxygen Gradi 5.3 mmHg (5-10); Arterial Blood Gas Hematocrit 27.5 % (37-47); Base Excess ABG -9.1 mmol/L (-2.0-2.0); Blood Gas Sample Type Arterial; Carboxyhemoglobin 1.3 %THgb (0.4-20.1); HCO3 ABG 16.8 mmol/L (22-26); HGB O2 Sat 88.4 % (95-100); Ionized Calcium Level - ABG 1.2 mmol/L (1.1-1.4); Methemoglobin 1.1 % (0.4-1.5); Oxygen Saturation ABG 90.5; PO2 ABG 64.6 mmHg (80.0-100.0)
[2024-05-10 06:23] LABS: Blood Gas Operator Identificat ED; Blood Gas Sample Site Brachial, left; Oxygen Device OXY MASK
[2024-05-10 06:28] LABS: Glucose Point of Care 154 mg/dL (70-110)
[2024-05-10] MEDS: isosorbide mononitrate ER 30 mg Tablet PO (06:32)
[2024-05-10] MEDS: FUROsemide 10 mg/mL SDV 4mL 40 MG IVP (06:32)
--- NOTE | 2024-05-10 06:40 | XR_ITS ---
WS: [id number] XR chest 1V portable [id number] REASON FOR EXAM: hypoxia FINDINGS: The chest is not significantly changed compared to 05/05/2024. Cardiomegaly with enlarged left atrium. Calcified coronary artery stents. Central pulmonary venous co ngestion. Large hiatal hernia. Airspace consolidation in the left lower lung which has been shown to be mostly atelectasis on the CT scan of the 05/09/2024. There are chronic reticular interstitial lung opacities. Difficult to know if there is acute or subac chenega interstitial edema. NOTE: Present but not reported on the CT scan is a pericardial effusion 6-7 mm maximum depth around the dep endent portion of the left ventricle. XR/XR chest 1V portable [id number] IMPRESSION: Stable abnormal chest.
--- NOTE | 2024-05-10 07:15 | ECG_ITS ---
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 Measurements Intervals [place] Rate: 54 P: 0 SD: 0 QRS: -41 QRSD: 146 T: 169 QT: 506 QTc: 481 Interpretive Statements JUNCTIONAL RHYTHM T WAVE INVERSIONS SEEN IN ANTEROLATERAL LEADS Compared to ECG 05/10/2024 03:15:32 Left ventricular hypertrophy no longer present Myocardial infarct finding no longer present Electronically Signed On 05-10-2024 11:53:08 CDT by Kulwant Rousseau M.D. [id number]
[2024-05-10] MEDS: budesonide 0.5 mg/2 mL Neb INHALATION ×2 (07:53→20:07)
--- NOTE | 2024-05-10 08:03 | PC.NURSE ---
Addendum entered by Radha Sanchez RN 05/10/24 08:14: Family notified, no answer. Voicemail to call [facility] C[facility] department. Original Note: Patient HR became bradycardic in the upper 50's. Dr Patterson was notified. Patient began to decline and respiratory was notified and came to unit. O2 demand went from 5L oxy mask to 10L. Dr Patterson was notified through voalte of declining situation. Orders given for Bipap and stat ABG. 40 mg lasix was given per Dr. Crump condition continued to decline. Received orders to transfer to ICU. Report called to [place]. Family notified.
--- NOTE | 2024-05-10 08:14 | P.PN_ITS ---
Subjective 2 Subjective: Patient went into respiratory distress today. Transferred to ICU. Feeling better on BiPAP Vitals/I&O/Wt Last Vital Signs Temp 98.6 F 05/10/24 04:00 Pulse 44 L 05/10/24 07:55 Resp 24 H 05/10/24 07:49 BP 121/67 05/10/24 04:00 Pulse Ox 93 05/10/24 07:51 O2 Del Method BiPAP 05/10/24 07:49 O2 Flow Rate 12 05/10/24 05:32 FiO2 45 05/10/24 07:51 05/09/24 05/10/24 05/10/24 22:59 06:59 14:59 Intake Total 673.967 / 791.967 455.15 / 1247.117 Output Total 600 / 600 500 / 1100 Balance 73.967 / 191.967 -44.85 / 147.117 Weight last 48 hrs Weight 240 lb 14.4 oz Weight 240 lb 14.4 oz Weight 240 lb 9 oz Weight 255 lb Physical Exam 2 Narrative: GENERAL: On bipap HEENT: Exam within normal limits. NECK: Supple without jugular vein distention. The carotid upstroke is normal without bruits. BACK: Exam normal. LUNGS: Diminshed air entry HEART: Regular rate and rhythm. EXTREMITIES: 1+ edema NEUROLOGIC: Exam normal. SKIN: Unremarkable. Data 05/11/24 05:45 05/11/24 05:45 Micro: Microbiology 05/08/24 23:39 Blood Culture - Preliminary Blood NEGATIVE TO DATE 05/08/24 23:35 Blood Culture - Preliminary Blood NEGATIVE TO DATE A&P Assessment and plan (1) Acquired hyperlipoproteinemia: (2) Chest pain: Qualifiers: Chest pain type: unspecified Qualified Code(s): R07.9 - Chest pain, unspecified (3) Elevated troponin: (4) Type 2 diabetes mellitus with diabetic polyneuropathy: (5) Body mass index [BMI] 50.0-59.9, adult: (6) Acute renal insufficiency: (7) Chronic kidney disease, unspecified: (8) Low hemoglobin: (9) 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: (10) COPD (chronic obstructive pulmonary disease): (11) Cardiogenic shock: Plan Patient has developed respiratory distress. On Bipap. Feeling better. Also has bradycardia with episodes of junctional rhythm. no chest pain. ECHO shows severely reduced LV function with severe low flow low gradient aortic stenosis. She has minimal urine output. Creatinine is 2.8. She has shock liver. Has anemia. Limited mobility. Prognosis is poor. Continue diuresis as blood pressure allows. Continue BiPAP. Levophed as needed Discussion regarding goals of care is appropriate. Thank you for involving us with care of this patient. We will continue to follow. Please call with questions. Attestations 2 Medical Necessity Statement*: Care expected to cross 2 midnights. Coding Level of Care Code Acute Code for Chg Fwd Diagnoses Acquired hyperlipoproteinemia E78.5 Chest pain R07.9 Chest pain type: unspecified Elevated troponin R79.89 Type 2 diabetes mellitus with diabetic polyneuropathy E11.42 Body mass index [BMI] 50.0-59.9, adult Z68.43 Acute renal insufficiency N28.9 Chronic kidney disease, unspecified N18.9 Low hemoglobin D64.9 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 L97.121 COPD (chronic obstructive pulmonary disease) J44.9 Cardiogenic shock R57.0
--- NOTE | 2024-05-10 08:55 | PC.NURSE ---
Pt arrives to ICU from CSU. Pt now using BiPap. Hypotension and bradycardia noted. To start Dopamine and Levophed.
[2024-05-10 09:09] LABS: Albumin Level 3.3 g/dL (3.5-5.2); Alkaline Phosphatase 70 U/L (35-105); Blood Urea Nitrogen 62 mg/dL (8-23); Calcium 8.6 mg/dL (8.5-10.5); Carbon Dioxide 15 mmol/L (22-29); Chloride 96 mmol/L (98-107); Creatinine Clr Calc Pharmacy 19.6474; Globulin 3.2 g/dL (1.3-4.6); Glomerular Filtration Rate 14.5 mL/min (90-130); Glucose 126 mg/dL (65-115); Osmolality Calculated 291 mOsm/kg (285-295); Sodium 131 mmol/L (136-145); Total Bilirubin 0.7 mg/dL (0.15-1.2); Total Protein 6.5 g/dL (6.6-8.7)
[2024-05-10] MEDS: metOLazone 5 MG Tablet PO (09:09)
[2024-05-10] MEDS: pantoprazole DR 40 mg Tablet PO (09:09)
[2024-05-10] MEDS: ranolazine (12HR) 500 mg Tablet PO ×2 (09:09→17:29)
[2024-05-10] MEDS: aspirin 81 mg EC Tablet PO (09:09)
[2024-05-10 09:11] LABS: Partial Thromboplastin Time 97.8 SECONDS (23.9-36.7)
[2024-05-10] MEDS: insulin lispro 100 unit/1 mL SUBCUT (09:15)
[2024-05-10] MEDS: insulin glargine 100 units/1 mL 20 UNIT SUBCUT ×2 (09:15→17:32)
[2024-05-10] MEDS: DOPamine drip 400 MG/250 ML PREMIX 20.49 MG IV (09:16)
[2024-05-10 09:17] LABS: Troponin T (5th) Once 164 ng/L (0-10)
[2024-05-10] MEDS: norepinephrine 4 MG/250 ML BAG 7.5 MG IV (09:17)
[2024-05-10 09:21] LABS: Alanine Aminotransferase 841 U/L (0-33)
[2024-05-10 09:25] LABS: Aspartate Amino Transferase 1557 U/L (0-32)
[2024-05-10 09:30] LABS: Anion Gap 26.4 (5-19); Potassium 6.4 mmol/L (3.5-5.1)
[2024-05-10] MEDS: calcium gluconate 0.1 gm/mL 10% SDV 10mL 2 GM IVP (10:49)
[2024-05-10] MEDS: sodium bicarbonate 8.4% 1 mEq/mL 50mL Syr 150 MEQ IVP ×2 (11:05→17:33)
--- NOTE | 2024-05-10 11:15 | XR_ITS ---
WS: [id number] XR chest 1V portable [id number] REASON FOR EXAM: PICCP placement, wiil call FINDINGS: Right arm PICC line placement with the tip in the distal SVC. PICC line position was discussed with the interventional technologist over the final at 1142. No retractio n or advancement of the PICC line needed. Other than the PICC line no interval change compared to the examination of earlier this AM. XR/XR chest 1V portable [id number] IMPRESSION: Right arm PICC line placement as above.
--- NOTE | 2024-05-10 11:45 | PC.NURSE ---
Left upper arm IV, kinked due to her habitus. While redressing IV, pt flopped arm and IV is now out. Pressure held to site. Dopamine and saline flushed were at this site prior. Slight infiltratioin noted on US while looking for another IV site, unsuccessfully.
[2024-05-10 12:12] LABS: Lactic Sepsis W/Reflex 1.6 mmol/L (0.5-2.2)
[2024-05-10] MEDS: DOBUTamine drip 500 MG/250 ML PREMIX 16.39 MG IV (13:06)
[2024-05-10 14:11] LABS: Glucose Point of Care 105 mg/dL (70-110)
[2024-05-10] MEDS: vancomycin 1,250 MG/250 ML PIGGYBACK 250 MG IV (14:50)
[2024-05-10] MEDS: FUROsemide 100 MG in sodium chloride 0.9% 40 ML 20 MG IV ×2 (14:54→17:34)
[2024-05-10 15:02] LABS: Blood Urea Nitrogen 63 mg/dL (8-23); Calcium 8.5 mg/dL (8.5-10.5); Carbon Dioxide 19 mmol/L (22-29); Chloride 93 mmol/L (98-107); Creatinine Clr Calc Pharmacy 18.4917; Glomerular Filtration Rate 13.6 mL/min (90-130); Glucose 217 mg/dL (65-115); Osmolality Calculated 293 mOsm/kg (285-295); Sodium 129 mmol/L (136-145)
--- NOTE | 2024-05-10 15:06 | PC.NURSE ---
BP and heart rate maintaining well with Dobutamine and Levophed infusing (157/86 and 60) Lasix gtt started at 10mg/hr with a 40mg bolus as per protocol and discussion with Dr Cobian.
--- NOTE | 2024-05-10 15:10 | P.PN_ITS ---
Subjective 2 Subjective: Overnight patient had difficulty in breathing for which her oxygen requirements continue to trend up. Today morning she had episode of bradycardia. She was found to have soft blood pressures she was moved to ICU. Patient remains awake and alert. Denies any nausea, ting, headache. Minimal urine output in last 24 hours. Currently on BiPAP ventilation. Vitals/I&O/Wt Last Vital Signs Temp 97.8 F 05/10/24 09:45 Pulse 57 L 05/10/24 13:59 Resp 17 05/10/24 13:57 BP 88/57 05/10/24 13:15 Pulse Ox 93 05/10/24 13:59 O2 Del Method BiPAP 05/10/24 13:57 O2 Flow Rate 12 05/10/24 05:32 FiO2 50 05/10/24 13:59 05/10/24 05/10/24 05/10/24 06:59 14:59 22:59 Intake Total 455.15 / 1247.117 347.787 / 347.787 Output Total 500 / 1100 Balance -44.85 / 147.117 347.787 / 347.787 Weight last 48 hrs Weight 109.27 kg Weight 109.27 kg Weight 109.117 kg Weight 115.666 kg Physical Exam 2 Narrative: General: No acute distress, AO x3, morbidly obese HEENT: PERRLA, pupils bilaterally equal and reactive, pallors not present Chest: Mitobronitol breaths in the lower lung mosqueda with occasional rhonchi, decreased air entry bilateral lower zone CVS: S1-S2 regular, no murmurs, no tachycardia, no gallops, no rubs Abdomen: Soft, nontender, no organomegaly, bowel sounds present Extremities: Bilateral lymphedema. Stasis dermatitis bilaterally. Right ankle bruising laterally. No open defects. Left upper thigh with known chronic ulcer, currently with overlying dressing. Data 05/10/24 01:45 05/10/24 14:40 Micro: Microbiology 05/09/24 20:25 Bacterial Antigens - Final Urine Kidney 05/08/24 23:39 Blood Culture - Preliminary Blood NEGATIVE TO DATE 05/08/24 23:35 Blood Culture - Preliminary Blood NEGATIVE TO DATE A&P Assessment and plan (1) NSTEMI (non-ST elevated myocardial infarction): Appreciate troponin cycle. Cardiology on board. After discussion between cardiology team and patient decision was made to treat medically. Continue with heparin drip. Continue with aspirin, statin. Dose of statin changed as per lipid panel results. Currently Imdur and Coreg on hold given cardiogenic shock. Appreciate A1c, lipid panel. Echocardiogram results shows an EF of 2025%, grade 1 diastolic dysfunction, dilated LA, mild MR, severe low-flow gradient aortic stenosis with gradient of 18 mmHg, mild pulmonary hypertension with PASP of 40 to 45 mmHg, dilated IVC, severe global LV hypokinesia with akinetic apical wall. (2) Cardiogenic shock: Keep mean artery pressure over 65. For now start patient on IV Levophed. Check lactate. Given worsening renal function, congestive heart failure with poor urine output we will plan to start patient on IV dobutamine given low flow pathology once mean arterial pressure is being maintained over 65. (3) CHF (congestive heart failure): Strict and proper charting, daily weights. IV Lasix 40 mg start. Once mean artery pressure is maintained over 65 will plan for possible Lasix drip. Bonilla catheterization. Fluid restriction to less than 1500 cc. (4) Hypoxia: Baseline oxygen of supplementation requirement of 2 L. Recently as high as 4 L. Appreciate ABG. Currently on BiPAP. Oxygen supplementation keeping saturation over 90%. Repeat ABG later in the evening. Most likely in setting of congestive heart failure. Component of obstructive sleep apnea and COPD as well. proBNP more than 70,000. Treatment of CHF as above. Continue with DuoNeb every 6 hour, Pulmicort twice daily. IV Lasix 40 mg one-time. Echocardiogram as above. (5) Acute kidney injury superimposed on CKD: Worsening renal functions. Associated with metabolic acidosis, hyperkalemia. Treatment of cardiogenic shock as above. Strict input charting, daily weights. Repeat BMP in evening. Treatment of hyperkalemia with calcium gluconate and sodium bicarbonate. Cannot rule out CRS. Will plan for Lasix drip once blood pressure is better. If does not improve will potentially consult nephrology for possible dialysis. Patient is agreeable for dialysis. (6) Chronic kidney disease, unspecified: Baseline creatinine more recently ranging from 2.2-2.4. Currently 2.3. Medical reconciliation done for nephrotoxic drugs. Patient has chronic Bonilla catheterization. Change recently within the last 1 week. Continue to monitor urine output. (7) Type 2 diabetes mellitus with diabetic polyneuropathy: A1c 5.3. Insulin sliding scale at low-dose protocol. Continue Lantus 20U BID at home dosing. Will change the dose as per insulin requirements next 24 hours. (8) Eschar of lower leg: LLE decubitus ulcer for several months followed by wound care s/p recent debridemnet on 05/07 empiric meropenem and vanc given recent outpatient cx with ESBL Klebsiella and MRSA. No cultures available from recent debridement Per review of op note, necrotic fat was encountered in the bed of ulcer, all necrotic fat was evacuated, wound was noted to extend into the subcutaneous tissue to the level of fascia. I&D was performed down to this level. No adalberto abscess was encountered in the surgical bed. Follow-up blood culture Currently has leukocytosis, concern for cellulitis and soft tissue infection of the left thigh. Venous duplex negative for DVT on 05/05/2024. Do not see any recent arterial studies; would avoid CTA with runoff for now given CKD, risk for LETICIA. X-ray of the thigh negative for osteomyelitis. CRP elevated. Check arterial duplex given concerns for peripheral vascular disease. Dressing change per wound care instructions from snf-it appears she was on topical meropenem/tobramycin/linezolid and clindamycin preparation-we will have to check with pharmacy if this can be formulated and dispensed here. Given the wound cultures patient will most likely need to be discharged on IV antibiotics including ertapenem and vancomycin for at least 14 days. Case management alerted. Once blood cultures remain negative we will plan for PICC line placement. (9) Bradycardia: (10) Anemia: Baseline hemoglobin around 9. More recently since recent admission around 7.6- 8.9. Received blood transfusion last admission. Appreciate iron panel, vitamin B12 and folate level. Target hemoglobin more than 8. Will transfuse accordingly. (11) COPD (chronic obstructive pulmonary disease): (12) Goals of care, counseling/discussion: Discussed in detail with the patient. Discussed unfortunately she has become acutely sick with cardiac dysfunction secondary to MS leading to multiorgan dysfunction. Discussed about currently patient being congestive heart failure and cardiogenic shock. Patient is awake and alert. States her sister Antonina will be the DPOA. For now she wants everything done to keep her alive. She is agreeable for chest compression, mechanical ventilation if needed. She is agreeable for dialysis if needed. (13) Transaminitis: Most likely in setting of congestive heart failure and cardiogenic shock. Monitor daily. Alkaline phosphatase normal. Bilirubin normal. Plan Analgesia: Pelion nightly, morphine as needed Glycemic control: Lantus 20 units twice daily along with sliding scale low-dose protocol Nutrition: N.p.o. CODE STATUS: Full code PUD prophylaxis: Protonix DVT prophylaxis: Heparin drip will be sufficient for PUD prophylaxis Discharge planning: Back to SNF once patient is medically stable Transfer to ICU. This documentation was created by [email or web address] sales representative door to door software. Every effort was made to ensure accuracy of sales representative door to door. Any obvious errors or omissions should be clarified with the author of the document. Attestations 2 Medical Necessity Statement*: Requires further hospitalization for management of cardiogenic shock, congestive heart failure with slow flow in setting of non-ST elevation MS with EF of 25%, moderate aortic stenosis, TAWNY on CKD with hyperkalemia Critical Care Time: The high probability of a clinically significant, sudden or life threatening deterioration of the patient's [cardiac, GI, renal, pulmonary] system(s) required my full and direct attention, intervention and personal management. The critical care time is as shown. This time is in addition to time spent performing any reported procedures but includes the following: [x] Data and vital sign review and interpretation [x] Patient assessment, examination and intervention [x] Documentation [x] Medication orders and management Critical Care Time (min): 90 Coding Level of Care Code Critical Care >/= 30 minutes Critical care time (in minutes): 90 The high probability of a clinically significant, sudden or life threatening deterioration, as referenced in this documentation, required my full and direct attention, intervention and personal management. The critical care time shown is in addition to time spent performing any reported separately billable procedures and includes the following: [x] Data and vital sign review and interpretation [x ] Patient assessment, examination and intervention [x] Medication orders and management [x] Patient/Family updates as able [x] Care Coordination and Documentation. Other Coding Information This patient has a high probability of clinically significant, sudden or life threatening deterioration of the patient's (neurological/pulmonary/cardiac/renal/ID/endocrine) systems required my full, direct attention, the highest level of physician preparedness for urgent intervention and personal management. I managed/supervised life or organ supporting interventions that required frequent physician assessment. I devoted my full attention in the ICU to the direct care of this patient for the period of time indicated above. Time I spent with family or surrogate(s) is included only if the patient was incapable of providing necessary information or participating in decision making. This time includes the following services provided: Telemetry review BiPAP ventilation Hemodynamic interpretation, assessment and management Review and interpretation of CXR Review and interpretation of lab values Review and interpretation of microbiologic data and culture results Review of medications and administration Review and interpretation of Nutrition requirements and management Discussion of management with other consultants and services Clinical update to family members Diagnoses NSTEMI (non-ST elevated myocardial infarction) I21.4 Cardiogenic shock R57.0 CHF (congestive heart failure) I50.9 Hypoxia R09.02 Acute kidney injury superimposed on CKD N17.9; N18.9 Chronic kidney disease, unspecified N18.9 Type 2 diabetes mellitus with diabetic polyneuropathy E11.42 Eschar of lower leg R23.4 Bradycardia R00.1 Anemia D64.9 COPD (chronic obstructive pulmonary disease) J44.9 Goals of care, counseling/discussion Z71.89 Transaminitis R74.01
[2024-05-10 15:12] LABS: Anion Gap 22.4 (5-19); Potassium 5.4 mmol/L (3.5-5.1)
[2024-05-10 15:34] LABS: ABG PH Result 7.36 (7.35-7.45); Alveolar-Arterial Oxygen Gradi 31.3 mmHg (5-10); Arterial Blood Gas Hematocrit 25.4 % (37-47); Base Excess ABG -5.2 mmol/L (-2.0-2.0); Blood Gas Allen Test Pos; Blood Gas Operator Identificat WALCI; Blood Gas Sample Site Radial, left; Blood Gas Sample Type Arterial; Carboxyhemoglobin 1.1 %THgb (0.4-20.1); HCO3 ABG 19.7 mmol/L (22-26); Ionized Calcium Level - ABG 1.2 mmol/L (1.1-1.4); Methemoglobin 0.8 % (0.4-1.5); Oxygen Device BIPAP; Oxygen Saturation ABG 93.8; PO2 ABG 71.9 mmHg (80.0-100.0); PO2 FiO2 Ratio Arterial Blood 143; Potassium Level - ABG 5.2 mmol/L (3.5-5.0); Total Hemoglobin 8.3 g/dL (12-16)
--- NOTE | 2024-05-10 16:06 | PC.NURSE ---
Lasix gtt bolus to be 1oomg from the Lasix gtt., rate adjusted.
[2024-05-10] MEDS: atorvastatin 40 mg Tablet 20 MG PO (17:29)
[2024-05-10] MEDS: acetaminophen 325 mg Tablet 650 MG PO (17:29)
[2024-05-10] MEDS: calcium gluconate 0.1 gm/mL 10% SDV 10mL 1 GM IVP (17:33)
[2024-05-10] MEDS: heparin 5,000 unit/mL INJ 1 mL IVP ×2 (17:56→23:38)
[2024-05-10 18:22] LABS: Glucose Point of Care 134 mg/dL (70-110)
--- NOTE | 2024-05-10 18:36 | PC.NURSE ---
Shift summary: Pt came to ICU from [facility] in resp distress. BiPa started at 50%. Levophed and Dopamine gtt started. Then Dopamine discontinued and Dobutamine started then 2 hours later a lasix gtt started. Heparin gtt continues to infuse. Pt's arms are covered in bruises. She has wound on her bottom, left breast and left upper thigh. Left upper thigh wet to dry dressing change done today. PICC inserted today, needed for all the medications. Her BUN and creatinine continue to creep higher. Urine output of 275ml, cloudy dark yellow urine
--- NOTE | 2024-05-10 20:13 | PC.NURSE ---
Physician Communication Dr. Norman on unit. Orders received for the following: stat bmp, npo except medications, and to leave lasix drip at 10 mg/hr without titrating.
[2024-05-10 20:50] LABS: Anion Gap 22.2 (5-19); Blood Urea Nitrogen 66 mg/dL (8-23); Carbon Dioxide 23 mmol/L (22-29); Chloride 97 mmol/L (98-107); Glucose 123 mg/dL (65-115); Osmolality Calculated 304 mOsm/kg (285-295); Potassium 5.2 mmol/L (3.5-5.1); Sodium 137 mmol/L (136-145)
[2024-05-10 21:58] LABS: Glucose Point of Care 113 mg/dL (70-110)
[2024-05-10 22:41] LABS: Partial Thromboplastin Time 48.6 SECONDS (23.9-36.7)
--- NOTE | 2024-05-10 23:00 | PC.NURSE ---
Hydrocodone Dr. Patterson notified of patient's elevated AST/ALT; verification received to administer scheduled hydrocodone.
[2024-05-10] MEDS: HYDROcodone-acetaminophen 5-325 mg Tablet 1 TAB PO (23:01)
[2024-05-10] MEDS: calcium gluconate 0.9% NaCL 1 GM/50 ML PREMIX IV (23:33)
[2024-05-10] MEDS: FUROsemide 10 mg/mL SDV 10mL 100 MG IVP (23:36)
[2024-05-11] VITALS (103 sets, daily range): BP systolic 75–175; BP diastolic 37–129; PULSE 51–72; RESP 12–30; TEMP 36.4–36.8; O2SAT 85–100; BMI 47.7
[2024-05-11] MEDS: ipratropium-albuterol 3 mL Neb INHALATION ×4 (01:33→19:58)
[2024-05-11] MEDS: meropenem 1,000 mg SDV 1000 MG IVP ×2 (01:35→14:46)
[2024-05-11] MEDS: norepinephrine 4 MG/250 ML BAG 15 MG IV (02:49)
[2024-05-11] MEDS: heparin drip 25,000 UNIT/500 ML PREMIX 22 UNIT IV (03:21)
[2024-05-11] MEDS: DOBUTamine drip 500 MG/250 ML PREMIX 16.39 MG IV (04:00)
[2024-05-11] MEDS: morphine 4 mg/mL SDV 1 mL 2 MG IVP ×2 (05:42→23:16)
[2024-05-11] MEDS: ondansetron 2 mg/ML SDV 2 mL 4 MG IVP ×2 (05:51→13:13)
[2024-05-11 05:54] LABS: Basophils % 0.2 %; Eosinophils # 0.2 10^3/uL (0.0-0.8); Eosinophils % 1.6 %; Lymphocytes # 1.1 10^3/uL (0.8-4.8); Lymphocytes % 10.7 %; Mean Corpuscular HGB Conc 32.7 g/dL (30-55); Mean Corpuscular Hemoglobin 32.1 pg (27-33); Mean Corpuscular Volume 98.2 fl (85-98); Mean Platelet Volume 9.5 fL (7.4-10.4); Monocytes # 0.7 10^3/uL (0.2-0.9); Monocytes % 7.2 %; Neutrophils # 8.11 10^3/uL (1.8-7.7); Neutrophils % 79.1 %; Nucleated Red Blood Cells % 0.2 %; Platelet Count 259 10^3/cmm (157-399); Red Blood Count 2.24 10^6/uL (3.85-5.65); Red Cell Distribution Width 15.6 % (12.1-15.1); White Blood Count 10.25 10^3/uL (3.29-11.43)
[2024-05-11] MEDS: FUROsemide 100 MG in sodium chloride 0.9% 40 ML IV ×2 (05:56→18:06)
[2024-05-11 06:06] LABS: Partial Thromboplastin Time 52.4 SECONDS (23.9-36.7)
[2024-05-11 06:09] LABS: Albumin Level 3.1 g/dL (3.5-5.2); Alkaline Phosphatase 75 U/L (35-105); Blood Urea Nitrogen 69 mg/dL (8-23); Carbon Dioxide 24 mmol/L (22-29); Chloride 96 mmol/L (98-107); Creatinine Clr Calc Pharmacy 18.1378; Globulin 2.9 g/dL (1.3-4.6); Glomerular Filtration Rate 13.1 mL/min (90-130); Glucose 73 mg/dL (65-115); Osmolality Calculated 299 mOsm/kg (285-295); Sodium 135 mmol/L (136-145); Total Bilirubin 0.4 mg/dL (0.15-1.2)
[2024-05-11 06:10] LABS: Magnesium 2.1 mg/dL (1.7-2.3)
[2024-05-11] MEDS: heparin 5,000 unit/mL INJ 1 mL IVP (06:12)
[2024-05-11 06:22] LABS: Alanine Aminotransferase 2234 U/L (0-33)
[2024-05-11 06:24] LABS: Aspartate Amino Transferase 4308 U/L (0-32)
[2024-05-11] MEDS: budesonide 0.5 mg/2 mL Neb INHALATION ×2 (07:32→19:58)
--- NOTE | 2024-05-11 08:13 | PC.NURSE ---
Blood sugar 67mg/dl. Pt alert and oriented, actually looks better today. Apple juice given.
[2024-05-11] MEDS: aspirin 81 mg EC Tablet PO (08:31)
[2024-05-11] MEDS: ranolazine (12HR) 500 mg Tablet PO ×2 (08:31→17:43)
[2024-05-11] MEDS: pantoprazole DR 40 mg Tablet PO (08:31)
[2024-05-11] MEDS: metOLazone 5 MG Tablet PO (08:31)
[2024-05-11 09:06] LABS: Glucose Point of Care 85 mg/dL (70-110)
[2024-05-11 09:06] LABS: Glucose Point of Care 67 mg/dL (70-110)
--- NOTE | 2024-05-11 12:25 | P.CONIM_ITS ---
Providers/Reason For Consult 2 Consulting Physician/Specialty*: monica young md / telemedicine Reason for Consult*: TAWNY Requesting Physician: Dr Norman Attending Physician: Andrew Norman MD Primary Care Provider: Nadiya Torre NP History of Present Illness History of Present Illness Nia Gomes is a 63 year old female history of non-ST elevation ID, COPD, PVD, CAD, obesity, GERD, osteoarthritis, depression, anxiety, obstructive sleep apnea, type 2 diabetes mellitus, CAD with ischemic cardiomyopathy, hypertension, and aortic stenosis. Recent admission for heart failure. Patient has been having worsening CKD. Patient had episode of acute kidney injury in January 2021. After which creatinine improved to 1 mg/dL as of March 29, 2022. By April 2022 creatinine between 1.1 and 1.5 mg/dL, and it stayed at this level through July 2023. In March 2024 creatinine was up to 2.2 to 2.8 mg/dL and she was discharged at that level. May 08 creatinine was 2.1 mg/dL by May 09 at 5 AM 2.3 mg/dL May 10, 2024 creatinine up to 2.8 mg/dL which moriah to 3.4 mg/dL yesterday and today remains at 3.5 mg/dL and renal was asked to see the patient. As stated she was admitted again on May 08, 2024 with substernal chest pain, NST elevation ID. The patient had a repeat echo on May 09, 2024 which showed an EF of 20 to 25% with severe global hypokinesis with akinetic apical wall and grade 1 diastolic dysfunction, she also has severe low-flow low gradient aortic stenosis with an aortic valve area of 0.76 cm?. As of yesterday the patient went into respiratory distress transferred to the ICU was placed on BiPAP. She developed a junctional rhythm with bradycardia and became oliguric. Dr. Kelly started her on a furosemide drip along with her heparin drip and treated her for cardiogenic shock with dobutamine and Levophed. The patient also developed increasing LFTs/transaminitis. Renal is now called as patient's blood pressure is stable on pressors and patient has oliguric renal failure Patient also has eschars on her left lower extremity has been treated with vancomycin and meropenem. Review of Systems 2 Narrative: As above. Currently the patient is feeling better she denies shortness of breath she says chest pain is improving. Nausea is improving. She has leg pain. Medications/Allergies Home Medications Medication Instructions Recorded Confirmed Last Taken Type cholecalciferol (vitamin D3) 25 2,000 unit PO DAILY 10/21/19 05/09/24 04/29/24 History mcg (1,000 unit) capsule multivitamin 1 tab PO QAM 10/21/19 05/09/24 04/29/24 History cranberry 500 mg capsule 500 mg PO BID 09/28/21 05/09/24 04/29/24 History cetirizine 10 mg capsule (All Day 10 mg PO QDAY #30 caps 04/29/22 05/09/24 04/29/24 Rx Allergy (cetirizine)) oxybutynin chloride 15 mg 15 mg PO QDAY #30 tabs 12/21/22 05/09/24 04/29/24 Rx tablet,extended release 24 hr acetaminophen 500 mg tablet 1,000 mg PO BID 04/29/24 05/09/24 04/29/24 History albuterol sulfate 90 mcg/actuation 2 puff inhalation BID PRN 04/29/24 05/09/24 Unknown History aerosol inhaler (Ventolin HFA) Shortness Of Breath amlodipine 5 mg tablet 5 mg PO DAILY 04/29/24 05/09/24 04/29/24 History atorvastatin 80 mg tablet 80 mg PO QPM 04/29/24 05/09/24 04/28/24 History bisacodyl 10 mg rectal suppository 10 mg KS DAILY PRN Constipation 04/29/24 05/09/24 Unknown History bisacodyl 5 mg tablet 5 mg PO DAILY PRN Constipation 04/29/24 05/09/24 Unknown History budesonide-formoterol HFA 160 2 puff inhalation BID 04/29/24 05/09/24 04/29/24 History mcg-4.5 mcg/actuation aerosol inhaler (Symbicort) carvedilol 6.25 mg tablet 6.25 mg PO DAILY 04/29/24 05/09/24 04/29/24 History diphenhydramine 25 2 tab PO BEDTIME 04/29/24 05/09/24 04/28/24 History mg-acetaminophen 500 mg tablet (Tylenol PM Extra Strength) fluconazole 150 mg tablet 150 mg PO DAILY 04/29/24 05/09/24 04/29/24 History fluticasone propionate 50 1 spray intranasal DAILY 04/29/24 05/09/24 04/29/24 History mcg/actuation nasal spray,suspension glucagon HCl 1 mg solution for 1 mg SUBCUT Q20M PRN BLOOD SUGAR 04/29/24 05/09/24 Unknown History injection (Glucagon (HCl) Emergency Kit) guaifenesin 100 mg/5 mL oral 200 mg PO Q4H PRN COUGH AND 04/29/24 05/09/24 Unknown History liquid (Era-Tussin) CONGESTION guaifenesin 600 mg tablet, 600 mg PO Q12H PRN EXPECTORANT 04/29/24 05/09/24 Unknown History extended release 12 hr (Mucinex) insulin aspart U-100 100 unit/mL See Rx Instructions .Route .COMPLEX 04/29/24 05/09/24 04/29/24 History (3 mL) subcutaneous pen (Novolog FlexPen U-100 Insulin aspart) insulin glargine 100 unit/mL (3 20 unit SUBCUT BID 04/29/24 05/09/24 04/29/24 History mL) subcutaneous pen (Lantus Solostar U-100 Insulin) ipratropium 0.5 mg-albuterol 3 mg 3 ml inhalation Q4H PRN Shortness 04/29/24 05/09/24 Unknown History (2.5 mg base)/3 mL nebulization Of Breath Or Wheezing soln isosorbide mononitrate 30 mg 30 mg PO QAM 04/29/24 05/09/24 04/29/24 History tablet,extended release 24 hr loperamide 2 mg tablet 2 mg PO Q6H PRN Diarrhea 04/29/24 05/09/24 Unknown History magnesium hydroxide 400 mg/5 mL 30 ml PO DAILY PRN Constipation 04/29/24 05/09/24 Unknown History oral suspension (Milk of Magnesia) nystatin 100,000 unit/gram topical 1 applic topical BID PRN Skin 04/29/24 05/09/24 04/29/24 History cream Irritation ondansetron HCl 8 mg tablet 8 mg PO Q8H PRN Nausea And Vomiting 04/29/24 05/09/24 Unknown History ranolazine 500 mg tablet,extended 500 mg PO BID 04/29/24 05/09/24 04/29/24 History release,12 hr sodium phosphates 19 gram-7 118 ml KS DAILY PRN Constipation 04/29/24 05/09/24 Unknown History gram/118 mL enema (Fleet Enema) hydrocodone 5 mg-acetaminophen 325 1 tab PO BEDTIME pain 05/06/24 05/09/24 Unknown History mg tablet nitroglycerin 0.4 mg sublingual 0.4 mg sublingual Q5M PRN Chest 05/06/24 05/09/24 Unknown History tablet Pain nystatin 100,000 unit/gram topical See Rx Instructions .Route .COMPLEX 05/06/24 05/09/24 Unknown History powder triamcinolone acetonide 0.1 % 1 applic topical BID PRN Skin 05/06/24 05/09/24 Unknown History topical cream Irritation amoxicillin 875 mg-potassium 1 tab PO BID #20 tabs 05/08/24 05/09/24 Unknown Rx clavulanate 125 mg tablet doxycycline monohydrate 100 mg 100 mg PO BID #10 tabs 05/08/24 05/09/24 Unknown Rx tablet furosemide 40 mg tablet See Rx Instructions .Route 05/08/24 05/09/24 Unknown Rx .COMPLEX #90 tabs hydralazine 25 mg tablet 25 mg PO TID #60 tabs 05/08/24 05/09/24 Unknown Rx Allergies Allergy/AdvReac Type Severity Reaction Status Date / Time Sulfa (Sulfonamide Allergy Severe ALGY-Anaphy Verified 05/08/24 20:51 Antibiotics) laxis aspirin Allergy Intermediate nose bleeds Verified 05/08/24 20:51 clonidine Allergy Unknown chest pain Verified 05/08/24 20:51 rofecoxib [From Vioxx] Allergy Unknown unknown Verified 05/08/24 20:51 Current Medications Generic Name Dose Route Start Last Admin Trade Name Freq PRN Reason Stop Dose Admin Acetaminophen 650 mg 05/09/24 00:11 05/10/24 17:29 Acetaminophen 325 Mg Tablet PO 650 mg Q6H PRN Administration Mild/Mod Pain Or Temp >/= 101 Hydrocodone Bitart/Acetaminophen 1 tab 05/09/24 21:00 05/10/24 23:01 Hydrocodone-Acetaminophen 5-325 Mg Tablet PO 1 tab BEDTIME SHERYL Administration Albuterol/Ipratropium 3 ml 05/09/24 02:00 05/11/24 07:32 Ipratropium-Albuterol 3 Ml Neb INHALATION 3 ml Q6H.RESP SHERYL Administration Amlodipine Besylate 5 mg 05/09/24 09:00 05/09/24 08:29 Amlodipine 5 Mg Tablet PO 5 mg DAILY SHERYL Administration Aspirin 81 mg 05/09/24 09:00 05/11/24 08:31 Aspirin 81 Mg Ec Tablet PO 81 mg DAILY SHERYL Administration Atorvastatin Calcium 20 mg 05/10/24 18:00 05/10/24 17:29 Atorvastatin 40 Mg Tablet PO 20 mg QPM SHERYL Administration Budesonide 0.5 mg 05/09/24 20:00 05/11/24 07:32 Budesonide 0.5 Mg/2 Ml Neb INHALATION 0.5 mg BID.RESPIRATORY SHERYL Administration Heparin Sodium (Porcine) 0 unit 05/08/24 22:17 05/11/24 06:12 Heparin 5,000 Unit/Ml Inj 1 Ml IVP 2,300 unit PRN PRN Administration Heparin Weight Based Protocol -Subsequent Bolus Protocol Hydralazine HCl 25 mg 05/09/24 09:00 05/09/24 20:56 Hydralazine 25 Mg Tablet PO 25 mg TID SHERYL Administration Vancomycin/PEG/NADA/Lysine/Water 1,250 mg in 250 mls @ 250 mls/hr 05/09/24 02:00 05/10/24 15:55 Vancocin IV Infused Q36H SHERYL Infusion Heparin Sodium/Sodium Chloride 25,000 unit in 500 mls @ 0 mls/hr 05/09/24 09:30 05/11/24 06:13 Heparin Drip IV 10.37 unit/kg/hr CONT SHERYL 24 mls/hr Titration Protocol Per Protocol Norepinephrine Bitartrate 4 mg in 250 mls @ 0 mls/hr 05/10/24 08:54 05/11/24 04:03 Levophed IV 2 mcg/min .Q0M SHERYL 7.5 mls/hr Titration Protocol Per Protocol Dobutamine HCl/Dextrose 500 mg in 250 mls @ 16.391 mls/hr 05/10/24 11:30 05/11/24 04:00 Dobutamine Drip IV 5 mcg/kg/min .[id number] SHERYL 16.39 mls/hr Administration 5 MCG/KG/MIN Furosemide 100 mg/ Sodium 50 mls @ 0 mls/hr 05/10/24 11:30 05/11/24 05:56 Chloride IV 10 mg/hr .Q0M SHERYL 5 mls/hr Administration Protocol Per Protocol Insulin Glargine 20 unit 05/09/24 09:00 05/11/24 09:04 Insulin Glargine 100 Units/1 Ml SUBCUT Not Given BID SHERYL Insulin Human Lispro 0 unit 05/09/24 08:00 05/11/24 08:16 Insulin Lispro 100 Unit/1 Ml SUBCUT Not Given WM&BEDTIME [facility] Protocol Isosorbide Mononitrate 30 mg 05/09/24 06:00 05/10/24 06:32 Isosorbide Mononitrate Er 30 Mg Tablet PO 30 mg QAM SHERYL Administration Meropenem 1,000 mg 05/09/24 02:00 05/11/24 01:35 Meropenem 1,000 Mg Sdv IVP 1,000 mg Q12H SHERYL Administration Metolazone 5 mg 05/09/24 19:20 05/11/24 08:31 Metolazone 5 Mg Tablet PO 5 mg DAILY SHERYL Administration Morphine Sulfate 2 mg 05/09/24 00:11 05/11/24 05:42 Morphine 4 Mg/Ml Sdv 1 Ml IVP 2 mg Q4H PRN Administration SEVERE PAIN Nitroglycerin 0.4 mg 05/08/24 20:58 05/08/24 22:36 Nitroglycerin 0.4 Mg Sublingual Tablet SUBLINGUAL 0.4 mg Q5M PRN Administration CHEST PAIN Ondansetron HCl 4 mg 05/09/24 00:11 05/11/24 05:51 Ondansetron 2 Mg/Ml Sdv 2 Ml IVP 4 mg Q8H PRN Administration vomiting, or N/V if npo Pantoprazole Sodium 40 mg 05/09/24 09:00 05/11/24 08:[address] 40 Mg Tablet PO 40 mg DAILY SHERYL Administration Ranolazine 500 mg 05/09/24 09:00 05/11/24 08:31 Ranolazine (12hr) 500 Mg Tablet PO 500 mg BID SHERYL Administration PFSH Acute 2 PFSH: Medical History (Updated 05/10/24 @ 15:20 by Andrew Norman MD) CHF (congestive heart failure) (~04/16/24) Anemia Chronic kidney disease, unspecified Type 2 diabetes mellitus with diabetic polyneuropathy NSTEMI (non-ST elevated myocardial infarction) 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 Dependence on supplemental oxygen UTI (urinary tract infection) Morbidly obese Chronic respiratory failure with hypoxia Peripheral vascular disease COPD (chronic obstructive pulmonary disease) Aortic stenosis Anemia in other chronic diseases classified elsewhere Acquired hyperlipoproteinemia Gastro-esophageal reflux disease without esophagitis Primary generalized (osteo)arthritis Depression, unspecified Anxiety disorder, unspecified Obstructive sleep apnea (adult) (pediatric) Other nonspecific abnormal finding of lung field Body mass index [BMI] 50.0-59.9, adult Morbid (severe) obesity due to excess calories 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 Recurrent UTI Ischemic cardiomyopathy CAD (coronary artery disease) OAB (overactive bladder) Lump of breast, right Hypertension Surgical History S/P cardiac cath H/O: section H/O breast biopsy right Family History Other CAD (coronary artery disease) Hypertension Stroke Social History Smoking and tobacco/nicotine status: former use of tobacco/nicotine Alcohol intake: never Housing: Correction Vitals/I&O/Wt Last Vital Signs Temp 97.6 F 05/11/24 08:00 Pulse 55 L 05/11/24 09:30 Resp 17 05/11/24 09:30 BP 120/39 05/11/24 09:30 Pulse Ox 91 05/11/24 09:30 O2 Del Method High Flow Nasal Cannula 05/11/24 09:30 O2 Flow Rate 6 05/11/24 09:30 FiO2 50 05/11/24 05:15 05/10/24 05/11/24 05/11/24 22:59 06:59 14:59 Intake Total 525.250 / 873.037 740.784 / 1613.821 300 / 300 Output Total 275 / 275 350 / 625 Balance 250.250 / 598.037 390.784 / 988.821 300 / 300 Weight last 48 hrs Weight 110.994 kg Weight 109.27 kg Physical Exam 2 Narrative: The patient is on Levophed at 4 dobutamine at 5. Lasix drip at 10. She is interactive awake alert and oriented. Blood pressure is stable. Per chart urine output is 625 mL. HEENT normocephalic atraumatic. Neck is supple Lungs have crackles bilaterally. Heart regular systolic murmur. Abdomen is soft positive bowel sounds. Extremities have edema poor pulses eschar in her left leg. Neuro awake alert oriented x 3. Urinary Catheter Management: Bonilla: Cath Placed During This Visit: no Reason for Continuing Indwelling Catheter: Accurate Measurement of Urinary Output in Critically Ill Patients Data 05/11/24 05:45 05/11/24 05:45 Micro: Microbiology 05/09/24 20:25 Bacterial Antigens - Final Urine Kidney A&P Assessment and plan (1) Acute kidney injury superimposed on CKD: 63-year-old lady obesity hypertension diabetes heart failure reduced EF here with non-ST elevation ID and cardiogenic shock. 1. 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 Imaging reviewed, CT scan April 29, 2024 -she has a small left adrenal adenoma, right adrenal gland is normal, she has fatty atrophy of the pancreas splenic artery calcification dense vascular calcification however no hydronephrosis in either kidney. She does have parenchymal scarring both kidneys no evidence of obstructing renal or ureteral calculi. She has a question of a cecal neoplasm. 2. Acute kidney injury-likely on the basis of cardiogenic shock. Urinalysis from May 09 results states nonreportable we will repeat a urinalysis, urine albumin urine protein urine creatinine urine electrolytes. Hyperkalemia has improved. 3. Metabolic acidosis improving patient had a bicarbonate down to 15 yesterday morning is now improved to 24. Anion gap is down to 15 from 21 Yesterday lactate was 1.6 The patient may need dialysis soon. The patient has no emergent indication for dialysis at this time as bicarbonate is not 24, potassium improved to 5 urine output improving creatinine is rate of increase is slowing down as patient is on pressors would prefer to hold off on dialysis until she becomes stabilizes, or give her chance for renal recovery. 4. Transaminitis is worsening with AST ALT now up to 4308 and 2234 5. Non-ST elevation ID low EF aortic valve disease would consider cardiac catheterization to see if we can optimize cardiac status. Will consider transfer to see if an LVAD or Impella would help the patient. Leukocytosis improving Anemia with elevated MCV will send iron studies. Above discussed in detail with the patient. She consents to dialysis if needed. The patient consented to a telehealth visit. The patient was seen and examined using A/V equipment as a telehealth visit. Discussed in detail with the patient, the nurse and Dr. Jimenez Plan See above Consult Attestations 2 Medical Necessity Statement: Cardiogenic shock on 2 pressors in the ICU with acute on chronic renal failure and increased LFTs. Time Spent in Patient Care: Greater than 35 minutes (>than 50% of time spent in counselling and/or direct pt care on unit) . Coding Level of Care Code Acute Code for Chg Fwd Diagnoses Acute kidney injury superimposed on CKD N17.9; N18.9
--- NOTE | 2024-05-11 12:49 | USR_ITS ---
PROCEDURE INFORMATION: Exam: US Retroperitoneal, Complete, Kidneys and Bladder Exam date and time: 05/11/2024 3:46 PM Age: 63 years old Clinical indication: Condition or disease; Liver condition; Other: Raul TECHNIQUE: Imaging protocol: Real-time ultrasound of the retroperitoneum with image documentation. Complete exam focused on the bilateral kidneys and urinary bladder. COMPARISON: CT kidney stone [id number] 04/29/2024 2:35 PM FINDINGS: Right kidney: The right kidney measures 9.6 cm in length and demonstrates an echogenic renal parenchyma of normal thickness. There is soft tissue prominence involving the lateral portion of the kidney suggesting the possibility of mass. I see no hydronephrosis. Left kidney: The left kidney is poorly seen but demonstrates a gross length of 9.9 cm with an echogenic renal parenchyma. A few small cysts are noted but I see no obvious hydronephrosis. Urinary bladder: Unremarkable. Other findings: The exam is technically difficult due to patient body habitus. US/US renal BI* [id number] IMPRESSION: 1. Echogenic kidneys of normal size 2. There is soft tissue prominence in the right kidney. I am uncertain as to whether this represents a normal lobulation or mass. At some point MR may be helpful.
[2024-05-11 13:07] LABS: Hematocrit 22.3 % (36-47)
[2024-05-11 13:09] LABS: ABG PCO2 32.9 mmHg (35-45); ABG PH Result 7.42 (7.35-7.45); Alveolar-Arterial Oxygen Gradi 23.8 mmHg (5-10); Base Excess ABG -2.4 mmol/L (-2.0-2.0); Blood Gas Allen Test Pos; Blood Gas Operator Identificat BR0MA; Blood Gas Sample Site Radial, left; Blood Gas Sample Type Arterial; Carboxyhemoglobin 1.2 %THgb (0.4-20.1); HCO3 ABG 21.6 mmol/L (22-26); HGB O2 Sat 90.5 % (95-100); Ionized Calcium Level - ABG 1.1 mmol/L (1.1-1.4); Methemoglobin 1.2 % (0.4-1.5); Oxygen Device NC; Oxygen Saturation ABG 92.6; PO2 ABG 62.1 mmHg (80.0-100.0); PO2 FiO2 Ratio Arterial Blood 155; Potassium Level - ABG 4.9 mmol/L (3.5-5.0); Total Hemoglobin 8.5 g/dL (12-16)
[2024-05-11 13:10] LABS: Glucose Point of Care 89 mg/dL (70-110)
[2024-05-11 13:26] LABS: Albumin Level 2.6 g/dL (3.5-5.2); Alkaline Phosphatase 243 U/L (35-105); Anion Gap 24.3 (5-19); Blood Urea Nitrogen 71 mg/dL (8-23); Calcium 8.3 mg/dL (8.5-10.5); Carbon Dioxide 19 mmol/L (22-29); Chloride 95 mmol/L (98-107); Creatine Phosphokinase 41 U/L (26-192); Glomerular Filtration Rate 12.7 mL/min (90-130); Glucose 92 mg/dL (65-115); Osmolality Calculated 296 mOsm/kg (285-295); Potassium 5.3 mmol/L (3.5-5.1); Sodium 133 mmol/L (136-145); Total Bilirubin 0.6 mg/dL (0.15-1.2); Total Protein 5.6 g/dL (6.6-8.7)
[2024-05-11 13:32] LABS: Partial Thromboplastin Time 66.6 SECONDS (23.9-36.7)
[2024-05-11 13:38] LABS: Alanine Aminotransferase 1948 U/L (0-33)
--- NOTE | 2024-05-11 13:40 | PM.PN ---
Subjective Subjective: No acute events overnight. Patient has remained on Levophed of 3 and dobutamine of 5 with mean artery pressure mostly maintained over 65. Patient down to 5 to 6 L of high flow nasal cannula to maintain saturation at 90%. Patient remains awake and alert. Urine output of around 625 cc in last 24-hour. She states she is feeling slightly better. Seen with multiple family members at bedside. Vitals/I&O/Wt Last Vital Signs Temp 97.8 F 05/11/24 13:00 Pulse 65 05/11/24 13:15 Resp 28 H 05/11/24 13:15 BP 138/60 05/11/24 13:00 Pulse Ox 90 05/11/24 13:15 O2 Del Method High Flow Nasal Cannula 05/11/24 13:15 O2 Flow Rate 6 05/11/24 13:15 FiO2 50 05/11/24 05:15 05/10/24 05/11/24 05/11/24 22:59 06:59 14:59 Intake Total 525.250 / 873.037 740.784 / 1613.821 300 / 300 Output Total 275 / 275 350 / 625 Balance 250.250 / 598.037 390.784 / 988.821 300 / 300 Weight last 48 hrs Weight 110.994 kg Weight 109.27 kg Physical Exam Narrative: General: No acute distress, AO x3, morbidly obese HEENT: PERRLA, pupils bilaterally equal and reactive, pallors not present Chest: Mitobronitol breaths in the lower lung mosqueda with occasional rhonchi, decreased air entry bilateral lower zone CVS: S1-S2 regular, no murmurs, no tachycardia, no gallops, no rubs Abdomen: Soft, nontender, no organomegaly, bowel sounds present Extremities: Bilateral lymphedema. Stasis dermatitis bilaterally. Right ankle bruising laterally. No open defects. Left upper thigh with known chronic ulcer, currently with overlying dressing. Urinary Catheter Management: Bonilla: Cath Placed During This Visit: no Reason for Continuing Indwelling Catheter: Accurate Measurement of Urinary Output in Critically Ill Patients Data 05/11/24 12:32 05/11/24 12:32 Micro: Microbiology 05/09/24 20:25 Bacterial Antigens - Final Urine Kidney A&P Assessment and plan (1) NSTEMI (non-ST elevated myocardial infarction): Appreciate troponin cycle. Cardiology on board. After discussion between cardiology team and patient decision was made to treat medically. Continue with heparin drip. Continue with aspirin, atorvastatin 20 mg daily. Dose of statin changed as per lipid panel results. Currently Imdur and Coreg on hold given cardiogenic shock. Appreciate A1c, lipid panel. Echocardiogram results shows an EF of 5%, grade 1 diastolic dysfunction, dilated LA, mild MR, severe low-flow gradient aortic stenosis with gradient of 18 mmHg, mild pulmonary hypertension with PASP of 40 to 45 mmHg, dilated IVC, severe global LV hypokinesia with akinetic apical wall. (2) Cardiogenic shock: Keep mean artery pressure over 65. Continue with Levophed and dobutamine. Titrate Levophed accordingly. For now continue with dobutamine at 5. Monitor for arrhythmia. Lactate normal yesterday. Repeat lactate today. Concerns for slow flow cardiogenic shock. Strict input charting, daily weights. (3) CHF (congestive heart failure): Strict input and output charting, daily weights. Continue with Lasix drip for now. Oxygen supplementation keeping saturation over 90%. Patient down to hyponasal cannula. Given poor urine response patient will most likely need dialysis. Patient is agreeable. Will plan as per nephrology recommendations and hemodynamics. Bonilla catheterization. Fluid restriction to less than 1500 cc. (4) Hypoxia: Baseline oxygen of supplementation requirement of 2 L. Recently as high as 4 L. Appreciate ABG. Currently on high flow nasal cannula. BiPAP as needed. Repeat ABG in afternoon. Most likely in setting of congestive heart failure. Component of obstructive sleep apnea and COPD as well. proBNP more than 70,000. Treatment of CHF as above. Continue with DuoNeb every 6 hour, Pulmicort twice daily. (5) Acute kidney injury superimposed on CKD: Worsening renal functions with elevated BUN, hyponatremia. For now hyperkalemia and metabolic acidosis seems to be resolving. Patient is oliguric. Given concerns for oliguria even though patient has been on Levophed and dobutamine with mean arterial pressure maintained over 65, Lasix drip will plan to consult nephrology for possible need of dialysis. Patient is agreeable. Medical reconciliation done for nephrotoxic drugs. Check vancomycin random levels. Appreciate urinalysis and urine lites from admission. Repeat BMP in afternoon. Depending on the plan for dialysis will consult surgery. Dialysis. (6) Chronic kidney disease, unspecified: Baseline creatinine more recently ranging from 2.2-2.4. Currently 2.3. Medical reconciliation done for nephrotoxic drugs. Patient has chronic Bonilla catheterization. Change recently within the last 1 week. Continue to monitor urine output. (7) Type 2 diabetes mellitus with diabetic polyneuropathy: A1c 5.3. Episode of hypoglycemia today morning. Insulin sliding scale at low-dose protocol. Hold off on Lantus for now given worsening renal functions. (8) Eschar of lower leg: LLE decubitus ulcer for several months followed by wound care s/p recent debridemnet on 05/07 empiric meropenem and vanc given recent outpatient cx with ESBL Klebsiella and MRSA. No cultures available from recent debridement Per review of op note, necrotic fat was encountered in the bed of ulcer, all necrotic fat was evacuated, wound was noted to extend into the subcutaneous tissue to the level of fascia. I&D was performed down to this level. No adalberto abscess was encountered in the surgical bed. Follow-up blood culture Currently has leukocytosis, concern for cellulitis and soft tissue infection of the left thigh. Venous duplex negative for DVT on 05/05/2024. Do not see any recent arterial studies; would avoid CTA with runoff for now given CKD, risk for LETICIA. X-ray of the thigh negative for osteomyelitis. CRP elevated. Check arterial duplex given concerns for peripheral vascular disease. Dressing change per wound care instructions from custodial-it appears she was on topical meropenem/tobramycin/linezolid and clindamycin preparation-we will have to check with pharmacy if this can be formulated and dispensed here. Given the wound cultures patient will most likely need to be discharged on IV antibiotics including ertapenem and vancomycin for at least 14 days. Case management alerted. Once blood cultures remain negative we will plan for PICC line placement. (9) Bradycardia: (10) Anemia: Baseline hemoglobin around 9. More recently since recent admission around 7.6-8.9. Received blood transfusion last admission. Appreciate iron panel, vitamin B12 and folate level. Target hemoglobin more than 8. Will transfuse accordingly. Hemoglobin down to 7.2. Repeat hemoglobin and hematocrit in afternoon. Patient will most likely need transfusion. (11) COPD (chronic obstructive pulmonary disease): (12) Goals of care, counseling/discussion: Discussed in detail with the patient. Discussed unfortunately she has become acutely sick with cardiac dysfunction secondary to PR leading to multiorgan dysfunction. Discussed about currently patient being congestive heart failure and cardiogenic shock. Patient is awake and alert. States her sister Antonina will be the DPOA. For now she wants everything done to keep her alive. She is agreeable for chest compression, mechanical ventilation if needed. She is agreeable for dialysis if needed. 05/11: Again had an extensive goals of care discussion given critical nature of patient's illness secondary to multiorgan dysfunction in setting of cardiogenic shock, aortic stenosis and slow flow congestive heart failure with worsening of renal functions possible need of dialysis. Discussed with multiple family members including brother and sister at bedside. Patient wishes to continue to remain full code. She is agreeable with dialysis if needed. (13) Transaminitis: Most likely in setting of congestive heart failure and cardiogenic shock. Monitor daily. Alkaline phosphatase normal. Bilirubin normal. Plan Analgesia: [place] nightly, morphine as needed Glycemic control: A1c 5.2. Episode of hypoglycemia. Continue low-dose sliding scale. Hold off on Lantus. Nutrition: Cardiac diet CODE STATUS: Full code PUD prophylaxis: Protonix DVT prophylaxis: Heparin drip will be sufficient for PUD prophylaxis Discharge planning: Back to SNF once patient is medically stable Continue care at ICU. Plan for the day: Continue Levophed and dobutamine keeping mean artery pressure 65. Continue with heparin drip. Continue Lasix drip. Given oliguric renal failure will consult nephrology with potential need for dialysis. Repeat BMP in evening. Will consult surgery for possible placement of dialysis catheter. Patient denies any chest pain. Seen with multiple family members at bedside. Detailed goals of care discussions as above. Patient is still agreeable for full code and hemodialysis as needed. Hypoglycemia during the day. Hold off any further Lantus. Continue with sliding scale. Start on diet. Appreciate cardiology recommendations. Transfuse monitor PRBC given hemoglobin around 7. Target hemoglobin more than 8. Monitor for hyponatremia, hyperkalemia, metabolic acidosis. Oxygen supplementation keeping saturation over 90%. Currently on high flow nasal cannula. BiPAP nightly. This documentation was created by [employer] ornamental metal worker apprentice software. Every effort was made to ensure accuracy of ornamental metal worker apprentice. Any obvious errors or omissions should be clarified with the author of the document. Attestations Medical Necessity Statement*: Requires further hospitalization for management of slow flow cardiogenic shock, congestive heart failure, moderate in a patient admitted for non-ST elevation PR, TAWNY on CKD with possible need of hemodialysis in setting of metabolic acidosis, CHF, hyperkalemia, shock liver Critical Care Time: The high probability of a clinically significant, sudden or life threatening deterioration of the patient's [cardiac, renal, GI, pulmonary] system(s) required my full and direct attention, intervention and personal management. The critical care time is as shown. This time is in addition to time spent performing any reported procedures but includes the following: [x] Data and vital sign review and interpretation [x] Patient assessment, examination and intervention [x] Documentation [x] Medication orders and management Critical Care Time (min): 90 Coding Level of Care Code Critical Care >/= 30 minutes Critical care time (in minutes): 90 The high probability of a clinically significant, sudden or life threatening deterioration, as referenced in this documentation, required my full and direct attention, intervention and personal management. The critical care time shown is in addition to time spent performing any reported separately billable procedures and includes the following: [x] Data and vital sign review and interpretation [x] Patient assessment, examination and intervention [x] Medication orders and management [x] Patient/Family updates as able [x] Care Coordination and Documentation. Other Coding Information This patient has a high probability of clinically significant, sudden or life threatening deterioration of the patient's (neurological/pulmonary/cardiac/renal/ID/endocrine) systems required my full, direct attention, the highest level of physician preparedness for urgent intervention and personal management. I managed/supervised life or organ supporting interventions that required frequent physician assessment. I devoted my full attention in the ICU to the direct care of this patient for the period of time indicated above. Time I spent with family or surrogate(s) is included only if the patient was incapable of providing necessary information or participating in decision making. This time includes the following services provided: Telemetry review Noninvasive Ventilation Hemodynamic interpretation, assessment and management Review and interpretation of CXR Review and interpretation of lab values Review and interpretation of microbiologic data and culture results Review of medications and administration Review and interpretation of Nutrition requirements and management Discussion of management with other consultants and services Clinical update to family members Diagnoses NSTEMI (non-ST elevated myocardial infarction) I21.4 Cardiogenic shock R57.0 CHF (congestive heart failure) I50.9 Hypoxia R09.02 Acute kidney injury superimposed on CKD N17.9; N18.9 Chronic kidney disease, unspecified N18.9 Type 2 diabetes mellitus with diabetic polyneuropathy E11.42 Eschar of lower leg R23.4 Bradycardia R00.1 Anemia D64.9 COPD (chronic obstructive pulmonary disease) J44.9 Goals of care, counseling/discussion Z71.89 Transaminitis R74.01
[2024-05-11 13:55] LABS: Aspartate Amino Transferase 3300 U/L (0-32)
[2024-05-11 14:25] LABS: Bilirubin Urine 1+ (Negative); Blood Urine 2+ (Negative); Glucose Urine UA Negative (Normal); Ketones Urine Trace (Negative); Leukocyte Esterase Urine 3+ (Negative); Nitrate Urine Negative (Negative); Protein Urine 1+ (Negative); Specific Gravity, Urine 1.015 (1.005-1.030); Urine Appearance Turbid (CLEAR); Urine Color Dark Yellow (Yellow)
--- NOTE | 2024-05-11 14:27 | PM.PN ---
Subjective Subjective: Patient remained stable overnight, maintaining more than 65 of MAP on Levophed. Oxygen demand has improved. Vitals/I&O/Wt Last Vital Signs Temp 97.8 F 05/11/24 13:00 Pulse 56 L 05/11/24 13:57 Resp 20 H 05/11/24 13:57 BP 138/60 05/11/24 13:00 Pulse Ox 95 05/11/24 13:57 O2 Del Method Nasal Cannula 05/11/24 13:57 O2 Flow Rate 5 05/11/24 13:57 FiO2 50 05/11/24 05:15 05/10/24 05/11/24 05/11/24 22:59 06:59 14:59 Intake Total 525.250 / 873.037 740.784 / 1613.821 450 / 450 Output Total 275 / 275 350 / 625 130 / 130 Balance 250.250 / 598.037 390.784 / 988.821 320 / 320 Weight last 48 hrs Weight 244 lb 11.2 oz Weight 240 lb 14.4 oz Physical Exam Narrative: Alert awake oriented x 3, morbidly obese Heart regular S1-S2 Lungs decreased breath sound no crepitation [employer]ER grossly nonfocal All over the bruising Urinary Catheter Management: Bonilla: Cath Placed During This Visit: no Reason for Continuing Indwelling Catheter: Accurate Measurement of Urinary Output in Critically Ill Patients Data 05/11/24 12:32 05/11/24 12:32 A&P Assessment and plan (1) Acquired hyperlipoproteinemia: (2) Chest pain: Qualifiers: Chest pain type: unspecified Qualified Code(s): R07.9 - Chest pain, unspecified (3) Elevated troponin: (4) Type 2 diabetes mellitus with diabetic polyneuropathy: (5) Body mass index [BMI] 50.0-59.9, adult: (6) Acute renal insufficiency: (7) Chronic kidney disease, unspecified: (8) Low hemoglobin: (9) 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: (10) COPD (chronic obstructive pulmonary disease): (11) Cardiogenic shock: (12) CHF (NYHA class IV, ACC/AHA stage D): Plan Unfortunately patient is a 63-year-old morbidly obese female with BMI of more than 47 underlying anemia difficult access hypotension on pressors maintaining MAP acute on chronic renal failure with chronic kidney disease, acute decompensated systolic heart failure on chronic, cardiomyopathy with severe LV dysfunction with possible multivessel underlying coronary artery disease, she is high risk for complications such as bleeding arrhythmia stroke vascular brain vascular scenario . Patient is not LVAD/transplant candidate secondary to multiple risk factors and comorbidities, it is the reason we have tried to manage her medically with guideline medical therapy and as much as she tolerates. Diuretic IV infusion will continue Will continue dobutamine infusion, hopefully with IV diuresis and maintaining MAP potassium will also improve. Further plan be advised as per progress of the patient. Attestations Medical Necessity Statement*: Patient require continuation hospitalization for above defined care Coding Level of Care Code Acute Code for Chg Fwd Diagnoses Acquired hyperlipoproteinemia E78.5 Chest pain R07.9 Chest pain type: unspecified Elevated troponin R79.89 Type 2 diabetes mellitus with diabetic polyneuropathy E11.42 Body mass index [BMI] 50.0-59.9, adult Z68.43 Acute renal insufficiency N28.9 Chronic kidney disease, unspecified N18.9 Low hemoglobin D64.9 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 L97.121 COPD (chronic obstructive pulmonary disease) J44.9 Cardiogenic shock R57.0 CHF (NYHA class IV, ACC/AHA stage D) I50.84
[2024-05-11 14:33] LABS: Bacteria Urine Trace /hpf; RBC Urine 51-100 /hpf (0-2); Squamous Epithelial Cell Urine 21-50 /hpf (0-5); WBC Urine >100 /hpf (0-5)
--- NOTE | 2024-05-11 14:33 | PC.NURSE ---
Heaprin gtt: PTT 66.6 , no change in rate per protocol. No bolus either.
[2024-05-11 14:36] LABS: Lactate (Lactic Acid level) 1.6 mmol/L (0.5-2.2)
[2024-05-11 14:41] LABS: Uric Acid 11.8 mg/dL (2.4-5.7)
[2024-05-11 14:43] LABS: Potassium, Radom Urine 52 mmol/L; Urine Random Chloride 29 mmol/L; Urine Random Sodium 29 mmol/L
[2024-05-11] MEDS: sodium polystyrene sulfonate 15 gm/60 mL Btl 30 GM PO (14:46)
[2024-05-11 14:52] LABS: Add Urine Culture? No
[2024-05-11 15:04] LABS: Hepatitis C Virus Antibody Non-Reactive (Nonreactive)
--- NOTE | 2024-05-11 16:30 | PC.NURSE ---
TAR vital signs: Please see VS flowsheet for blood transfusion VS.
--- NOTE | 2024-05-11 16:54 | PM.CONSULT ---
Providers/Reason For Consult Consulting Physician/Specialty*: General surgery Reason for Consult*: need for dialysis catheter Attending Physician: Andrew Norman MD Primary Care Provider: Nadiya Torre NP History of Present Illness History of Present Illness Nia Gomes is a 63 year old female with multiple comorbidities who was admitted with sepsis and acute kidney injury. She has been deemed a candidate for dialysis by nephrology team and I have been requested to place a dialysis catheter. Patient is alert and oriented, she is agreeable to proceed with dialysis. Review of Systems General: Reports: 10 or more systems reviewed and unremarkable except in HPI and below Medications/Allergies Home Medications Medication Instructions Recorded Confirmed Last Taken Type cholecalciferol (vitamin D3) 25 2,000 unit PO DAILY 10/21/19 05/09/24 04/29/24 History mcg (1,000 unit) capsule multivitamin 1 tab PO QAM 10/21/19 05/09/24 04/29/24 History cranberry 500 mg capsule 500 mg PO BID 09/28/21 05/09/24 04/29/24 History cetirizine 10 mg capsule (All Day 10 mg PO QDAY #30 caps 04/29/22 05/09/24 04/29/24 Rx Allergy (cetirizine)) oxybutynin chloride 15 mg 15 mg PO QDAY #30 tabs 12/21/22 05/09/24 04/29/24 Rx tablet,extended release 24 hr acetaminophen 500 mg tablet 1,000 mg PO BID 04/29/24 05/09/24 04/29/24 History albuterol sulfate 90 mcg/actuation 2 puff inhalation BID PRN 04/29/24 05/09/24 Unknown History aerosol inhaler (Ventolin HFA) Shortness Of Breath amlodipine 5 mg tablet 5 mg PO DAILY 04/29/24 05/09/24 04/29/24 History atorvastatin 80 mg tablet 80 mg PO QPM 04/29/24 05/09/24 04/28/24 History bisacodyl 10 mg rectal suppository 10 mg UT DAILY PRN Constipation 04/29/24 05/09/24 Unknown History bisacodyl 5 mg tablet 5 mg PO DAILY PRN Constipation 04/29/24 05/09/24 Unknown History budesonide-formoterol HFA 160 2 puff inhalation BID 04/29/24 05/09/24 04/29/24 History mcg-4.5 mcg/actuation aerosol inhaler (Symbicort) carvedilol 6.25 mg tablet 6.25 mg PO DAILY 04/29/24 05/09/24 04/29/24 History diphenhydramine 25 2 tab PO BEDTIME 04/29/24 05/09/24 04/28/24 History mg-acetaminophen 500 mg tablet (Tylenol PM Extra Strength) fluconazole 150 mg tablet 150 mg PO DAILY 04/29/24 05/09/24 04/29/24 History fluticasone propionate 50 1 spray intranasal DAILY 04/29/24 05/09/24 04/29/24 History mcg/actuation nasal spray,suspension glucagon HCl 1 mg solution for 1 mg SUBCUT Q20M PRN BLOOD SUGAR 04/29/24 05/09/24 Unknown History injection (Glucagon (HCl) Emergency Kit) guaifenesin 100 mg/5 mL oral 200 mg PO Q4H PRN COUGH AND 04/29/24 05/09/24 Unknown History liquid (Era-Tussin) CONGESTION guaifenesin 600 mg tablet, 600 mg PO Q12H PRN EXPECTORANT 04/29/24 05/09/24 Unknown History extended release 12 hr (Mucinex) insulin aspart U-100 100 unit/mL See Rx Instructions .Route .COMPLEX 04/29/24 05/09/24 04/29/24 History (3 mL) subcutaneous pen (Novolog FlexPen U-100 Insulin aspart) insulin glargine 100 unit/mL (3 20 unit SUBCUT BID 04/29/24 05/09/24 04/29/24 History mL) subcutaneous pen (Lantus Solostar U-100 Insulin) ipratropium 0.5 mg-albuterol 3 mg 3 ml inhalation Q4H PRN Shortness 04/29/24 05/09/24 Unknown History (2.5 mg base)/3 mL nebulization Of Breath Or Wheezing soln isosorbide mononitrate 30 mg 30 mg PO QAM 04/29/24 05/09/24 04/29/24 History tablet,extended release 24 hr loperamide 2 mg tablet 2 mg PO Q6H PRN Diarrhea 04/29/24 05/09/24 Unknown History magnesium hydroxide 400 mg/5 mL 30 ml PO DAILY PRN Constipation 04/29/24 05/09/24 Unknown History oral suspension (Milk of Magnesia) nystatin 100,000 unit/gram topical 1 applic topical BID PRN Skin 04/29/24 05/09/24 04/29/24 History cream Irritation ondansetron HCl 8 mg tablet 8 mg PO Q8H PRN Nausea And Vomiting 04/29/24 05/09/24 Unknown History ranolazine 500 mg tablet,extended 500 mg PO BID 04/29/24 05/09/24 04/29/24 History release,12 hr sodium phosphates 19 gram-7 118 ml UT DAILY PRN Constipation 04/29/24 05/09/24 Unknown History gram/118 mL enema (Fleet Enema) hydrocodone 5 mg-acetaminophen 325 1 tab PO BEDTIME pain 05/06/24 05/09/24 Unknown History mg tablet nitroglycerin 0.4 mg sublingual 0.4 mg sublingual Q5M PRN Chest 05/06/24 05/09/24 Unknown History tablet Pain nystatin 100,000 unit/gram topical See Rx Instructions .Route .COMPLEX 05/06/24 05/09/24 Unknown History powder triamcinolone acetonide 0.1 % 1 applic topical BID PRN Skin 05/06/24 05/09/24 Unknown History topical cream Irritation amoxicillin 875 mg-potassium 1 tab PO BID #20 tabs 05/08/24 05/09/24 Unknown Rx clavulanate 125 mg tablet doxycycline monohydrate 100 mg 100 mg PO BID #10 tabs 05/08/24 05/09/24 Unknown Rx tablet furosemide 40 mg tablet See Rx Instructions .Route 05/08/24 05/09/24 Unknown Rx .COMPLEX #90 tabs hydralazine 25 mg tablet 25 mg PO TID #60 tabs 05/08/24 05/09/24 Unknown Rx Allergies Allergy/AdvReac Type Severity Reaction Status Date / Time Sulfa (Sulfonamide Allergy Severe ALGY-Anaphy Verified 05/08/24 20:51 Antibiotics) laxis aspirin Allergy Intermediate nose bleeds Verified 05/08/24 20:51 clonidine Allergy Unknown chest pain Verified 05/08/24 20:51 rofecoxib [From Vioxx] Allergy Unknown unknown Verified 05/08/24 20:51 Current Medications Generic Name Dose Route Start Last Admin Trade Name Freq PRN Reason Stop Dose Admin Acetaminophen 650 mg 05/09/24 00:11 05/10/24 17:29 Acetaminophen 325 Mg Tablet PO 650 mg Q6H PRN Administration Mild/Mod Pain Or Temp >/= 101 Hydrocodone Bitart/Acetaminophen 1 tab 05/09/24 21:00 05/10/24 23:01 Hydrocodone-Acetaminophen 5-325 Mg Tablet PO 1 tab BEDTIME SHERYL Administration Albuterol/Ipratropium 3 ml 05/09/24 02:00 05/11/24 13:56 Ipratropium-Albuterol 3 Ml Neb INHALATION 3 ml Q6H.RESP SHERYL Administration Amlodipine Besylate 5 mg 05/09/24 09:00 05/09/24 08:29 Amlodipine 5 Mg Tablet PO 5 mg DAILY SHERYL Administration Aspirin 81 mg 05/09/24 09:00 05/11/24 08:31 Aspirin 81 Mg Ec Tablet PO 81 mg DAILY SHERYL Administration Atorvastatin Calcium 20 mg 05/10/24 18:00 05/10/24 17:29 Atorvastatin 40 Mg Tablet PO 20 mg QPM SHERYL Administration Budesonide 0.5 mg 05/09/24 20:00 05/11/24 07:32 Budesonide 0.5 Mg/2 Ml Neb INHALATION 0.5 mg BID.RESPIRATORY SHERYL Administration Heparin Sodium (Porcine) 0 unit 05/08/24 22:17 05/11/24 06:12 Heparin 5,000 Unit/Ml Inj 1 Ml IVP 2,300 unit PRN PRN Administration Heparin Weight Based Protocol -Subsequent Bolus Protocol Hydralazine HCl 25 mg 05/09/24 09:00 05/09/24 20:56 Hydralazine 25 Mg Tablet PO 25 mg TID SHERYL Administration Vancomycin/PEG/NADA/Lysine/Water 1,250 mg in 250 mls @ 250 mls/hr 05/09/24 02:00 05/10/24 15:55 Vancocin IV Infused Q36H SHERYL Infusion Heparin Sodium/Sodium Chloride 25,000 unit in 500 mls @ 0 mls/hr 05/09/24 09:30 05/11/24 14:32 Heparin Drip IV 10.37 unit/kg/hr CONT SHERYL 24 mls/hr Titration Protocol Per Protocol Norepinephrine Bitartrate 4 mg in 250 mls @ 0 mls/hr 05/10/24 08:54 05/11/24 04:03 Levophed IV 2 mcg/min .Q0M SHERYL 7.5 mls/hr Titration Protocol Per Protocol Dobutamine HCl/Dextrose 500 mg in 250 mls @ 16.391 mls/hr 05/10/24 11:30 05/11/24 04:00 Dobutamine Drip IV 5 mcg/kg/min .[id number] SHERYL 16.39 mls/hr Administration 5 MCG/KG/MIN Furosemide 100 mg/ Sodium 50 mls @ 0 mls/hr 05/10/24 11:30 05/11/24 05:56 Chloride IV 10 mg/hr .Q0M SHERYL 5 mls/hr Administration Protocol Per Protocol Insulin Glargine 20 unit 05/09/24 09:00 05/11/24 09:04 Insulin Glargine 100 Units/1 Ml SUBCUT Not Given BID [facility] Insulin Human Lispro 0 unit 05/09/24 08:00 05/11/24 13:08 Insulin Lispro 100 Unit/1 Ml SUBCUT Not Given WM&BEDTIME [facility] Protocol Isosorbide Mononitrate 30 mg 05/09/24 06:00 05/10/24 06:32 Isosorbide Mononitrate Er 30 Mg Tablet PO 30 mg QAM [facility] Administration Meropenem 1,000 mg 05/09/24 02:00 05/11/24 14:46 Meropenem 1,000 Mg Sdv IVP 1,000 mg Q12H SHERYL Administration Metolazone 5 mg 05/09/24 19:20 05/11/24 08:31 Metolazone 5 Mg Tablet PO 5 mg DAILY [facility] Administration Morphine Sulfate 2 mg 05/09/24 00:11 05/11/24 05:42 Morphine 4 Mg/Ml Sdv 1 Ml IVP 2 mg Q4H PRN Administration SEVERE PAIN Nitroglycerin 0.4 mg 05/08/24 20:58 05/08/24 22:36 Nitroglycerin 0.4 Mg Sublingual Tablet SUBLINGUAL 0.4 mg Q5M PRN Administration CHEST PAIN Ondansetron HCl 4 mg 05/09/24 00:11 05/11/24 13:13 Ondansetron 2 Mg/Ml Sdv 2 Ml IVP 4 mg Q8H PRN Administration vomiting, or N/V if npo Pantoprazole Sodium 40 mg 05/09/24 09:00 05/11/24 08:[address] 40 Mg Tablet PO 40 mg DAILY SHERYL Administration Ranolazine 500 mg 05/09/24 09:00 05/11/24 08:31 Ranolazine (12hr) 500 Mg Tablet PO 500 mg BID SHERYL Administration PFSH Acute PFSH: Medical History (Updated 05/11/24 @ 14:42 by Mary De Dios MD) CHF (congestive heart failure) (~04/16/24) Anemia Chronic kidney disease, unspecified Type 2 diabetes mellitus with diabetic polyneuropathy NSTEMI (non-ST elevated myocardial infarction) Pressure ulcer 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 Dependence on supplemental oxygen UTI (urinary tract infection) Morbidly obese Chronic respiratory failure with hypoxia Peripheral vascular disease COPD (chronic obstructive pulmonary disease) Aortic stenosis Anemia in other chronic diseases classified elsewhere Acquired hyperlipoproteinemia Gastro-esophageal reflux disease without esophagitis Primary generalized (osteo)arthritis Depression, unspecified Anxiety disorder, unspecified Obstructive sleep apnea (adult) (pediatric) Other nonspecific abnormal finding of lung field Body mass index [BMI] 50.0-59.9, adult Morbid (severe) obesity due to excess calories 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 Recurrent UTI Ischemic cardiomyopathy CAD (coronary artery disease) OAB (overactive bladder) Lump of breast, right Hypertension Surgical History S/P cardiac cath H/O: section H/O breast biopsy right Family History Other CAD (coronary artery disease) Hypertension Stroke Social History Smoking and tobacco/nicotine status: former use of tobacco/nicotine Alcohol intake: never Housing: Assisted Vitals/I&O/Wt Last Vital Signs Temp 98.2 F 05/11/24 16:20 Pulse 64 05/11/24 16:20 Resp 30 H 05/11/24 16:20 BP 158/63 05/11/24 16:20 Pulse Ox 93 05/11/24 15:15 O2 Del Method High Flow Nasal Cannula 05/11/24 15:15 O2 Flow Rate 6 05/11/24 15:15 FiO2 50 05/11/24 05:15 05/11/24 05/11/24 05/11/24 06:59 14:59 22:59 Intake Total 740.784 / 1613.821 649.6 / 649.6 0 / 649.6 Output Total 350 / 625 130 / 130 10 / 140 Balance 390.784 / 988.821 519.6 / 519.6 -10 / 509.6 Weight last 48 hrs Weight 244 lb 11.2 oz Weight 240 lb 14.4 oz Physical Exam Neck/C-Spine: OTHER: Normal neck vascular anatomy I was able to visualize the IJ vein on the right side and appears to be patent. Extremity: OTHER: Bilateral groins evaluated but there is no a dialysis catheter due to a large abdominal pannus as well as edema bilateral thight Urinary Catheter Management: Bonilla: Cath Placed During This Visit: no Reason for Continuing Indwelling Catheter: Accurate Measurement of Urinary Output in Critically Ill Patients Data 05/11/24 12:32 05/11/24 12:32 A&P Assessment and plan (1) Cardiogenic shock: (2) Acute renal insufficiency: (3) Acute kidney injury superimposed on CKD: Plan After complete history physical examination and review of all available clinical data have decided to offer the patient a temporary dialysis catheter as requested by nephrology. Patient was informed of all recent benefits of the procedure including the risk of bleeding that is increasing her because of recent heparin use, risk of perforation of the great vessels risk of pneumothorax needing tube thoracostomy, need for additional interventions or even . Patient shows understanding agrees to proceed. The dialysis catheter was placed in our right IJ with ultrasound guidance without complications. Patient remained stable in the ICU and x-ray will be obtained to verify positioning. -Catheter placed in the right IJ -X-ray pending Coding Level of Care Code 86669 Diagnoses Cardiogenic shock R57.0 Acute renal insufficiency N28.9 Acute kidney injury superimposed on CKD N17.9; N18.9
--- NOTE | 2024-05-11 16:57 | PM.ACPR ---
Procedure/Consent Time out: Time Out Performed: Yes Consent: Consent for Procedure: Consent obtained from patient Procedure Narrative: Patient was in a supine position in the ICU, the right neck was interrogated with ultrasound and after finding a suitable target I proceeded to prepped and draped the neck in the usual sterile fashion. The patient was placed on the Trendelenburg position. Timeout was conducted. Identified the right IJ vein with ultrasound and infiltrated the skin on top of it with lidocaine. I then proceeded to cannulate the vein with an 18-gauge needle using ultrasound guidance and immediate return of blood was noted once the tube was seen entering the vein. A wire was advanced through the needle into the vein and the needle was removed, the position of the wire was verified with ultrasound. I then proceeded to made a 0.5 cm incision at the level of the wire insertion site in the neck to facilitate passage of dilators. Sick patient Telcyta says of dilators were passed over the wire, I then proceeded to advance a double-lumen 16 cm dialysis catheter over the wire into the IJ vein, the wire was then removed leaving the catheter in place. Both ports were noted to be flushing working perfectly fine. The catheter was fixed to the skin using #3-0 silk. A sterile dressing was applied as well as a Biopatch. Before finishing the procedure a test of the catheter again was working well with adequate fluid to allow for dialysis. The patient tolerated well the procedure remained in the ICU in stable condition Acute Procedures Epistaxis Control: Time out performed: Yes
--- NOTE | 2024-05-11 17:29 | XRR_ITS ---
PROCEDURE INFORMATION: Exam: XR Chest Exam date and time: 05/11/2024 5:43 PM Age: 63 years old Clinical indication: Other non-vascualr catheter or device placement; Temp hd cath; Patient HX: RT temp dialysis cath placement; Additional info: Hd cath placement TECHNIQUE: Imaging protocol: Radiologic exam of the chest. Views: 1 view. COMPARISON: CR XR chest 1V portable [id number] 05/10/2024 11:34 AM FINDINGS: Tubes, catheters and devices: A right-sided central line has its tip in good position within the SVC. PICC from the right arm with the tip in the distal SVC in satisfactory position. Lungs: Patchy infiltrate involves both perihilar regions. Pleural spaces: Unremarkable. No pleural effusion. No pneumothorax. Heart/Mediastinum: Prominent cardiomegaly is noted. Bones/joints: Unremarkable. XR/XR chest 1V portable [id number] IMPRESSION: Good central line positioning
[2024-05-11] MEDS: acetaZOLAMIDE 250 mg Tablet PO (17:43)
[2024-05-11] MEDS: atorvastatin 40 mg Tablet 20 MG PO (17:43)
[2024-05-11 17:53] LABS: Glucose Point of Care 136 mg/dL (70-110)
--- NOTE | 2024-05-11 18:36 | PC.NURSE ---
Shift summmary: Pt looks better this am. Her BUN and creatinine, and potassium continue to creep up. Heparin, dobutamine, Levophed and Lasix continue to infuse. Levophed and Dobutamine had rate adjustments. Her arm burises are now dark purple. The right has more bruising due to BP cuff no other place for it at this time. She has PAD, her pedal pulses continue to need dopplered. HD cath inserted this evening. Her Blood sugar was low this am, apple juice given. Lantus has been discontinued. She has not needed Sliding scale covere this shift either. Urine output of 210 this shift.
--- NOTE | 2024-05-11 19:14 | PC.NURSE ---
Blood transfusion nearly completed. Lab work will be drawn late, in about an hour, due to transfusion.
--- NOTE | 2024-05-11 19:17 | PM.MISC ---
Miscellaneous Note Purpose of Documentation: Update on patient care Note: Xray reviewed, dialysis catheter is cleared to be used
[2024-05-11 20:40] LABS: Glucose Point of Care 186 mg/dL (70-110)
[2024-05-11] MEDS: DOBUTamine drip 500 MG/250 ML PREMIX 9.83 MG IV (20:47)
[2024-05-11] MEDS: insulin lispro 100 unit/1 mL SUBCUT (20:47)
[2024-05-11] MEDS: HYDROcodone-acetaminophen 5-325 mg Tablet 1 TAB PO (20:47)
[2024-05-11] MEDS: norepinephrine 4 MG/250 ML BAG 22.5 MG IV (21:37)
[2024-05-11 21:48] LABS: Hematocrit 24.5 % (36-47)
[2024-05-11 22:41] LABS: Partial Thromboplastin Time 60.1 SECONDS (23.9-36.7)
[2024-05-12] VITALS (88 sets, daily range): BP systolic 91–205; BP diastolic 30–102; PULSE 50–73; RESP 11–32; TEMP 36.6–36.9; O2SAT 86–100
[2024-05-12] MEDS: heparin drip 25,000 UNIT/500 ML PREMIX 24 UNIT IV (01:55)
[2024-05-12] MEDS: vancomycin 1,250 MG/250 ML PIGGYBACK 250 MG IV (02:07)
[2024-05-12] MEDS: meropenem 1,000 mg SDV 1000 MG IVP ×2 (02:07→15:19)
[2024-05-12] MEDS: ipratropium-albuterol 3 mL Neb INHALATION ×4 (03:06→20:01)
--- NOTE | 2024-05-12 03:07 | PC.HD ---
Mid-treatment pt went into junctional rhythm with bigeminal PVCs, pt asymptomatic, spontaneously converted back to SR after appx 30 seconds. Arrhythmia recurred right at end of treatment, this time lasting appx 4 minutes, converted when pt's blood nearly completely returned. Pt asymptomatic. Dr Roth ntthalia. Otherwise pt tolerated treatment well, levophed remained at 6 mcg/min throughout treatment without hypotensive episodes.
[2024-05-12] MEDS: FUROsemide 100 MG in sodium chloride 0.9% 40 ML IV ×2 (03:26→15:28)
[2024-05-12 03:34] LABS: Basophils % 0.2 %; Eosinophils # 0.2 10^3/uL (0.0-0.8); Hematocrit 24.8 % (36-47); Lymphocytes # 0.6 10^3/uL (0.8-4.8); Lymphocytes % 6.3 %; Mean Corpuscular HGB Conc 32.3 g/dL (30-55); Mean Corpuscular Hemoglobin 31.6 pg (27-33); Mean Platelet Volume 9.6 fL (7.4-10.4); Monocytes # 0.6 10^3/uL (0.2-0.9); Neutrophils # 7.51 10^3/uL (1.8-7.7); Neutrophils % 83.2 %; Nucleated Red Blood Cells % 0.2 %; Platelet Count 187 10^3/cmm (157-399); Red Blood Count 2.53 10^6/uL (3.85-5.65); Red Cell Distribution Width 16.1 % (12.1-15.1); White Blood Count 9.03 10^3/uL (3.29-11.43)
[2024-05-12 04:02] LABS: Partial Thromboplastin Time 87.9 SECONDS (23.9-36.7)
[2024-05-12 04:03] LABS: Calcium 8.1 mg/dL (8.5-10.5)
[2024-05-12 04:04] LABS: Albumin Level 3.1 g/dL (3.5-5.2); Alkaline Phosphatase 245 U/L (35-105); Blood Urea Nitrogen 43 mg/dL (8-23); Calcium 8.2 mg/dL (8.5-10.5); Carbon Dioxide 24 mmol/L (22-29); Chloride 99 mmol/L (98-107); Creatinine Clr Calc Pharmacy 26.7765; Globulin 2.8 g/dL (1.3-4.6); Glomerular Filtration Rate 20.3 mL/min (90-130); Glucose 96 mg/dL (65-115); Osmolality Calculated 301 mOsm/kg (285-295); Sodium 140 mmol/L (136-145); Total Bilirubin 0.8 mg/dL (0.15-1.2); Total Protein 5.9 g/dL (6.6-8.7)
[2024-05-12 04:05] LABS: Magnesium 1.9 mg/dL (1.7-2.3); Phosphorus 5.1 mg/dL (2.5-4.5)
[2024-05-12 04:06] LABS: Anion Gap 20.8 (5-19); Potassium 3.8 mmol/L (3.5-5.1)
[2024-05-12 04:07] LABS: Parathyroid Hormone 744.9 pg/mL (15-65)
[2024-05-12 04:16] LABS: 25 Hydroxy Vitamin D 22 ng/mL (30-100)
[2024-05-12 04:17] LABS: Alanine Aminotransferase 1972 U/L (0-33)
[2024-05-12 04:18] LABS: Aspartate Amino Transferase 2820 U/L (0-32); Ferritin 5013 ng/mL (15-150)
[2024-05-12 04:22] LABS: Hepatitis A Antibody IgM Non-Reactive (Nonreactive); Hepatitis B Core AB, Total Non-Reactive (Nonreactive); Hepatitis B Surface Antigen Non-Reactive (Nonreactive); Hepatitis C Virus Antibody Non-Reactive (Nonreactive)
[2024-05-12] MEDS: budesonide 0.5 mg/2 mL Neb INHALATION ×2 (07:37→20:01)
[2024-05-12 08:27] LABS: Glucose Point of Care 84 mg/dL (70-110)
--- NOTE | 2024-05-12 08:56 | PM.PN ---
Subjective Subjective: The patient was seen and examined. Overnight events noted. Patient complains of neck pain by the site of her dialysis catheter. Patient had VPCs during dialysis. He is urinating. Has no nausea or vomiting. No diarrhea continues with leg pains and edema and dyspnea on exertion and orthopnea. Medications: Reviewed: Yes Medication Review Details: Current Medications Acetaminophen (Acetaminophen 325 Mg Tablet) 650 mg PO Q6H PRN PRN Reason: Mild/Mod Pain Or Temp >/= 101 Last Admin: 05/10/24 17:29 Dose: 650 mg Hydrocodone Bitart/Acetaminophen (Hydrocodone-Acetaminophen 5-325 Mg Tablet) 1 tab PO BEDTIME SHERYL Last Admin: 05/11/24 20:47 Dose: 1 tab Acetazolamide (Acetazolamide 250 Mg Tablet) 250 mg PO BID [facility] Last Admin: 05/11/24 17:43 Dose: 250 mg Albuterol/Ipratropium (Ipratropium-Albuterol 3 Ml Neb) 3 ml INHALATION Q6H.RESP [facility] Last Admin: 05/12/24 07:37 Dose: 3 ml Amlodipine Besylate (Amlodipine 5 Mg Tablet) 5 mg PO DAILY SHERYL Last Admin: 05/09/24 08:29 Dose: 5 mg Aspirin (Aspirin 81 Mg Ec Tablet) 81 mg PO DAILY SHERYL Last Admin: 05/11/24 08:31 Dose: 81 mg Atorvastatin Calcium (Atorvastatin 40 Mg Tablet) 20 mg PO QPM SHERYL Last Admin: 05/11/24 17:43 Dose: 20 mg Budesonide (Budesonide 0.5 Mg/2 Ml Neb) 0.5 mg INHALATION BID.RESPIRATORY [facility] Last Admin: 05/12/24 07:37 Dose: 0.5 mg Glucagon (Glucagon 1 Mg/Ml Kit 1 Ml) 1 mg IM ONCE PRN; Protocol PRN Reason: Adult Acute Hypoglycemia Nursing Prot. Heparin Sodium (Porcine) (Heparin 5,000 Unit/Ml Inj 1 Ml) 0 unit IVP PRN PRN; Protocol PRN Reason: Heparin Weight Based Protocol -Subsequent Bolus Last Admin: 05/11/24 06:12 Dose: 2,300 unit Hydralazine HCl (Hydralazine 25 Mg Tablet) 25 mg PO TID [facility] Last Admin: 05/09/24 20:56 Dose: 25 mg Hydralazine HCl (Hydralazine 20 Mg/Ml Inj 1 Ml) 10 mg IVP Q4H PRN PRN Reason: SBP > 170 Vancomycin/PEG/NADA/Lysine/Water (Vancocin) 1,250 mg in 250 mls @ 250 mls/hr IV Q36H SHERYL Last Infusion: 05/12/24 04:30 Dose: Infused Dextrose (D5w) 500 mls @ 0 mls/hr IV ONCE PRN; Protocol PRN Reason: Adult Acute Hypoglycemia Prot Dextrose (D10w) 125 mls @ 750 mls/hr IV PRN PRN; Protocol PRN Reason: Adult Acute Hypoglycemia Nursing Protocol Dextrose (D10w) 250 mls @ 1,000 mls/hr IV PRN PRN; Protocol PRN Reason: Adult Acute Hypoglycemia Nursing Protocol Heparin Sodium/Sodium Chloride (Heparin Drip) 25,000 unit in 500 mls @ 0 mls/hr IV CONT SHERYL; Protocol Last Titration: 05/12/24 04:11 Dose: 8.21 unit/kg/hr, 19 mls/hr Norepinephrine Bitartrate (Levophed) 4 mg in 250 mls @ 0 mls/hr IV .Q0M SHERYL; Protocol Last Titration: 05/12/24 03:57 Dose: 4 mcg/min, 15 mls/hr Dobutamine HCl/Dextrose (Dobutamine Drip) 500 mg in 250 mls @ 16.391 mls/hr IV .[id number] SHERYL Last Admin: 05/11/24 20:47 Dose: 3 mcg/kg/min, 9.83 mls/hr Furosemide 100 mg/ Sodium (Chloride) 50 mls @ 0 mls/hr IV .Q0M SHERYL; Protocol Last Admin: 05/12/24 03:26 Dose: 10 mg/hr, 5 mls/hr Albumin Human (Albumin) 12.5 gm in 50 mls @ 60 mls/hr IV PRN PRN PRN Reason: Hypotension and/or symptomatic Insulin Glargine (Insulin Glargine 100 Units/1 Ml) 20 unit SUBCUT BID SHERYL Last Admin: 05/11/24 09:04 Dose: Not Given Insulin Human Lispro (Insulin Lispro 100 Unit/1 Ml) 0 unit SUBCUT WM&BEDTIME [facility]; Protocol Last Admin: 05/11/24 20:47 Dose: 6 unit Isosorbide Mononitrate (Isosorbide Mononitrate Er 30 Mg Tablet) 30 mg PO QAM [facility] Last Admin: 05/10/24 06:32 Dose: 30 mg Meropenem (Meropenem 1,000 Mg Sdv) 1,000 mg IVP Q12H [facility] Last Admin: 05/12/24 02:07 Dose: 1,000 mg Metolazone (Metolazone 5 Mg Tablet) 5 mg PO DAILY [facility] Last Admin: 05/11/24 08:31 Dose: 5 mg Morphine Sulfate (Morphine 4 Mg/Ml Sdv 1 Ml) 2 mg IVP Q4H PRN PRN Reason: SEVERE PAIN Last Admin: 05/11/24 23:16 Dose: 2 mg Naloxone HCl (Naloxone 0.4 Mg/Ml Sdv) 0.1 mg IVP Q2M PRN PRN Reason: OPIATERV Nitroglycerin (Nitroglycerin 0.4 Mg Sublingual Tablet) 0.4 mg SUBLINGUAL Q5M PRN PRN Reason: CHEST PAIN Last Admin: 05/08/24 22:36 Dose: 0.4 mg Ondansetron HCl (Ondansetron 2 Mg/Ml Sdv 2 Ml) 4 mg IVP Q8H PRN PRN Reason: vomiting, or N/V if npo Last Admin: 05/11/24 13:13 Dose: 4 mg Pantoprazole Sodium (Pantoprazole Dr 40 Mg Tablet) 40 mg PO DAILY [facility] Last Admin: 05/11/24 08:31 Dose: 40 mg Ranolazine (Ranolazine (12hr) 500 Mg Tablet) 500 mg PO BID [facility] Last Admin: 05/11/24 17:43 Dose: 500 mg Sodium Chloride (Sodium Chloride 0.9% 100 Ml Bag) 50 ml IV PRN PRN PRN Reason: Blood transfusion prime and flush Stop: 05/12/24 13:48 Vitals/I&O/Wt Last Vital Signs Temp 97.9 F 05/12/24 03:03 Pulse 61 05/12/24 07:43 Resp 19 H 05/12/24 07:38 BP 92/63 05/12/24 06:15 Pulse Ox 95 05/12/24 07:38 O2 Del Method High Flow Nasal Cannula 05/12/24 07:38 O2 Flow Rate 4 05/12/24 07:38 FiO2 50 05/11/24 05:15 05/11/24 05/12/24 05/12/24 22:59 06:59 14:59 Intake Total 1046.417 / 9202.116 7797.900 / 2761.167 Output Total 110 / 240 2248 / 2488 Balance 936.417 / 1486.267 -1213.100 / 273.167 Weight last 48 hrs Weight 113.443 kg Weight 113.2 kg Weight 110.994 kg Physical Exam Narrative: The patient is on Levophed at 4 dobutamine at 3. Lasix drip at 10. She is on a heparin drip. She is interactive awake alert and oriented. Blood pressure is stable, on low side. HEENT normocephalic atraumatic. Neck is supple, positive dialysis catheter Lungs have crackles bilaterally. Heart regular systolic murmur. Abdomen is soft positive bowel sounds. Extremities have edema 2+. Poor pulses eschar in her left leg. Neuro awake alert oriented x 3. Urinary Catheter Management: Bonilla: Cath Placed During This Visit: no Reason for Continuing Indwelling Catheter: Accurate Measurement of Urinary Output in Critically Ill Patients Data 05/12/24 03:03 05/12/24 03:03 A&P Assessment and plan (1) Acute kidney injury superimposed on CKD: 63-year-old lady obesity hypertension diabetes heart failure reduced EF here with non-ST elevation OH and cardiogenic shock. 1. 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 Imaging reviewed, CT scan April 29, 2024 -she has a small left adrenal adenoma, right adrenal gland is normal, she has fatty atrophy of the pancreas splenic artery calcification dense vascular calcification however no hydronephrosis in either kidney. She does have parenchymal scarring both kidneys no evidence of obstructing renal or ureteral calculi. She has a question of a cecal neoplasm. 2. Acute kidney injury-likely on the basis of cardiogenic shock. Urinalysis from May 09 results states nonreportable we will repeat a urinalysis, urine albumin urine protein urine creatinine urine electrolytes. Hyperkalemia has improved. -Patient had a short dialysis yesterday and developed PVCs. Will hold dialysis today. Metabolic acidosis improving 3. Transaminitis has started to improve will trend LFTs. 5. Non-ST elevation OH low EF aortic valve disease appreciate Dr. De Dios of cardiology Leukocytosis improving Anemia with elevated MCV -ferritin 5000- no iv iron, consider epo. Above discussed in detail with the patient. . The patient consented to a telehealth visit. The patient was seen and examined using A/V equipment as a telehealth visit. Discussed in detail with the patient and the nurse Plan See above. Cardiogenic shock monitor for renal recovery Attestations Medical Necessity Statement*: Cardiogenic shock on pressors. TAWNY requiring dialysis hopefully now monitor for renal recovery Time Spent in Patient Care: 16 - 35 minutes (>than 50% of time spent in counselling and/or direct pt care on unit). Coding Level of Care Code Acute Code for Chg Fwd Diagnoses Acute kidney injury superimposed on CKD N17.9; N18.9
[2024-05-12] MEDS: pantoprazole DR 40 mg Tablet PO (09:24)
[2024-05-12] MEDS: aspirin 81 mg EC Tablet PO (09:24)
[2024-05-12] MEDS: metOLazone 5 MG Tablet PO (09:24)
[2024-05-12] MEDS: ranolazine (12HR) 500 mg Tablet PO ×2 (09:25→17:35)
[2024-05-12 10:29] LABS: Partial Thromboplastin Time 69.8 SECONDS (23.9-36.7)
[2024-05-12] MEDS: norepinephrine 4 MG/250 ML BAG 15 MG IV (11:10)
--- NOTE | 2024-05-12 11:10 | PC.NURSE ---
Heparin gtt: 24ml/hr entered in error. COrrect dose is 19ml/hr, and entered at same time.
[2024-05-12 11:25] LABS: Glucose Point of Care 206 mg/dL (70-110)
[2024-05-12] MEDS: insulin lispro 100 unit/1 mL SUBCUT ×2 (11:48→20:27)
[2024-05-12] MEDS: FUROsemide 10 mg/mL SDV 10mL 100 MG IVP (11:50)
[2024-05-12 12:11] LABS: Vancomycin Random 35.7 ug/mL (20.0-40.0)
[2024-05-12 14:54] LABS: Anion Gap 18.7 (5-19); Blood Urea Nitrogen 46 mg/dL (8-23); Calcium 8.1 mg/dL (8.5-10.5); Carbon Dioxide 24 mmol/L (22-29); Chloride 93 mmol/L (98-107); Glomerular Filtration Rate 17.7 mL/min (90-130); Glucose 220 mg/dL (65-115); Osmolality Calculated 293 mOsm/kg (285-295); Potassium 3.7 mmol/L (3.5-5.1); Sodium 132 mmol/L (136-145)
--- NOTE | 2024-05-12 15:02 | P.PN_ITS ---
Subjective 2 Subjective: No acute events overnight. Patient underwent hemodialysis yesterday and 1500 cc of fluid was removed. She remains on Levophed of 4, dobutamine of 3. Mean artery pressure maintained over 65. Urine output overnight of around 700 cc.. She has remained on Lasix drip of 10. Examination patient laying comfortably in bed. States she did have good bowel movements last night. Saturating more than 92% on 4 L of high flow nasal cannula. Vitals/I&O/Wt Last Vital Signs Temp 97.8 F 05/12/24 07:45 Pulse 65 05/12/24 14:09 Resp 17 05/12/24 14:03 BP 126/32 05/12/24 10:30 Pulse Ox 94 05/12/24 14:03 O2 Del Method High Flow Nasal Cannula 05/12/24 14:03 O2 Flow Rate 4 05/12/24 14:03 FiO2 50 05/11/24 05:15 05/12/24 05/12/24 05/12/24 06:59 14:59 22:59 Intake Total 1034.900 / 2761.167 842.263 / 842.263 Output Total 2248 / 2488 360 / 360 Balance -1213.100 / 273.167 482.263 / 482.263 Weight last 48 hrs Weight 113.443 kg Weight 113.2 kg Weight 110.994 kg Physical Exam 2 Narrative: General: No acute distress, AO x3, morbidly obese HEENT: PERRLA, pupils bilaterally equal and reactive, pallors not present Chest: Mitobronitol breaths in the lower lung mosqueda with occasional rhonchi, decreased air entry bilateral lower zone CVS: S1-S2 regular, no murmurs, no tachycardia, no gallops, no rubs Abdomen: Soft, nontender, no organomegaly, bowel sounds present Extremities: Bilateral lymphedema. Stasis dermatitis bilaterally. Right ankle bruising laterally. No open defects. Left upper thigh with known chronic ulcer, currently with overlying dressing. Urinary Catheter Management: Bonilla: Cath Placed During This Visit: no Reason for Continuing Indwelling Catheter: Accurate Measurement of Urinary Output in Critically Ill Patients Data 05/12/24 03:03 05/12/24 14:28 Micro: Microbiology 05/09/24 20:25 Urine Culture - Preliminary Urine,Clean Catch Yeast species A&P Assessment and plan (1) NSTEMI (non-ST elevated myocardial infarction): Appreciate troponin cycle. Cardiology on board. After discussion between cardiology team and patient decision was made to treat medically. Continue with heparin drip. Continue with aspirin, atorvastatin 20 mg daily. Dose of statin changed as per lipid panel results. Currently Imdur and Coreg on hold given cardiogenic shock. Appreciate A1c, lipid panel. Echocardiogram results shows an EF of 2025%, grade 1 diastolic dysfunction, dilated LA, mild MR, severe low-flow gradient aortic stenosis with gradient of 18 mmHg, mild pulmonary hypertension with PASP of 40 to 45 mmHg, dilated IVC, severe global LV hypokinesia with akinetic apical wall. (2) Cardiogenic shock: Keep mean artery pressure over 65. Continue with Levophed and dobutamine. Titrate Levophed accordingly. For now continue with dobutamine at 5. Monitor for arrhythmia. Lactate normal yesterday. Repeat lactate today. Concerns for slow flow cardiogenic shock. Strict input charting, daily weights. (3) CHF (congestive heart failure): Strict input and output charting, daily weights. Continue with Lasix drip for now. Oxygen supplementation keeping saturation over 90%. Patient down to hyponasal cannula. Given poor urine response patient will most likely need dialysis. Patient is agreeable. Will plan as per nephrology recommendations and hemodynamics. Bonilla catheterization. Fluid restriction to less than 1500 cc. (4) Hypoxia: Baseline oxygen of supplementation requirement of 2 L. Recently as high as 4 L. Appreciate ABG. Currently on high flow nasal cannula. BiPAP as needed. Repeat ABG in afternoon. Most likely in setting of congestive heart failure. Component of obstructive sleep apnea and COPD as well. proBNP more than 70,000. Treatment of CHF as above. Continue with DuoNeb every 6 hour, Pulmicort twice daily. (5) Acute kidney injury superimposed on CKD: Worsening renal functions with elevated BUN, hyponatremia. For now hyperkalemia and metabolic acidosis seems to be resolving. Patient is oliguric. Given concerns for oliguria even though patient has been on Levophed and dobutamine with mean arterial pressure maintained over 65, Lasix drip will plan to consult nephrology for possible need of dialysis. Patient is agreeable. Medical reconciliation done for nephrotoxic drugs. Check vancomycin random levels. Appreciate urinalysis and urine lites from admission. Repeat BMP in afternoon. Depending on the plan for dialysis will consult surgery. Dialysis. (6) Chronic kidney disease, unspecified: Baseline creatinine more recently ranging from 2.2-2.4. Currently 2.3. Medical reconciliation done for nephrotoxic drugs. Patient has chronic Bonilla catheterization. Change recently within the last 1 week. Continue to monitor urine output. (7) Type 2 diabetes mellitus with diabetic polyneuropathy: A1c 5.3. Episode of hypoglycemia today morning. Insulin sliding scale at low-dose protocol. Hold off on Lantus for now given worsening renal functions. (8) Eschar of lower leg: LLE decubitus ulcer for several months followed by wound care s/p recent debridemnet on 05/07 empiric meropenem and vanc given recent outpatient cx with ESBL Klebsiella and MRSA. No cultures available from recent debridement Per review of op note, necrotic fat was encountered in the bed of ulcer, all necrotic fat was evacuated, wound was noted to extend into the subcutaneous tissue to the level of fascia. I&D was performed down to this level. No adalberto abscess was encountered in the surgical bed. Follow-up blood culture Currently has leukocytosis, concern for cellulitis and soft tissue infection of the left thigh. Venous duplex negative for DVT on 05/05/2024. Do not see any recent arterial studies; would avoid CTA with runoff for now given CKD, risk for LETICIA. X-ray of the thigh negative for osteomyelitis. CRP elevated. Check arterial duplex given concerns for peripheral vascular disease. Dressing change per wound care instructions from assisted-it appears she was on topical meropenem/tobramycin/linezolid and clindamycin preparation-we will have to check with pharmacy if this can be formulated and dispensed here. Given the wound cultures patient will most likely need to be discharged on IV antibiotics including ertapenem and vancomycin for at least 14 days. Case management alerted. Once blood cultures remain negative we will plan for PICC line placement. (9) Bradycardia: (10) Anemia: Baseline hemoglobin around 9. More recently since recent admission around 7.6- 8.9. Received blood transfusion last admission. Appreciate iron panel, vitamin B12 and folate level. Target hemoglobin more than 8. Post 1 unit of blood transfusion. (11) COPD (chronic obstructive pulmonary disease): (12) Goals of care, counseling/discussion: Discussed in detail with the patient. Discussed unfortunately she has become acutely sick with cardiac dysfunction secondary to CO leading to multiorgan dysfunction. Discussed about currently patient being congestive heart failure and cardiogenic shock. Patient is awake and alert. States her sister Antonina will be the DPOA. For now she wants everything done to keep her alive. She is agreeable for chest compression, mechanical ventilation if needed. She is agreeable for dialysis if needed. 05/11: Again had an extensive goals of care discussion given critical nature of patient's illness secondary to multiorgan dysfunction in setting of cardiogenic shock, aortic stenosis and slow flow congestive heart failure with worsening of renal functions possible need of dialysis. Discussed with multiple family members including brother and sister at bedside. Patient wishes to continue to remain full code. She is agreeable with dialysis if needed. (13) Transaminitis: Most likely in setting of congestive heart failure and cardiogenic shock. Monitor daily. Alkaline phosphatase normal. Bilirubin normal. Plan Analgesia: Julian nightly, morphine as needed Glycemic control: A1c 5.2. Episode of hypoglycemia. Continue low-dose sliding scale. Hold off on Lantus. Nutrition: Cardiac diet CODE STATUS: Full code PUD prophylaxis: Protonix DVT prophylaxis: Heparin drip will be sufficient for PUD prophylaxis Discharge planning: Back to SNF once patient is medically stable Continue care at ICU. Plan for the day: Underwent hemodialysis yesterday. Renal function stable today. Improvement in urine output overnight. Continue with Lasix drip and metolazone for now. Repeat BMP in afternoon. Depending on the urine output in next few hours we will plan for possible bolus of Lasix today. Keep mean artery pressure 65. For now continue with current dose of pressors. Will continue dobutamine for now given improvement in liver functions. Repeat lactic acid level in morning. Continue with aspirin, Plavix, statin. Appreciate cardiology recommendation. Hemoglobin improved to around 8. Continue with IV vancomycin and meropenem. Vancomycin random level from today morning in error as patient received vancomycin at the same time when random level was drawn. Will repeat vancomycin random level and dose vancomycin accordingly. Blood sugar stable. Continue to hold off on Lantus for now. Continue with sliding scale. This documentation was created by [employer] generator operator software. Every effort was made to ensure accuracy of generator operator. Any obvious errors or omissions should be clarified with the author of the document. Attestations 2 Medical Necessity Statement*: Requires further hospitalization for management of slow flow cardiogenic shock, congestive heart failure, TAWNY on CKD, shock liver in setting of non-ST elevation CO started on new hemodialysis Critical Care Time: The high probability of a clinically significant, sudden or life threatening deterioration of the patient's [cardiac, renal, pulmonary] system(s) required my full and direct attention, intervention and personal management. The critical care time is as shown. This time is in addition to time spent performing any reported procedures but includes the following: [x] Data and vital sign review and interpretation [x] Patient assessment, examination and intervention [x] Documentation [x] Medication orders and management Critical Care Time (min): 80 Coding Level of Care Code Critical Care >/= 30 minutes Critical care time (in minutes): 80 The high probability of a clinically significant, sudden or life threatening deterioration, as referenced in this documentation, required my full and direct attention, intervention and personal management. The critical care time shown is in addition to time spent performing any reported separately billable procedures and includes the following: [x] Data and vital sign review and interpretation [x ] Patient assessment, examination and intervention [x] Medication orders and management [x] Patient/Family updates as able [x] Care Coordination and Documentation. Other Coding Information This patient has a high probability of clinically significant, sudden or life threatening deterioration of the patient's (neurological/pulmonary/cardiac/renal/ID/endocrine) systems required my full, direct attention, the highest level of physician preparedness for urgent intervention and personal management. I managed/supervised life or organ supporting interventions that required frequent physician assessment. I devoted my full attention in the ICU to the direct care of this patient for the period of time indicated above. Time I spent with family or surrogate(s) is included only if the patient was incapable of providing necessary information or participating in decision making. This time includes the following services provided: Telemetry review Hemodynamic interpretation, assessment and management Review and interpretation of CXR Review and interpretation of lab values Review and interpretation of microbiologic data and culture results Review of medications and administration Review and interpretation of Nutrition requirements and management Discussion of management with other consultants and services Clinical update to family members Diagnoses NSTEMI (non-ST elevated myocardial infarction) I21.4 Cardiogenic shock R57.0 CHF (congestive heart failure) I50.9 Hypoxia R09.02 Acute kidney injury superimposed on CKD N17.9; N18.9 Chronic kidney disease, unspecified N18.9 Type 2 diabetes mellitus with diabetic polyneuropathy E11.42 Eschar of lower leg R23.4 Bradycardia R00.1 Anemia D64.9 COPD (chronic obstructive pulmonary disease) J44.9 Goals of care, counseling/discussion Z71.89 Transaminitis R74.01
[2024-05-12 15:15] LABS: Creatinine Clr Calc Pharmacy 23.8332
[2024-05-12] MEDS: clopidogrel 300 mg Tablet PO (15:16)
[2024-05-12] MEDS: enoxaparin 120 mg/0.8 mL Syringe 110 MG SUBCUT (15:17)
--- NOTE | 2024-05-12 16:16 | PM.PN ---
Subjective Subjective: Feeling better today, patient had dialysis overnight. Denies any chest pain. No significant arrhythmia except occasional bigeminy. Medications: Reviewed: Yes Medication Review Details: Current Medications Acetaminophen (Acetaminophen 325 Mg Tablet) 650 mg PO Q6H PRN PRN Reason: Mild/Mod Pain Or Temp >/= 101 Last Admin: 05/10/24 17:29 Dose: 650 mg Hydrocodone Bitart/Acetaminophen (Hydrocodone-Acetaminophen 5-325 Mg Tablet) 1 tab PO BEDTIME [facility] Last Admin: 05/11/24 20:47 Dose: 1 tab Acetazolamide (Acetazolamide 250 Mg Tablet) 250 mg PO BID SHERYL Last Admin: 05/11/24 17:43 Dose: 250 mg Albuterol/Ipratropium (Ipratropium-Albuterol 3 Ml Neb) 3 ml INHALATION Q6H.RESP [facility] Last Admin: 05/12/24 07:37 Dose: 3 ml Amlodipine Besylate (Amlodipine 5 Mg Tablet) 5 mg PO DAILY SHERYL Last Admin: 05/09/24 08:29 Dose: 5 mg Aspirin (Aspirin 81 Mg Ec Tablet) 81 mg PO DAILY SHERYL Last Admin: 05/11/24 08:31 Dose: 81 mg Atorvastatin Calcium (Atorvastatin 40 Mg Tablet) 20 mg PO QPM SHERYL Last Admin: 05/11/24 17:43 Dose: 20 mg Budesonide (Budesonide 0.5 Mg/2 Ml Neb) 0.5 mg INHALATION BID.RESPIRATORY [facility] Last Admin: 05/12/24 07:37 Dose: 0.5 mg Glucagon (Glucagon 1 Mg/Ml Kit 1 Ml) 1 mg IM ONCE PRN; Protocol PRN Reason: Adult Acute Hypoglycemia Nursing Prot. Heparin Sodium (Porcine) (Heparin 5,000 Unit/Ml Inj 1 Ml) 0 unit IVP PRN PRN; Protocol PRN Reason: Heparin Weight Based Protocol -Subsequent Bolus Last Admin: 05/11/24 06:12 Dose: 2,300 unit Hydralazine HCl (Hydralazine 25 Mg Tablet) 25 mg PO TID SHERYL Last Admin: 05/09/24 20:56 Dose: 25 mg Hydralazine HCl (Hydralazine 20 Mg/Ml Inj 1 Ml) 10 mg IVP Q4H PRN PRN Reason: SBP > 170 Vancomycin/PEG/NADA/Lysine/Water (Vancocin) 1,250 mg in 250 mls @ 250 mls/hr IV Q36H SHERYL Last Infusion: 05/12/24 04:30 Dose: Infused Dextrose (D5w) 500 mls @ 0 mls/hr IV ONCE PRN; Protocol PRN Reason: Adult Acute Hypoglycemia Prot Dextrose (D10w) 125 mls @ 750 mls/hr IV PRN PRN; Protocol PRN Reason: Adult Acute Hypoglycemia Nursing Protocol Dextrose (D10w) 250 mls @ 1,000 mls/hr IV PRN PRN; Protocol PRN Reason: Adult Acute Hypoglycemia Nursing Protocol Heparin Sodium/Sodium Chloride (Heparin Drip) 25,000 unit in 500 mls @ 0 mls/hr IV CONT SHERYL; Protocol Last Titration: 05/12/24 04:11 Dose: 8.21 unit/kg/hr, 19 mls/hr Norepinephrine Bitartrate (Levophed) 4 mg in 250 mls @ 0 mls/hr IV .Q0M SHERYL; Protocol Last Titration: 05/12/24 03:57 Dose: 4 mcg/min, 15 mls/hr Dobutamine HCl/Dextrose (Dobutamine Drip) 500 mg in 250 mls @ 16.391 mls/hr IV .[id number] SHERYL Last Admin: 05/11/24 20:47 Dose: 3 mcg/kg/min, 9.83 mls/hr Furosemide 100 mg/ Sodium (Chloride) 50 mls @ 0 mls/hr IV .Q0M SHERYL; Protocol Last Admin: 05/12/24 03:26 Dose: 10 mg/hr, 5 mls/hr Albumin Human (Albumin) 12.5 gm in 50 mls @ 60 mls/hr IV PRN PRN PRN Reason: Hypotension and/or symptomatic Insulin Glargine (Insulin Glargine 100 Units/1 Ml) 20 unit SUBCUT BID SHERYL Last Admin: 05/11/24 09:04 Dose: Not Given Insulin Human Lispro (Insulin Lispro 100 Unit/1 Ml) 0 unit SUBCUT WM&BEDTIME SHERYL; Protocol Last Admin: 05/11/24 20:47 Dose: 6 unit Isosorbide Mononitrate (Isosorbide Mononitrate Er 30 Mg Tablet) 30 mg PO QAM SHERYL Last Admin: 05/10/24 06:32 Dose: 30 mg Meropenem (Meropenem 1,000 Mg Sdv) 1,000 mg IVP Q12H [facility] Last Admin: 05/12/24 02:07 Dose: 1,000 mg Metolazone (Metolazone 5 Mg Tablet) 5 mg PO DAILY [facility] Last Admin: 05/11/24 08:31 Dose: 5 mg Morphine Sulfate (Morphine 4 Mg/Ml Sdv 1 Ml) 2 mg IVP Q4H PRN PRN Reason: SEVERE PAIN Last Admin: 05/11/24 23:16 Dose: 2 mg Naloxone HCl (Naloxone 0.4 Mg/Ml Sdv) 0.1 mg IVP Q2M PRN PRN Reason: OPIATERV Nitroglycerin (Nitroglycerin 0.4 Mg Sublingual Tablet) 0.4 mg SUBLINGUAL Q5M PRN PRN Reason: CHEST PAIN Last Admin: 05/08/24 22:36 Dose: 0.4 mg Ondansetron HCl (Ondansetron 2 Mg/Ml Sdv 2 Ml) 4 mg IVP Q8H PRN PRN Reason: vomiting, or N/V if npo Last Admin: 05/11/24 13:13 Dose: 4 mg Pantoprazole Sodium (Pantoprazole Dr 40 Mg Tablet) 40 mg PO DAILY [facility] Last Admin: 05/11/24 08:31 Dose: 40 mg Ranolazine (Ranolazine (12hr) 500 Mg Tablet) 500 mg PO BID [facility] Last Admin: 05/11/24 17:43 Dose: 500 mg Sodium Chloride (Sodium Chloride 0.9% 100 Ml Bag) 50 ml IV PRN PRN PRN Reason: Blood transfusion prime and flush Stop: 05/12/24 13:48 Vitals/I&O/Wt Last Vital Signs Temp 98.4 F 05/12/24 13:30 Pulse 59 L 05/12/24 16:00 Resp 18 05/12/24 16:00 BP 107/68 05/12/24 16:00 Pulse Ox 92 05/12/24 16:00 O2 Del Method High Flow Nasal Cannula 05/12/24 16:00 O2 Flow Rate 4 05/12/24 16:00 FiO2 50 05/11/24 05:15 05/12/24 05/12/24 05/12/24 06:59 14:59 22:59 Intake Total 1034.900 / 2761.167 1592.263 / 1592.263 66.25 / 1658.513 Output Total 2248 / 2488 360 / 360 Balance -1213.100 / 071.313 2934.263 / 1232.263 66.25 / 1298.513 Weight last 48 hrs Weight 250 lb 1.6 oz Weight 249 lb 9.012 oz Weight 244 lb 11.2 oz Physical Exam Narrative: Bruising in general Alert oriented x 3 Heart regular S1-S2 Lungs clear to auscultate bilateral CORPORATE RELATIONS MANAGER grossly nonfocal Urinary Catheter Management: Bonilla: Cath Placed During This Visit: no Reason for Continuing Indwelling Catheter: Accurate Measurement of Urinary Output in Critically Ill Patients Data 05/12/24 03:03 05/12/24 14:28 Micro: Microbiology 05/09/24 20:25 Urine Culture - Preliminary Urine,Clean Catch Yeast species A&P Assessment and plan (1) Acquired hyperlipoproteinemia: (2) Chest pain: Qualifiers: Chest pain type: unspecified Qualified Code(s): R07.9 - Chest pain, unspecified (3) Elevated troponin: (4) Type 2 diabetes mellitus with diabetic polyneuropathy: (5) Body mass index [BMI] 50.0-59.9, adult: (6) Acute renal insufficiency: (7) Chronic kidney disease, unspecified: (8) Low hemoglobin: (9) 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: (10) COPD (chronic obstructive pulmonary disease): (11) Cardiogenic shock: (12) CHF (NYHA class IV, ACC/AHA stage D): Plan Unfortunately patient is a 63-year-old morbidly obese female with BMI of more than 47 underlying anemia difficult access hypotension on pressors maintaining MAP acute on chronic renal failure with chronic kidney disease, acute decompensated systolic heart failure on chronic, cardiomyopathy with severe LV dysfunction with possible multivessel underlying coronary artery disease, she is high risk for complications such as bleeding arrhythmia stroke vascular brain vascular scenario . Patient is not LVAD/transplant candidate secondary to multiple risk factors and comorbidities, it is the reason we have tried to manage her medically with guideline medical therapy and as much as she tolerates. Diuretic IV infusion will continue Will continue dobutamine infusion, hopefully with IV diuresis and maintaining MAP potassium will also improve. Further plan be advised as per progress of the patient. On today's visit patient steadily improving. Blood pressure remained stable continue Levophed for now. Appreciate nephrology for further dialysis. Will continue medical management will add Plavix to the regimen and switch her to Lovenox. Over the next 24 to 48 hours will stop Lovenox and switch to prophylaxis for DVT. Patient is not a good interventional candidate at the same time patient and the family also agree with continued conservative management. Attestations Medical Necessity Statement*: Patient require continued hospitalization for evaluation and care. Coding Level of Care Code Acute Code for Chg Fwd Diagnoses Acquired hyperlipoproteinemia E78.5 Chest pain R07.9 Chest pain type: unspecified Elevated troponin R79.89 Type 2 diabetes mellitus with diabetic polyneuropathy E11.42 Body mass index [BMI] 50.0-59.9, adult Z68.43 Acute renal insufficiency N28.9 Chronic kidney disease, unspecified N18.9 Low hemoglobin D64.9 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 L97.121 COPD (chronic obstructive pulmonary disease) J44.9 Cardiogenic shock R57.0 CHF (NYHA class IV, ACC/AHA stage D) I50.84
[2024-05-12] MEDS: atorvastatin 40 mg Tablet 20 MG PO (17:35)
[2024-05-12 17:37] LABS: Glucose Point of Care 121 mg/dL (70-110)
--- NOTE | 2024-05-12 19:16 | PC.NURSE ---
Shift summary: Pt rested in bed throughout shift. No hemodiaysis today. Dobutamine decreased to 3 mcg/kg/min. Levophed decreased to 3 mcg/min. Lasix gtt remains at 10mg/hr. Heparin gtt stopped today. Pt given 600mg of Plavix and started on Lovenox. Her arms remains very bruised, she complains about BP cuff at times. BP frequency intervals lengthened to give her a break. She had no complaints of nausea this shift. She ate more of her meals but still poor appetite except for the sweets. Heart monitor showed sinus to sinus bradycardia, rate 57-66 bpm. NO changes in her skin ulcers/wounds. Her urine output increased significantly. 1010ml this shift, it is no longer cloudy. No BMs noted this shift.
[2024-05-12 20:11] LABS: Glucose Point of Care 169 mg/dL (70-110)
[2024-05-12] MEDS: HYDROcodone-acetaminophen 5-325 mg Tablet 1 TAB PO (20:21)
[2024-05-12] MEDS: DOBUTamine drip 500 MG/250 ML PREMIX 9.83 MG IV (22:02)
[2024-05-13] VITALS (88 sets, daily range): BP systolic 77–162; BP diastolic 25–111; PULSE 53–129; RESP 13–26; TEMP 36.6–37; O2SAT 88–98
[2024-05-13] MEDS: FUROsemide 100 MG in sodium chloride 0.9% 40 ML IV ×3 (01:32→20:49)
[2024-05-13] MEDS: meropenem 1,000 mg SDV 1000 MG IVP ×2 (01:38→14:12)
[2024-05-13] MEDS: ipratropium-albuterol 3 mL Neb INHALATION ×4 (02:14→19:48)
--- NOTE | 2024-05-13 04:10 | PC.NURSE ---
Refusing Turning: Turning offered approximately every 2 hours, pt refusing. Explained the importance of turning r/t skin breakdown, pt verbalized understanding, continues to refuse, and states we can do that in the morning.
[2024-05-13 04:20] LABS: Basophils # 0.1 10^3/uL (0.0-0.1); Basophils % 0.9 %; Eosinophils # 0.4 10^3/uL (0.0-0.8); Eosinophils % 7.9 %; Hematocrit 23.9 % (36-47); Lymphocytes # 0.9 10^3/uL (0.8-4.8); Lymphocytes % 15.7 %; Mean Corpuscular HGB Conc 31.8 g/dL (30-55); Mean Corpuscular Hemoglobin 31.1 pg (27-33); Mean Platelet Volume 9.5 fL (7.4-10.4); Monocytes # 0.7 10^3/uL (0.2-0.9); Monocytes % 13.5 %; Neutrophils # 3.28 10^3/uL (1.8-7.7); Neutrophils % 60.5 %; Nucleated Red Blood Cells % 0.4 %; Platelet Count 162 10^3/cmm (157-399); Red Blood Count 2.44 10^6/uL (3.85-5.65); Red Cell Distribution Width 15.9 % (12.1-15.1); White Blood Count 5.42 10^3/uL (3.29-11.43)
[2024-05-13 04:47] LABS: Magnesium 1.7 mg/dL (1.7-2.3); Phosphorus 5.4 mg/dL (2.5-4.5)
[2024-05-13 04:48] LABS: Vancomycin Random 27.8 ug/mL (20.0-40.0)
[2024-05-13 04:51] LABS: Albumin Level 2.8 g/dL (3.5-5.2); Alkaline Phosphatase 218 U/L (35-105); Anion Gap 19.4 (5-19); Blood Urea Nitrogen 48 mg/dL (8-23); Calcium 8.5 mg/dL (8.5-10.5); Carbon Dioxide 26 mmol/L (22-29); Chloride 94 mmol/L (98-107); Creatinine Clr Calc Pharmacy 24.7498; Globulin 2.7 g/dL (1.3-4.6); Glomerular Filtration Rate 18.5 mL/min (90-130); Glucose 88 mg/dL (65-115); Osmolality Calculated 294 mOsm/kg (285-295); Potassium 3.4 mmol/L (3.5-5.1); Sodium 136 mmol/L (136-145); Total Bilirubin 0.6 mg/dL (0.15-1.2); Total Protein 5.5 g/dL (6.6-8.7)
[2024-05-13 05:06] LABS: Alanine Aminotransferase 1274 U/L (0-33)
[2024-05-13 05:08] LABS: Aspartate Amino Transferase 1274 U/L (0-32)
[2024-05-13] MEDS: budesonide 0.5 mg/2 mL Neb INHALATION ×2 (08:29→19:48)
[2024-05-13] MEDS: metOLazone 5 MG Tablet PO (08:41)
[2024-05-13] MEDS: pantoprazole DR 40 mg Tablet PO (08:41)
[2024-05-13] MEDS: aspirin 81 mg EC Tablet PO (08:41)
[2024-05-13] MEDS: ranolazine (12HR) 500 mg Tablet PO ×2 (08:41→18:14)
[2024-05-13] MEDS: clopidogrel 75 mg Tablet PO (08:41)
[2024-05-13] MEDS: acetaminophen 325 mg Tablet 650 MG PO (09:09)
[2024-05-13 09:15] LABS: Glucose Point of Care 97 mg/dL (70-110)
[2024-05-13] MEDS: amiodarone 150 MG/100 ML PREMIX 400 MG IV (12:00)
[2024-05-13] MEDS: morphine 4 mg/mL SDV 1 mL 2 MG IVP (12:17)
[2024-05-13] MEDS: insulin lispro 100 unit/1 mL SUBCUT ×2 (12:17→20:14)
[2024-05-13 12:57] LABS: Glucose Point of Care 179 mg/dL (70-110)
--- NOTE | 2024-05-13 13:04 | P.PN_ITS ---
Subjective 2 Subjective: Overall feeling better however she had episode of A-fib with RVR Medications: Reviewed: Yes Medication Review Details: Current Medications Acetaminophen (Acetaminophen 325 Mg Tablet) 650 mg PO Q6H PRN PRN Reason: Mild/Mod Pain Or Temp >/= 101 Last Admin: 05/10/24 17:29 Dose: 650 mg Hydrocodone Bitart/Acetaminophen (Hydrocodone-Acetaminophen 5-325 Mg Tablet) 1 tab PO BEDTIME SHERYL Last Admin: 05/11/24 20:47 Dose: 1 tab Acetazolamide (Acetazolamide 250 Mg Tablet) 250 mg PO BID SHERYL Last Admin: 05/11/24 17:43 Dose: 250 mg Albuterol/Ipratropium (Ipratropium-Albuterol 3 Ml Neb) 3 ml INHALATION Q6H.RESP SHERYL Last Admin: 05/12/24 07:37 Dose: 3 ml Amlodipine Besylate (Amlodipine 5 Mg Tablet) 5 mg PO DAILY SHERYL Last Admin: 05/09/24 08:29 Dose: 5 mg Aspirin (Aspirin 81 Mg Ec Tablet) 81 mg PO DAILY SHERYL Last Admin: 05/11/24 08:31 Dose: 81 mg Atorvastatin Calcium (Atorvastatin 40 Mg Tablet) 20 mg PO QPM SHERYL Last Admin: 05/11/24 17:43 Dose: 20 mg Budesonide (Budesonide 0.5 Mg/2 Ml Neb) 0.5 mg INHALATION BID.RESPIRATORY SHERYL Last Admin: 05/12/24 07:37 Dose: 0.5 mg Glucagon (Glucagon 1 Mg/Ml Kit 1 Ml) 1 mg IM ONCE PRN; Protocol PRN Reason: Adult Acute Hypoglycemia Nursing Prot. Heparin Sodium (Porcine) (Heparin 5,000 Unit/Ml Inj 1 Ml) 0 unit IVP PRN PRN; Protocol PRN Reason: Heparin Weight Based Protocol -Subsequent Bolus Last Admin: 05/11/24 06:12 Dose: 2,300 unit Hydralazine HCl (Hydralazine 25 Mg Tablet) 25 mg PO TID SHERYL Last Admin: 05/09/24 20:56 Dose: 25 mg Hydralazine HCl (Hydralazine 20 Mg/Ml Inj 1 Ml) 10 mg IVP Q4H PRN PRN Reason: SBP > 170 Vancomycin/PEG/NADA/Lysine/Water (Vancocin) 1,250 mg in 250 mls @ 250 mls/hr IV Q36H SHERYL Last Infusion: 05/12/24 04:30 Dose: Infused Dextrose (D5w) 500 mls @ 0 mls/hr IV ONCE PRN; Protocol PRN Reason: Adult Acute Hypoglycemia Prot Dextrose (D10w) 125 mls @ 750 mls/hr IV PRN PRN; Protocol PRN Reason: Adult Acute Hypoglycemia Nursing Protocol Dextrose (D10w) 250 mls @ 1,000 mls/hr IV PRN PRN; Protocol PRN Reason: Adult Acute Hypoglycemia Nursing Protocol Heparin Sodium/Sodium Chloride (Heparin Drip) 25,000 unit in 500 mls @ 0 mls/hr IV CONT SHERYL; Protocol Last Titration: 05/12/24 04:11 Dose: 8.21 unit/kg/hr, 19 mls/hr Norepinephrine Bitartrate (Levophed) 4 mg in 250 mls @ 0 mls/hr IV .Q0M SHERYL; Protocol Last Titration: 05/12/24 03:57 Dose: 4 mcg/min, 15 mls/hr Dobutamine HCl/Dextrose (Dobutamine Drip) 500 mg in 250 mls @ 16.391 mls/hr IV .[id number] [facility] Last Admin: 05/11/24 20:47 Dose: 3 mcg/kg/min, 9.83 mls/hr Furosemide 100 mg/ Sodium (Chloride) 50 mls @ 0 mls/hr IV .Q0M SHERYL; Protocol Last Admin: 05/12/24 03:26 Dose: 10 mg/hr, 5 mls/hr Albumin Human (Albumin) 12.5 gm in 50 mls @ 60 mls/hr IV PRN PRN PRN Reason: Hypotension and/or symptomatic Insulin Glargine (Insulin Glargine 100 Units/1 Ml) 20 unit SUBCUT BID [facility] Last Admin: 05/11/24 09:04 Dose: Not Given Insulin Human Lispro (Insulin Lispro 100 Unit/1 Ml) 0 unit SUBCUT WM&BEDTIME [facility]; Protocol Last Admin: 05/11/24 20:47 Dose: 6 unit Isosorbide Mononitrate (Isosorbide Mononitrate Er 30 Mg Tablet) 30 mg PO QAM [facility] Last Admin: 05/10/24 06:32 Dose: 30 mg Meropenem (Meropenem 1,000 Mg Sdv) 1,000 mg IVP Q12H SHERYL Last Admin: 05/12/24 02:07 Dose: 1,000 mg Metolazone (Metolazone 5 Mg Tablet) 5 mg PO DAILY [facility] Last Admin: 05/11/24 08:31 Dose: 5 mg Morphine Sulfate (Morphine 4 Mg/Ml Sdv 1 Ml) 2 mg IVP Q4H PRN PRN Reason: SEVERE PAIN Last Admin: 05/11/24 23:16 Dose: 2 mg Naloxone HCl (Naloxone 0.4 Mg/Ml Sdv) 0.1 mg IVP Q2M PRN PRN Reason: OPIATERV Nitroglycerin (Nitroglycerin 0.4 Mg Sublingual Tablet) 0.4 mg SUBLINGUAL Q5M PRN PRN Reason: CHEST PAIN Last Admin: 05/08/24 22:36 Dose: 0.4 mg Ondansetron HCl (Ondansetron 2 Mg/Ml Sdv 2 Ml) 4 mg IVP Q8H PRN PRN Reason: vomiting, or N/V if npo Last Admin: 05/11/24 13:13 Dose: 4 mg Pantoprazole Sodium (Pantoprazole Dr 40 Mg Tablet) 40 mg PO DAILY [facility] Last Admin: 05/11/24 08:31 Dose: 40 mg Ranolazine (Ranolazine (12hr) 500 Mg Tablet) 500 mg PO BID [facility] Last Admin: 05/11/24 17:43 Dose: 500 mg Sodium Chloride (Sodium Chloride 0.9% 100 Ml Bag) 50 ml IV PRN PRN PRN Reason: Blood transfusion prime and flush Stop: 05/12/24 13:48 Vitals/I&O/Wt Last Vital Signs Temp 98.3 F 05/13/24 12:00 Pulse 115 H 05/13/24 12:00 Resp 18 05/13/24 12:17 BP 110/91 05/13/24 12:00 Pulse Ox 90 05/13/24 12:00 O2 Del Method High Flow Nasal Cannula 05/13/24 08:31 O2 Flow Rate 3 05/13/24 08:31 FiO2 50 05/11/24 05:15 05/12/24 05/13/24 05/13/24 22:59 06:59 14:59 Intake Total 317.345 / 1909.608 126.709 / 2036.317 604.583 / 604.583 Output Total 950 / 1310 1175 / 2485 Balance -632.655 / 599.608 -1048.291 / -448.683 604.583 / 604.583 Weight last 48 hrs Weight 245 lb 12.8 oz Weight 250 lb 1.6 oz Weight 249 lb 9.012 oz Physical Exam 2 Narrative: Bruising in general Alert oriented x 3 Heart regular S1-S2 Lungs clear to auscultate bilateral [employer]IC grossly nonfocal Urinary Catheter Management: Bonilla: Cath Placed During This Visit: no Reason for Continuing Indwelling Catheter: Accurate Measurement of Urinary Output in Critically Ill Patients Data 05/13/24 04:00 05/13/24 04:00 Micro: Microbiology 05/09/24 20:25 Urine Culture - Preliminary Urine,Clean Catch Yeast species A&P Assessment and plan (1) Acquired hyperlipoproteinemia: (2) Chest pain: Qualifiers: Chest pain type: unspecified Qualified Code(s): R07.9 - Chest pain, unspecified (3) Elevated troponin: (4) Type 2 diabetes mellitus with diabetic polyneuropathy: (5) Body mass index [BMI] 50.0-59.9, adult: (6) Acute renal insufficiency: (7) Chronic kidney disease, unspecified: (8) Low hemoglobin: (9) 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: (10) COPD (chronic obstructive pulmonary disease): (11) Cardiogenic shock: (12) CHF (NYHA class IV, ACC/AHA stage D): (13) Atrial fibrillation: Plan Unfortunately patient is a 63-year-old morbidly obese female with BMI of more than 47 underlying anemia difficult access hypotension on pressors maintaining MAP acute on chronic renal failure with chronic kidney disease, acute decompensated systolic heart failure on chronic, cardiomyopathy with severe LV dysfunction with possible multivessel underlying coronary artery disease, she is high risk for complications such as bleeding arrhythmia stroke vascular brain vascular scenario . Patient is not LVAD/transplant candidate secondary to multiple risk factors and comorbidities, it is the reason we have tried to manage her medically with guideline medical therapy and as much as she tolerates. Diuretic IV infusion will continue Will continue dobutamine infusion, hopefully with IV diuresis and maintaining MAP potassium will also improve. Further plan be advised as per progress of the patient. On today's visit patient steadily improving. Blood pressure remained stable continue Levophed for now. Appreciate nephrology for further dialysis. Will continue medical management will add Plavix to the regimen and switch her to Lovenox. Over the next 24 to 48 hours will stop Lovenox and switch to prophylaxis for DVT. Patient is not a good interventional candidate at the same time patient and the family also agree with continued conservative management. On today's visit dated 05/13/2024 patient continues to do better from a cardiovascular perspective he is off Levophed blood pressure remained stable. He is on dobutamine we will start titrating off dobutamine as well. Patient had episode of paroxysmal A-fib therefore we will start her on IV amiodarone. Continue rest of medications including IV diuresis. 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
[2024-05-13] MEDS: vancomycin 1,250 MG/250 ML PIGGYBACK 250 MG IV (14:12)
[2024-05-13] MEDS: enoxaparin 120 mg/0.8 mL Syringe 110 MG SUBCUT (14:12)
--- NOTE | 2024-05-13 17:02 | P.PN_ITS ---
Subjective 2 Subjective: She denies chest pain or pressure. She reports she is overall doing all right. Medications: Medication Review Details: She denies chest pain or pressure. She reports she is overall doing all right. Vitals/I&O/Wt Last Vital Signs Temp 98.3 F 05/13/24 12:00 Pulse 59 L 05/13/24 16:45 Resp 19 H 05/13/24 16:45 BP 84/70 05/13/24 16:45 Pulse Ox 91 05/13/24 16:45 O2 Del Method High Flow Nasal Cannula 05/13/24 14:01 O2 Flow Rate 3 05/13/24 14:01 FiO2 50 05/11/24 05:15 05/13/24 05/13/24 05/13/24 06:59 14:59 22:59 Intake Total 126.709 / 2036.317 1084.583 / 1084.583 Output Total 1175 / 2485 Balance -1048.291 / -504.072 1821.583 / 1084.583 Weight last 48 hrs Weight 111.493 kg Weight 113.443 kg Weight 113.2 kg Physical Exam 2 Const: COMMON NORMALS: patient oriented x3 and alert GENERAL APPEARANCE: c ooperative ORIENTATION/CONSCIOUSNESS: Yes awake OTHER: Mildly to moderately hard of hearing. HENMT: COMMON NORMALS: oropharynx normal Neck/C-Spine: COMMON NORMALS: no JVD Resp: COMMON NORMALS: normal respiratory effort and clear to auscultation bilaterally AUSCULTATION: clear to auscultation bilaterally Cardio: COMMON NORMALS: no JVD, S1 normal heart sound present, S2 normal heart sound present and No murmurs present (Cardio) RHYTHM: abnormal rhythm irregularly irregular HEART SOUNDS: S1 normal heart sound present and S2 normal heart sound present GI: COMMON NORMALS: Normal to inspection, nondistended, normoactive bowel sounds present, Soft to palpation and non-tender PALPATION: Yes Soft to palpation Extremity: COMMON NORMALS: no joint enlargement and no pedal edema Neuro: COMMON NORMALS: patient oriented x3 and moves all extremities S ENSORIUM/ORIENTATION: Yes alert Skin: COMMON NORMALS: no rashes or lesions noted GENERAL SKIN EXAM: no rashes or lesions noted Urinary Catheter Management: Bonilla: Cath Placed During This Visit: no Reason for Continuing Indwelling Catheter: Accurate Measurement of Urinary Output in Critically Ill Patients Data 05/13/24 04:00 05/13/24 04:00 A&P Assessment and plan (1) Junctional rhythm: This morning intermittent tachycardia up to 120s, Prior to that also bradycardia in the 50s-60s. Cardiology started amiodarone. Reviewed vitals, telemetry, EKG, potassium 3.4, magnesium 1.7, will give magnesium, potassium replacement. Recheck levels. (2) Cardiogenic shock: Reviewed vitals, this morning weaned off Levophed, still on dobutamine. This afternoon blood pressure soft again 80/70. Continue wean off pressor as tolerating. Keep mean artery pressure over 65. Concerns for slow flow cardiogenic shock. Strict input charting, daily weights. (3) NSTEMI (non-ST elevated myocardial infarction): Continue aspirin, Plavix, statin. Currently continues on therapeutic Lovenox. Cardiology considering de-escalation of anticoagulation on cardiology note review. Discussed with nursing, spring encaser. Cardiology on board. After discussion between cardiology team and patient decision was made to treat medically. Imdur and Coreg on hold given cardiogenic shock. Echocardiogram results shows an EF of 2025%, grade 1 diastolic dysfunction, dilated LA, mild MR, severe low-flow gradient aortic stenosis with gradient of 18 mmHg, mild pulmonary hypertension with PASP of 40 to 45 mmHg, dilated IVC, severe global LV hypokinesia with akinetic apical wall. (4) CHF (congestive heart failure): Mildly in negative balance. Continues with Lasix drip, metolazone. Reviewed nephrology note, dialysis was held yesterday. Strict input and output charting, daily weights. Oxygen supplementation keeping saturation over 90%. Patient down to nasal cannula. Fluid restriction to less than 1500 cc. Bonilla catheter for intake and output. (5) Hypoxia: Baseline oxygen of supplementation requirement of 3 L. Appreciate ABG. Currently on high flow nasal cannula. BiPAP as needed. Most likely in setting of congestive heart failure. Component of obstructive sleep apnea and COPD as well. proBNP more than 70,000. Treatment of CHF as above. Continue with DuoNeb every 6 hour, Pulmicort twice daily. (6) Acute kidney injury superimposed on CKD: Dialysis was held yesterday. Reviewed nephrology note. Worsening renal functions with elevated BUN, hyponatremia. For now hyperkalemia and metabolic acidosis seems to be resolving. Patient is oliguric. Given concerns for oliguria even though patient has been on Levophed and dobutamine with mean arterial pressure maintained over 65, Jacob puckett will plan to consult nephrology for possible need of dialysis. Patient is agreeable. Medical reconciliation done for nephrotoxic drugs. Check vancomycin random levels. Appreciate urinalysis and urine lites from admission. Repeat BMP in afternoon. Depending on the plan for dialysis will consult surgery. Dialysis. (7) Chronic kidney disease, unspecified: Baseline creatinine more recently ranging from 2.2-2.4. Patient has chronic Bonilla catheterization. Change recently within the last 1 week. Continue to monitor urine output. (8) Type 2 diabetes mellitus with diabetic polyneuropathy: Reviewed Accu-Chek. Glucose did come down as low as 88. A1c 5.3. Episode of hypoglycemia in the hospital. Insulin sliding scale at low-dose protocol. Hold off on Lantus for now given worsening renal functions. (9) Eschar of lower leg: Without surrounding cellulitis but a deep wound, continue packing. Wound care. Continue antibiotics with meropenem and vancomycin given ESBL Klebsiella and MRSA. Discussed with spring encaser. Will need continued antibiotics after discharge as per discussion with her. Continue to monitor for risk of seizure with meropenem. LLE decubitus ulcer for several months followed by wound care s/p recent debridemnet on 05/07 empiric meropenem and vanc given recent outpatient cx with ESBL Klebsiella and MRSA. No cultures available from recent debridement Per review of op note, necrotic fat was encountered in the bed of ulcer, all necrotic fat was evacuated, wound was noted to extend into the subcutaneous tissue to the level of fascia. I&D was performed down to this level. No adalberto abscess was encountered in the surgical bed. Follow-up blood culture Currently has leukocytosis, concern for cellulitis and soft tissue infection of the left thigh. Venous duplex negative for DVT on 05/05/2024. Do not see any recent arterial studies; would avoid CTA with runoff for now given CKD, risk for LETICIA. X-ray of the thigh negative for osteomyelitis. CRP elevated. Check arterial duplex given concerns for peripheral vascular disease. Dressing change per wound care instructions from long-term-it appears she was on topical meropenem/tobramycin/linezolid and clindamycin preparation-we will have to check with pharmacy if this can be formulated and dispensed here. Given the wound cultures patient will most likely need to be discharged on IV antibiotics including ertapenem and vancomycin for at least 14 days. Case management alerted. Once blood cultures remain negative we will plan for PICC line placement. (10) Bradycardia: Monitor on telemetry with starting of amiodarone, at risk of worsening bradycardia. (11) Anemia: Baseline hemoglobin around 9. More recently since recent admission around 7.6- 8.9. Received blood transfusion last admission. Appreciate iron panel, vitamin B12 and folate level. Target hemoglobin more than 8. Post 1 unit of blood transfusion. (12) COPD (chronic obstructive pulmonary disease): (13) Goals of care, counseling/discussion: Cardiac dysfunction secondary to TN leading to multiorgan dysfunction. Discussed about currently patient being congestive heart failure and cardiogenic shock. States her sister Antonina will be the DPOA. For now she wants everything done to keep her alive. She is agreeable for chest compression, mechanical ventilation if needed. She is agreeable for dialysis if needed. 05/11: Another extensive goals of care discussion given critical nature of patient's illness secondary to multiorgan dysfunction in setting of cardiogenic shock, aortic stenosis and slow flow congestive heart failure with worsening of renal functions possible need of dialysis. Multiple family members including brother and sister at bedside. Patient wishes to continue to remain full code. She is agreeable with dialysis if needed. (14) Transaminitis: Reviewed, appears to be gradually improving. Most likely in setting of congestive heart failure and cardiogenic shock. Monitor daily. Alkaline phosphatase normal. Bilirubin normal. Plan Analgesia: [place] nightly, morphine as needed Glycemic control: A1c 5.2. Episode of hypoglycemia. Continue low-dose sliding scale. Hold off on Lantus. Nutrition: Cardiac, dysphagia minced and moist diet CODE STATUS: Full code PUD prophylaxis: Protonix Discharge planning: Back to SNF once patient is medically stable, versus LTAC. Continue care at ICU. This documentation was created by [employer] soldering machine operator automatic software. Every effort was made to ensure accuracy of soldering machine operator automatic. Any obvious errors or omissions should be clarified with the author of the document. Attestations 2 Medical Necessity Statement*: Continue admission for assessment and management of cardiogenic shock, low output failure, multiorgan dysfunction including congestive heart failure, renal failure. Coding Level of Care Code Critical Care >/= 30 minutes Critical care time (in minutes): 35 The high probability of a clinically significant, sudden or life threatening deterioration, as referenced in this documentation, required my full and direct attention, intervention and personal management. The critical care time shown is in addition to time spent performing any reported separately billable procedures and includes the following: [x] Data and vital sign review and interpretation [x ] Patient assessment, examination and intervention [x] Medication orders and management [x] Patient/Family updates as able [x] Care Coordination and Documentation. Diagnoses Junctional rhythm I49.8 Cardiogenic shock R57.0 NSTEMI (non-ST elevated myocardial infarction) I21.4 CHF (congestive heart failure) I50.9 Hypoxia R09.02 Acute kidney injury superimposed on CKD N17.9; N18.9 Chronic kidney disease, unspecified N18.9 Type 2 diabetes mellitus with diabetic polyneuropathy E11.42 Eschar of lower leg R23.4 Bradycardia R00.1 Anemia D64.9 COPD (chronic obstructive pulmonary disease) J44.9 Goals of care, counseling/discussion Z71.89 Transaminitis R74.01
[2024-05-13] MEDS: atorvastatin 40 mg Tablet 20 MG PO (18:14)
[2024-05-13] MEDS: potassium chloride oral liq 20 mEq/15 mL UDC PO (18:14)
[2024-05-13] MEDS: magnesium sulfate premix 1 GM/100 ML PIGGYBACK IV (18:14)
--- NOTE | 2024-05-13 19:24 | P.PN_ITS ---
Subjective 2 Subjective: no nw c/o Medications: Reviewed: Yes Vitals/I&O/Wt Last Vital Signs Temp 98.3 F 05/13/24 12:00 Pulse 58 L 05/13/24 18:00 Resp 22 H 05/13/24 18:00 BP 97/35 05/13/24 18:00 Pulse Ox 91 05/13/24 18:00 O2 Del Method High Flow Nasal Cannula 05/13/24 14:01 O2 Flow Rate 3 05/13/24 14:01 FiO2 50 05/11/24 05:15 05/13/24 05/13/24 05/13/24 06:59 14:59 22:59 Intake Total 126.709 / 2036.317 1084.583 / 1084.583 790 / 1874.583 Output Total 1175 / 2485 1550 / 1550 Balance -1048.291 / -278.801 3670.583 / 1084.583 -760 / 324.583 Weight last 48 hrs Weight 111.493 kg Weight 113.443 kg Weight 113.2 kg Physical Exam 2 Narrative: She is on a heparin drip. She is interactive awake alert and oriented. Blood pressure is stable, on low side. HEENT normocephalic atraumatic. Neck is supple, positive dialysis catheter Lungs have crackles bilaterally. Heart regular systolic murmur. Abdomen is soft positive bowel sounds. Extremities have edema 2+. Poor pulses eschar in her left leg. Neuro awake alert oriented x 3. Urinary Catheter Management: Bonilla: Cath Placed During This Visit: no Reason for Continuing Indwelling Catheter: Accurate Measurement of Urinary Output in Critically Ill Patients Data 05/13/24 04:00 05/13/24 04:00 A&P Assessment and plan (1) Acute kidney injury superimposed on CKD: 63-year-old lady obesity hypertension diabetes heart failure reduced EF here with non-ST elevation [place] and cardiogenic shock. 1. 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 Imaging reviewed, CT scan April 29, 2024 -she has a small left adrenal adenoma, right adrenal gland is normal, she has fatty atrophy of the pancreas splenic artery calcification dense vascular calcification however no hydronephrosis in either kidney. She does have parenchymal scarring both kidneys no evidence of obstructing renal or ureteral calculi. She has a question of a cecal neoplasm. 2. Acute kidney injury-likely on the basis of cardiogenic shock. Urinalysis from May 09 results states nonreportable we will repeat a urinalysis, urine albumin urine protein urine creatinine urine electrolytes. Hyperkalemia has improved. -s/p HD yesterday , hold off HD today 3. Transaminitis has started to improve will trend LFTs. 5. Non-ST elevation [place] - low EF aortic valve disease Leukocytosis improving Anemia with elevated MCV -ferritin 5000- no iv iron, consider epo. Above discussed in detail with the patient. . The patient consented to a telehealth visit. The patient was seen and examined using A/V equipment as a telehealth visit. Discussed in detail with the patient and the nurse Plan See above. Cardiogenic shock monitor for renal recovery Attestations 2 Medical Necessity Statement*: per snehal Coding Level of Care Code Acute Code for Chg Fwd Diagnoses Acute kidney injury superimposed on CKD N17.9; N18.9
[2024-05-13 20:09] LABS: Glucose Point of Care 135 mg/dL (70-110)
[2024-05-13] MEDS: HYDROcodone-acetaminophen 5-325 mg Tablet 1 TAB PO (20:09)
[2024-05-13 20:34] LABS: Glucose Point of Care 222 mg/dL (70-110)
[2024-05-13] MEDS: DOBUTamine drip 500 MG/250 ML PREMIX 9.83 MG IV (22:15)
[2024-05-14] VITALS (70 sets, daily range): BP systolic 91–167; BP diastolic 46–88; PULSE 53–67; RESP 14–27; TEMP 36.7–37.2; O2SAT 85–97; BMI 47.7
[2024-05-14] MEDS: meropenem 1,000 mg SDV 1000 MG IVP ×2 (01:58→13:56)
[2024-05-14] MEDS: ipratropium-albuterol 3 mL Neb INHALATION ×4 (02:26→20:01)
[2024-05-14] MEDS: morphine 4 mg/mL SDV 1 mL 2 MG IVP ×2 (04:15→17:30)
[2024-05-14 04:45] LABS: Basophils % 0.6 %; Eosinophils # 0.4 10^3/uL (0.0-0.8); Eosinophils % 7.7 %; Lymphocytes # 0.7 10^3/uL (0.8-4.8); Lymphocytes % 14.9 %; Mean Corpuscular HGB Conc 32.9 g/dL (30-55); Mean Corpuscular Hemoglobin 31.3 pg (27-33); Mean Corpuscular Volume 95.2 fl (85-98); Mean Platelet Volume 9.8 fL (7.4-10.4); Monocytes # 0.9 10^3/uL (0.2-0.9); Monocytes % 17.9 %; Neutrophils # 2.87 10^3/uL (1.8-7.7); Neutrophils % 57.9 %; Nucleated Red Blood Cells # 0.1 /100WBC; Platelet Count 174 10^3/cmm (157-399); Red Blood Count 2.52 10^6/uL (3.85-5.65); Red Cell Distribution Width 15.3 % (12.1-15.1); White Blood Count 4.96 10^3/uL (3.29-11.43)
[2024-05-14] MEDS: FUROsemide 100 MG in sodium chloride 0.9% 40 ML IV ×3 (05:01→23:04)
[2024-05-14 05:02] LABS: Vancomycin Random 36.8 ug/mL (20.0-40.0)
[2024-05-14 05:05] LABS: Albumin Level 2.9 g/dL (3.5-5.2); Alkaline Phosphatase 215 U/L (35-105); Aspartate Amino Transferase 672 U/L (0-32); Blood Urea Nitrogen 51 mg/dL (8-23); Calcium 8.3 mg/dL (8.5-10.5); Carbon Dioxide 24 mmol/L (22-29); Chloride 90 mmol/L (98-107); Creatinine Clr Calc Pharmacy 26.5246; Globulin 2.9 g/dL (1.3-4.6); Glomerular Filtration Rate 20.3 mL/min (90-130); Glucose 144 mg/dL (65-115); Magnesium 1.7 mg/dL (1.7-2.3); Osmolality Calculated 288 mOsm/kg (285-295); Phosphorus 5.1 mg/dL (2.5-4.5); Sodium 131 mmol/L (136-145); Total Bilirubin 0.7 mg/dL (0.15-1.2); Total Protein 5.8 g/dL (6.6-8.7)
[2024-05-14] MEDS: ondansetron 2 mg/ML SDV 2 mL 4 MG IVP ×2 (05:11→19:29)
[2024-05-14 05:18] LABS: Alanine Aminotransferase 947 U/L (0-33)
[2024-05-14 05:29] LABS: Anion Gap 20.3 (5-19); Potassium 3.3 mmol/L (3.5-5.1)
[2024-05-14] MEDS: budesonide 0.5 mg/2 mL Neb INHALATION ×2 (07:52→20:01)
[2024-05-14] MEDS: clopidogrel 75 mg Tablet PO (09:15)
[2024-05-14] MEDS: pantoprazole DR 40 mg Tablet PO (09:15)
[2024-05-14] MEDS: ranolazine (12HR) 500 mg Tablet PO ×2 (09:15→17:17)
[2024-05-14] MEDS: metOLazone 5 MG Tablet PO (09:15)
[2024-05-14] MEDS: aspirin 81 mg EC Tablet PO (09:15)
[2024-05-14 09:40] LABS: Glucose Point of Care 121 mg/dL (70-110)
[2024-05-14] MEDS: magnesium sulfate premix 2 GM/50 ML PIGGYBACK IV (10:13)
--- NOTE | 2024-05-14 10:30 | PC.NURSE ---
Dr. Barone at bedside earlier plan to titrate off Dobutamine. Patient refused ordered Potassium liquid, DR. Castillo notified
[2024-05-14 12:05] LABS: Glucose Point of Care 114 mg/dL (70-110)
[2024-05-14] MEDS: enoxaparin 120 mg/0.8 mL Syringe 110 MG SUBCUT (13:56)
--- NOTE | 2024-05-14 15:55 | P.PN_ITS ---
Subjective 2 Subjective: She reports she is doing okay. No chest pain or pressure. Vitals/I&O/Wt Last Vital Signs Temp 98.9 F 05/14/24 11:00 Pulse 60 05/14/24 14:00 Resp 18 05/14/24 13:52 BP 135/62 05/14/24 14:00 Pulse Ox 94 05/14/24 14:00 O2 Del Method Nasal Cannula 05/14/24 13:52 O2 Flow Rate 3 05/14/24 13:52 FiO2 50 05/11/24 05:15 05/14/24 05/14/24 05/14/24 06:59 14:59 22:59 Intake Total 280.554 / 2477.457 558.364 / 558.364 Output Total 850 / 2400 Balance -569.446 / 77.457 558.364 / 558.364 Weight last 48 hrs Weight 110.994 kg Weight 111.493 kg Physical Exam 2 Const: COMMON NORMALS: patient oriented x3 and alert GENERAL APPEARANCE: c ooperative ORIENTATION/CONSCIOUSNESS: Yes awake OTHER: Mildly to moderately hard of hearing. HENMT: COMMON NORMALS: oropharynx normal Neck/C-Spine: COMMON NORMALS: no JVD Resp: COMMON NORMALS: normal respiratory effort and clear to auscultation bilaterally AUSCULTATION: clear to auscultation bilaterally Cardio: COMMON NORMALS: no JVD, regular rhythm, S1 normal heart sound present, S2 normal heart sound present and No murmurs present (Cardio) RHYTHM: regular rhythm and abnormal rhythm irregularly irregular HEART SOUNDS: S1 normal heart sound present and S2 normal heart sound present GI: COMMON NORMALS: Normal to inspection, nondistended, normoactive bowel sounds present, Soft to palpation and non-tender PALPATION: Yes Soft to palpation Extremity: COMMON NORMALS: no joint enlargement and no pedal edema Neuro: COMMON NORMALS: patient oriented x3 and moves all extremities S ENSORIUM/ORIENTATION: Yes alert Skin: COMMON NORMALS: no rashes or lesions noted GENERAL SKIN EXAM: no rashes or lesions noted Urinary Catheter Management: Bonilla: Cath Placed During This Visit: no Reason for Continuing Indwelling Catheter: Accurate Measurement of Urinary Output in Critically Ill Patients Data 05/14/24 04:22 05/14/24 04:22 Micro: Microbiology 05/09/24 20:25 Urine Culture - Final Urine,Clean Catch Nakaseomyces glabrata 05/08/24 23:39 Blood Culture - Final Blood NO GROWTH AFTER 5 DAYS 05/08/24 23:35 Blood Culture - Final Blood NO GROWTH AFTER 5 DAYS A&P Assessment and plan (1) Junctional rhythm: With improvement, response to amiodarone. Heart rates in the low 60s today. Monitor on telemetry with risk of bradycardia. This morning intermittent tachycardia up to 120s, Prior to that also bradycardia in the 50s-60s. Cardiology started amiodarone. Reviewed vitals, telemetry, EKG, potassium 3.4, magnesium 1.7, will give magnesium, potassium replacement. Recheck levels. (2) Cardiogenic shock: Reviewed vitals, CBC, CMP, magnesium, phosphorus, reviewed cardiology note, discussed with coat maker. Discussed with nursing. Weaning down on dobutamine, continue to wean as tolerating, will reassess chemistry. So far renal function and liver parameters have been showing some gradual improvement. If able to maintain off of dobutamine, may transfer out of ICU. Discussed with community case manager. Off of Levophed. Keep mean artery pressure over 65. Concerns for slow flow cardiogenic shock. Strict input charting, daily weights. (3) NSTEMI (non-ST elevated myocardial infarction): Discussed with cardiology, stop therapeutic Lovenox dose. Switch to prophylactic dose. Continue aspirin, Plavix, statin. Currently continues on therapeutic Lovenox. Cardiology considering de-escalation of anticoagulation on cardiology note review. Discussed with nursing, community case manager. Cardiology on board. After discussion between cardiology team and patient decision was made to treat medically. Imdur and Coreg on hold given cardiogenic shock. Echocardiogram results shows an EF of 2025%, grade 1 diastolic dysfunction, dilated LA, mild MR, severe low-flow gradient aortic stenosis with gradient of 18 mmHg, mild pulmonary hypertension with PASP of 40 to 45 mmHg, dilated IVC, severe global LV hypokinesia with akinetic apical wall. (4) CHF (congestive heart failure): Mild hypokalemia, hypomagnesemia, requested replacement. Recheck levels. Mildly in negative balance. Continues with Lasix drip, metolazone. Reviewed nephrology note, dialysis was held yesterday. Strict input and output charting, daily weights. Oxygen supplementation keeping saturation over 90%. Patient down to nasal cannula. Fluid restriction to less than 1500 cc. Bonilla catheter for intake and output. (5) Hypoxia: Baseline oxygen of supplementation requirement of 3 L. Appreciate ABG. Currently on high flow nasal cannula. BiPAP as needed. Most likely in setting of congestive heart failure. Component of obstructive sleep apnea and COPD as well. proBNP more than 70,000. Treatment of CHF as above. Continue with DuoNeb every 6 hour, Pulmicort twice daily. (6) Acute kidney injury superimposed on CKD: Dialysis was held yesterday. Reviewed nephrology note. Worsening renal functions with elevated BUN, hyponatremia. For now hyperkalemia and metabolic acidosis seems to be resolving. Patient is oliguric. Given concerns for oliguria even though patient has been on Levophed and dobutamine with mean arterial pressure maintained over 65, Lasix drip will plan to consult nephrology for possible need of dialysis. Patient is agreeable. Medical reconciliation done for nephrotoxic drugs. Check vancomycin random levels. Appreciate urinalysis and urine lites from admission. Repeat BMP in afternoon. Depending on the plan for dialysis will consult surgery. Dialysis. (7) Chronic kidney disease, unspecified: Baseline creatinine more recently ranging from 2.2-2.4. Patient has chronic Bonilla catheterization. Change recently within the last 1 week. Continue to monitor urine output. (8) Type 2 diabetes mellitus with diabetic polyneuropathy: Reviewed Accu-Chek. Glucose did come down as low as 88. A1c 5.3. Episode of hypoglycemia in the hospital. Insulin sliding scale at low-dose protocol. Hold off on Lantus for now given worsening renal functions. (9) Eschar of lower leg: Wound reassessed, some small amount of slough at wound base. Continues with wet-to-dry. Minimal surrounding erythema, no sign of significant surrounding cellulitis. Reassess wound, consider Santyl. Follow-up with wound care. Did require IV morphine for dressing change due to tenderness. Without surrounding cellulitis but a deep wound, continue packing. Wound care. Continue antibiotics with meropenem and vancomycin given ESBL Klebsiella and MRSA. Discussed with community case manager. Will need continued antibiotics after discharge as per discussion with her. Continue to monitor for risk of seizure with meropenem. LLE decubitus ulcer for several months followed by wound care s/p recent debridemnet on 05/07 empiric meropenem and vanc given recent outpatient cx with ESBL Klebsiella and MRSA. No cultures available from recent debridement Per review of op note, necrotic fat was encountered in the bed of ulcer, all necrotic fat was evacuated, wound was noted to extend into the subcutaneous tissue to the level of fascia. I&D was performed down to this level. No adalberto abscess was encountered in the surgical bed. Follow-up blood culture Currently has leukocytosis, concern for cellulitis and soft tissue infection of the left thigh. Venous duplex negative for DVT on 05/05/2024. Do not see any recent arterial studies; would avoid CTA with runoff for now given CKD, risk for LETICIA. X-ray of the thigh negative for osteomyelitis. CRP elevated. Check arterial duplex given concerns for peripheral vascular disease. Dressing change per wound care instructions from residential-it appears she was on topical meropenem/tobramycin/linezolid and clindamycin preparation-we will have to check with pharmacy if this can be formulated and dispensed here. Given the wound cultures patient will most likely need to be discharged on IV antibiotics including ertapenem and vancomycin for at least 14 days. Case management alerted. Once blood cultures remain negative we will plan for PICC line placement. (10) Bradycardia: Monitor on telemetry with starting of amiodarone, at risk of worsening bradycardia. (11) Anemia: Baseline hemoglobin around 9. More recently since recent admission around 7.6- 8.9. Received blood transfusion last admission. Appreciate iron panel, vitamin B12 and folate level. Target hemoglobin more than 8. Post 1 unit of blood transfusion. (12) COPD (chronic obstructive pulmonary disease): (13) Goals of care, counseling/discussion: Cardiac dysfunction secondary to NC leading to multiorgan dysfunction. Discussed about currently patient being congestive heart failure and cardiogenic shock. States her sister Antonina will be the DPOA. For now she wants everything done to keep her alive. She is agreeable for chest compression, mechanical ventilation if needed. She is agreeable for dialysis if needed. 05/11: Another extensive goals of care discussion given critical nature of patient's illness secondary to multiorgan dysfunction in setting of cardiogenic shock, aortic stenosis and slow flow congestive heart failure with worsening of renal functions possible need of dialysis. Multiple family members including brother and sister at bedside. Patient wishes to continue to remain full code. She is agreeable with dialysis if needed. (14) Transaminitis: Reviewed, appears to be gradually improving. Most likely in setting of congestive heart failure and cardiogenic shock. Monitor daily. Alkaline phosphatase normal. Bilirubin normal. Plan Analgesia: [place] nightly, morphine as needed Glycemic control: A1c 5.2. Episode of hypoglycemia. Continue low-dose sliding scale. Hold off on Lantus. Nutrition: Cardiac, dysphagia minced and moist diet CODE STATUS: Full code PUD prophylaxis: Protonix Discharge planning: Back to SNF once patient is medically stable, versus LTAC. Continue care at ICU. This documentation was created by [employer] network operations technician software. Every effort was made to ensure accuracy of network operations technician. Any obvious errors or omissions should be clarified with the author of the document. Attestations 2 Medical Necessity Statement*: Continue admission for assessment and management of cardiogenic shock, low output failure, multiorgan dysfunction including congestive heart failure, renal failure. Coding Level of Care Code Critical Care >/= 30 minutes Critical care time (in minutes): 35 The high probability of a clinically significant, sudden or life threatening deterioration, as referenced in this documentation, required my full and direct attention, intervention and personal management. The critical care time shown is in addition to time spent performing any reported separately billable procedures and includes the following: [x] Data and vital sign review and interpretation [x ] Patient assessment, examination and intervention [x] Medication orders and management [x] Patient/Family updates as able [x] Care Coordination and Documentation. Diagnoses Junctional rhythm I49.8 Cardiogenic shock R57.0 NSTEMI (non-ST elevated myocardial infarction) I21.4 CHF (congestive heart failure) I50.9 Hypoxia R09.02 Acute kidney injury superimposed on CKD N17.9; N18.9 Chronic kidney disease, unspecified N18.9 Type 2 diabetes mellitus with diabetic polyneuropathy E11.42 Eschar of lower leg R23.4 Bradycardia R00.1 Anemia D64.9 COPD (chronic obstructive pulmonary disease) J44.9 Goals of care, counseling/discussion Z71.89 Transaminitis R74.01
[2024-05-14 16:58] LABS: Glucose Point of Care 136 mg/dL (70-110)
[2024-05-14] MEDS: atorvastatin 40 mg Tablet 20 MG PO (17:17)
--- NOTE | 2024-05-14 19:23 | P.PN_ITS ---
Subjective 2 Subjective: Continues to do fine Denies any complaint Medications: Reviewed: Yes Vitals/I&O/Wt Last Vital Signs Temp 98.9 F 05/14/24 11:00 Pulse 63 05/14/24 18:00 Resp 15 05/14/24 17:30 BP 144/52 05/14/24 18:00 Pulse Ox 95 05/14/24 18:00 O2 Del Method Nasal Cannula 05/14/24 13:52 O2 Flow Rate 3 05/14/24 13:52 FiO2 50 05/11/24 05:15 05/14/24 05/14/24 05/14/24 06:59 14:59 22:59 Intake Total 280.554 / 2477.457 558.364 / 558.364 Output Total 850 / 2400 1200 / 1200 Balance -569.446 / 77.457 558.364 / 558.364 -1200 / -641.636 Weight last 48 hrs Weight 244 lb 11.2 oz Weight 245 lb 12.8 oz Physical Exam 2 Narrative: Alert awake oriented x 3 Heart regular S1-S2 Lungs clear to auscultate [employer] gross nonfocal Urinary Catheter Management: Bonilla: Cath Placed During This Visit: no Reason for Continuing Indwelling Catheter: Accurate Measurement of Urinary Output in Critically Ill Patients Data 05/14/24 04:22 05/14/24 04:22 Micro: Microbiology 05/09/24 20:25 Urine Culture - Final Urine,Clean Catch Nakaseomyces glabrata 05/08/24 23:39 Blood Culture - Final Blood NO GROWTH AFTER 5 DAYS 05/08/24 23:35 Blood Culture - Final Blood NO GROWTH AFTER 5 DAYS A&P Assessment and plan (1) Acquired hyperlipoproteinemia: (2) Chest pain: Qualifiers: Chest pain type: unspecified Qualified Code(s): R07.9 - Chest pain, unspecified (3) Elevated troponin: (4) Type 2 diabetes mellitus with diabetic polyneuropathy: (5) Body mass index [BMI] 50.0-59.9, adult: (6) Acute renal insufficiency: (7) Chronic kidney disease, unspecified: (8) Low hemoglobin: (9) 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: (10) COPD (chronic obstructive pulmonary disease): (11) Cardiogenic shock: (12) CHF (NYHA class IV, ACC/AHA stage D): (13) Atrial fibrillation: Plan Unfortunately patient is a 63-year-old morbidly obese female with BMI of more than 47 underlying anemia difficult access hypotension on pressors maintaining MAP acute on chronic renal failure with chronic kidney disease, acute decompensated systolic heart failure on chronic, cardiomyopathy with severe LV dysfunction with possible multivessel underlying coronary artery disease, she is high risk for complications such as bleeding arrhythmia stroke vascular brain vascular scenario . Patient is not LVAD/transplant candidate secondary to multiple risk factors and comorbidities, it is the reason we have tried to manage her medically with guideline medical therapy and as much as she tolerates. Diuretic IV infusion will continue Will continue dobutamine infusion, hopefully with IV diuresis and maintaining MAP potassium will also improve. Further plan be advised as per progress of the patient. On today's visit patient steadily improving. Blood pressure remained stable continue Levophed for now. Appreciate nephrology for further dialysis. Will continue medical management will add Plavix to the regimen and switch her to Lovenox. Over the next 24 to 48 hours will stop Lovenox and switch to prophylaxis for DVT. Patient is not a good interventional candidate at the same time patient and the family also agree with continued conservative management. On today's visit dated 05/13/2024 patient continues to do better from a cardiovascular perspective he is off Levophed blood pressure remained stable. He is on dobutamine we will start titrating off dobutamine as well. Patient had episode of paroxysmal A-fib therefore we will start her on IV amiodarone. Continue rest of medications including IV diuresis. Dialysis as per nephrology On today's visit dated 05/14/2024 patient continue to improve. At this point we will switch patient to prophylactic Lovenox, will discontinue IV amiodarone, patient is in sinus rhythm. Will taper off dobutamine. Once off dobutamine we will add beta-roslyn. 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
--- NOTE | 2024-05-14 19:39 | P.PN_ITS ---
Subjective 2 Subjective: no new c/o Medications: Reviewed: Yes Vitals/I&O/Wt Last Vital Signs Temp 98.9 F 05/14/24 11:00 Pulse 63 05/14/24 18:00 Resp 15 05/14/24 17:30 BP 144/52 05/14/24 18:00 Pulse Ox 95 05/14/24 18:00 O2 Del Method Nasal Cannula 05/14/24 13:52 O2 Flow Rate 3 05/14/24 13:52 FiO2 50 05/11/24 05:15 05/14/24 05/14/24 05/14/24 06:59 14:59 22:59 Intake Total 280.554 / 2477.457 558.364 / 558.364 Output Total 850 / 2400 1200 / 1200 Balance -569.446 / 77.457 558.364 / 558.364 -1200 / -641.636 Weight last 48 hrs Weight 110.994 kg Weight 111.493 kg Physical Exam 2 Narrative: She is on a heparin drip. She is interactive awake alert and oriented. Blood pressure is stable, on low side. HEENT normocephalic atraumatic. Neck is supple, positive dialysis catheter Lungs have crackles bilaterally. Heart regular systolic murmur. Abdomen is soft positive bowel sounds. Extremities have edema 2+. Poor pulses eschar in her left leg. Neuro awake alert oriented x 3. Urinary Catheter Management: Bonilla: Cath Placed During This Visit: no Reason for Continuing Indwelling Catheter: Accurate Measurement of Urinary Output in Critically Ill Patients Data 05/14/24 04:22 05/14/24 04:22 Micro: Microbiology 05/09/24 20:25 Urine Culture - Final Urine,Clean Catch Nakaseomyces glabrata 05/08/24 23:39 Blood Culture - Final Blood NO GROWTH AFTER 5 DAYS 05/08/24 23:35 Blood Culture - Final Blood NO GROWTH AFTER 5 DAYS A&P Assessment and plan (1) Acute kidney injury superimposed on CKD: 63-year-old lady obesity hypertension diabetes heart failure reduced EF here with non-ST elevation WA and cardiogenic shock. 1. 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 Imaging reviewed, CT scan April 29, 2024 -she has a small left adrenal adenoma, right adrenal gland is normal, she has fatty atrophy of the pancreas splenic artery calcification dense vascular calcification however no hydronephrosis in either kidney. She does have parenchymal scarring both kidneys no evidence of obstructing renal or ureteral calculi. She has a question of a cecal neoplasm. 2. Acute kidney injury-likely on the basis of cardiogenic shock. Urinalysis from May 09 results states nonreportable we will repeat a urinalysis, urine albumin urine protein urine creatinine urine electrolytes. Hyperkalemia has improved. -UOP Reasonable, holding off on HD 3. Transaminitis has started to improve will trend LFTs. 5. Non-ST elevation WA - low EF aortic valve disease Leukocytosis improving Anemia with elevated MCV -ferritin 5000- no iv iron, consider epo. Above discussed in detail with the patient. . The patient consented to a telehealth visit. The patient was seen and examined using A/V equipment as a telehealth visit. Discussed in detail with the patient and the nurse Plan See above. Cardiogenic shock monitor for renal recovery Attestations 2 Medical Necessity Statement*: PER MEDICINE Coding Level of Care Code Acute Code for Chg Fwd Diagnoses Acute kidney injury superimposed on CKD N17.9; N18.9
--- NOTE | 2024-05-14 19:39 | PC.NURSE ---
Physician Communication: Contacted Dr. De Dios @193 to clarify dobutamine order and update on current vital signs. New order to d/c dobutamine drip and start Metoprolol 12.5mg PO BID, first dose tonight. Notified Dr. San of needed medication renewal for scheduled Hydrocodone and PRN Morphine @1939, new order to renew medications.
[2024-05-14 20:07] LABS: Glucose Point of Care 132 mg/dL (70-110)
[2024-05-14] MEDS: HYDROcodone-acetaminophen 5-325 mg Tablet 1 TAB PO (20:24)
[2024-05-14] MEDS: metoprolol tartrate 25 mg Tablet 12.5 MG PO (20:24)
[2024-05-15] VITALS (32 sets, daily range): BP systolic 115–171; BP diastolic 39–92; PULSE 44–71; RESP 11–27; TEMP 36.2–36.8; O2SAT 77–100; BMI 47.1
--- NOTE | 2024-05-15 01:28 | ECG_ITS ---
[facility] Test Date: 2024-05-15 Pat Name: Nia Gomes Department: Room: [id number] Gender: Female Nurse Midwife: : 1960 Requested By: Yrn Campbell Order Number: [id number] Mora MD: Kulwant Rousseau M.D. Measurements Intervals [place] Rate: 55 P: 53 NE: 193 QRS: -30 QRSD: 156 T: 158 QT: 423 QTc: 408 Interpretive Statements SINUS BRADYCARDIA POSSIBLE LEFT ATRIAL ENLARGEMENT [-0.1mV P-WAVE IN V1/V2] INTRAVENTRICULAR CONDUCTION DELAY [130+ ms QRS DURATION] Compared to ECG 05/10/2024 07:15:14 Intraventricular conduction delay now present Junctional rhythm no longer present Electronically Signed On 05-15-2024 11:23:41 CDT by Kulwant Rousseau M.D. [email or web address]
[2024-05-15] MEDS: meropenem 1,000 mg SDV 1000 MG IVP ×2 (01:35→14:10)
--- NOTE | 2024-05-15 01:38 | PC.NURSE ---
Addendum entered by Stephanie Gamboa RN 05/15/24 02:58: Updated Dr. San that HR is in the 40's, otherwise asymptomatic and labs resulted. New order for 40 PO Klor-Con ONCE NOW. Original Note: Low HR: HR dropped to 33 on monitor, rhythm appeared junctional. EKG obtained, pt converted back to SB. Pt reports no chest pain but is slightly nauseated. Dr. San contacted @0132, new order to obtain morning labs now.
[2024-05-15 02:10] LABS: Basophils % 0.6 %; Eosinophils # 0.5 10^3/uL (0.0-0.8); Eosinophils % 9.3 %; Hematocrit 25.7 % (36-47); Lymphocytes # 0.8 10^3/uL (0.8-4.8); Lymphocytes % 14.3 %; Mean Corpuscular HGB Conc 32.3 g/dL (30-55); Mean Corpuscular Hemoglobin 30.9 pg (27-33); Mean Corpuscular Volume 95.5 fl (85-98); Mean Platelet Volume 9.6 fL (7.4-10.4); Monocytes # 1.1 10^3/uL (0.2-0.9); Monocytes % 20.2 %; Neutrophils # 2.94 10^3/uL (1.8-7.7); Neutrophils % 54.3 %; Nucleated Red Blood Cells % 0.6 %; Platelet Count 190 10^3/cmm (157-399); Red Blood Count 2.69 10^6/uL (3.85-5.65); Red Cell Distribution Width 15.1 % (12.1-15.1)
--- NOTE | 2024-05-15 02:17 | ECG_ITS ---
[facility] Test Date: 2024-05-15 Pat Name: Nia Gomes Department: Room: [id number] Gender: Female Patrol Commander: : 1960 Requested By: Yrn Campbell Order Number: [id number] Mora MD: Kulwant Rousseau M.D. Measurements Intervals [place] Rate: 42 P: 0 MN: 0 QRS: -31 QRSD: 141 T: 200 QT: 472 QTc: 394 Interpretive Statements SINUS BRADYCARDIA LEFT AXIS DEVIATION [QRS AXIS < -30] LEFT BUNDLE BRANCH BLOCK [120+ ms QRS DURATION, 80+ ms Q/S IN V1/V2, 85+ ms R IN I/aVL/V5/V6] Compared to ECG 05/15/2024 01:31:50 Left-axis deviation now present Left bundle-branch block now present Intraventricular conduction delay no longer present Electronically Signed On 05-15-2024 11:23:35 CDT by Kulwant Rousseau M.D. [id number]
[2024-05-15 02:31] LABS: Alanine Aminotransferase 644 U/L (0-33); Alkaline Phosphatase 205 U/L (35-105); Anion Gap 18.2 (5-19); Aspartate Amino Transferase 372 U/L (0-32); Blood Urea Nitrogen 50 mg/dL (8-23); Calcium 8.7 mg/dL (8.5-10.5); Carbon Dioxide 28 mmol/L (22-29); Chloride 89 mmol/L (98-107); Creatinine Clr Calc Pharmacy 28.8556; Globulin 2.8 g/dL (1.3-4.6); Glomerular Filtration Rate 22.4 mL/min (90-130); Glucose 120 mg/dL (65-115); Osmolality Calculated 289 mOsm/kg (285-295); Potassium 3.2 mmol/L (3.5-5.1); Sodium 132 mmol/L (136-145); Total Bilirubin 0.7 mg/dL (0.15-1.2); Total Protein 5.8 g/dL (6.6-8.7); Vancomycin Random 28.7 ug/mL (20.0-40.0)
[2024-05-15] MEDS: ipratropium-albuterol 3 mL Neb INHALATION ×4 (02:39→20:30)
[2024-05-15] MEDS: potassium chloride ER 20 mEq Tablet 40 MEQ PO (03:19)
[2024-05-15] MEDS: budesonide 0.5 mg/2 mL Neb INHALATION ×2 (07:33→20:30)
[2024-05-15] MEDS: ranolazine (12HR) 500 mg Tablet PO ×2 (08:58→17:41)
[2024-05-15] MEDS: metOLazone 5 MG Tablet PO (08:58)
[2024-05-15] MEDS: pantoprazole DR 40 mg Tablet PO (08:59)
[2024-05-15] MEDS: clopidogrel 75 mg Tablet PO (08:59)
[2024-05-15] MEDS: enoxaparin 30 mg/0.3 mL Syringe SUBCUT (08:59)
[2024-05-15] MEDS: aspirin 81 mg EC Tablet PO (08:59)
[2024-05-15 11:20] LABS: Glucose Point of Care 142 mg/dL (70-110)
[2024-05-15 11:20] LABS: Glucose Point of Care 115 mg/dL (70-110)
[2024-05-15] MEDS: insulin lispro 100 unit/1 mL SUBCUT ×2 (11:26→17:41)
--- NOTE | 2024-05-15 12:25 | PC.NURSE ---
Patient transferred from ICU to CSU at 1228.
--- NOTE | 2024-05-15 13:40 | PM.PN ---
Vitals/I&O/Wt Last Vital Signs Temp 98.0 F 05/15/24 12:00 Pulse 66 05/15/24 13:12 Resp 14 05/15/24 13:05 BP 171/56 05/15/24 12:00 Pulse Ox 94 05/15/24 13:05 O2 Del Method Nasal Cannula 05/15/24 13:05 O2 Flow Rate 3 05/15/24 13:05 FiO2 50 05/11/24 05:15 05/14/24 05/15/24 05/15/24 22:59 06:59 14:59 Intake Total 100.000 / 658.364 20.25 / 678.614 200 / 200 Output Total 1200 / 1200 1450 / 2650 Balance -1100.000 / -541.636 -1429.75 / -1971.386 200 / 200 Weight last 48 hrs Weight 109.497 kg Weight 110.994 kg Physical Exam Const: COMMON NORMALS: patient oriented x3 and alert GENERAL APPEARANCE: cooperative ORIENTATION/CONSCIOUSNESS: Yes awake OTHER: Mildly to moderately hard of hearing. HENMT: COMMON NORMALS: oropharynx normal Neck/C-Spine: COMMON NORMALS: no JVD OTHER: Right neck CVC Resp: COMMON NORMALS: normal respiratory effort and clear to auscultation bilaterally AUSCULTATION: clear to auscultation bilaterally Cardio: COMMON NORMALS: no JVD, regular rhythm, S1 normal heart sound present, S2 normal heart sound present and No murmurs present (Cardio) RHYTHM: regular rhythm and abnormal rhythm irregularly irregular HEART SOUNDS: S1 normal heart sound present and S2 normal heart sound present GI: COMMON NORMALS: Normal to inspection, nondistended, normoactive bowel sounds present, Soft to palpation and non-tender PALPATION: Yes Soft to palpation Extremity: COMMON NORMALS: no joint enlargement and no pedal edema NARRATIVE EXTREMITY EXAM: Right arm PICC line. Neuro: COMMON NORMALS: patient oriented x3 and moves all extremities SENSORIUM/ORIENTATION: Yes alert Skin: COMMON NORMALS: no rashes or lesions noted NARRATIVE SKIN EXAM: Ecchymosis over arms, legs. Left thigh wound with dressing, wet-to-dry gauze packing. GENERAL SKIN EXAM: no rashes or lesions noted Urinary Catheter Management: Bonilla: Cath Placed During This Visit: no Reason for Continuing Indwelling Catheter: Accurate Measurement of Urinary Output in Critically Ill Patients Data 05/15/24 01:51 05/15/24 01:51 Micro: Microbiology 05/09/24 20:25 Urine Culture - Final Urine,Clean Catch Nakaseomyces glabrata A&P Assessment and plan (1) Junctional rhythm: With improvement, response to amiodarone. Amiodarone drip discontinued. Discussed with admissions officer, hold off starting oral amiodarone for now heart rate is in the 60s. Continue telemetry monitoring. She had episodes of bradycardia and tachycardia. Reviewed potassium, magnesium. Magnesium 2. Potassium 3.2, received potassium 40 mill equivalents this morning. (2) Cardiogenic shock: Resolved, weaned off dobutamine. Has not required Levophed. Discussed with nursing, business case analyst. Transfer out of intensive care unit to cardiac stepdown unit. Monitor blood pressures. Now appear to be elevated 171/56. Keep mean artery pressure over 65. Possible low flow cardiogenic shock. Strict input charting, daily weights. (3) CHF (congestive heart failure): Well in negative balance, with improving kidney function, creatinine down to 0.2, BUN 50. Of hemodialysis. Continue Lasix drip and metolazone. Reassess volume status. At risk of electrolyte abnormality, hypokalemia, hypomagnesemia. Magnesium reviewed normal. Received potassium supplement. Repeat potassium, give him levels. Reassess renal function. Strict input and output charting, daily weights. Oxygen supplementation keeping saturation over 90%. Patient down to nasal cannula. Fluid restriction to less than 1500 cc. Bonilla catheter for intake and output. (4) Eschar of lower leg: Continues treatment with IV antibiotics, and will continue after discharge to long-term facility. Discussed with business case analyst. Continue meropenem and vancomycin. Monitor for risk of seizure with meropenem in setting of TAWNY. Wound reassessed, some small amount of slough at wound base. Continues with wet-to-dry. Minimal surrounding erythema, no sign of significant surrounding cellulitis. Reassess wound, consider Santyl. Follow-up with wound care. Without surrounding cellulitis but a deep wound, continue packing. Wound care. Continue antibiotics with meropenem and vancomycin given ESBL Klebsiella and MRSA. Discussed with business case analyst. Will need continued antibiotics after discharge as per discussion with her. Continue to monitor for risk of seizure with meropenem. LLE decubitus ulcer for several months followed by wound care s/p recent debridemnet on 05/07 empiric meropenem and vanc given recent outpatient cx with ESBL Klebsiella and MRSA. No cultures available from recent debridement Per review of op note, necrotic fat was encountered in the bed of ulcer, all necrotic fat was evacuated, wound was noted to extend into the subcutaneous tissue to the level of fascia. I&D was performed down to this level. No adalberto abscess was encountered in the surgical bed. Follow-up blood culture Currently has leukocytosis, concern for cellulitis and soft tissue infection of the left thigh. Venous duplex negative for DVT on 05/05/2024. Do not see any recent arterial studies; would avoid CTA with runoff for now given CKD, risk for LETICIA. X-ray of the thigh negative for osteomyelitis. CRP elevated. Check arterial duplex given concerns for peripheral vascular disease. Dressing change per wound care instructions from group home-it appears she was on topical meropenem/tobramycin/linezolid and clindamycin preparation-we will have to check with pharmacy if this can be formulated and dispensed here. Given the wound cultures patient will most likely need to be discharged on IV antibiotics including ertapenem and vancomycin for at least 14 days. Case management alerted. Once blood cultures remain negative we will plan for PICC line placement. (5) NSTEMI (non-ST elevated myocardial infarction): Continue aspirin, Plavix, statin. Currently continues on therapeutic Lovenox. Cardiology considering de-escalation of anticoagulation on cardiology note review. Discussed with nursing, business case analyst. Cardiology on board. After discussion between cardiology team and patient decision was made to treat medically. Imdur and Coreg on hold given cardiogenic shock. Echocardiogram results shows an EF of 5%, grade 1 diastolic dysfunction, dilated LA, mild MR, severe low-flow gradient aortic stenosis with gradient of 18 mmHg, mild pulmonary hypertension with PASP of 40 to 45 mmHg, dilated IVC, severe global LV hypokinesia with akinetic apical wall. (6) Hypoxia: Improved. Baseline oxygen supplementation requirement of 3 L. Appreciate ABG. Currently on high flow nasal cannula. BiPAP as needed. Most likely in setting of congestive heart failure. Component of obstructive sleep apnea and COPD as well. proBNP more than 70,000. Treatment of CHF as above. Continue with DuoNeb every 6 hour, Pulmicort twice daily. (7) Acute kidney injury superimposed on CKD: Dialysis was held yesterday. Reviewed nephrology note. Continue to monitor renal function recovery. Monitor for risk of TAWYN with IV diuresis Worsening renal functions with elevated BUN, hyponatremia. For now hyperkalemia and metabolic acidosis seems to be resolving. Patient is oliguric. Given concerns for oliguria even though patient has been on Levophed and dobutamine with mean arterial pressure maintained over 65, Lasix drip will plan to consult nephrology for possible need of dialysis. Patient is agreeable. Medical reconciliation done for nephrotoxic drugs. Check vancomycin random levels. Appreciate urinalysis and urine lites from admission. Repeat BMP in afternoon. Depending on the plan for dialysis will consult surgery. Dialysis. (8) Chronic kidney disease, unspecified: Baseline creatinine more recently ranging from 2.2-2.4. Patient has chronic Bonilla catheterization. Change recently within the last 1 week. Continue to monitor urine output. (9) Type 2 diabetes mellitus with diabetic polyneuropathy: Reviewed Accu-Chek. Glucose did come down as low as 88. A1c 5.3. Episode of hypoglycemia in the hospital. Insulin sliding scale at low-dose protocol. Hold off on Lantus for now given worsening renal functions. (10) Bradycardia: Monitor on telemetry with starting of amiodarone, at risk of worsening bradycardia. (11) Anemia: Baseline hemoglobin around 9. More recently since recent admission around 7.6-8.9. Received blood transfusion last admission. Appreciate iron panel, vitamin B12 and folate level. Target hemoglobin more than 8. Post 1 unit of blood transfusion. (12) COPD (chronic obstructive pulmonary disease): (13) Goals of care, counseling/discussion: Cardiac dysfunction secondary to FL leading to multiorgan dysfunction. Discussed about currently patient being congestive heart failure and cardiogenic shock. States her sister Antonina will be the DPOA. For now she wants everything done to keep her alive. She is agreeable for chest compression, mechanical ventilation if needed. She is agreeable for dialysis if needed. 05/11: Another extensive goals of care discussion given critical nature of patient's illness secondary to multiorgan dysfunction in setting of cardiogenic shock, aortic stenosis and slow flow congestive heart failure with worsening of renal functions possible need of dialysis. Multiple family members including brother and sister at bedside. Patient wishes to continue to remain full code. She is agreeable with dialysis if needed. (14) Transaminitis: On review of liver parameters, continue to improve. Most likely in setting of congestive heart failure and cardiogenic shock. Monitor daily. Alkaline phosphatase normal. Bilirubin normal. Plan Analgesia: [place] nightly, morphine as needed Glycemic control: A1c 5.2. Episode of hypoglycemia. Continue low-dose sliding scale. Hold off on Lantus. Nutrition: Cardiac, dysphagia minced and moist diet CODE STATUS: Full code PUD prophylaxis: Protonix Discharge planning: Back to SNF once patient is medically stable This documentation was created by [employer] legislative director software. Every effort was made to ensure accuracy of legislative director. Any obvious errors or omissions should be clarified with the author of the document. Attestations Medical Necessity Statement*: Continue admission for assessment and management of CHF exacerbation, in the setting of TAWNY on CKD, multiorgan dysfunction including congestive heart failure, renal failure. and High MDM includes amount and/or complexity of data reviewed/ordered [ previous or external records, resulted lab(s)/test(s), ordered lab(s)/test(s) and other healthcare professional discussion] and described risk of complication, morbidity or mortality of management as documented Diagnoses Junctional rhythm I49.8 Cardiogenic shock R57.0 CHF (congestive heart failure) I50.9 Eschar of lower leg R23.4 NSTEMI (non-ST elevated myocardial infarction) I21.4 Hypoxia R09.02 Acute kidney injury superimposed on CKD N17.9; N18.9 Chronic kidney disease, unspecified N18.9 Type 2 diabetes mellitus with diabetic polyneuropathy E11.42 Bradycardia R00.1 Anemia D64.9 COPD (chronic obstructive pulmonary disease) J44.9 Goals of care, counseling/discussion Z71.89 Transaminitis R74.01
--- NOTE | 2024-05-15 14:24 | PHA.VACGOAL ---
Vancomycin Goal - Therapy Day of therpy:: Day []of [] . 7 Actual body weight (kg): 241 lb 6.4 oz - Data Labs: WBC 5.40 10^3/uL (3.29-11.43) 05/15/24 01:51 RBC 2.69 10^6/uL (3.85-5.65) L 05/15/24 01:51 Hgb 8.30 g/dL (11.27-16.99) L 05/15/24 01:51 Hct 25.7 % (36-47) L 05/15/24 01:51 MCV 95.5 fl (85-98) 05/15/24 01:51 MCH 30.9 pg (27-33) 05/15/24 01:51 MCHC 32.3 g/dL (30-55) 05/15/24 01:51 RDW 15.1 % (12.1-15.1) 05/15/24 01:51 Sodium 132 mmol/L (136-145) L 05/15/24 01:51 Potassium 3.2 mmol/L (3.5-5.1) L 05/15/24 01:51 Chloride 89 mmol/L (98-107) L 05/15/24 01:51 Carbon Dioxide 28 mmol/L (22-29) 05/15/24 01:51 Anion Gap 18.2 (5-19) 05/15/24 01:51 BUN 50 mg/dL (8-23) H 05/15/24 01:51 Creatinine 2.2 mg/dL (0.5-0.9) H 05/15/24 01:51 GFR Calculation 22.4 mL/min (90-130) L 05/15/24 01:51 Treatment plan:: continue (Random vanc 28.7 05/15 @0151; One-time vanc 1 gram 05/15 @2100)
[2024-05-15 16:40] LABS: Glucose Point of Care 164 mg/dL (70-110)
[2024-05-15] MEDS: atorvastatin 40 mg Tablet 20 MG PO (17:41)
[2024-05-15 20:42] LABS: Glucose Point of Care 110 mg/dL (70-110)
[2024-05-15] MEDS: HYDROcodone-acetaminophen 5-325 mg Tablet 1 TAB PO (20:57)
[2024-05-15] MEDS: vancomycin 1,000 MG in sodium chloride 0.9% 250 ML 250 MG IV (20:57)
[2024-05-16] VITALS (31 sets, daily range): BP systolic 140–173; BP diastolic 61–97; PULSE 61–78; RESP 11–29; TEMP 36.1–36.9; O2SAT 75–100
[2024-05-16] MEDS: meropenem 1,000 mg SDV 1000 MG IVP ×2 (01:40→15:03)
[2024-05-16] MEDS: ipratropium-albuterol 3 mL Neb INHALATION ×4 (02:42→21:18)
[2024-05-16 04:25] LABS: Basophils % 0.6 %; Eosinophils # 0.5 10^3/uL (0.0-0.8); Eosinophils % 8.4 %; Hematocrit 26.5 % (36-47); Lymphocytes # 1.1 10^3/uL (0.8-4.8); Lymphocytes % 16.3 %; Mean Corpuscular HGB Conc 32.1 g/dL (30-55); Mean Corpuscular Hemoglobin 31.4 pg (27-33); Mean Corpuscular Volume 97.8 fl (85-98); Mean Platelet Volume 9.5 fL (7.4-10.4); Monocytes # 1.2 10^3/uL (0.2-0.9); Monocytes % 18.6 %; Neutrophils # 3.53 10^3/uL (1.8-7.7); Neutrophils % 54.7 %; Nucleated Red Blood Cells % 0.3 %; Platelet Count 181 10^3/cmm (157-399); Red Blood Count 2.71 10^6/uL (3.85-5.65); Red Cell Distribution Width 15.4 % (12.1-15.1); White Blood Count 6.45 10^3/uL (3.29-11.43)
[2024-05-16 05:03] LABS: Alanine Aminotransferase 404 U/L (0-33); Albumin Level 2.9 g/dL (3.5-5.2); Alkaline Phosphatase 181 U/L (35-105); Anion Gap 17.7 (5-19); Aspartate Amino Transferase 173 U/L (0-32); Blood Urea Nitrogen 50 mg/dL (8-23); Calcium 8.5 mg/dL (8.5-10.5); Carbon Dioxide 28 mmol/L (22-29); Chloride 90 mmol/L (98-107); Creatinine Clr Calc Pharmacy 35.5625; Globulin 2.5 g/dL (1.3-4.6); Glomerular Filtration Rate 28.2 mL/min (90-130); Glucose 124 mg/dL (65-115); Magnesium 1.7 mg/dL (1.7-2.3); Osmolality Calculated 289 mOsm/kg (285-295); Potassium 3.7 mmol/L (3.5-5.1); Sodium 132 mmol/L (136-145); Total Bilirubin 0.7 mg/dL (0.15-1.2); Total Protein 5.4 g/dL (6.6-8.7)
[2024-05-16 05:04] LABS: Vancomycin Random 33.2 ug/mL (20.0-40.0)
[2024-05-16 06:23] LABS: Glucose Point of Care 122 mg/dL (70-110)
[2024-05-16] MEDS: budesonide 0.5 mg/2 mL Neb INHALATION ×2 (07:30→21:18)
[2024-05-16] MEDS: metOLazone 5 MG Tablet PO (09:11)
[2024-05-16] MEDS: pantoprazole DR 40 mg Tablet PO (09:11)
[2024-05-16] MEDS: clopidogrel 75 mg Tablet PO (09:11)
[2024-05-16] MEDS: aspirin 81 mg EC Tablet PO (09:11)
[2024-05-16] MEDS: ranolazine (12HR) 500 mg Tablet PO ×2 (09:11→17:32)
[2024-05-16] MEDS: enoxaparin 30 mg/0.3 mL Syringe SUBCUT (09:11)
[2024-05-16] MEDS: acetaminophen 325 mg Tablet 650 MG PO (10:45)
[2024-05-16] MEDS: FUROsemide 40 mg Tablet 80 MG PO ×2 (10:46→17:32)
[2024-05-16 11:47] LABS: Glucose Point of Care 195 mg/dL (70-110)
[2024-05-16] MEDS: insulin lispro 100 unit/1 mL SUBCUT ×2 (12:36→20:50)
--- NOTE | 2024-05-16 12:59 | P.PN_ITS ---
Subjective 2 Subjective: ON 4L nc Medications: Reviewed: Yes Vitals/I&O/Wt Last Vital Signs Temp 96.9 F L 05/16/24 11:43 Pulse 68 05/16/24 11:43 Resp 16 05/16/24 11:43 BP 171/64 05/16/24 11:43 Pulse Ox 94 05/16/24 11:43 O2 Del Method Nasal Cannula 05/16/24 11:43 O2 Flow Rate 4 05/16/24 07:31 FiO2 50 05/11/24 05:15 05/15/24 05/16/24 05/16/24 22:59 06:59 14:59 Intake Total 370 / 930 360 / 1290 240 / 240 Output Total 550 / 550 450 / 1000 450 / 450 Balance -180 / 380 -90 / 290 -210 / -210 Weight last 48 hrs Weight 112.491 kg Weight 109.497 kg Physical Exam 2 Narrative: She is on a heparin drip. She is interactive awake alert and oriented. Blood pressure is stable, on low side. HEENT normocephalic atraumatic. Neck is supple, positive dialysis catheter Lungs have crackles bilaterally. Heart regular systolic murmur. Abdomen is soft positive bowel sounds. Extremities have edema 2+. Poor pulses eschar in her left leg. Neuro awake alert oriented x 3. Urinary Catheter Management: Bonilla: Cath Placed During This Visit: no Reason for Continuing Indwelling Catheter: Accurate Measurement of Urinary Output in Critically Ill Patients Data 05/16/24 04:03 05/16/24 04:03 A&P Assessment and plan (1) Acute kidney injury superimposed on CKD: 63-year-old lady obesity hypertension diabetes heart failure reduced EF here with non-ST elevation MD and cardiogenic shock. 1. 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 Imaging reviewed, CT scan April 29, 2024 -she has a small left adrenal adenoma, right adrenal gland is normal, she has fatty atrophy of the pancreas splenic artery calcification dense vascular calcification however no hydronephrosis in either kidney. She does have parenchymal scarring both kidneys no evidence of obstructing renal or ureteral calculi. She has a question of a cecal neoplasm. 2. Acute kidney injury-likely on the basis of cardiogenic shock. Urinalysis from May 09 results states nonreportable we will repeat a urinalysis, urine albumin urine protein urine creatinine urine electrolytes. Hyperkalemia has improved. -UOP Reasonable, holding off on HD -changed lasix to PO . Cr improved 3. Transaminitis has started to improve will trend LFTs. 5. Non-ST elevation MD - low EF aortic valve disease Leukocytosis improving Anemia with elevated MCV -ferritin 5000- no iv iron, consider epo. Above discussed in detail with the patient. . The patient consented to a telehealth visit. The patient was seen and examined using A/V equipment as a telehealth visit. Discussed in detail with the patient and the nurse Plan See above. Cardiogenic shock monitor for renal recovery Attestations 2 Medical Necessity Statement*: per snehal Coding Level of Care Code Acute Code for Chg Fwd Diagnoses Acute kidney injury superimposed on CKD N17.9; N18.9
--- NOTE | 2024-05-16 14:23 | P.PN_ITS ---
Subjective 2 Subjective: She states she is doing okay. Denies new symptoms. Vitals/I&O/Wt Last Vital Signs Temp 96.9 F L 05/16/24 11:43 Pulse 73 05/16/24 13:37 Resp 16 05/16/24 13:37 BP 171/64 05/16/24 11:43 Pulse Ox 94 05/16/24 13:37 O2 Del Method Nasal Cannula 05/16/24 13:37 O2 Flow Rate 4 05/16/24 13:37 FiO2 50 05/11/24 05:15 05/15/24 05/16/24 05/16/24 22:59 06:59 14:59 Intake Total 370 / 930 360 / 1290 240 / 240 Output Total 550 / 550 450 / 1000 450 / 450 Balance -180 / 380 -90 / 290 -210 / -210 Weight last 48 hrs Weight 112.491 kg Weight 109.497 kg Physical Exam 2 Const: COMMON NORMALS: patient oriented x3 and alert GENERAL APPEARANCE: c ooperative ORIENTATION/CONSCIOUSNESS: Yes awake OTHER: Mildly to moderately hard of hearing. HENMT: COMMON NORMALS: oropharynx normal Neck/C-Spine: COMMON NORMALS: no JVD OTHER: Right neck CVC Resp: COMMON NORMALS: normal respiratory effort and clear to auscultation bilaterally AUSCULTATION: clear to auscultation bilaterally Cardio: COMMON NORMALS: no JVD, regular rhythm, S1 normal heart sound present, S2 normal heart sound present and No murmurs present (Cardio) RHYTHM: regular rhythm and abnormal rhythm irregularly irregular HEART SOUNDS: S1 normal heart sound present and S2 normal heart sound present GI: COMMON NORMALS: Normal to inspection, nondistended, normoactive bowel sounds present, Soft to palpation and non-tender PALPATION: Yes Soft to palpation Extremity: COMMON NORMALS: no joint enlargement and no pedal edema N ARRATIVE EXTREMITY EXAM: Right arm PICC line. Neuro: COMMON NORMALS: patient oriented x3 and moves all extremities S ENSORIUM/ORIENTATION: Yes alert Skin: COMMON NORMALS: no rashes or lesions noted NARRATIVE SKIN EXAM: Ecchymosis over arms, legs. Left thigh wound with dressing, wet-to-dry gauze packing. GENERAL SKIN EXAM: no rashes or lesions noted Urinary Catheter Management: Bonilla: Cath Placed During This Visit: no Reason for Continuing Indwelling Catheter: Accurate Measurement of Urinary Output in Critically Ill Patients Data 05/16/24 04:03 05/16/24 04:03 A&P Assessment and plan (1) CHF (congestive heart failure): Reviewed vitals, CBC, CMP, magnesium, nephrology, cardiology note, discussed with thread separator and adobe cq developer. She is requiring slightly more oxygen today at 4 L but close to her baseline. She is in negative balance. Edema with improvement. Renal function continues to gradually show improvement. As per discussion, discussed also with her we will transition from Lasix drip to p.o. Lasix 80 mg twice daily. Monitor intake and output, reassess oxygenation, volume status, renal function prior to potential discharge if doing well. Oxygen supplementation keeping saturation over 90%. Patient down to nasal cannula. Fluid restriction to less than 1500 cc. Bonilla catheter for intake and output. (2) Junctional rhythm: Off amiodarone. Cardiology would like to resume on low-dose metoprolol, 12.5 mg twice daily per discussion. With improvement, response to amiodarone. Amiodarone drip discontinued. Discussed with adobe cq developer, hold off starting oral amiodarone for now heart rate is in the 60s. Continue telemetry monitoring. She had episodes of bradycardia and tachycardia. Reviewed potassium, magnesium. Magnesium 2. Potassium 3.2, received potassium 40 mill equivalents this morning. (3) Acute kidney injury superimposed on CKD: Dialysis was held. Reviewed nephrology note and discussed with nephrology. Reviewed BUN, creatinine, potassium, magnesium, ARGELIA. Continue to monitor renal function recovery. Monitor for risk of TAWNY with IV diuresis Worsening renal functions with elevated BUN, hyponatremia. For now hyperkalemia and metabolic acidosis seems to be resolving. Patient is oliguric. Given concerns for oliguria even though patient has been on Levophed and dobutamine with mean arterial pressure maintained over 65, Lasix drip will plan to consult nephrology for possible need of dialysis. Patient is agreeable. Medical reconciliation done for nephrotoxic drugs. Check vancomycin random levels. Appreciate urinalysis and urine lites from admission. Repeat BMP in afternoon. Depending on the plan for dialysis will consult surgery. Dialysis. (4) Eschar of lower leg: Reviewed bankrupt. Discussed with case loader operator. Will need to continue IV antibiotics after discharge. Continue vancomycin, monitor levels. Continue meropenem, will monitor for risk of seizure. Wound reassessed, some small amount of slough at wound base. Continues with wet-to-dry. Minimal surrounding erythema, no sign of significant surrounding cellulitis. Reassess wound, consider Santyl. Follow-up with wound care. Without surrounding cellulitis but a deep wound, continue packing. Wound care. Continue antibiotics with meropenem and vancomycin given ESBL Klebsiella and MRSA. Discussed with case loader operator. Will need continued antibiotics after discharge as per discussion with her. Continue to monitor for risk of seizure with meropenem. LLE decubitus ulcer for several months followed by wound care s/p recent debridemnet on 05/07 empiric meropenem and vanc given recent outpatient cx with ESBL Klebsiella and MRSA. No cultures available from recent debridement Per review of op note, necrotic fat was encountered in the bed of ulcer, all necrotic fat was evacuated, wound was noted to extend into the subcutaneous tissue to the level of fascia. I&D was performed down to this level. No adalberto abscess was encountered in the surgical bed. Follow-up blood culture Currently has leukocytosis, concern for cellulitis and soft tissue infection of the left thigh. Venous duplex negative for DVT on 05/05/2024. Do not see any recent arterial studies; would avoid CTA with runoff for now given CKD, risk for LETICIA. X-ray of the thigh negative for osteomyelitis. CRP elevated. Check arterial duplex given concerns for peripheral vascular disease. Dressing change per wound care instructions from correction-it appears she was on topical meropenem/tobramycin/linezolid and clindamycin preparation-we will have to check with pharmacy if this can be formulated and dispensed here. Given the wound cultures patient will most likely need to be discharged on IV antibiotics including ertapenem and vancomycin for at least 14 days. Case management alerted. Once blood cultures remain negative we will plan for PICC line placement. (5) NSTEMI (non-ST elevated myocardial infarction): Continue aspirin, Plavix, statin. Currently continues on therapeutic Lovenox. Cardiology considering de-escalation of anticoagulation on cardiology note review. Discussed with nursing, case loader operator. Cardiology on board. After discussion between cardiology team and patient decision was made to treat medically. Imdur and Coreg on hold given cardiogenic shock. Echocardiogram results shows an EF of 2024%, grade 1 diastolic dysfunction, dilated LA, mild MR, severe low-flow gradient aortic stenosis with gradient of 18 mmHg, mild pulmonary hypertension with PASP of 40 to 45 mmHg, dilated IVC, severe global LV hypokinesia with akinetic apical wall. (6) Cardiogenic shock: Resolved, weaned off dobutamine. Has not required Levophed. Discussed with nursing, case loader operator. Transfer out of intensive care unit to cardiac stepdown unit. Monitor blood pressures. Now appear to be elevated 171/56. Keep mean artery pressure over 65. Possible low flow cardiogenic shock. Strict input charting, daily weights. (7) Hypoxia: Improved. Baseline oxygen supplementation requirement of 3 L. Appreciate ABG. Currently on high flow nasal cannula. BiPAP as needed. Most likely in setting of congestive heart failure. Component of obstructive sleep apnea and COPD as well. proBNP more than 70,000. Treatment of CHF as above. Continue with DuoNeb every 6 hour, Pulmicort twice daily. (8) Chronic kidney disease, unspecified: Baseline creatinine more recently ranging from 2.2-2.4. Patient has chronic Bonilla catheterization. Change recently within the last 1 week. Continue to monitor urine output. (9) Type 2 diabetes mellitus with diabetic polyneuropathy: Reviewed Accu-Chek. Glucose did come down as low as 88. A1c 5.3. Episode of hypoglycemia in the hospital. Insulin sliding scale at low-dose protocol. Hold off on Lantus for now given worsening renal functions. (10) Bradycardia: Monitor on telemetry with starting of amiodarone, at risk of worsening bradycardia. (11) Anemia: Baseline hemoglobin around 9. More recently since recent admission around 7.6- 8.9. Received blood transfusion last admission. Appreciate iron panel, vitamin B12 and folate level. Target hemoglobin more than 8. Post 1 unit of blood transfusion. (12) COPD (chronic obstructive pulmonary disease): (13) Goals of care, counseling/discussion: Cardiac dysfunction secondary to MA leading to multiorgan dysfunction. Discussed about currently patient being congestive heart failure and cardiogenic shock. States her sister Antonina will be the DPOA. For now she wants everything done to keep her alive. She is agreeable for chest compression, mechanical ventilation if needed. She is agreeable for dialysis if needed. 05/11: Another extensive goals of care discussion given critical nature of patient's illness secondary to multiorgan dysfunction in setting of cardiogenic shock, aortic stenosis and slow flow congestive heart failure with worsening of renal functions possible need of dialysis. Multiple family members including brother and sister at bedside. Patient wishes to continue to remain full code. She is agreeable with dialysis if needed. (14) Transaminitis: On review of liver parameters, continue to improve. Most likely in setting of congestive heart failure and cardiogenic shock. Monitor daily. Alkaline phosphatase normal. Bilirubin normal. Plan Analgesia: [place] nightly, morphine as needed Glycemic control: A1c 5.2. Episode of hypoglycemia. Continue low-dose sliding scale. Hold off on Lantus. Nutrition: Cardiac, dysphagia minced and moist diet CODE STATUS: Full code PUD prophylaxis: Protonix Discharge planning: Back to SNF once patient is medically stable This documentation was created by [employer] dry kiln loader software. Every effort was made to ensure accuracy of dry kiln loader. Any obvious errors or omissions should be clarified with the author of the document. Attestations 2 Medical Necessity Statement*: Continue admission for assessment and management of CHF exacerbation, in the setting of TAWNY on CKD, multiorgan dysfunction including congestive heart failure, renal failure. and High MDM includes amount and/or complexity of data reviewed/ordered [ previous or external records, resulted lab(s)/test(s), ordered lab(s)/test(s) and other healthcare professional discussion] as documented Diagnoses CHF (congestive heart failure) I50.9 Junctional rhythm I49.8 Acute kidney injury superimposed on CKD N17.9; N18.9 Eschar of lower leg R23.4 NSTEMI (non-ST elevated myocardial infarction) I21.4 Cardiogenic shock R57.0 Hypoxia R09.02 Chronic kidney disease, unspecified N18.9 Type 2 diabetes mellitus with diabetic polyneuropathy E11.42 Bradycardia R00.1 Anemia D64.9 COPD (chronic obstructive pulmonary disease) J44.9 Goals of care, counseling/discussion Z71.89 Transaminitis R74.01
[2024-05-16] MEDS: metoprolol tartrate 25 mg Tablet 12.5 MG PO ×2 (15:37→20:49)
[2024-05-16 17:18] LABS: Glucose Point of Care 99 mg/dL (70-110)
[2024-05-16] MEDS: atorvastatin 40 mg Tablet 20 MG PO (17:32)
[2024-05-16 20:23] LABS: Glucose Point of Care 165 mg/dL (70-110)
--- NOTE | 2024-05-16 20:30 | PM.PN ---
Subjective Subjective: Denies any complaint laying in the bed worried about her abdominal Medications: Reviewed: Yes Vitals/I&O/Wt Last Vital Signs Temp 96.9 F L 05/16/24 11:43 Pulse 61 05/16/24 19:00 Resp 17 05/16/24 19:00 BP 171/68 05/16/24 19:00 Pulse Ox 95 05/16/24 17:00 O2 Del Method Nasal Cannula 05/16/24 13:37 O2 Flow Rate 4 05/16/24 13:37 FiO2 50 05/11/24 05:15 05/16/24 05/16/24 05/16/24 06:59 14:59 22:59 Intake Total 360 / 1290 480 / 480 269.75 / 749.75 Output Total 450 / 1000 450 / 450 825 / 1275 Balance -90 / 290 30 / 30 -555.25 / -525.25 Weight last 48 hrs Weight 248 lb Weight 241 lb 6.4 oz Physical Exam Narrative: Alert awake oriented x 3 bruising all over both arm Heart regular S1-S2 Lungs clear to auscultate CONTROLS DESIGNER gross nonfocal Urinary Catheter Management: Bonilla: Cath Placed During This Visit: no Reason for Continuing Indwelling Catheter: Accurate Measurement of Urinary Output in Critically Ill Patients Data 05/16/24 04:03 05/16/24 04:03 A&P Assessment and plan (1) Acquired hyperlipoproteinemia: (2) Chest pain: Qualifiers: Chest pain type: unspecified Qualified Code(s): R07.9 - Chest pain, unspecified (3) Elevated troponin: (4) Type 2 diabetes mellitus with diabetic polyneuropathy: (5) Body mass index [BMI] 50.0-59.9, adult: (6) Acute renal insufficiency: (7) Chronic kidney disease, unspecified: (8) Low hemoglobin: (9) 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: (10) COPD (chronic obstructive pulmonary disease): (11) Cardiogenic shock: (12) CHF (NYHA class IV, ACC/AHA stage D): (13) Atrial fibrillation: Plan Unfortunately patient is a 63-year-old morbidly obese female with BMI of more than 47 underlying anemia difficult access hypotension on pressors maintaining MAP acute on chronic renal failure with chronic kidney disease, acute decompensated systolic heart failure on chronic, cardiomyopathy with severe LV dysfunction with possible multivessel underlying coronary artery disease, she is high risk for complications such as bleeding arrhythmia stroke vascular brain vascular scenario . Patient is not LVAD/transplant candidate secondary to multiple risk factors and comorbidities, it is the reason we have tried to manage her medically with guideline medical therapy and as much as she tolerates. Diuretic IV infusion will continue Will continue dobutamine infusion, hopefully with IV diuresis and maintaining MAP potassium will also improve. Further plan be advised as per progress of the patient. On today's visit patient steadily improving. Blood pressure remained stable continue Levophed for now. Appreciate nephrology for further dialysis. Will continue medical management will add Plavix to the regimen and switch her to Lovenox. Over the next 24 to 48 hours will stop Lovenox and switch to prophylaxis for DVT. Patient is not a good interventional candidate at the same time patient and the family also agree with continued conservative management. On today's visit dated 05/13/2024 patient continues to do better from a cardiovascular perspective he is off Levophed blood pressure remained stable. He is on dobutamine we will start titrating off dobutamine as well. Patient had episode of paroxysmal A-fib therefore we will start her on IV amiodarone. Continue rest of medications including IV diuresis. Dialysis as per nephrology On today's visit dated 05/14/2024 patient continue to improve. At this point we will switch patient to prophylactic Lovenox, will discontinue IV amiodarone, patient is in sinus rhythm. Will taper off dobutamine. Once off dobutamine we will add beta-roslyn. Continue diuretics as per nephrology On today's visit patient continues to improve. Blood pressure is on the higher side though., Will start patient on hydralazine 25 mg 3 times daily, continue carvedilol aspirin statin Plavix once renal function improves below 1.4 creatinine pacheco we will start patient on Entresto Attestations Medical Necessity Statement*: Patient require continuation of hospitalization for above defined care Coding Level of Care Code Acute Code for Chg Fwd Diagnoses Acquired hyperlipoproteinemia E78.5 Chest pain R07.9 Chest pain type: unspecified Elevated troponin R79.89 Type 2 diabetes mellitus with diabetic polyneuropathy E11.42 Body mass index [BMI] 50.0-59.9, adult Z68.43 Acute renal insufficiency N28.9 Chronic kidney disease, unspecified N18.9 Low hemoglobin D64.9 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
[2024-05-16] MEDS: hyDRALAzine 25 mg Tablet PO (20:49)
[2024-05-16] MEDS: HYDROcodone-acetaminophen 5-325 mg Tablet 1 TAB PO (20:49)
[2024-05-16] MEDS: morphine 4 mg/mL SDV 1 mL 2 MG IVP (22:25)
[2024-05-17] VITALS (61 sets, daily range): BP systolic 97–158; BP diastolic 48–74; PULSE 64–82; RESP 14–29; TEMP 36.4–37; O2SAT 94–96
[2024-05-17] MEDS: meropenem 1,000 mg SDV 1000 MG IVP ×2 (02:20→14:44)
[2024-05-17] MEDS: ipratropium-albuterol 3 mL Neb INHALATION ×3 (03:30→14:35)
[2024-05-17 04:31] LABS: Basophils % 0.3 %; Eosinophils # 0.5 10^3/uL (0.0-0.8); Eosinophils % 6.9 %; Hematocrit 26.6 % (36-47); Lymphocytes # 1.3 10^3/uL (0.8-4.8); Mean Corpuscular HGB Conc 32.7 g/dL (30-55); Mean Corpuscular Hemoglobin 31.3 pg (27-33); Mean Corpuscular Volume 95.7 fl (85-98); Mean Platelet Volume 9.5 fL (7.4-10.4); Monocytes % 14.1 %; Neutrophils # 4.37 10^3/uL (1.8-7.7); Neutrophils % 58.9 %; Nucleated Red Blood Cells % 0.3 %; Platelet Count 219 10^3/cmm (157-399); Red Blood Count 2.78 10^6/uL (3.85-5.65); Red Cell Distribution Width 15.2 % (12.1-15.1)
[2024-05-17 04:48] LABS: Alanine Aminotransferase 288 U/L (0-33); Albumin Level 3.1 g/dL (3.5-5.2); Alkaline Phosphatase 184 U/L (35-105); Aspartate Amino Transferase 97 U/L (0-32); Blood Urea Nitrogen 49 mg/dL (8-23); Calcium 8.7 mg/dL (8.5-10.5); Carbon Dioxide 30 mmol/L (22-29); Chloride 91 mmol/L (98-107); Creatinine Clr Calc Pharmacy 39.1241; Globulin 2.2 g/dL (1.3-4.6); Glomerular Filtration Rate 32.3 mL/min (90-130); Glucose 138 mg/dL (65-115); Magnesium 1.6 mg/dL (1.7-2.3); Osmolality Calculated 295 mOsm/kg (285-295); Sodium 135 mmol/L (136-145); Total Bilirubin 0.8 mg/dL (0.15-1.2); Total Protein 5.3 g/dL (6.6-8.7); Vancomycin Random 25.4 ug/mL (20.0-40.0)
[2024-05-17 06:31] LABS: Glucose Point of Care 130 mg/dL (70-110)
[2024-05-17] MEDS: budesonide 0.5 mg/2 mL Neb INHALATION (07:59)
[2024-05-17] MEDS: metoprolol tartrate 25 mg Tablet 12.5 MG PO (09:01)
[2024-05-17] MEDS: enoxaparin 40 mg/0.4 mL Syringe SUBCUT (09:01)
[2024-05-17] MEDS: pantoprazole DR 40 mg Tablet PO (09:02)
[2024-05-17] MEDS: clopidogrel 75 mg Tablet PO (09:02)
[2024-05-17] MEDS: aspirin 81 mg EC Tablet PO (09:02)
[2024-05-17] MEDS: ranolazine (12HR) 500 mg Tablet PO (09:02)
[2024-05-17] MEDS: FUROsemide 40 mg Tablet 80 MG PO (09:02)
[2024-05-17] MEDS: hyDRALAzine 25 mg Tablet PO (09:03)
[2024-05-17] MEDS: metOLazone 5 MG Tablet PO (09:03)
[2024-05-17 11:22] LABS: Glucose Point of Care 165 mg/dL (70-110)
[2024-05-17] MEDS: magnesium sulfate premix 1 GM/100 ML PIGGYBACK IV (12:11)
[2024-05-17] MEDS: insulin lispro 100 unit/1 mL SUBCUT (12:11)
--- NOTE | 2024-05-17 13:05 | P.DS_ITS ---
Discharge Providers Date of Admission: 05/08/24 22:31 Date of Discharge: May 17, 2024 Attending Provider at Admission: Shara Patterson MD Attending Provider at Discharge: Patricio Schwartz Primary Care Provider: Nadiya Torre NP Diagnoses at Discharge Discharge Diagnosis (1) Acquired hyperlipoproteinemia: Status: Chronic (2) Chest pain: Status: Acute Qualifiers: Chest pain type: unspecified Qualified Code(s): R07.9 - Chest pain, unspecified (3) Elevated troponin: Status: Acute (4) Type 2 diabetes mellitus with diabetic polyneuropathy: Status: Acute (5) Body mass index [BMI] 50.0-59.9, adult: Status: Chronic (6) Acute renal insufficiency: Status: Acute (7) Chronic kidney disease, unspecified: Status: Chronic (8) Low hemoglobin: Status: Acute (9) 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: Status: Acute (10) COPD (chronic obstructive pulmonary disease): Status: Chronic (11) Cardiogenic shock: Status: Acute (12) CHF (NYHA class IV, ACC/AHA stage D): Status: Acute (13) Atrial fibrillation: Status: Acute Reason for Visit Reason for Visit: CP Hospital Course Hospital Course 63-year-old lady recently admitted with left thigh wound, status post debridement, oral antibiotics, wound care, return to same day with chest pain, found to be in NSTEMI, was seen by director of education on-call, on discussion of further steps of management with patient due to multiple barriers to intervention decision was made for medical management with multiple concerns including poor access with body habitus, risk of GI and with baseline CKD. Her hospitalization was complicated by cardiogenic shock, noted cardiomyopathy EF 25%, with moderate low-flow aortic stenosis. Complicated by TAWNY on CKD, acute liver dysfunction with severe transaminitis. She required hemodynamic support with Levophed and dobutamine drips. Gradually weaned off. Required temporary dialysis, gradually discontinued with improving renal function. Continued with wet-to-dry dressing changes for left thigh wound, treated with meropenem and vancomycin due to growing ESBL from the left thigh wound, history of MRSA infection there as well. Will complete total 14 days of antibiotics finishing vancomycin on 05/23 and ertapenem on 05/22. She is asked to follow-up with cardiology, nephrology, and wound care clinic in addition to primary provider. Physical Exam Const: COMMON NORMALS: patient oriented x3 and alert GENERAL APPEARANCE: cooperative ORIENTATION/CONSCIOUSNESS: Yes awake OTHER: Mildly to moderately hard of hearing. HENMT: COMMON NORMALS: oropharynx normal Neck/C-Spine: COMMON NORMALS: no JVD Resp: COMMON NORMALS: normal respiratory effort and clear to auscultation bilaterally AUSCULTATION: clear to auscultation bilaterally Cardio: COMMON NORMALS: no JVD, regular rhythm, S1 normal heart sound present, S2 normal heart sound present and No murmurs present (Cardio) RHYTHM: regular rhythm and abnormal rhythm irregularly irregular HEART SOUNDS: S1 normal heart sound present and S2 normal heart sound present GI: COMMON NORMALS: Normal to inspection, nondistended, normoactive bowel sounds present, Soft to palpation and non-tender PALPATION: Yes Soft to palpation Extremity: COMMON NORMALS: no joint enlargement and no pedal edema NARRATIVE EXTREMITY EXAM: Right arm PICC line. Neuro: COMMON NORMALS: patient oriented x3 and moves all extremities SENSORIUM/ORIENTATION: Yes alert Skin: COMMON NORMALS: no rashes or lesions noted NARRATIVE SKIN EXAM: Ecchymosis over arms, legs. Left thigh wound with dressing, wet-to-dry gauze packing. GENERAL SKIN EXAM: no rashes or lesions noted Urinary Catheter Management: Bonilla: Cath Placed During This Visit: no Reason for Continuing Indwelling Catheter: Acute Urinary Retention or Obstruction Discharge Data Studies Completed and Pending Completed Studies During Hospitalization Category Date Time Status CT chest wo con [id number] Routine Cat Scan 05/09/24 17:20 Completed CXRP [XR chest 1V portable [id number]] Stat Exams 05/10/24 06:40 Completed XR chest 1V portable [id number] Stat Exams 05/08/24 20:51 Completed XR chest 1V portable [id number] Stat Exams 05/10/24 11:15 Completed XR chest 1V portable [id number] Urgent Exams 05/11/24 17:29 Completed XR femur LT 1V [id number] Routine Exams 05/09/24 05:45 [place] [id number] Routine Ultrasound 05/09/24 17:13 Completed CV. echo complete* [id number] Routine Ultrasound 05/09/24 17:19 Completed US renal BI* [id number] Routine Ultrasound 05/11/24 12:49 Completed Radiology Impressions Femur X-Ray 05/09/24 05:45 IMPRESSION: No evidence of osteomyelitis or other abnormality of the femur. Duplex Scan Lower Extremity Artery 05/09/24 17:13 IMPRESSION: 1. Limited exam due to morbid obesity. 2. The distal right superficial femoral artery, popliteal, and posterior tibia, and dorsalis pedis is occluded. Chest CT 05/09/24 17:20 IMPRESSION: 1. Mild atelectasis of the lung bases, gyse-vybbfbm-pfid-right. Trace right pleural effusion. 2. Severe cardiomegaly. Small pericardial effusion. 3. Large hiatal hernia. Renal Ultrasound 05/11/24 12:49 IMPRESSION: 1. Echogenic kidneys of normal size 2. There is soft tissue prominence in the right kidney. I am uncertain as to whether this represents a normal lobulation or mass. At some point MR may be helpful. Chest X-Ray 05/11/24 17:29 IMPRESSION: Good central line positioning Laboratory Results WBC 7.40 10^3/uL (3.29-11.43) 05/17/24 04:11 RBC 2.78 10^6/uL (3.85-5.65) L 05/17/24 04:11 Hgb 8.70 g/dL (11.27-16.99) L 05/17/24 04:11 Hct 26.6 % (36-47) L 05/17/24 04:11 MCV 95.7 fl (85-98) 05/17/24 04:11 MCH 31.3 pg (27-33) 05/17/24 04:11 MCHC 32.7 g/dL (30-55) 05/17/24 04:11 RDW 15.2 % (12.1-15.1) H 05/17/24 04:11 Plt Count 219 10^3/cmm (157-399) 05/17/24 04:11 MPV 9.5 fL (7.4-10.4) 05/17/24 04:11 Neut % (Auto) 58.9 % 05/17/24 04:11 Lymph % (Auto) 18.0 % 05/17/24 04:11 [place] % (Auto) 14.1 % 05/17/24 04:11 Eos % (Auto) 6.9 % 05/17/24 04:11 Baso % (Auto) 0.3 % 05/17/24 04:11 Neut # (Auto) 4.37 10^3/uL (1.8-7.7) 05/17/24 04:11 Lymph # (Auto) 1.3 10^3/uL (0.8-4.8) 05/17/24 04:11 [place] # (Auto) 1.0 10^3/uL (0.2-0.9) H 05/17/24 04:11 Eos # (Auto) 0.5 10^3/uL (0.0-0.8) 05/17/24 04:11 Baso # (Auto) 0.0 10^3/uL (0.0-0.1) 05/17/24 04:11 Nucleated RBC % (auto) 0.3 % 05/17/24 04:11 Nucleated RBCs # 0.0 /100WBC 05/17/24 04:11 APTT 69.8 SECONDS (23.9-36.7) H 05/12/24 10:07 D-Dimer 1.48 ug/mLFEU (0-0.59) H 05/08/24 21:30 Specimen Type Arterial 05/11/24 12:55 Sample Site Radial, left 05/11/24 12:55 ABG pH 7.42 (7.35-7.45) 05/11/24 12:55 ABG pCO2 32.9 mmHg (35-45) L 05/11/24 12:55 ABG pO2 62.1 mmHg (80.0-100.0) L 05/11/24 12:55 ABG PO2/FiO2 Ratio 155 05/11/24 12:55 ABG HCO3 21.6 mmol/L (22-26) L 05/11/24 12:55 ABG O2 Saturation 92.6 05/11/24 12:55 ABG Base Excess -2.4 mmol/L (-2.0-2.0) L 05/11/24 12:55 [place] Test Pos 05/11/24 12:55 A-a O2 Gradient 23.8 mmHg (5-10) H 05/11/24 12:55 Hematocrit 26.0 % (37-47) L 05/11/24 12:55 Hgb O2 Saturation 90.5 % (95-100) L 05/11/24 12:55 Carboxyhemoglobin 1.2 %THgb (0.4-20.1) 05/11/24 12:55 Methemoglobin 1.2 % (0.4-1.5) 05/11/24 12:55 Total Hemoglobin 8.5 g/dL (12-16) L 05/11/24 12:55 Sodium 133.0 mmol/L (131-143) 05/11/24 12:55 Potassium 4.9 mmol/L (3.5-5.0) 05/11/24 12:55 Glucose 84.0 mg/dL (70-115) 05/11/24 12:55 Ionized Calcium 1.1 mmol/L (1.1-1.4) 05/11/24 12:55 O2 Delivery Device Nc 05/11/24 12:55 O2 Liters/Min 5.0 % 05/11/24 12:55 FiO2 40.0 % 05/11/24 12:55 Tidal Volume 0.40 05/10/24 15:24 PEEP 10.0 cmH20 05/10/24 15:24 Health Services Director ID Br0ma 05/11/24 12:55 Sodium 135 mmol/L (136-145) L 05/17/24 04:11 Potassium 4.0 mmol/L (3.5-5.1) 05/17/24 04:11 Chloride 91 mmol/L (98-107) L 05/17/24 04:11 Carbon Dioxide 30 mmol/L (22-29) H 05/17/24 04:11 Anion Gap 18.0 (5-19) 05/17/24 04:11 BUN 49 mg/dL (8-23) H 05/17/24 04:11 Creatinine 1.6 mg/dL (0.5-0.9) H 05/17/24 04:11 GFR Calculation 32.3 mL/min (90-130) L 05/17/24 04:11 Glucose 138 mg/dL (65-115) H 05/17/24 04:11 POC Glucose 165 mg/dL (70-110) H 05/17/24 11:18 Estimat Average Glucose 105 05/09/24 05:45 Hemoglobin A1c 5.3 % (4.0-6.0) 05/09/24 05:45 Calculated Osmolality 295 mOsm/kg (285-295) 05/17/24 04:11 Lactic Acid 1.6 mmol/L (0.5-2.2) 05/10/24 11:40 Lactate 1.6 mmol/L (0.5-2.2) 05/11/24 14:01 Uric Acid 11.8 mg/dL (2.4-5.7) H 05/11/24 14:01 Calcium 8.7 mg/dL (8.5-10.5) 05/17/24 04:11 Phosphorus 5.1 mg/dL (2.5-4.5) H 05/14/24 04:22 Magnesium 1.6 mg/dL (1.7-2.3) L 05/17/24 04:11 Ferritin 5013 ng/mL (15-150) H 05/12/24 03:03 Total Bilirubin 0.8 mg/dL (0.15-1.2) 05/17/24 04:11 AST 97 U/L (0-32) H 05/17/24 04:11 ALT 288 U/L (0-33) H 05/17/24 04:11 Alkaline Phosphatase 184 U/L (35-105) H 05/17/24 04:11 Creatine Kinase 41 U/L (26-192) 05/11/24 12:32 Troponin T 5th Gen ng/L 164 ng/L (0-10) H* 05/10/24 08:44 Troponin T Baseline 137 ng/L (0-10) H* 05/08/24 21:30 Troponin T 120 Minute 141.8 ng/L (0-10) H 05/08/24 23:35 Delta Troponin T 4.8 ABS# (0-10) 05/08/24 23:35 Troponin T Hi Sens 6Hr 136.5 ng/L (0-10) H 05/09/24 02:50 Troponin T Hi Sens 6Hr Delta -0.5 ng/L (0-12) L 05/09/24 02:50 C-Reactive Protein 130.4 mg/L (0.0-4.9) H 05/09/24 05:45 NT-Pro-B Natriuret Pep > 82445 pg/mL (0-125) H 05/09/24 05:45 Total Protein 5.3 g/dL (6.6-8.7) L 05/17/24 04:11 Albumin 3.1 g/dL (3.5-5.2) L 05/17/24 04:11 Globulin 2.2 g/dL (1.3-4.6) 05/17/24 04:11 Triglycerides 54 mg/dL (0-150) 05/10/24 01:45 Cholesterol 84 mg/dL (0-200) 05/10/24 01:45 LDL Cholesterol, Calc 17 mg/dL (50-129) L 05/10/24 01:45 Total VLDL Cholesterol 11 mg/dL (0-30) 05/10/24 01:45 HDL Cholesterol 56 mg/dL (60-100) L 05/10/24 01:45 Cholesterol/HDL Ratio 1.50 mg/dL (0.0-4.40) 05/10/24 01:45 25-OH Vitamin D Total 22 ng/mL (30-100) L 05/12/24 03:03 Folate > 20.0 ng/mL (4.8-37.3) 05/10/24 01:45 TSH 4.94 uIU/mL (0.27-4.20) H 05/09/24 05:45 PTH Intact 744.9 pg/mL (15-65) H 05/12/24 03:03 Calcium (PTH Intact) 8.1 mg/dL (8.5-10.5) L 05/12/24 03:03 Urine Color Dark yellow (Yellow) A 05/11/24 13:50 Urine Appearance Turbid (CLEAR) A 05/11/24 13:50 Urine pH 5.0 (5-7) 05/11/24 13:50 Ur Specific [place] 1.015 (1.005-1.030) 05/11/24 13:50 Urine Protein 1+ (Negative) A 05/11/24 13:50 Urine Glucose (UA) Negative (Normal) 05/11/24 13:50 Urine Ketones Trace (Negative) 05/11/24 13:50 Urine Blood 2+ (Negative) A 05/11/24 13:50 Urine Nitrate Negative (Negative) 05/11/24 13:50 Urine Bilirubin 1+ (Negative) H 05/11/24 13:50 Urine Urobilinogen 1.0 mg/dL (Negative) 05/11/24 13:50 Ur Leukocyte Esterase 3+ (Negative) A 05/11/24 13:50 Urine RBC 51-100 /hpf (0-2) H 05/11/24 13:50 Urine WBC >100 /hpf (0-5) H 05/11/24 13:50 Ur Squamous Epith Cells 21-50 /hpf (0-5) 05/11/24 13:50 Amorphous Sediment Not Reportable 05/11/24 13:50 Urine Bacteria Trace /hpf (NONE) 05/11/24 13:50 Hyaline Casts 54.60 /lpf 05/11/24 13:50 Urine Yeast 1+ /hpf H 05/11/24 13:50 Ur Random Sodium 29 mmol/L 05/11/24 13:50 Ur Random Potassium 52 mmol/L 05/11/24 13:50 Ur Random Chloride 29 mmol/L 05/11/24 13:50 Random Vancomycin 25.4 ug/mL (20.0-40.0) 05/17/24 04:11 Hepatitis A IgM Ab Non-reactive (Nonreactive) 05/12/24 03:03 Hep Bs Antigen Non-reactive (Nonreactive) 05/12/24 03:03 Hep Bs Antibody 21.0 (11.5-1000) 05/12/24 03:03 Hep B Core Total Ab Non-reactive (Nonreactive) 05/12/24 03:03 Hepatitis C Antibody Non-reactive (Nonreactive) 05/12/24 03:03 Blood Type O Positive 05/11/24 14:40 Rho(D) Type Rh positive 05/11/24 14:40 Antibody Screen Negative 05/11/24 14:40 Crossmatch See Detail 05/11/24 14:40 Vitals Last Vital Signs Temp 97.5 F L 05/17/24 11:58 Pulse 73 05/17/24 12:30 Resp 17 05/17/24 12:30 BP 158/69 05/17/24 12:30 Pulse Ox 95 05/17/24 03:51 O2 Del Method Nasal Cannula 05/17/24 07:59 O2 Flow Rate 4 05/17/24 07:59 FiO2 50 05/11/24 05:15 Discharge Plan Discharge Patient Disposition: Xfer SNF Condition: Stable Prescriptions: New furosemide 40 mg Tablet See Rx Instructions .ROUTE .COMPLEX Qty: 30 0RF Rx Instructions: 80mg in AM and 40mg in PM clopidogrel 75 mg Tablet 75 mg PO DAILY Qty: 90 0RF aspirin 81 mg Tablet,Delayed Release (Dr/Ec) 81 mg PO DAILY Qty: 90 0RF metoprolol tartrate 25 mg Tablet 12.5 mg PO BID@0900,2100 Qty: 45 0RF Continued multivitamin Tablet 1 tab PO QAM cholecalciferol (vitamin D3) 1,000 unit capsule 2,000 unit PO DAILY cranberry 500 mg capsule 500 mg PO BID Rx Instructions: administer with meals All Day Allergy (cetirizine) 10 mg capsule 10 mg PO QDAY Qty: 30 11RF ipratropium-albuterol 0.5 mg-3 mg(2.5 mg base)/3 mL Solution For Nebulization 3 ml INHALATION Q4H PRN (Reason: Shortness Of Breath Or Wheezing) ondansetron HCl 8 mg Tablet 8 mg PO Q8H PRN (Reason: Nausea And Vomiting) loperamide 2 mg Tablet 2 mg PO Q6H PRN (Reason: Diarrhea) acetaminophen 500 mg Tablet 1,000 mg PO BID guaifenesin [Era-Tussin] 100 mg/5 mL Liquid 200 mg PO Q4H PRN (Reason: COUGH AND CONGESTION) magnesium hydroxide [Milk of Magnesia] 400 mg/5 mL Suspension 30 ml PO DAILY PRN (Reason: Constipation) bisacodyl 10 mg Suppository 10 mg IN DAILY PRN (Reason: Constipation) Fleet Enema 19-7 gram/118 mL Enema 118 ml IN DAILY PRN (Reason: Constipation) albuterol sulfate [Ventolin HFA] 90 mcg/actuation Hfa Aerosol Inhaler 2 puff INHALATION BID PRN (Reason: Shortness Of Breath) bisacodyl 5 mg Tablet 5 mg PO DAILY PRN (Reason: Constipation) ranolazine 500 mg Tablet Extended Release 12 Hr 500 mg PO BID budesonide-formoterol [Symbicort] 160-4.5 mcg/actuation Hfa Aerosol Inhaler 2 puff INHALATION BID guaifenesin [Mucinex] 600 mg Tablet Extended Release 12hr 600 mg PO Q12H PRN (Reason: EXPECTORANT) glucagon HCl [Glucagon (HCl) Emergency Kit] 1 mg Recon Soln 1 mg SUBCUT Q20M PRN (Reason: BLOOD SUGAR) Rx Instructions: until target blood sugar attained nystatin 100,000 unit/gram cream 1 applic topical BID PRN (Reason: Skin Irritation) fluticasone propionate 50 mcg/actuation spray,suspension 1 spray intranasal DAILY triamcinolone acetonide 0.1 % Cream 1 applic TOPICAL BID PRN (Reason: Skin Irritation) nystatin 100,000 unit/gram Powder See Rx Instructions .ROUTE .COMPLEX Rx Instructions: APPLY TO REDDENED AREAS EVERY DAY AND EVENING SHIFT. hydrocodone-acetaminophen 5-325 mg tablet 1 tab PO BEDTIME nitroglycerin 0.4 mg tablet, sublingual 0.4 mg sublingual Q5M PRN (Reason: Chest Pain) Rx Instructions: do not exceed 3 doses per episode Call ambulance if you have to take the third Nitro. doxycycline monohydrate 100 mg Tablet 100 mg PO BID Qty: 10 0RF hydralazine 25 mg Tablet 25 mg PO TID Qty: 60 0RF Changed atorvastatin 80 mg tablet 40 mg PO QPM Qty: 1 0RF Rx Instructions: Dose change only Novolog FlexPen U-100 Insulin 100 unit/mL (3 mL) Insulin Pen See Rx Instructions .ROUTE .COMPLEX Qty: 15 0RF Rx Instructions: INJECT PER SLIDING SCALE: BS 141-180=4 UNITS, 181-220=6 UNITS, 221-260=8 UNITS, 261-300=10 UNITS, 301-350=12 UNITS, 351+ =14 UNITS AND NOTIFY MD. Discontinued oxybutynin chloride 15 mg tablet extended release 24hr 15 mg PO QDAY Qty: 30 7RF fluconazole 150 mg Tablet 150 mg PO DAILY isosorbide mononitrate 30 mg Tablet Extended Release 24 Hr 30 mg PO QAM amlodipine 5 mg Tablet 5 mg PO DAILY diphenhydramine-acetaminophen [Tylenol PM Extra Strength] 25-500 mg Tablet 2 tab PO BEDTIME carvedilol 6.25 mg tablet 6.25 mg PO DAILY insulin glargine [Lantus Solostar U-100 Insulin] 100 unit/mL (3 mL) insulin pen 20 unit SUBCUT BID amoxicillin-pot clavulanate 875-125 mg tablet 1 tab PO BID Qty: 20 0RF furosemide 40 mg Tablet See Rx Instructions .ROUTE .COMPLEX Qty: 90 2RF Rx Instructions: TAKE 1 TABLET BY MOUTH IN THE MORNING AND 1 TABLET IN THE AFTERNOON. Discharge Orders: Discharge Order (Routine); Ordered 05/17/24 Ordered By: Patricio Schwartz Referrals: Nephrology [Provider Group] - 1 week Wound Care [Provider Group] - 4-7 days Starla La FNP [Nurse Practitioner] - 1 week Nadiya Torre NP [Primary Care Provider] - 4-7 days Discharge Diet: As Directed and Diabetic Patient Instructions: Heart Failure (GEN), Acute Kidney Injury (GEN), Opioid Safety Activity Restrictions/Additional Instructions: Continue soft mechanical diet, minced and moist, cardiac, diabetic restriction. Continue fluid restriction of 1500 mL total in a day. Stop insulin Lantus for now. Continue medium dose sliding scale insulin. If glucose continues to rise, consider resuming Lantus. Follow-up with cardiology and nephrology for reassessment after acute on chronic kidney injury, congestive and low output heart failure NSTEMI/heart attack. Once creatinine is trending down below 1.4, please add Entresto. Please have your primary provider reassess liver parameters, renal function and electrolytes. Follow-up with wound care for continued management of left thigh wound. Continue wet-to-dry packing. Continue IV antibiotics to complete course with meropenem, vancomycin until 05/23 due to ESBL infection and history of MRSA infection. Continue vancomycin 1.5 g every 48 hours (starting 05/18) until 05/23. Ertapenem 1 g daily until 05/22. Continue weekly creatinine, CBC, bank trough. Continue Lasix 80 mg in the morning, 40 mg in the evening. Continue oxygen support 4 L by nasal cannula, wean down as tolerating, target oxygen saturation 92% Follow-up regarding diabetes, COPD, CKD, other chronic problems. Patient names sister Antonina is DPOA. 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
--- NOTE | 2024-05-17 14:23 | PC.NURSE ---
Report called to [facility] and given to Fatoumata Hall RN.
--- NOTE | 2024-05-17 15:34 | P.PN_ITS ---
Subjective 2 Subjective: No complaint overall doing fine Medications: Reviewed: Yes Vitals/I&O/Wt Last Vital Signs Temp 97.5 F L 05/17/24 11:58 Pulse 69 05/17/24 15:11 Resp 20 H 05/17/24 15:11 BP 158/69 05/17/24 12:30 Pulse Ox 94 05/17/24 15:11 O2 Del Method Nasal Cannula 05/17/24 14:35 O2 Flow Rate 4 05/17/24 14:35 FiO2 50 05/11/24 05:15 05/17/24 05/17/24 05/17/24 06:59 14:59 22:59 Intake Total 100 / 1049.75 100 / 100 Output Total 800 / 2675 550 / 550 Balance -700 / -1625.25 -450 / -450 Weight last 48 hrs Weight 239 lb 3.2 oz Weight 248 lb Physical Exam 2 Narrative: Alert awake oriented x 3 laying in the bed Heart regular S1-S2 Lungs clear to auscultate [employer]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 nonfocal Urinary Catheter Management: Bonilla: Cath Placed During This Visit: no Reason for Continuing Indwelling Catheter: Acute Urinary Retention or Obstruction Data 05/17/24 04:11 05/17/24 04:11 A&P Assessment and plan (1) Acquired hyperlipoproteinemia: (2) Chest pain: Qualifiers: Chest pain type: unspecified Qualified Code(s): R07.9 - Chest pain, unspecified (3) Elevated troponin: (4) Type 2 diabetes mellitus with diabetic polyneuropathy: (5) Body mass index [BMI] 50.0-59.9, adult: (6) Acute renal insufficiency: (7) Chronic kidney disease, unspecified: (8) Low hemoglobin: (9) 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: (10) COPD (chronic obstructive pulmonary disease): (11) Cardiogenic shock: (12) CHF (NYHA class IV, ACC/AHA stage D): (13) Atrial fibrillation: Plan Unfortunately patient is a 63-year-old morbidly obese female with BMI of more than 47 underlying anemia difficult access hypotension on pressors maintaining MAP acute on chronic renal failure with chronic kidney disease, acute decompensated systolic heart failure on chronic, cardiomyopathy with severe LV dysfunction with possible multivessel underlying coronary artery disease, she is high risk for complications such as bleeding arrhythmia stroke vascular brain vascular scenario . Patient is not LVAD/transplant candidate secondary to multiple risk factors and comorbidities, it is the reason we have tried to manage her medically with guideline medical therapy and as much as she tolerates. Diuretic IV infusion will continue Will continue dobutamine infusion, hopefully with IV diuresis and maintaining MAP potassium will also improve. Further plan be advised as per progress of the patient. On today's visit patient steadily improving. Blood pressure remained stable continue Levophed for now. Appreciate nephrology for further dialysis. Will continue medical management will add Plavix to the regimen and switch her to Lovenox. Over the next 24 to 48 hours will stop Lovenox and switch to prophylaxis for DVT. Patient is not a good interventional candidate at the same time patient and the family also agree with continued conservative management. On today's visit dated 05/13/2024 patient continues to do better from a cardiovascular perspective he is off Levophed blood pressure remained stable. He is on dobutamine we will start titrating off dobutamine as well. Patient had episode of paroxysmal A-fib therefore we will start her on IV amiodarone. Continue rest of medications including IV diuresis. Dialysis as per nephrology On today's visit dated 05/14/2024 patient continue to improve. At this point we will switch patient to prophylactic Lovenox, will discontinue IV amiodarone, patient is in sinus rhythm. Will taper off dobutamine. Once off dobutamine we will add beta-roslyn. Continue diuretics as per nephrology On today's visit patient continues to improve. Blood pressure is on the higher side though., Will start patient on hydralazine 25 mg 3 times daily, continue carvedilol aspirin statin Plavix once renal function improves below 1.4 creatinine pacheco we will start patient on Entresto On today's visit dated May 16, 2024 patient continues to improve steadily renal function is improving she denies any shortness of breath, no more episode of atrial fibrillation or tachycardias. For better blood blood pressure control I will increase hydralazine to 50 mg 3 times daily however with the plan once renal function improves further and about 2 normal I will add Entresto Attestations 2 Medical Necessity Statement*: Patient require continuation hospitalization for above defined care Coding Level of Care Code Acute Code for Chg Fwd Diagnoses Acquired hyperlipoproteinemia E78.5 Chest pain R07.9 Chest pain type: unspecified Elevated troponin R79.89 Type 2 diabetes mellitus with diabetic polyneuropathy E11.42 Body mass index [BMI] 50.0-59.9, adult Z68.43 Acute renal insufficiency N28.9 Chronic kidney disease, unspecified N18.9 Low hemoglobin D64.9 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
--- NOTE | 2024-05-17 15:37 | PC.NURSE ---
Discharge Note Patient discharged to [[facility]] via [stretcher] accompanied by [[facility] personnel]. Discharge instructions reviewed with patient and/or field representatives director. Mobile pharmacy medications and/or prescriptions provided. Belongings/home medications returned.
--- NOTE | 2024-05-17 18:39 | P.PN_ITS ---
Subjective 2 Subjective: no new c/o Medications: Reviewed: Yes Vitals/I&O/Wt Last Vital Signs Temp 97.5 F L 05/17/24 11:58 Pulse 69 05/17/24 15:11 Resp 20 H 05/17/24 15:11 BP 158/69 05/17/24 12:30 Pulse Ox 94 05/17/24 15:11 O2 Del Method Nasal Cannula 05/17/24 14:35 O2 Flow Rate 4 05/17/24 14:35 FiO2 50 05/11/24 05:15 05/17/24 05/17/24 05/17/24 06:59 14:59 22:59 Intake Total 100 / 1049.75 100 / 100 Output Total 800 / 2675 550 / 550 Balance -700 / -1625.25 -450 / -450 Weight last 48 hrs Weight 108.499 kg Weight 112.491 kg Physical Exam 2 Narrative: She is on a heparin drip. She is interactive awake alert and oriented. Blood pressure is stable, on low side. HEENT normocephalic atraumatic. Neck is supple, positive dialysis catheter Lungs have crackles bilaterally. Heart regular systolic murmur. Abdomen is soft positive bowel sounds. Extremities have edema 2+. Poor pulses eschar in her left leg. Neuro awake alert oriented x 3. Urinary Catheter Management: Bonilla: Cath Placed During This Visit: no Reason for Continuing Indwelling Catheter: Acute Urinary Retention or Obstruction Data 05/17/24 04:11 05/17/24 04:11 A&P Assessment and plan (1) Acute kidney injury superimposed on CKD: 63-year-old lady obesity hypertension diabetes heart failure reduced EF here with non-ST elevation CA and cardiogenic shock. 1. 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 Imaging reviewed, CT scan April 29, 2024 -she has a small left adrenal adenoma, right adrenal gland is normal, she has fatty atrophy of the pancreas splenic artery calcification dense vascular calcification however no hydronephrosis in either kidney. She does have parenchymal scarring both kidneys no evidence of obstructing renal or ureteral calculi. She has a question of a cecal neoplasm. 2. Acute kidney injury-likely on the basis of cardiogenic shock. Urinalysis from May 09 results states nonreportable we will repeat a urinalysis, urine albumin urine protein urine creatinine urine electrolytes. Hyperkalemia has improved. -UOP Reasonable, -changed lasix to PO . Cr improved 3. Transaminitis has started to improve will trend LFTs. 5. Non-ST elevation CA - low EF aortic valve disease Leukocytosis improving Anemia with elevated MCV -ferritin 5000- no iv iron, consider epo. Above discussed in detail with the patient. . The patient consented to a telehealth visit. The patient was seen and examined using A/V equipment as a telehealth visit. Discussed in detail with the patient and the nurse Plan See above. Cardiogenic shock monitor for renal recovery Attestations 2 Medical Necessity Statement*: per medicine Coding Level of Care Code Acute Code for Chg Fwd Diagnoses Acute kidney injury superimposed on CKD N17.9; N18.9
== END 2024-05-17 15:37 | disposition skilled nursing facility (03) | DRG 280 ==
LOC: ER 22:24 → CSU 22:31 → ICU 05-10 07:36 → CSU 05-15 12:23
PROVIDERS: Emergency Medicine; Internal Medicine Nephrology; Student in an Organized Health Care Education/Training Program; Admitting Provider Student in an Organized Health Care Education/Training Program; Emergency Provider Emergency Medicine; PCP Nurse Practitioner Family; Visit Provider Internal Medicine
DX: I21.4 Non-ST elevation (NSTEMI) myocardial infarction (principal); I50.23 Acute on chronic systolic (congestive) heart failure; R57.0 Cardiogenic shock; Z68.42 Body mass index [BMI] 45.0-49.9, adult; I13.0 Hypertensive heart and chronic kidney disease with heart failure and stage 1 through stage 4 chronic kidney disease, or unspecified chronic kidney disease; N18.4 Chronic kidney disease, stage 4 (severe); J96.11 Chronic respiratory failure with hypoxia; E87.20 Acidosis, unspecified; Z16.12 Extended spectrum beta lactamase (ESBL) resistance; E87.1 Hypo-osmolality and hyponatremia; L97.121 Non-pressure chronic ulcer of left thigh limited to breakdown of skin; N17.9 Acute kidney failure, unspecified; E66.01 Morbid (severe) obesity due to excess calories; E11.22 Type 2 diabetes mellitus with diabetic chronic kidney disease; E11.42 Type 2 diabetes mellitus with diabetic polyneuropathy; Z99.81 Dependence on supplemental oxygen; E11.51 Type 2 diabetes mellitus with diabetic peripheral angiopathy without gangrene; I44.7 Left bundle-branch block, unspecified; Z79.51 Long term (current) use of inhaled steroids; Z79.4 Long term (current) use of insulin; J44.9 Chronic obstructive pulmonary disease, unspecified; I25.2 Old myocardial infarction; I35.0 Nonrheumatic aortic (valve) stenosis; D63.1 Anemia in chronic kidney disease; I48.91 Unspecified atrial fibrillation; B96.1 Klebsiella pneumoniae [K. pneumoniae] as the cause of diseases classified elsewhere; E87.5 Hyperkalemia; I95.9 Hypotension, unspecified; D35.02 Benign neoplasm of left adrenal gland; R00.0 Tachycardia, unspecified; E78.5 Hyperlipidemia, unspecified; Z96.0 Presence of urogenital implants; E11.622 Type 2 diabetes mellitus with other skin ulcer; Z86.14 Personal history of Methicillin resistant Staphylococcus aureus infection; G47.33 Obstructive sleep apnea (adult) (pediatric); Z87.891 Personal history of nicotine dependence; N32.81 Overactive bladder; I25.5 Ischemic cardiomyopathy; Z87.440 Personal history of urinary (tract) infections; I25.10 Atherosclerotic heart disease of native coronary artery without angina pectoris; Z95.1 Presence of aortocoronary bypass graft; F41.9 Anxiety disorder, unspecified; F32.A Depression, unspecified
CPT/HCPCS: 36415; 36416; 36430; 36573; 36592; 36600; 71045; 71250; 73551; 76770; 80048; 80051; 80053; 80061; 80202; 81001; 81003; 81015; 82306; 82310; 82330; 82436; 82550; 82728; 82746; 82805; 82962; 83036; 83605; 83735; 83880; 83970; 84100; 84133; 84300; 84443; 84484; 84550; 85014; 85018; 85025; 85378; 85730; 86140; 86403; 86705; 86706; 86709; 86803; 86850; 86900; 86920; 87040; 87086; 87106; 87340; 90935; 93005; 93306; 93925; 94640; 94660; 96365; 96372; 96374; 96375; 96376; 97110; 97161; 99285; C1751; J0283; J0612; J1250; J1265; J1644; J1650; J1815; J1940; J2185; J2270; J2405; J3370; J3475; J3490; J7050; J7626; P9016; Q3014

== ENCOUNTER → 2024-06-06 11:29 | Outpatient (BNVA) | payer MEDICAID, SELFPAY | PROVIDERS: PCP Nurse Practitioner Family; Visit Provider Nurse Practitioner Family | DX: E11.42 Type 2 diabetes mellitus with diabetic polyneuropathy (principal); I48.91 Unspecified atrial fibrillation | CPT/HCPCS: 80053; 85025 ==

== ENCOUNTER 2024-06-09 08:24 | Emergency (ER) | payer MEDICAID, SELFPAY ==
[2024-06-09] VITALS (15 sets, daily range): BP systolic 132–210; BP diastolic 62–108; PULSE 60–95; RESP 17–20; TEMP 36.4; O2SAT 95–100; BMI 52.3
--- NOTE | 2024-06-09 08:30 | XRR_ITS ---
PROCEDURE INFORMATION: Exam: XR Chest Exam date and time: 06/09/2024 8:45 AM Age: 63 years old Clinical indication: Shortness of breath; Additional info: SOB TECHNIQUE: Imaging protocol: Radiologic exam of the chest. Views: 1 view. COMPARISON: CR (CHEST, ) 05/11/2024 5:43 PM FINDINGS: Lungs: Right lung mosqueda are clear Pleural spaces: Unremarkable. No pleural effusion. No pneumothorax. Heart/Mediastinum: As seen on 05/09/2024 CT, patient has known large hiatal hernia with partially intrathoracic stomach. Similar mild left lung base atelectasis. Known prominent cardiomegaly re-identified Bones/joints: No suspicious osseous findings Other findings: cannot exclude a small left effusion XR/XR chest 1V portable [id number] IMPRESSION: Cardiomegaly and left lung base opacities as above
--- NOTE | 2024-06-09 08:31 | ED_ITS ---
HPI - SOB/Dyspnea 2 General: Chief Complaint: Shortness of Breath/Dyspnea Stated Complaint: sob; covid + Time Seen by Provider: 06/09/24 08:29 Source: patient and EMS Mode of arrival: EMS Limitations: no limitations History of Present Illness: HPI Narrative: 63-year-old female with history of CHF h e states that she tested positive for COVID on Monday states that the last day she been having increasing shortness of breath patient is on 3 L of oxygen at baseline she states she just had increasing dyspnea had a slight cough patient denies any pain she denies any fever she denies any vomiting or diarrhea denies any worse improved factors Associated symptoms: Deny abdominal pain, chest pain, fever(s), nausea or vomiting Related Data Home Medications Medication Instructions Recorded Confirmed cholecalciferol (vitamin D3) 25 2,000 unit PO DAILY 10/21/19 06/05/24 mcg (1,000 unit) capsule multivitamin 1 tab PO QAM 10/21/19 06/05/24 cranberry 500 mg capsule 500 mg PO BID 09/28/21 06/05/24 acetaminophen 500 mg tablet 1,000 mg PO BID 04/29/24 06/05/24 albuterol sulfate 90 mcg/actuation 2 puff inhalation BID PRN 04/29/24 06/05/24 aerosol inhaler (Ventolin HFA) Shortness Of Breath bisacodyl 10 mg rectal suppository 10 mg SD DAILY PRN Constipation 04/29/24 06/05/24 bisacodyl 5 mg tablet 5 mg PO DAILY PRN Constipation 04/29/24 06/05/24 budesonide-formoterol HFA 160 2 puff inhalation BID 04/29/24 06/05/24 mcg-4.5 mcg/actuation aerosol inhaler (Symbicort) fluticasone propionate 50 1 spray intranasal DAILY 04/29/24 06/05/24 mcg/actuation nasal spray,suspension glucagon HCl 1 mg solution for 1 mg SUBCUT Q20M PRN BLOOD SUGAR 04/29/24 06/05/24 injection (Glucagon (HCl) Emergency Kit) guaifenesin 100 mg/5 mL oral 200 mg PO Q4H PRN COUGH AND 04/29/24 06/05/24 liquid (Era-Tussin) CONGESTION guaifenesin 600 mg tablet, 600 mg PO Q12H PRN EXPECTORANT 04/29/24 06/05/24 extended release 12 hr (Mucinex) ipratropium 0.5 mg-albuterol 3 mg 3 ml inhalation Q4H PRN Shortness 04/29/24 06/05/24 (2.5 mg base)/3 mL nebulization Of Breath Or Wheezing soln loperamide 2 mg tablet 2 mg PO Q6H PRN Diarrhea 04/29/24 06/05/24 magnesium hydroxide 400 mg/5 mL 30 ml PO DAILY PRN Constipation 04/29/24 06/05/24 oral suspension (Milk of Magnesia) nystatin 100,000 unit/gram topical 1 applic topical BID PRN Skin 04/29/24 06/05/24 cream Irritation ondansetron HCl 8 mg tablet 8 mg PO Q8H PRN Nausea And Vomiting 04/29/24 06/05/24 ranolazine 500 mg tablet,extended 500 mg PO BID 04/29/24 06/05/24 release,12 hr sodium phosphates 19 gram-7 118 ml SD DAILY PRN Constipation 04/29/24 06/05/24 gram/118 mL enema (Fleet Enema) hydrocodone 5 mg-acetaminophen 325 1 tab PO BEDTIME pain 05/06/24 06/05/24 mg tablet nitroglycerin 0.4 mg sublingual 0.4 mg sublingual Q5M PRN Chest 05/06/24 06/05/24 tablet Pain nystatin 100,000 unit/gram topical See Rx Instructions .Route .COMPLEX 05/06/24 06/05/24 powder triamcinolone acetonide 0.1 % 1 applic topical BID PRN Skin 05/06/24 06/05/24 topical cream Irritation Previous Rx's Medication Instructions Recorded cetirizine 10 mg capsule (All Day 10 mg PO QDAY #30 caps 04/29/22 Allergy (cetirizine)) doxycycline monohydrate 100 mg 100 mg PO BID #10 tabs 05/08/24 tablet hydralazine 25 mg tablet 25 mg PO TID #60 tabs 05/08/24 aspirin 81 mg tablet,delayed 81 mg PO DAILY #90 tabs 05/17/24 release atorvastatin 80 mg tablet 40 mg (1/2 x 80 mg) PO QPM #1 tab 05/17/24 clopidogrel 75 mg tablet 75 mg PO DAILY #90 tabs 05/17/24 furosemide 40 mg tablet See Rx Instructions .Route 05/17/24 .COMPLEX #30 tabs insulin aspart U-100 100 unit/mL See Rx Instructions .Route 05/17/24 (3 mL) subcutaneous pen (Novolog .COMPLEX #15 mL FlexPen U-100 Insulin aspart) metoprolol tartrate 25 mg tablet 12.5 mg (1/2 x 25 mg) PO 05/17/24 BID@0900,2100 #45 tabs Allergies Allergy/AdvReac Type Severity Reaction Status Date / Time Sulfa (Sulfonamide Allergy Severe ALGY-Anaphy Verified 05/08/24 20:51 Antibiotics) laxis aspirin Allergy Intermediate nose bleeds Verified 05/08/24 20:51 clonidine Allergy Unknown chest pain Verified 05/08/24 20:51 rofecoxib [From Vioxx] Allergy Unknown unknown Verified 05/08/24 20:51 Review of Systems 2 Const: Denies: fever(s), chills, body aches or change in appetite ENMT: Denies: throat pain or dental pain Card: Denies: chest pain Resp: Reports: dyspnea and non-productive cough GI: Denies: abdominal pain, nausea, vomiting or diarrhea Musc: Denies: neck pain or back pain Skin/Breast: Denies: rash Neuro: Denies: headache(s) Kaiser/Lymph: Denies: easy bruising PFSH ED 2 PFSH: Medical History CHF (congestive heart failure) (~04/16/24) Anemia Chronic kidney disease, unspecified Type 2 diabetes mellitus with diabetic polyneuropathy NSTEMI (non-ST elevated myocardial infarction) 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 Dependence on supplemental oxygen UTI (urinary tract infection) Morbidly obese Chronic respiratory failure with hypoxia Peripheral vascular disease COPD (chronic obstructive pulmonary disease) Aortic stenosis Anemia in other chronic diseases classified elsewhere Acquired hyperlipoproteinemia Gastro-esophageal reflux disease without esophagitis Primary generalized (osteo)arthritis Depression, unspecified Anxiety disorder, unspecified Obstructive sleep apnea (adult) (pediatric) Other nonspecific abnormal finding of lung field Body mass index [BMI] 50.0-59.9, adult Morbid (severe) obesity due to excess calories 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 Recurrent UTI Ischemic cardiomyopathy CAD (coronary artery disease) OAB (overactive bladder) Lump of breast, right Hypertension Surgical History S/P cardiac cath H/O: section H/O breast biopsy right Family History Other CAD (coronary artery disease) Hypertension Stroke Social History Smoking and tobacco/nicotine status: former use of tobacco/nicotine Alcohol intake: never Housing: [facility] Physical Exam 2 Const: COMMON NORMALS: patient oriented x3 HENMT: COMMON NORMALS: normocephalic and atraumatic HEAD & SCALP: n ormocephalic and atraumatic Eye: COMMON NORMALS: Equal, round and reactive pupils present and EOMs intact bilaterally PUPIL: Yes Equal, round and reactive pupils present Neck/C-Spine: COMMON NORMALS: full ROM and supple Chest: COMMONS NORMALS: normal inspection of the chest and normal palpation of entire chest wall Resp: COMMON NORMALS: normal respiratory effort, No retractions, No use of accessory muscles and clear to auscultation bilaterally AUSCULTATION: clear to auscultation bilaterally Cardio: COMMON NORMALS: regular rate, regular rhythm and No murmurs present (Cardio) RATE: regular rate RHYTHM: regular rhythm GI: COMMON NORMALS: Normal to inspection, nondistended, normoactive bowel sounds present, Soft to palpation, non-tender and no masses PALPATION: Yes Soft to palpation Extremity: COMMON NORMALS: normal to inspection and full ROM Neuro: COMMON NORMALS: patient oriented x3, moves all extremities and no focal motor deficits Psych: COMMON NORMALS: mental status grossly normal, Normal thought process present and cooperative THOUGHT PROCESS: Normal thought process present Skin: COMMON NORMALS: no rashes or lesions noted and no wounds GENERAL SKIN EXAM: no rashes or lesions noted Course 2 Vital Signs: Vital signs: Vital Signs Temperature 97.6 F 06/09/24 08:36 Pulse Rate 85 06/09/24 13:05 Respiratory Rate 18 06/09/24 13:05 Blood Pressure 171/86 06/09/24 13:05 Pulse Oximetry 98 06/09/24 13:05 Oxygen Delivery Me thod Nasal Cannula 06/09/24 13:05 Oxygen Flow Rate 2 06/09/24 13:05 MDM - SOB/Dyspnea Medical Decision Making Patient presents here with dyspnea she has been well-appearing here # 3 L here with normal sats x-ray shows no pneumonia no signs of blood clot likely from her COVID symptoms she is stable for discharge back to the assisted at this time. She is return if worsening. Medical Records I reviewed the patient's medical records. Lab Data I reviewed the patient's lab results. 06/09/24 08:34 06/09/24 08:34 Labs/Radiology: Radiology Impressions Chest X-Ray 06/09/24 08:30 IMPRESSION: Cardiomegaly and left lung base opacities as above Laboratory Results WBC 7.86 10^3/uL (3.29-11.43) 06/09/24 08:34 RBC 2.65 10^6/uL (3.85-5.65) L 06/09/24 08:34 Hgb 8.30 g/dL (11.27-16.99) L 06/09/24 08:34 Hct 26.9 % (36-47) L 06/09/24 08:34 MCV 101.5 fl (85-98) H 06/09/24 08:34 MCH 31.3 pg (27-33) 06/09/24 08:34 MCHC 30.9 g/dL (30-55) 06/09/24 08:34 RDW 16.1 % (12.1-15.1) H 06/09/24 08:34 Plt Count 476 10^3/cmm (157-399) H 06/09/24 08:34 MPV 8.5 fL (7.4-10.4) 06/09/24 08:34 Neut % (Auto) 71.1 % 06/09/24 08:34 Lymph % (Auto) 12.0 % 06/09/24 08:34 [place] % (Auto) 7.0 % 06/09/24 08:34 Eos % (Auto) 7.6 % 06/09/24 08:34 Baso % (Auto) 0.9 % 06/09/24 08:34 Neut # (Auto) 5.59 10^3/uL (1.8-7.7) 06/09/24 08:34 Lymph # (Auto) 0.9 10^3/uL (0.8-4.8) 06/09/24 08:34 [place] # (Auto) 0.6 10^3/uL (0.2-0.9) 06/09/24 08:34 Eos # (Auto) 0.6 10^3/uL (0.0-0.8) 06/09/24 08:34 Baso # (Auto) 0.1 10^3/uL (0.0-0.1) 06/09/24 08:34 Nucleated RBC % (auto) 0.3 % 06/09/24 08:34 Nucleated RBCs # 0.0 /100WBC 06/09/24 08:34 PT 14.90 SECONDS (12.1-14.9) 06/09/24 08:34 INR 1.13 (0.8-1.2) 06/09/24 08:34 Sodium 136 mmol/L (136-145) 06/09/24 08:34 Potassium 4.8 mmol/L (3.5-5.1) 06/09/24 08:34 Chloride 99 mmol/L (98-107) 06/09/24 08:34 Carbon Dioxide 20 mmol/L (22-29) L 06/09/24 08:34 Anion Gap 21.8 (5-19) H 06/09/24 08:34 BUN 39 mg/dL (8-23) H 06/09/24 08:34 Creatinine 2.3 mg/dL (0.5-0.9) H 06/09/24 08:34 GFR Calculation 21.3 mL/min (90-130) L 06/09/24 08:34 Glucose 170 mg/dL (65-115) H 06/09/24 08:34 Calculated Osmolality 295 mOsm/kg (285-295) 06/09/24 08:34 Calcium 8.7 mg/dL (8.5-10.5) 06/09/24 08:34 Total Bilirubin 0.5 mg/dL (0.15-1.2) 06/09/24 08:34 AST 17 U/L (0-32) 06/09/24 08:34 ALT 12 U/L (0-33) 06/09/24 08:34 Alkaline Phosphatase 120 U/L (35-105) H 06/09/24 08:34 Troponin T Baseline 46 ng/L (0-10) H 06/09/24 08:34 Troponin T 120 Minute 44.19 ng/L (0-10) H 06/09/24 10:33 Delta Troponin T -1.81 ABS# (0-10) L 06/09/24 10:33 NT-Pro-B Natriuret Pep 00182 pg/mL (0-125) H 06/09/24 08:34 Total Protein 6.5 g/dL (6.6-8.7) L 06/09/24 08:34 Albumin 3.5 g/dL (3.5-5.2) 06/09/24 08:34 Globulin 3.0 g/dL (1.3-4.6) 06/09/24 08:34 No radiology studies performed this visit Discharge Plan Discharge Patient Disposition: Home Clinical Impression: COVID-19, Hypertension, Dyspnea Prescriptions: No Action multivitamin Tablet 1 tab PO QAM cholecalciferol (vitamin D3) 1,000 unit capsule 2,000 unit PO DAILY cranberry 500 mg capsule 500 mg PO BID Rx Instructions: administer with meals All Day Allergy (cetirizine) 10 mg capsule 10 mg PO QDAY Qty: 30 11RF ipratropium-albuterol 0.5 mg-3 mg(2.5 mg base)/3 mL Solution For Nebulization 3 ml INHALATION Q4H PRN (Reason: Shortness Of Breath Or Wheezing) ondansetron HCl 8 mg Tablet 8 mg PO Q8H PRN (Reason: Nausea And Vomiting) loperamide 2 mg Tablet 2 mg PO Q6H PRN (Reason: Diarrhea) acetaminophen 500 mg Tablet 1,000 mg PO BID guaifenesin [Era-Tussin] 100 mg/5 mL Liquid 200 mg PO Q4H PRN (Reason: COUGH AND CONGESTION) magnesium hydroxide [Milk of Magnesia] 400 mg/5 mL Suspension 30 ml PO DAILY PRN (Reason: Constipation) bisacodyl 10 mg Suppository 10 mg SD DAILY PRN (Reason: Constipation) Fleet Enema 19-7 gram/118 mL Enema 118 ml SD DAILY PRN (Reason: Constipation) albuterol sulfate [Ventolin HFA] 90 mcg/actuation Hfa Aerosol Inhaler 2 puff INHALATION BID PRN (Reason: Shortness Of Breath) bisacodyl 5 mg Tablet 5 mg PO DAILY PRN (Reason: Constipation) ranolazine 500 mg Tablet Extended Release 12 Hr 500 mg PO BID budesonide-formoterol [Symbicort] 160-4.5 mcg/actuation Hfa Aerosol Inhaler 2 puff INHALATION BID guaifenesin [Mucinex] 600 mg Tablet Extended Release 12hr 600 mg PO Q12H PRN (Reason: EXPECTORANT) glucagon HCl [Glucagon (HCl) Emergency Kit] 1 mg Recon Soln 1 mg SUBCUT Q20M PRN (Reason: BLOOD SUGAR) Rx Instructions: until target blood sugar attained nystatin 100,000 unit/gram cream 1 applic topical BID PRN (Reason: Skin Irritation) fluticasone propionate 50 mcg/actuation spray,suspension 1 spray intranasal DAILY triamcinolone acetonide 0.1 % Cream 1 applic TOPICAL BID PRN (Reason: Skin Irritation) nystatin 100,000 unit/gram Powder See Rx Instructions .ROUTE .COMPLEX Rx Instructions: APPLY TO REDDENED AREAS EVERY DAY AND EVENING SHIFT. hydrocodone-acetaminophen 5-325 mg tablet 1 tab PO BEDTIME nitroglycerin 0.4 mg tablet, sublingual 0.4 mg sublingual Q5M PRN (Reason: Chest Pain) Rx Instructions: do not exceed 3 doses per episode Call ambulance if you have to take the third Nitro. doxycycline monohydrate 100 mg Tablet 100 mg PO BID Qty: 10 0RF hydralazine 25 mg Tablet 25 mg PO TID Qty: 60 0RF furosemide 40 mg Tablet See Rx Instructions .ROUTE .COMPLEX Qty: 30 0RF Rx Instructions: 80mg in AM and 40mg in PM clopidogrel 75 mg Tablet 75 mg PO DAILY Qty: 90 0RF aspirin 81 mg Tablet,Delayed Release (Dr/Ec) 81 mg PO DAILY Qty: 90 0RF metoprolol tartrate 25 mg Tablet 12.5 mg PO BID@0900,2100 Qty: 45 0RF atorvastatin 80 mg tablet 40 mg PO QPM Qty: 1 0RF Rx Instructions: Dose change only Novolog FlexPen U-100 Insulin 100 unit/mL (3 mL) Insulin Pen See Rx Instructions .ROUTE .COMPLEX Qty: 15 0RF Rx Instructions: INJECT PER SLIDING SCALE: BS 141-180=4 UNITS, 181-220=6 UNITS, 221-260=8 UNITS, 261-300=10 UNITS, 301-350=12 UNITS, 351+ =14 UNITS AND NOTIFY MD. Discharge Orders: Discharge ED (Routine); Ordered 06/09/24 Ordered By: Shaye Sanchez Referrals: Nadiya Torre, [facility] [Primary Care Provider] - 4-7 days Discharge Diet: Advance as tolerated Discharge Activity: Resume usual activity Patient Instructions: COVID-19 (Coronavirus Disease 2019) (ED) Coding Level of Care Code ED [employer] Consultant for Joey Cabral
--- NOTE | 2024-06-09 08:31 | ECG_ITS ---
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 Teacher: : 1960 Requested By: Shaye Sanchez Order Number: [id number] Reading MD: LYNNETTE CROOK Measurements Intervals [place] Rate: 70 P: 49 AR: 193 QRS: -21 QRSD: 138 T: 179 QT: 457 QTc: 493 Interpretive Statements SINUS RHYTHM POSSIBLE LEFT ATRIAL ENLARGEMENT [-0.1mV P-WAVE IN V1/V2] INTRAVENTRICULAR CONDUCTION DELAY [130+ ms QRS DURATION] LEFT VENTRICULAR HYPERTROPHY AND ST-T CHANGE [VOLTAGE CRITERIA PLUS ST/T ABNORMALITY] Compared to ECG 05/15/2024 02:17:41 Intraventricular conduction delay now present Left ventricular hypertrophy now present ST (T wave) deviation now present Sinus bradycardia no longer present Left-axis deviation no longer present Left bundle-branch block no longer present Electronically Signed On 06-09-2024 18:50:09 CDT by LYNNETTE CROOK [id number]
[2024-06-09 08:40] LABS: Basophils # 0.1 10^3/uL (0.0-0.1); Basophils % 0.9 %; Eosinophils # 0.6 10^3/uL (0.0-0.8); Eosinophils % 7.6 %; Hematocrit 26.9 % (36-47); Lymphocytes # 0.9 10^3/uL (0.8-4.8); Mean Corpuscular HGB Conc 30.9 g/dL (30-55); Mean Corpuscular Hemoglobin 31.3 pg (27-33); Mean Corpuscular Volume 101.5 fl (85-98); Mean Platelet Volume 8.5 fL (7.4-10.4); Monocytes # 0.6 10^3/uL (0.2-0.9); Neutrophils # 5.59 10^3/uL (1.8-7.7); Neutrophils % 71.1 %; Nucleated Red Blood Cells % 0.3 %; Platelet Count 476 10^3/cmm (157-399); Red Blood Count 2.65 10^6/uL (3.85-5.65); Red Cell Distribution Width 16.1 % (12.1-15.1); White Blood Count 7.86 10^3/uL (3.29-11.43)
[2024-06-09] MEDS: hyDRALAzine 20 mg/mL INJ 1 mL 10 MG IVP (08:48)
[2024-06-09 08:52] LABS: INR 1.13 (0.8-1.2)
[2024-06-09 08:59] LABS: Troponin(5th) Baseline 46 ng/L (0-10)
[2024-06-09 09:08] LABS: Alanine Aminotransferase 12 U/L (0-33); Albumin Level 3.5 g/dL (3.5-5.2); Alkaline Phosphatase 120 U/L (35-105); Anion Gap 21.8 (5-19); Aspartate Amino Transferase 17 U/L (0-32); Blood Urea Nitrogen 39 mg/dL (8-23); Calcium 8.7 mg/dL (8.5-10.5); Carbon Dioxide 20 mmol/L (22-29); Chloride 99 mmol/L (98-107); Glomerular Filtration Rate 21.3 mL/min (90-130); Glucose 170 mg/dL (65-115); NT Pro B Type Natriuretic Pept 31965 pg/mL (0-125); Osmolality Calculated 295 mOsm/kg (285-295); Potassium 4.8 mmol/L (3.5-5.1); Sodium 136 mmol/L (136-145); Total Bilirubin 0.5 mg/dL (0.15-1.2); Total Protein 6.5 g/dL (6.6-8.7)
[2024-06-09 09:10] LABS: Creatinine Clr Calc Pharmacy 29.2285
[2024-06-09] MEDS: FUROsemide 10 mg/mL SDV 4mL 40 MG IVP (09:21)
[2024-06-09] MEDS: hyDRALAzine 20 mg/mL INJ 1 mL IVP (09:54)
--- NOTE | 2024-06-09 10:29 | PC.NURSE ---
REPORT CALLED BACK TO SD STAFF, BOWEN.
--- NOTE | 2024-06-09 10:47 | PC.NURSE ---
SALLY RIDE BACK TO FACILITY INITIATED AT 1048.
[2024-06-09 10:54] LABS: Troponin 5 2HR 44.19 ng/L (0-10)
[2024-06-09 11:03] LABS: Troponin 5 2HR Delta -1.81 ABS# (0-10)
--- NOTE | 2024-06-09 11:34 | PC.NURSE ---
PATIENT READJUSTED IN BED, MADE COMFORTABLE. NO FURTHER NEEDS AT THIS TIME.
== END 2024-06-09 17:28 | disposition home or self-care (01) ==
PROVIDERS: Emergency Provider Emergency Medicine; PCP Nurse Practitioner Family
DX: U07.1 COVID-19 (principal); I10 Essential (primary) hypertension; R06.00 Dyspnea, unspecified; Z79.02 Long term (current) use of antithrombotics/antiplatelets; Z79.82 Long term (current) use of aspirin; Z79.4 Long term (current) use of insulin; Z87.891 Personal history of nicotine dependence; E11.22 Type 2 diabetes mellitus with diabetic chronic kidney disease; I13.0 Hypertensive heart and chronic kidney disease with heart failure and stage 1 through stage 4 chronic kidney disease, or unspecified chronic kidney disease; N18.9 Chronic kidney disease, unspecified; I50.9 Heart failure, unspecified; I25.2 Old myocardial infarction; J44.9 Chronic obstructive pulmonary disease, unspecified; I25.10 Atherosclerotic heart disease of native coronary artery without angina pectoris; I25.5 Ischemic cardiomyopathy
CPT/HCPCS: 36415; 71045; 80053; 83880; 84484; 85025; 85610; 93005; 96374; 96375; 96376; 99285; J0360; J1940

== ENCOUNTER → 2024-06-27 08:10 | Outpatient (BNVA) | payer MEDICAID, SELFPAY | PROVIDERS: PCP Nurse Practitioner Family; Visit Provider Thoracic Surgery (Cardiothoracic Vascular Surgery) | DX: E11.52 Type 2 diabetes mellitus with diabetic peripheral angiopathy with gangrene (principal); E11.622 Type 2 diabetes mellitus with other skin ulcer; L98.492 Non-pressure chronic ulcer of skin of other sites with fat layer exposed | CPT/HCPCS: 11042; 11045; 97597; 97598 ==

== ENCOUNTER → 2024-07-03 08:25 | Outpatient (BNVA) | payer MEDICAID, SELFPAY | PROVIDERS: PCP Nurse Practitioner Family; Visit Provider Nurse Practitioner Family | DX: I13.0 Hypertensive heart and chronic kidney disease with heart failure and stage 1 through stage 4 chronic kidney disease, or unspecified chronic kidney disease (principal); E11.22 Type 2 diabetes mellitus with diabetic chronic kidney disease; N18.9 Chronic kidney disease, unspecified; I50.9 Heart failure, unspecified; Z79.4 Long term (current) use of insulin | CPT/HCPCS: 99213 ==

== ENCOUNTER 2024-07-03 11:22 | Inpatient (IN) | payer MEDICAID, SELFPAY ==
[2024-07-03] VITALS (8 sets, daily range): BP systolic 98–160; BP diastolic 41–81; PULSE 52–69; RESP 20–24; TEMP 36.3–37; O2SAT 90–99; BMI 47.2
[2024-07-03 11:44] LABS: Basophils # 0.1 10^3/uL (0.0-0.1); Basophils % 0.4 %; Eosinophils # 0.1 10^3/uL (0.0-0.8); Eosinophils % 0.7 %; Hematocrit 25.5 % (36-47); Mean Corpuscular Hemoglobin 32.4 pg (27-33); Mean Corpuscular Volume 104.5 fl (85-98); Mean Platelet Volume 8.6 fL (7.4-10.4); Monocytes # 0.9 10^3/uL (0.2-0.9); Monocytes % 8.3 %; Neutrophils # 8.99 10^3/uL (1.8-7.7); Neutrophils % 80.8 %; Nucleated Red Blood Cells % 0.4 %; Platelet Count 463 10^3/cmm (157-399); Red Blood Count 2.44 10^6/uL (3.85-5.65); Red Cell Distribution Width 18.6 % (12.1-15.1); White Blood Count 11.13 10^3/uL (3.29-11.43)
--- NOTE | 2024-07-03 11:49 | XR_ITS ---
WS: [id number] Exam: XR chest 1V portable [id number] Date/Time of Exam: 07/03/2024 11:50 AM Reason For Exam: sob There is increased LEFT retrocardiac density that may be secondary to infiltrate and/or atelectasis. Remaining lung mosqueda are clear the heart is enlarged but unchanged in size. The mediastinum is karina l in contour. Signs of coronary artery stenting. DJD of both shoulders. XR/XR chest 1V portable [id number] IMPRESSION: 1. Increased LEFT retrocardiac density which may be secondary to atelectasis an d/or infiltrate. 2. Mild cardiac enlargement unchanged.
--- NOTE | 2024-07-03 11:54 | ECG_ITS ---
[facility] Test Date: 2024-07-03 Pat Name: Nia Gomes Department: Room: Gender: Female Respiratory Care Specialist: : 1960 Requested By: Shaye Sanchez Order Number: [id number] Morgan MD: Kulwant Rousseau M.D. Measurements Intervals [place] Rate: 64 P: 69 OR: 203 QRS: -7 QRSD: 170 T: 97 QT: 441 QTc: 457 Interpretive Statements SINUS RHYTHM WITH OCCASIONAL VENTRICULAR PREMATURE COMPLEXES WITH OCCASIONAL SUPRAVENTRICULAR PREMATURE COMPLEXES POSSIBLE LEFT ATRIAL ENLARGEMENT [-0.1mV P-WAVE IN V1/V2] LEFT BUNDLE BRANCH BLOCK [120+ ms QRS DURATION, 80+ ms Q/S IN V1/V2, 85+ ms R IN I/aVL/V5/V6] Compared to ECG 06/09/2024 08:40:08 Ventricular premature complex(es) now present Left bundle-branch block now present Intraventricular conduction delay no longer present Left ventricular hypertrophy no longer present ST (T wave) deviation no longer present Electronically Signed On 07-04-2024 18:17:23 CDT by Kulwant Rousseau M.D. [id number]
--- NOTE | 2024-07-03 12:03 | ED_ITS ---
HPI - General Adult 2 General: Chief complaint: Recheck/Abnormal Lab/Rx Stated complaint: swollen legs Time Seen by Provider: 07/03/24 11:41 Source: patient Mode of arrival: ambulatory Limitations: no limitations History of Present Illness: 63-year-old female has a history of diab etes chronic kidney disease CHF patient is a usp patient is bedbound she has chronic wounds including along her left leg and check labs today and her creatinine and potassium were elevated she is complaining of pain in her legs that is chronic in nature. No fever denies any vomiting or diarrhea Associated symptoms: Deny chest pain, dyspnea, headache(s), nausea, rash or vomiting Related Data Home Medications Medication Instructions Recorded Confirmed cholecalciferol (vitamin D3) 25 2,000 unit PO DAILY 10/21/19 07/03/24 mcg (1,000 unit) capsule multivitamin 1 tab PO QAM 10/21/19 07/03/24 cranberry 500 mg capsule 500 mg PO BID 09/28/21 07/03/24 acetaminophen 500 mg tablet 1,000 mg PO BID 04/29/24 07/03/24 albuterol sulfate 90 mcg/actuation 2 puff inhalation BID PRN 04/29/24 07/03/24 aerosol inhaler (Ventolin HFA) Shortness Of Breath bisacodyl 10 mg rectal suppository 10 mg WA DAILY PRN Constipation 04/29/24 07/03/24 bisacodyl 5 mg tablet 5 mg PO DAILY PRN Constipation 04/29/24 07/03/24 budesonide-formoterol HFA 160 2 puff inhalation BID 04/29/24 07/03/24 mcg-4.5 mcg/actuation aerosol inhaler (Symbicort) fluticasone propionate 50 1 spray intranasal DAILY 04/29/24 07/03/24 mcg/actuation nasal spray,suspension glucagon HCl 1 mg solution for 1 mg SUBCUT Q20M PRN BLOOD SUGAR 04/29/24 07/03/24 injection (Glucagon (HCl) Emergency Kit) guaifenesin 100 mg/5 mL oral 200 mg PO Q4H PRN COUGH AND 04/29/24 07/03/24 liquid (Era-Tussin) CONGESTION guaifenesin 600 mg tablet, 600 mg PO Q12H PRN EXPECTORANT 04/29/24 07/03/24 extended release 12 hr (Mucinex) ipratropium 0.5 mg-albuterol 3 mg 3 ml inhalation Q4H PRN Shortness 04/29/24 07/03/24 (2.5 mg base)/3 mL nebulization Of Breath Or Wheezing soln loperamide 2 mg tablet 2 mg PO Q6H PRN Diarrhea 04/29/24 07/03/24 magnesium hydroxide 400 mg/5 mL 30 ml PO DAILY PRN Constipation 04/29/24 07/03/24 oral suspension (Milk of Magnesia) nystatin 100,000 unit/gram topical 1 applic topical BID PRN Skin 04/29/24 07/03/24 cream Irritation ondansetron HCl 8 mg tablet 8 mg PO Q8H PRN Nausea And Vomiting 04/29/24 07/03/24 ranolazine 500 mg tablet,extended 500 mg PO BID 04/29/24 07/03/24 release,12 hr sodium phosphates 19 gram-7 118 ml WA DAILY PRN Constipation 04/29/24 07/03/24 gram/118 mL enema (Fleet Enema) hydrocodone 5 mg-acetaminophen 325 1 tab PO BEDTIME pain 05/06/24 07/03/24 mg tablet nitroglycerin 0.4 mg sublingual 0.4 mg sublingual Q5M PRN Chest 05/06/24 07/03/24 tablet Pain nystatin 100,000 unit/gram topical See Rx Instructions .Route .COMPLEX 05/06/24 07/03/24 powder triamcinolone acetonide 0.1 % 1 applic topical BID PRN Skin 05/06/24 07/03/24 topical cream Irritation Previous Rx's Medication Instructions Recorded cetirizine 10 mg capsule (All Day 10 mg PO QDAY #30 caps 04/29/22 Allergy (cetirizine)) doxycycline monohydrate 100 mg 100 mg PO BID #10 tabs 05/08/24 tablet hydralazine 25 mg tablet 25 mg PO TID #60 tabs 05/08/24 aspirin 81 mg tablet,delayed 81 mg PO DAILY #90 tabs 05/17/24 release atorvastatin 80 mg tablet 40 mg (1/2 x 80 mg) PO QPM #1 tab 05/17/24 clopidogrel 75 mg tablet 75 mg PO DAILY #90 tabs 05/17/24 furosemide 40 mg tablet See Rx Instructions .Route 05/17/24 .COMPLEX #30 tabs insulin aspart U-100 100 unit/mL See Rx Instructions .Route 05/17/24 (3 mL) subcutaneous pen (Novolog .COMPLEX #15 mL FlexPen U-100 Insulin aspart) metoprolol tartrate 25 mg tablet 12.5 mg (1/2 x 25 mg) PO 05/17/24 BID@0900,2100 #45 tabs Allergies Allergy/AdvReac Type Severity Reaction Status Date / Time Sulfa (Sulfonamide Allergy Severe ALGY-Anaphy Verified 07/03/24 08:30 Antibiotics) laxis aspirin Allergy Intermediate nose bleeds Verified 07/03/24 08:30 clonidine Allergy Unknown chest pain Verified 07/03/24 08:30 rofecoxib [From Vioxx] Allergy Unknown unknown Verified 07/03/24 08:30 Review of Systems 2 Const: Denies: fever(s), chills, body aches or change in appetite Eyes: Denies: blurry vision or eye discomfort ENMT: Denies: throat pain or dental pain Card: Denies: chest pain Resp: Denies: dyspnea GI: Denies: abdominal pain, nausea, vomiting or diarrhea Musc: Reports: extremity pain; Denies: neck pain or back pain Skin/Breast: Denies: rash Neuro: Denies: headache(s) PFSH ED 2 PFSH: Medical History CHF (congestive heart failure) (~04/16/24) Anemia Chronic kidney disease, unspecified Type 2 diabetes mellitus with diabetic polyneuropathy NSTEMI (non-ST elevated myocardial infarction) 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 Dependence on supplemental oxygen UTI (urinary tract infection) Morbidly obese Chronic respiratory failure with hypoxia Peripheral vascular disease COPD (chronic obstructive pulmonary disease) Aortic stenosis Anemia in other chronic diseases classified elsewhere Acquired hyperlipoproteinemia Gastro-esophageal reflux disease without esophagitis Primary generalized (osteo)arthritis Depression, unspecified Anxiety disorder, unspecified Obstructive sleep apnea (adult) (pediatric) Other nonspecific abnormal finding of lung field Body mass index [BMI] 50.0-59.9, adult Morbid (severe) obesity due to excess calories 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 Recurrent UTI Ischemic cardiomyopathy CAD (coronary artery disease) OAB (overactive bladder) Lump of breast, right Hypertension Surgical History S/P cardiac cath H/O: section H/O breast biopsy right Family History Other CAD (coronary artery disease) Hypertension Stroke Social History Smoking and tobacco/nicotine status: never used tobacco/nicotine Alcohol intake: never Housing: Shelter Physical Exam 2 Const: COMMON NORMALS: no acute distress, patient oriented x3 and healthy appearing NUTRITIONAL APPEARANCE: obese HENMT: COMMON NORMALS: normocephalic and atraumatic HEAD & SCALP: n ormocephalic and atraumatic Eye: COMMON NORMALS: conjunctivae normal CONJUNCTIVA: Yes conjunctivae normal Neck/C-Spine: COMMON NORMALS: full ROM and supple Chest: COMMONS NORMALS: normal inspection of the chest and normal palpation of entire chest wall Resp: COMMON NORMALS: normal respiratory effort, No retractions, No use of accessory muscles and clear to auscultation bilaterally AUSCULTATION: clear to auscultation bilaterally Cardio: COMMON NORMALS: regular rate, regular rhythm and No murmurs present (Cardio) RATE: regular rate RHYTHM: regular rhythm GI: COMMON NORMALS: Normal to inspection, nondistended, normoactive bowel sounds present, Soft to palpation, non-tender and no masses PALPATION: Yes Soft to palpation Extremity: COMMON NORMALS: full ROM Neuro: COMMON NORMALS: patient oriented x3, moves all extremities and no focal motor deficits Psych: COMMON NORMALS: mental status grossly normal, Normal thought process present and cooperative THOUGHT PROCESS: Normal thought process present Skin: NARRATIVE SKIN EXAM: Chronic wound noted to left thigh no active drainage or erythema noted Course 2 Vital Signs: Vital signs: Vital Signs Temperature 97.5 F L 07/03/24 11:45 Pulse Rate 58 L 07/03/24 11:45 Respiratory Rate 20 H 07/03/24 11:45 Blood Pressure 160/59 07/03/24 11:45 Pulse Oximetry 92 07/03/24 11:45 Oxygen Delivery Me thod Nasal Cannula 07/03/24 11:45 Oxygen Flow Rate 3 07/03/24 11:45 [facility] - General Adult Medical Decision Making Patient presents here with hyperkalemia she also has acute on chronic kidney disease her creatinine is elevated from her baseline. I spoke to the hospitalist will admit at this time to give her insulin in the ER. Medical Records I reviewed the patient's medical records. Lab Data I reviewed the patient's lab results. 07/03/24 11:37 07/03/24 11:37 Radiology Impressions Chest X-Ray 07/03/24 11:49 IMPRESSION: 1. Increased LEFT retrocardiac density which may be secondary to atelectasis and/or infiltrate. 2. Mild cardiac enlargement unchanged. Laboratory Results WBC 11.13 10^3/uL (3.29-11.43) 07/03/24 11:37 RBC 2.44 10^6/uL (3.85-5.65) L 07/03/24 11:37 Hgb 7.90 g/dL (11.27-16.99) L 07/03/24 11:37 Hct 25.5 % (36-47) L 07/03/24 11:37 MCV 104.5 fl (85-98) H 07/03/24 11:37 MCH 32.4 pg (27-33) 07/03/24 11:37 MCHC 31.0 g/dL (30-55) 07/03/24 11:37 RDW 18.6 % (12.1-15.1) H 07/03/24 11:37 Plt Count 463 10^3/cmm (157-399) H 07/03/24 11:37 MPV 8.6 fL (7.4-10.4) 07/03/24 11:37 Neut % (Auto) 80.8 % 07/03/24 11:37 Lymph % (Auto) 9.0 % 07/03/24 11:37 Bowman % (Auto) 8.3 % 07/03/24 11:37 Eos % (Auto) 0.7 % 07/03/24 11:37 Baso % (Auto) 0.4 % 07/03/24 11:37 Neut # (Auto) 8.99 10^3/uL (1.8-7.7) H 07/03/24 11:37 Lymph # (Auto) 1.0 10^3/uL (0.8-4.8) 07/03/24 11:37 Bowman # (Auto) 0.9 10^3/uL (0.2-0.9) 07/03/24 11:37 Eos # (Auto) 0.1 10^3/uL (0.0-0.8) 07/03/24 11:37 Baso # (Auto) 0.1 10^3/uL (0.0-0.1) 07/03/24 11:37 Nucleated RBC % (auto) 0.4 % 07/03/24 11:37 Nucleated RBCs # 0.0 /100WBC 07/03/24 11:37 Sodium 129 mmol/L (136-145) L 07/03/24 11:37 Potassium 6.1 mmol/L (3.5-5.1) H 07/03/24 11:37 Chloride 97 mmol/L (98-107) L 07/03/24 11:37 Carbon Dioxide 19 mmol/L (22-29) L 07/03/24 11:37 Anion Gap 19.1 (5-19) H 07/03/24 11:37 BUN 64 mg/dL (8-23) H 07/03/24 11:37 Creatinine 3.8 mg/dL (0.5-0.9) H 07/03/24 11:37 GFR Calculation 11.9 mL/min (90-130) L 07/03/24 11:37 Glucose 176 mg/dL (65-115) H 07/03/24 11:37 Calculated Osmolality 291 mOsm/kg (285-295) 07/03/24 11:37 Calcium 8.9 mg/dL (8.5-10.5) 07/03/24 11:37 Total Bilirubin 0.4 mg/dL (0.15-1.2) 07/03/24 11:37 AST 14 U/L (0-32) 07/03/24 11:37 ALT 10 U/L (0-33) 07/03/24 11:37 Alkaline Phosphatase 114 U/L (35-105) H 07/03/24 11:37 NT-Pro-B Natriuret Pep 83694 pg/mL (0-125) H 07/03/24 11:37 Total Protein 7.1 g/dL (6.6-8.7) 07/03/24 11:37 Albumin 3.8 g/dL (3.5-5.2) 07/03/24 11:37 Globulin 3.3 g/dL (1.3-4.6) 07/03/24 11:37 All radiology interpretation(s) finalized by discharge Discharge Plan Discharge Patient Disposition: Admitted As Inpatient Clinical Impression: Hyperkalemia, CHF (congestive heart failure), Acute kidney injury superimposed on CKD Condition: Stable Prescriptions: No Action multivitamin Tablet 1 tab PO QAM cholecalciferol (vitamin D3) 1,000 unit capsule 2,000 unit PO DAILY cranberry 500 mg capsule 500 mg PO BID Rx Instructions: administer with meals All Day Allergy (cetirizine) 10 mg capsule 10 mg PO QDAY Qty: 30 11RF ipratropium-albuterol 0.5 mg-3 mg(2.5 mg base)/3 mL Solution For Nebulization 3 ml INHALATION Q4H PRN (Reason: Shortness Of Breath Or Wheezing) ondansetron HCl 8 mg Tablet 8 mg PO Q8H PRN (Reason: Nausea And Vomiting) loperamide 2 mg Tablet 2 mg PO Q6H PRN (Reason: Diarrhea) acetaminophen 500 mg Tablet 1,000 mg PO BID guaifenesin [Era-Tussin] 100 mg/5 mL Liquid 200 mg PO Q4H PRN (Reason: COUGH AND CONGESTION) magnesium hydroxide [Milk of Magnesia] 400 mg/5 mL Suspension 30 ml PO DAILY PRN (Reason: Constipation) bisacodyl 10 mg Suppository 10 mg WA DAILY PRN (Reason: Constipation) Fleet Enema 19-7 gram/118 mL Enema 118 ml WA DAILY PRN (Reason: Constipation) albuterol sulfate [Ventolin HFA] 90 mcg/actuation Hfa Aerosol Inhaler 2 puff INHALATION BID PRN (Reason: Shortness Of Breath) bisacodyl 5 mg Tablet 5 mg PO DAILY PRN (Reason: Constipation) ranolazine 500 mg Tablet Extended Release 12 Hr 500 mg PO BID budesonide-formoterol [Symbicort] 160-4.5 mcg/actuation Hfa Aerosol Inhaler 2 puff INHALATION BID guaifenesin [Mucinex] 600 mg Tablet Extended Release 12hr 600 mg PO Q12H PRN (Reason: EXPECTORANT) glucagon HCl [Glucagon (HCl) Emergency Kit] 1 mg Recon Soln 1 mg SUBCUT Q20M PRN (Reason: BLOOD SUGAR) Rx Instructions: until target blood sugar attained nystatin 100,000 unit/gram cream 1 applic topical BID PRN (Reason: Skin Irritation) fluticasone propionate 50 mcg/actuation spray,suspension 1 spray intranasal DAILY triamcinolone acetonide 0.1 % Cream 1 applic TOPICAL BID PRN (Reason: Skin Irritation) nystatin 100,000 unit/gram Powder See Rx Instructions .ROUTE .COMPLEX Rx Instructions: APPLY TO REDDENED AREAS EVERY DAY AND EVENING SHIFT. hydrocodone-acetaminophen 5-325 mg tablet 1 tab PO BEDTIME nitroglycerin 0.4 mg tablet, sublingual 0.4 mg sublingual Q5M PRN (Reason: Chest Pain) Rx Instructions: do not exceed 3 doses per episode Call ambulance if you have to take the third Nitro. doxycycline monohydrate 100 mg Tablet 100 mg PO BID Qty: 10 0RF hydralazine 25 mg Tablet 25 mg PO TID Qty: 60 0RF furosemide 40 mg Tablet See Rx Instructions .ROUTE .COMPLEX Qty: 30 0RF Rx Instructions: 80mg in AM and 40mg in PM clopidogrel 75 mg Tablet 75 mg PO DAILY Qty: 90 0RF aspirin 81 mg Tablet,Delayed Release (Dr/Ec) 81 mg PO DAILY Qty: 90 0RF metoprolol tartrate 25 mg Tablet 12.5 mg PO BID@0900,2100 Qty: 45 0RF atorvastatin 80 mg tablet 40 mg PO QPM Qty: 1 0RF Rx Instructions: Dose change only Novolog FlexPen U-100 Insulin 100 unit/mL (3 mL) Insulin Pen See Rx Instructions .ROUTE .COMPLEX Qty: 15 0RF Rx Instructions: INJECT PER SLIDING SCALE: BS 141-180=4 UNITS, 181-220=6 UNITS, 221-260=8 UNITS, 261-300=10 UNITS, 301-350=12 UNITS, 351+ =14 UNITS AND NOTIFY MD. Referrals: Nadiya Torre NP [Primary Care Provider] - Coding Level of Care Code ED Final Expense Agent for Aleishag Marianna
--- NOTE | 2024-07-03 12:04 | PC.PHAR ---
patient is from [facility] called for a med list to be faxed at 12:00pm will follow up
[2024-07-03 12:11] LABS: Alanine Aminotransferase 10 U/L (0-33); Albumin Level 3.8 g/dL (3.5-5.2); Alkaline Phosphatase 114 U/L (35-105); Anion Gap 19.1 (5-19); Aspartate Amino Transferase 14 U/L (0-32); Blood Urea Nitrogen 64 mg/dL (8-23); Calcium 8.9 mg/dL (8.5-10.5); Carbon Dioxide 19 mmol/L (22-29); Chloride 97 mmol/L (98-107); Creatinine Clr Calc Pharmacy 16.5917; Globulin 3.3 g/dL (1.3-4.6); Glomerular Filtration Rate 11.9 mL/min (90-130); Glucose 176 mg/dL (65-115); Osmolality Calculated 291 mOsm/kg (285-295); Potassium 6.1 mmol/L (3.5-5.1); Sodium 129 mmol/L (136-145); Total Bilirubin 0.4 mg/dL (0.15-1.2); Total Protein 7.1 g/dL (6.6-8.7)
[2024-07-03 12:31] LABS: NT Pro B Type Natriuretic Pept 31400 pg/mL (0-125)
[2024-07-03] MEDS: dextrose 10% 250 ML 1000 ML IV (12:49)
[2024-07-03] MEDS: sodium chloride 0.9% 1,000 ML 999 ML IV (12:49)
[2024-07-03] MEDS: insulin regular-human 100 units/1 mL 10 UNIT IVP (12:50)
--- NOTE | 2024-07-03 13:41 | P.HP_ITS ---
Providers/Chief Complaint 2 Primary Care Provider: Nadiya Torre NP Chief Complaint: swollen legs History of Present Illness Nia Gomes is a 63 year old female with past medical history of type 2 diabetes mellitus, super morbidly obese, CKD, nonpressure chronic ulcer of left thigh, recent debridement on 05/07, COPD, cardiogenic shock, CHF, atrial fibrillation, NSTEMI, ischemic cardiomyopathy with EF of 25%, obstructive sleep apnea, GERD, anxiety, depression, bilateral lower extremity lymphedema, [facility] resident was referred from wound care clinic for potassium of 6.4. In ER she was found to have potassium of 6.1 and creatinine of 3.8. Her baseline creatinine is 2.2-2.7. She denies any complaints of shortness of breath, chest pain, palpitations, dizziness, fever, cough, urinary or bowel complaints. She was recently hospitalized for NSTEMI on 05/08/2024 and due to multiple comorbidities she was manage medically. She also received long-term antibiotics vancomycin and ertapenem for left leg wound completed on 821. She has been in and out of the hospital frequently with complications and exacerbations of her multiple medical problems. Recently she visited the ER on 06/09/2024 for COVID-19 infection. Review of Systems 2 General: Reports: 10 or more systems reviewed and unremarkable except in HPI and below Medications/Allergies Home Medications Medication Instructions Recorded Confirmed Last Taken Type cholecalciferol (vitamin D3) 25 2,000 unit PO DAILY 10/21/19 07/03/24 04/29/24 History mcg (1,000 unit) capsule multivitamin 1 tab PO QAM 10/21/19 07/03/24 04/29/24 History cranberry 500 mg capsule 500 mg PO BID 09/28/21 07/03/24 04/29/24 History cetirizine 10 mg capsule (All Day 10 mg PO QDAY #30 caps 04/29/22 07/03/24 04/29/24 Rx Allergy (cetirizine)) acetaminophen 500 mg tablet 1,000 mg PO BID 04/29/24 07/03/24 04/29/24 History albuterol sulfate 90 mcg/actuation 2 puff inhalation BID PRN 04/29/24 07/03/24 Unknown History aerosol inhaler (Ventolin HFA) Shortness Of Breath bisacodyl 10 mg rectal suppository 10 mg OR DAILY PRN Constipation 04/29/24 07/03/24 Unknown History bisacodyl 5 mg tablet 5 mg PO DAILY PRN Constipation 04/29/24 07/03/24 Unknown History budesonide-formoterol HFA 160 2 puff inhalation BID 04/29/24 07/03/24 04/29/24 History mcg-4.5 mcg/actuation aerosol inhaler (Symbicort) fluticasone propionate 50 1 spray intranasal DAILY 04/29/24 07/03/24 04/29/24 History mcg/actuation nasal spray,suspension glucagon HCl 1 mg solution for 1 mg SUBCUT Q20M PRN BLOOD SUGAR 04/29/24 07/03/24 Unknown History injection (Glucagon (HCl) Emergency Kit) guaifenesin 100 mg/5 mL oral 200 mg PO Q4H PRN COUGH AND 04/29/24 07/03/24 Unknown History liquid (Era-Tussin) CONGESTION guaifenesin 600 mg tablet, 600 mg PO Q12H PRN EXPECTORANT 04/29/24 07/03/24 Unknown History extended release 12 hr (Mucinex) ipratropium 0.5 mg-albuterol 3 mg 3 ml inhalation Q4H PRN Shortness 04/29/24 07/03/24 Unknown History (2.5 mg base)/3 mL nebulization Of Breath Or Wheezing soln loperamide 2 mg tablet 2 mg PO Q6H PRN Diarrhea 04/29/24 07/03/24 Unknown History magnesium hydroxide 400 mg/5 mL 30 ml PO DAILY PRN Constipation 04/29/24 07/03/24 Unknown History oral suspension (Milk of Magnesia) nystatin 100,000 unit/gram topical 1 applic topical BID PRN Skin 04/29/24 07/03/24 04/29/24 History cream Irritation ondansetron HCl 8 mg tablet 8 mg PO Q8H PRN Nausea And Vomiting 04/29/24 07/03/24 Unknown History ranolazine 500 mg tablet,extended 500 mg PO BID 04/29/24 07/03/24 04/29/24 History release,12 hr sodium phosphates 19 gram-7 118 ml OR DAILY PRN Constipation 04/29/24 07/03/24 Unknown History gram/118 mL enema (Fleet Enema) hydrocodone 5 mg-acetaminophen 325 1 tab PO BEDTIME pain 05/06/24 07/03/24 Unknown History mg tablet nitroglycerin 0.4 mg sublingual 0.4 mg sublingual Q5M PRN Chest 05/06/24 07/03/24 Unknown History tablet Pain nystatin 100,000 unit/gram topical See Rx Instructions .Route .COMPLEX 05/06/24 07/03/24 Unknown History powder hydralazine 25 mg tablet 25 mg PO TID #60 tabs 05/08/24 07/03/24 Unknown Rx aspirin 81 mg tablet,delayed 81 mg PO DAILY #90 tabs 05/17/24 07/03/24 Unknown Rx release atorvastatin 80 mg tablet 40 mg (1/2 x 80 mg) PO QPM #1 tab 05/17/24 07/03/24 04/28/24 Rx clopidogrel 75 mg tablet 75 mg PO DAILY #90 tabs 05/17/24 07/03/24 Unknown Rx furosemide 40 mg tablet See Rx Instructions .Route 05/17/24 07/03/24 Unknown Rx .COMPLEX #30 tabs insulin aspart U-100 100 unit/mL See Rx Instructions .Route 05/17/24 07/03/24 04/29/24 Rx (3 mL) subcutaneous pen (Novolog .COMPLEX #15 mL FlexPen U-100 Insulin aspart) metoprolol tartrate 25 mg tablet 12.5 mg (1/2 x 25 mg) PO 05/17/24 07/03/24 Unknown Rx BID@0900,2100 #45 tabs melatonin 10 mg tablet 10 mg PO DAILY 07/03/24 07/03/24 Unknown History Allergies Allergy/AdvReac Type Severity Reaction Status Date / Time Sulfa (Sulfonamide Allergy Severe ALGY-Anaphy Verified 07/03/24 08:30 Antibiotics) laxis aspirin Allergy Intermediate nose bleeds Verified 07/03/24 08:30 clonidine Allergy Unknown chest pain Verified 07/03/24 08:30 rofecoxib [From Vioxx] Allergy Unknown unknown Verified 07/03/24 08:30 PFSH Acute 2 PFSH: Medical History CHF (congestive heart failure) (~04/16/24) Anemia Chronic kidney disease, unspecified Type 2 diabetes mellitus with diabetic polyneuropathy NSTEMI (non-ST elevated myocardial infarction) 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 Dependence on supplemental oxygen UTI (urinary tract infection) Morbidly obese Chronic respiratory failure with hypoxia Peripheral vascular disease COPD (chronic obstructive pulmonary disease) Aortic stenosis Anemia in other chronic diseases classified elsewhere Acquired hyperlipoproteinemia Gastro-esophageal reflux disease without esophagitis Primary generalized (osteo)arthritis Depression, unspecified Anxiety disorder, unspecified Obstructive sleep apnea (adult) (pediatric) Other nonspecific abnormal finding of lung field Body mass index [BMI] 50.0-59.9, adult Morbid (severe) obesity due to excess calories 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 Recurrent UTI Ischemic cardiomyopathy CAD (coronary artery disease) OAB (overactive bladder) Lump of breast, right Hypertension Surgical History S/P cardiac cath H/O: section H/O breast biopsy right Family History Other CAD (coronary artery disease) Hypertension Stroke Social History Smoking and tobacco/nicotine status: never used tobacco/nicotine Alcohol intake: never Housing: Long Term Vitals/I&O/Wt Last Vital Signs Temp 97.5 F L 07/03/24 11:45 Pulse 58 L 07/03/24 11:45 Resp 20 H 07/03/24 11:45 BP 160/59 07/03/24 11:45 Pulse Ox 92 07/03/24 11:45 O2 Del Method Nasal Cannula 07/03/24 11:45 O2 Flow Rate 3 07/03/24 11:45 07/02/24 07/03/24 07/03/24 22:59 06:59 14:59 Intake Total 250 / 250 Balance 250 / 250 Weight last 48 hrs Weight 109.769 kg Physical Exam 2 Narrative: She is alert awake oriented x 4, super morbidly obese, severe upper and lower extremity edema present. Chest clear to auscultation bilaterally Cardiovascular normal heart sounds Abdomen soft nontender nondistended normal bowel sounds Extremities bilateral lower extremity lymphedema/4+ pitting edema present. Left lower extremity... Grade 2 decubiti located on the left lateral upper leg with fat layer exposed. Data 07/03/24 11:37 07/03/24 11:37 A&P Assessment and plan (1) Acute kidney injury superimposed on CKD: (2) Hypertension: (3) Atrial fibrillation: (4) CHF (NYHA class IV, ACC/AHA stage D): (5) NSTEMI (non-ST elevated myocardial infarction): (6) Type 2 diabetes mellitus with diabetic polyneuropathy: (7) Body mass index [BMI] 50.0-59.9, adult: (8) COPD (chronic obstructive pulmonary disease): (9) 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: Plan Nia Gomes is a 63 year old female with past medical history of type 2 diabetes mellitus, super morbidly obese, CKD, nonpressure chronic ulcer of left thigh, recent debridement on 05/07, COPD, cardiogenic shock, CHF, atrial fibrillation, NSTEMI, ischemic cardiomyopathy with EF of 25%, obstructive sleep apnea, GERD, anxiety, depression, bilateral lower extremity lymphedema, [facility] resident was referred from wound care clinic for potassium of 6.4 and found to have acute on chronic kidney disease with creatinine of 3.8, baseline creatinine is 2.2-2.7. #Acute on chronic kidney injury-likely secondary to dehydration versus medication induced Will do IV fluids normal saline at 60 cc/h for 24 hours Monitor labs #Congestive heart failure-will continue Lasix 80 mg in the morning, hold Lasix 40 mg in the evening. Continue aspirin, atorvastatin, Plavix, hydralazine, metoprolol, ranolazine. #CKD-continue JOURNEYMAN MECHANIC sodium phosphate #Type 2 diabetes mellitus-continue JOURNEYMAN MECHANIC's correction scale insulin #COPD-continue JOURNEYMAN MECHANIC DuoNebs every 4 hours as needed, fluticasone nasal spray, cetirizine 10 mg daily. # Left lower extremity chronic ulcer-continue wound care as per nursing protocol. DVT prophylaxis with subcutaneous Lovenox GI prophylaxis with p.o. Protonix daily CODE STATUS discussed with patient, she is full code for now. Attestations 2 Medical Necessity Statement*: She needs continued hospitalization not crossing 2 midnights for management of acute on chronic renal failure with IV fluids Time Spent in Patient Care: 45 minutes Coding Level of Care Code Acute Code for [facility] Diagnoses Acute kidney injury superimposed on CKD N17.9; N18.9 Hypertension I10 Atrial fibrillation I48.91 CHF (NYHA class IV, ACC/AHA stage D) I50.84 NSTEMI (non-ST elevated myocardial infarction) I21.4 Type 2 diabetes mellitus with diabetic polyneuropathy E11.42 Body mass index [BMI] 50.0-59.9, adult Z68.43 COPD (chronic obstructive pulmonary disease) J44.9 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
[2024-07-03 13:44] LABS: Glucose Point of Care 181 mg/dL (70-110)
--- NOTE | 2024-07-03 14:12 | PC.NURSE ---
PER DR. GUPTA ONLY TO INFUSE 500ML TOTAL OF NS.
--- NOTE | 2024-07-03 15:17 | PC.NURSE ---
Patient transferred to CSU from ED via a bed at 1440.
[2024-07-03] MEDS: sodium chloride 0.9% 1,000 ML 60 ML IV (15:27)
--- NOTE | 2024-07-03 15:30 | PC.NURSE ---
Nursing is holding her hydralazine 25mg due to blood pressure of 98/64.
[2024-07-03] MEDS: heparin 5,000 unit/mL INJ 1 mL 5000 UNIT SUBCUT (16:29)
--- NOTE | 2024-07-03 16:40 | PC.NURSE ---
Provider is notified that patient is refusing to take the kayexalate.
[2024-07-03 17:29] LABS: Glucose Point of Care 192 mg/dL (70-110)
--- NOTE | 2024-07-03 18:41 | PC.NURSE ---
Patient did not want to take her medications at 1800. She stated I am tired right now and want to sleep. I will take them later. 1800 medications are given to night nurse to give.
[2024-07-03] MEDS: acetaminophen 500 mg Tablet 1000 MG PO (19:03)
[2024-07-03] MEDS: atorvastatin 40 mg Tablet PO (19:04)
[2024-07-03] MEDS: FUROsemide 40 mg Tablet PO (19:04)
[2024-07-03] MEDS: ranolazine (12HR) 500 mg Tablet PO (19:04)
[2024-07-03] MEDS: albuterol 2.5 mg/3 mL Neb INHALATION (20:01)
[2024-07-03] MEDS: budesonide 0.5 mg/2 mL Neb INHALATION (20:02)
[2024-07-03] MEDS: HYDROcodone-acetaminophen 5-325 mg Tablet 1 TAB PO (20:24)
[2024-07-03] MEDS: metoprolol tartrate 25 mg Tablet 12.5 MG PO (20:25)
[2024-07-03] MEDS: hyDRALAzine 25 mg Tablet PO (20:25)
[2024-07-03 20:54] LABS: Glucose Point of Care 174 mg/dL (70-110)
[2024-07-04] VITALS (18 sets, daily range): BP systolic 92–154; BP diastolic 29–87; PULSE 50–111; RESP 18–28; TEMP 36.8–37.3; O2SAT 90–98
[2024-07-04] MEDS: heparin 5,000 unit/mL INJ 1 mL 5000 UNIT SUBCUT ×2 (02:34→14:48)
[2024-07-04 04:34] LABS: Basophils # 0.1 10^3/uL (0.0-0.1); Basophils % 0.6 %; Eosinophils # 0.2 10^3/uL (0.0-0.8); Eosinophils % 2.5 %; Hematocrit 22.3 % (36-47); Lymphocytes # 1.1 10^3/uL (0.8-4.8); Mean Corpuscular HGB Conc 30.5 g/dL (30-55); Mean Corpuscular Hemoglobin 32.5 pg (27-33); Mean Corpuscular Volume 106.7 fl (85-98); Mean Platelet Volume 8.5 fL (7.4-10.4); Monocytes % 12.5 %; Neutrophils # 5.73 10^3/uL (1.8-7.7); Neutrophils % 70.7 %; Nucleated Red Blood Cells # 0.1 /100WBC; Nucleated Red Blood Cells % 0.6 %; Platelet Count 370 10^3/cmm (157-399); Red Blood Count 2.09 10^6/uL (3.85-5.65); Red Cell Distribution Width 18.5 % (12.1-15.1)
[2024-07-04 04:50] LABS: Anion Gap 18.9 (5-19); Blood Urea Nitrogen 58 mg/dL (8-23); Calcium 8.6 mg/dL (8.5-10.5); Carbon Dioxide 17 mmol/L (22-29); Chloride 100 mmol/L (98-107); Creatinine Clr Calc Pharmacy 17.8411; Glomerular Filtration Rate 12.7 mL/min (90-130); Glucose 126 mg/dL (65-115); Osmolality Calculated 288 mOsm/kg (285-295); Potassium 5.9 mmol/L (3.5-5.1); Sodium 130 mmol/L (136-145)
[2024-07-04] MEDS: multivitamin therapeutic Tablet 1 TAB PO (05:42)
[2024-07-04 06:30] LABS: Glucose Point of Care 155 mg/dL (70-110)
[2024-07-04] MEDS: albuterol 2.5 mg/3 mL Neb INHALATION ×4 (07:34→20:47)
[2024-07-04] MEDS: budesonide 0.5 mg/2 mL Neb INHALATION ×2 (07:34→20:47)
[2024-07-04] MEDS: cholecalciferol (vitamin D3) 1,000 unit Tablet 2000 UNIT PO (08:00)
[2024-07-04] MEDS: pantoprazole DR 40 mg Tablet PO (08:00)
[2024-07-04] MEDS: cetirizine 10 mg Tablet PO (08:00)
[2024-07-04] MEDS: ranolazine (12HR) 500 mg Tablet PO ×2 (08:01→17:08)
[2024-07-04] MEDS: acetaminophen 500 mg Tablet 1000 MG PO ×2 (08:01→17:09)
[2024-07-04] MEDS: fluticasone nasal spray 16gm Btl 1 SPRAY INTRANASAL (08:01)
[2024-07-04] MEDS: clopidogrel 75 mg Tablet PO (08:01)
[2024-07-04] MEDS: hyDRALAzine 25 mg Tablet PO ×3 (08:01→20:11)
[2024-07-04] MEDS: metoprolol tartrate 25 mg Tablet 12.5 MG PO ×2 (08:01→20:10)
[2024-07-04] MEDS: aspirin 81 mg EC Tablet PO (08:01)
[2024-07-04] MEDS: calcium gluconate 0.9% NaCL 1 GM/50 ML PREMIX IV (08:02)
[2024-07-04] MEDS: insulin regular-human 10 UNIT in SYRINGE 1 EACH IVP (08:02)
[2024-07-04] MEDS: sodium chloride 0.9% 1,000 ML 60 ML IV (08:03)
[2024-07-04] MEDS: dextrose 10% 125 ML 750 ML IV (08:25)
[2024-07-04 11:16] LABS: Glucose Point of Care 281 mg/dL (70-110)
--- NOTE | 2024-07-04 14:10 | PM.PN ---
Subjective Subjective: No acute overnight events noted. Seen her at bedside this morning, reports feeling better. Medications: Reviewed: Yes Vitals/I&O/Wt Last Vital Signs Temp 98.3 F 07/04/24 12:00 Pulse 50 L 07/04/24 12:00 Resp 21 H 07/04/24 12:00 BP 135/29 07/04/24 12:00 Pulse Ox 94 07/04/24 12:00 O2 Del Method Nasal Cannula 07/04/24 12:00 O2 Flow Rate 2 07/04/24 11:59 07/03/24 07/04/24 07/04/24 22:59 06:59 14:59 Intake Total 1000 / 1250 1866 / 1866 Output Total 400 / 400 200 / 600 300 / 300 Balance 600 / 850 -200 / 650 1566 / 1566 Weight last 48 hrs Weight 113.1 kg Weight 111.13 kg Weight 109.769 kg Physical Exam Narrative: She is alert awake oriented x 4, super morbidly obese, severe upper and lower extremity edema present. Chest clear to auscultation bilaterally Cardiovascular normal heart sounds Abdomen soft nontender nondistended normal bowel sounds Extremities bilateral lower extremity lymphedema/4+ pitting edema present. Left lower extremity... Grade 2 decubiti located on the left lateral upper leg with fat layer exposed. 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 #Acute on chronic kidney injury-likely secondary to dehydration versus medication induced Will do IV fluids normal saline at 60 cc/h for 24 hours Monitor labs #Congestive heart failure-will continue Lasix 80 mg in the morning, hold Lasix 40 mg in the evening. Continue aspirin, atorvastatin, Plavix, hydralazine, metoprolol, ranolazine. #CKD-continue DOOR REPAIRMAN sodium phosphate #Type 2 diabetes mellitus-continue DOOR REPAIRMAN's correction scale insulin #COPD-continue DOOR REPAIRMAN DuoNebs every 4 hours as needed, fluticasone nasal spray, cetirizine 10 mg daily. # Left lower extremity chronic ulcer-continue wound care as per nursing protocol. DVT prophylaxis with subcutaneous Lovenox GI prophylaxis with p.o. Protonix daily CODE STATUS discussed with patient, she is full code for now. 07/04--Labs reviewed this morning showed hemoglobin of 6.8, potassium of 5.9 and creatinine of 3.6. Given 1 unit PRBC. Will check CBC and BMP at 7 PM. Received hyperkalemia treatment with calcium gluconate, D10, regular insulin 10 units and albuterol nebulization since patient refused Kayexalate secondary to abdominal discomfort. Attestations Medical Necessity Statement*: She needs continued hospitalization \for management of acute on chronic renal failure with IV fluids, acute on chronic anemia with blood transfusion and management of hyperkalemia Time Spent in Patient Care: 15 minutes Coding Level of Care Code Acute Code for [facility] Fwd Diagnoses Acute kidney injury superimposed on CKD N17.9; N18.9 Hypertension I10 Atrial fibrillation I48.91 CHF (NYHA class IV, ACC/AHA stage D) I50.84 NSTEMI (non-ST elevated myocardial infarction) I21.4 Type 2 diabetes mellitus with diabetic polyneuropathy E11.42 Body mass index [BMI] 50.0-59.9, adult Z68.43 COPD (chronic obstructive pulmonary disease) J44.9 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
[2024-07-04 16:45] LABS: Glucose Point of Care 210 mg/dL (70-110)
[2024-07-04] MEDS: FUROsemide 40 mg Tablet PO (17:08)
[2024-07-04] MEDS: atorvastatin 40 mg Tablet PO (17:09)
[2024-07-04] MEDS: nystatin powder 15 gm Btl 1 APPLIC TOPICAL (17:09)
[2024-07-04 17:18] LABS: Anion Gap 19.7 (5-19); Blood Urea Nitrogen 65 mg/dL (8-23); Calcium 8.7 mg/dL (8.5-10.5); Carbon Dioxide 18 mmol/L (22-29); Chloride 96 mmol/L (98-107); Creatinine Clr Calc Pharmacy 19.4631; Glucose 196 mg/dL (65-115); Osmolality Calculated 290 mOsm/kg (285-295); Potassium 5.7 mmol/L (3.5-5.1); Sodium 128 mmol/L (136-145)
[2024-07-04] MEDS: HYDROcodone-acetaminophen 5-325 mg Tablet 1 TAB PO (20:10)
[2024-07-05] VITALS (16 sets, daily range): BP systolic 100–159; BP diastolic 51–70; PULSE 49–73; RESP 16–22; TEMP 36.4–37.1; O2SAT 90–98
[2024-07-05] MEDS: heparin 5,000 unit/mL INJ 1 mL 5000 UNIT SUBCUT ×2 (02:01→17:06)
[2024-07-05] MEDS: multivitamin therapeutic Tablet 1 TAB PO (05:28)
[2024-07-05 05:48] LABS: Basophils % 0.4 %; Eosinophils # 0.3 10^3/uL (0.0-0.8); Eosinophils % 3.5 %; Hematocrit 25.3 % (36-47); Lymphocytes % 11.1 %; Mean Corpuscular Hemoglobin 33.3 pg (27-33); Mean Corpuscular Volume 104.1 fl (85-98); Mean Platelet Volume 8.4 fL (7.4-10.4); Monocytes # 1.2 10^3/uL (0.2-0.9); Monocytes % 12.9 %; Neutrophils # 6.43 10^3/uL (1.8-7.7); Neutrophils % 71.2 %; Nucleated Red Blood Cells # 0.1 /100WBC; Nucleated Red Blood Cells % 0.7 %; Platelet Count 382 10^3/cmm (157-399); Red Blood Count 2.43 10^6/uL (3.85-5.65); Red Cell Distribution Width 18.1 % (12.1-15.1); White Blood Count 9.04 10^3/uL (3.29-11.43)
[2024-07-05 06:13] LABS: Anion Gap 18.9 (5-19); Blood Urea Nitrogen 59 mg/dL (8-23); Calcium 8.6 mg/dL (8.5-10.5); Carbon Dioxide 17 mmol/L (22-29); Chloride 103 mmol/L (98-107); Creatinine Clr Calc Pharmacy 19.7658; Glucose 176 mg/dL (65-115); Osmolality Calculated 297 mOsm/kg (285-295); Potassium 5.9 mmol/L (3.5-5.1); Sodium 133 mmol/L (136-145)
[2024-07-05] MEDS: budesonide 0.5 mg/2 mL Neb INHALATION ×2 (08:16→19:27)
[2024-07-05] MEDS: albuterol 2.5 mg/3 mL Neb INHALATION ×4 (08:17→19:27)
[2024-07-05] MEDS: sodium chloride 0.9% 1,000 ML 60 ML IV ×2 (09:09→23:06)
[2024-07-05] MEDS: fluticasone nasal spray 16gm Btl 1 SPRAY INTRANASAL (09:10)
[2024-07-05] MEDS: clopidogrel 75 mg Tablet PO (09:10)
[2024-07-05] MEDS: cholecalciferol (vitamin D3) 1,000 unit Tablet 2000 UNIT PO (09:10)
[2024-07-05] MEDS: pantoprazole DR 40 mg Tablet PO (09:10)
[2024-07-05] MEDS: metoprolol tartrate 25 mg Tablet 12.5 MG PO ×2 (09:10→23:07)
[2024-07-05] MEDS: hyDRALAzine 25 mg Tablet PO ×3 (09:10→23:08)
[2024-07-05] MEDS: aspirin 81 mg EC Tablet PO (09:10)
[2024-07-05] MEDS: acetaminophen 500 mg Tablet 1000 MG PO ×2 (09:11→17:07)
[2024-07-05] MEDS: cetirizine 10 mg Tablet PO (09:11)
[2024-07-05] MEDS: ranolazine (12HR) 500 mg Tablet PO ×2 (09:11→17:07)
[2024-07-05] MEDS: sodium polystyrene sulfonate 15 gm/60 mL Btl PO (09:13)
--- NOTE | 2024-07-05 10:07 | PC.CHAP ---
Pastoral Care Encounter/Spiritual Assessment Type of Contact [] Declined reading professor visit [] Patient/Family/Request visit [] Outpatient visit [] Follow-up visit [] Physician referral [] Code/Alert [x] Routine visit [] Staff referral [] Actively dying [] Patient sleeping [] Family support [] [] Out of room [] Palliative care [] [] Receiving care in room [] Pre-surgical visit [] Trauma [] Long length of stay [] ICU visit [] Other: Relational/Emotional Strength [x] Patient feels connected with others/family/visitors/staff [] Distress [] Loneliness/isolation [] Abandonment Spirituality of Patient [x] Person of Linda [x] Attends Jainism of their Linda [x] Believes in Prayer [] Reads Bible or Presybeterian materials [] There are Spiritual issues to be addressed E Business Consultant Interventions [x] Prayer [x] Active listening [x] Non-anxious presence [] Spiritual/emotional support [] Crisis/trauma care [] Spiritual counseling [] Bereavement support [] Provided bereavement packet [] Provided Bible/devotional materials [] Provided toy/stuffed animal, coloring book to patient or family member [] Provided Communion [] Anointing/[place] [] Salvation [] Completed spiritual assessment [] Other: Impact on Illness or Injury [] Angry [] Fearful [] Anxious [] Often cries [] Exhaustion [] Unable to work [] Unable to attend jain [] Unable to walk/stand [] Unable to read [] Unable to drive [] Unable to eat/drink [] Unable to sleep [] Unable to be with family [] Patient intubated [] Other: Summary P+1 Time spent with patient
[2024-07-05] MEDS: nystatin powder 15 gm Btl 1 APPLIC TOPICAL (10:24)
--- NOTE | 2024-07-05 11:46 | P.PN_ITS ---
Subjective 2 Subjective: No acute overnight events noted. Seen her at bedside this morning, convince her to take a dose of Kayexalate since still found to be hyperkalemic. Otherwise she feels okay and wants to return to intermediate. Medications: Reviewed: Yes Vitals/I&O/Wt Last Vital Signs Temp 97.5 F L 07/05/24 11:18 Pulse 68 07/05/24 11:18 Resp 17 07/05/24 11:18 BP 145/55 07/05/24 11:18 Pulse Ox 90 07/05/24 11:18 O2 Del Method Nasal Cannula 07/05/24 11:18 O2 Flow Rate 2 07/05/24 11:10 07/04/24 07/05/24 07/05/24 22:59 06:59 14:59 Intake Total 175.1 / 2041.1 400 / 2441.1 851 / 851 Output Total 200 / 500 350 / 850 Balance -24.9 / 1541.1 50 / 1591.1 851 / 851 Weight last 48 hrs Weight 115.921 kg Weight 113.1 kg Weight 111.13 kg Physical Exam 2 Narrative: She is alert awake oriented x 4, super morbidly obese, severe upper and lower extremity edema present. Chest clear to auscultation bilaterally Cardiovascular normal heart sounds Abdomen soft nontender nondistended normal bowel sounds Extremities bilateral lower extremity lymphedema/4+ pitting edema present. Left lower extremity... Grade 2 decubiti located on the left lateral upper leg with fat layer exposed. 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 #Acute on chronic kidney injury-likely secondary to dehydration versus medication induced Will do IV fluids normal saline at 60 cc/h for 24 hours Monitor labs #Congestive heart failure-will continue Lasix 80 mg in the morning, hold Lasix 40 mg in the evening. Continue aspirin, atorvastatin, Plavix, hydralazine, metoprolol, ranolazine. #CKD-continue STATIONARY STEAM ENGINEER sodium phosphate #Type 2 diabetes mellitus-continue STATIONARY STEAM ENGINEER's correction scale insulin #COPD-continue STATIONARY STEAM ENGINEER DuoNebs every 4 hours as needed, fluticasone nasal spray, cetirizine 10 mg daily. # Left lower extremity chronic ulcer-continue wound care as per nursing protocol. DVT prophylaxis with subcutaneous Lovenox GI prophylaxis with p.o. Protonix daily CODE STATUS discussed with patient, she is full code for now. 07/04--Labs reviewed this morning showed hemoglobin of 6.8, potassium of 5.9 and creatinine of 3.6. Given 1 unit PRBC. Will check CBC and BMP at 7 PM. Received hyperkalemia treatment with calcium gluconate, D10, regular insulin 10 units and albuterol nebulization since patient refused Kayexalate secondary to abdominal discomfort. 07/05--labs reviewed this morning showed hemoglobin of 8.1, potassium 5.9, sodium 133, creatinine 3.3. Hyperkalemia likely secondary to CKD. Will do 1 dose of Kayexalate and repeat labs at noon. If hyperkalemia resolving, anticipating discharge later today. Needs to follow-up as an outpatient with nephrology clinic and monitoring of her anemia. Will start her on ferrous gluconate 324 mg with breakfast. Attestations 2 Medical Necessity Statement*: Anticipating discharge later today if hyperkalemia resolving. 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
[2024-07-05] MEDS: ferrous gluconate 324 mg Tablet PO (13:00)
[2024-07-05 14:15] LABS: Blood Urea Nitrogen 56 mg/dL (8-23); Calcium 8.3 mg/dL (8.5-10.5); Carbon Dioxide 15 mmol/L (22-29); Chloride 102 mmol/L (98-107); Glomerular Filtration Rate 15.1 mL/min (90-130); Glucose 242 mg/dL (65-115); Osmolality Calculated 293 mOsm/kg (285-295); Sodium 130 mmol/L (136-145)
[2024-07-05 14:16] LABS: Anion Gap 18.6 (5-19); Potassium 5.6 mmol/L (3.5-5.1)
[2024-07-05] MEDS: atorvastatin 40 mg Tablet PO (17:07)
[2024-07-05] MEDS: FUROsemide 40 mg Tablet PO (17:07)
[2024-07-05] MEDS: HYDROcodone-acetaminophen 5-325 mg Tablet 1 TAB PO (23:08)
[2024-07-06] VITALS (9 sets, daily range): BP systolic 139–171; BP diastolic 68–81; PULSE 65–78; RESP 16–21; TEMP 36.5–36.7; O2SAT 93–96
--- NOTE | 2024-07-06 01:28 | PC.NURSE ---
patient is from [facility]. patient has multiple bruises on both arms, both legs, abdomen, she has a large hardened painful area to her right upper leg, she has multiple excoriation areas to her abdomen and her inner thighs,she has a stage 2 pressure injury to her buttock/saccrum area, she has a stage 5 ulcer to her left leg/hip area that is wet to dry packed with 2x2 and covered with a 4x6 covaderm, little to no drainage noted, no foul odor noted. patient has a chronic card catheter, and is incontinent with her bowels. she can roll from side to side. patient is wearing oxygen 2-3 l/nc. patient has an iv to left ac space that is saline locked and is patent flushes good and shows no signs of infection. patient has an iv to her right upper arm with ns running at 60ml/hr. patient is alert and oriented to person place date and time.
[2024-07-06] MEDS: heparin 5,000 unit/mL INJ 1 mL 5000 UNIT SUBCUT (02:48)
[2024-07-06 04:18] LABS: Basophils % 0.4 %; Eosinophils # 0.5 10^3/uL (0.0-0.8); Eosinophils % 4.9 %; Hematocrit 24.6 % (36-47); Lymphocytes # 0.9 10^3/uL (0.8-4.8); Lymphocytes % 8.3 %; Mean Corpuscular HGB Conc 31.7 g/dL (30-55); Mean Corpuscular Hemoglobin 32.9 pg (27-33); Mean Corpuscular Volume 103.8 fl (85-98); Mean Platelet Volume 8.4 fL (7.4-10.4); Monocytes # 1.2 10^3/uL (0.2-0.9); Monocytes % 11.5 %; Neutrophils # 7.55 10^3/uL (1.8-7.7); Neutrophils % 74.1 %; Nucleated Red Blood Cells % 0.4 %; Platelet Count 353 10^3/cmm (157-399); Red Blood Count 2.37 10^6/uL (3.85-5.65); Red Cell Distribution Width 18.4 % (12.1-15.1); White Blood Count 10.19 10^3/uL (3.29-11.43)
[2024-07-06 04:36] LABS: Blood Urea Nitrogen 50 mg/dL (8-23); Calcium 8.3 mg/dL (8.5-10.5); Carbon Dioxide 18 mmol/L (22-29); Chloride 103 mmol/L (98-107); Glomerular Filtration Rate 17.7 mL/min (90-130); Glucose 199 mg/dL (65-115); Osmolality Calculated 295 mOsm/kg (285-295); Sodium 133 mmol/L (136-145)
[2024-07-06 04:37] LABS: Creatinine Clr Calc Pharmacy 24.1582
[2024-07-06] MEDS: multivitamin therapeutic Tablet 1 TAB PO (06:01)
[2024-07-06] MEDS: budesonide 0.5 mg/2 mL Neb INHALATION (07:39)
[2024-07-06] MEDS: albuterol 2.5 mg/3 mL Neb INHALATION ×2 (07:39→11:45)
[2024-07-06] MEDS: acetaminophen 500 mg Tablet 1000 MG PO (08:06)
[2024-07-06] MEDS: clopidogrel 75 mg Tablet PO (08:06)
[2024-07-06] MEDS: aspirin 81 mg EC Tablet PO (08:06)
[2024-07-06] MEDS: hyDRALAzine 25 mg Tablet PO (08:06)
[2024-07-06] MEDS: ferrous gluconate 324 mg Tablet PO (08:06)
[2024-07-06] MEDS: cholecalciferol (vitamin D3) 1,000 unit Tablet 2000 UNIT PO (08:06)
[2024-07-06] MEDS: fluticasone nasal spray 16gm Btl 1 SPRAY INTRANASAL (08:07)
[2024-07-06] MEDS: cetirizine 10 mg Tablet PO (08:07)
[2024-07-06] MEDS: nystatin powder 15 gm Btl 1 APPLIC TOPICAL (08:07)
[2024-07-06] MEDS: ranolazine (12HR) 500 mg Tablet PO (08:07)
[2024-07-06] MEDS: pantoprazole DR 40 mg Tablet PO (08:07)
[2024-07-06] MEDS: metoprolol tartrate 25 mg Tablet 12.5 MG PO (08:10)
--- NOTE | 2024-07-06 10:16 | PM.DCS ---
Discharge Providers Date of Admission: 07/04/24 14:23 Date of Discharge: July 06, 2024 Attending Provider at Admission: Mandy Eldridge MD Attending Provider at Discharge: Mandy Eldridge MD Primary Care Provider: Nadiya Torre NP Diagnoses at Discharge Discharge Diagnosis (1) Acute kidney injury superimposed on CKD: Status: Acute (2) Hypertension: Status: Chronic (3) Atrial fibrillation: Status: Acute (4) CHF (NYHA class IV, ACC/AHA stage D): Status: Acute (5) NSTEMI (non-ST elevated myocardial infarction): Status: Acute (6) Type 2 diabetes mellitus with diabetic polyneuropathy: Status: Acute (7) Body mass index [BMI] 50.0-59.9, adult: Status: Chronic (8) COPD (chronic obstructive pulmonary disease): Status: Chronic (9) 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 In ER she was found to have potassium of 6.1 and creatinine of 3.8. Her baseline creatinine is 2.2-2.7. She denies any complaints of shortness of breath, chest pain, palpitations, dizziness, fever, cough, urinary or bowel complaints. She was recently hospitalized for NSTEMI on 05/08/2024 and due to multiple comorbidities she was manage medically. She also received long-term antibiotics vancomycin and ertapenem for left leg wound completed on 821. She has been in and out of the hospital frequently with complications and exacerbations of her multiple medical problems. Recently she visited the ER on 06/09/2024 for COVID-19 infection. Hospital Course Hospital Course #Acute on chronic kidney injury-likely secondary to dehydration versus medication induced Will do IV fluids normal saline at 60 cc/h for 24 hours Monitor labs #Congestive heart failure-will continue Lasix 80 mg in the morning, hold Lasix 40 mg in the evening. Continue aspirin, atorvastatin, Plavix, hydralazine, metoprolol, ranolazine. #CKD-continue CONSUMER SERVICES CONSULTANT sodium phosphate #Type 2 diabetes mellitus-continue CONSUMER SERVICES CONSULTANT's correction scale insulin #COPD-continue CONSUMER SERVICES CONSULTANT DuoNebs every 4 hours as needed, fluticasone nasal spray, cetirizine 10 mg daily. # Left lower extremity chronic ulcer-continue wound care as per nursing protocol. DVT prophylaxis with subcutaneous Lovenox GI prophylaxis with p.o. Protonix daily CODE STATUS discussed with patient, she is full code for now. 07/04--Labs reviewed this morning showed hemoglobin of 6.8, potassium of 5.9 and creatinine of 3.6. Given 1 unit PRBC. Will check CBC and BMP at 7 PM. Received hyperkalemia treatment with calcium gluconate, D10, regular insulin 10 units and albuterol nebulization since patient refused Kayexalate secondary to abdominal discomfort. 07/05--labs reviewed this morning showed hemoglobin of 8.1, potassium 5.9, sodium 133, creatinine 3.3. Hyperkalemia likely secondary to CKD. Will do 1 dose of Kayexalate and repeat labs at noon. If hyperkalemia resolving, anticipating discharge later today. Needs to follow-up as an outpatient with nephrology clinic and monitoring of her anemia. Will start her on ferrous gluconate 324 mg with breakfast. 07/06-hemoglobin stable at 7.8, creatinine trended down to 2.7 which is her baseline, potassium 5.0 today. As per the patient she was drinking orange juice and hence hyperkalemia persisted for the last 3 days. Advised to avoid orange juice. She is doing well and feeling better and wants to return to half-way. Physical Exam Narrative: She is alert awake oriented x 4, super morbidly obese, severe upper and lower extremity edema present. Chest clear to auscultation bilaterally Cardiovascular normal heart sounds Abdomen soft nontender nondistended normal bowel sounds Extremities bilateral lower extremity lymphedema/4+ pitting edema present. Left lower extremity... Grade 2 decubiti located on the left lateral upper leg with fat layer exposed. Urinary Catheter Management: Bonilla: Cath Placed During This Visit: no Reason for Continuing Indwelling Catheter: Chronic Indwelling Urinary Catheter on Admission Discharge Data Studies Completed and Pending Completed Studies During Hospitalization Category Date Time Status CXRP [XR chest 1V portable [id number]] Stat Exams 07/03/24 11:49 Completed Radiology Impressions Chest X-Ray 07/03/24 11:49 IMPRESSION: 1. Increased LEFT retrocardiac density which may be secondary to atelectasis and/or infiltrate. 2. Mild cardiac enlargement unchanged. Laboratory Results WBC 10.19 10^3/uL (3.29-11.43) 07/06/24 04:09 RBC 2.37 10^6/uL (3.85-5.65) L 07/06/24 04:09 Hgb 7.80 g/dL (11.27-16.99) L 07/06/24 04:09 Hct 24.6 % (36-47) L 07/06/24 04:09 MCV 103.8 fl (85-98) H 07/06/24 04:09 MCH 32.9 pg (27-33) 07/06/24 04:09 MCHC 31.7 g/dL (30-55) 07/06/24 04:09 RDW 18.4 % (12.1-15.1) H 07/06/24 04:09 Plt Count 353 10^3/cmm (157-399) 07/06/24 04:09 MPV 8.4 fL (7.4-10.4) 07/06/24 04:09 Neut % (Auto) 74.1 % 07/06/24 04:09 Lymph % (Auto) 8.3 % 07/06/24 04:09 [place] % (Auto) 11.5 % 07/06/24 04:09 Eos % (Auto) 4.9 % 07/06/24 04:09 Baso % (Auto) 0.4 % 07/06/24 04:09 Neut # (Auto) 7.55 10^3/uL (1.8-7.7) 07/06/24 04:09 Lymph # (Auto) 0.9 10^3/uL (0.8-4.8) 07/06/24 04:09 [place] # (Auto) 1.2 10^3/uL (0.2-0.9) H 07/06/24 04:09 Eos # (Auto) 0.5 10^3/uL (0.0-0.8) 07/06/24 04:09 Baso # (Auto) 0.0 10^3/uL (0.0-0.1) 07/06/24 04:09 Nucleated RBC % (auto) 0.4 % 07/06/24 04:09 Nucleated RBCs # 0.0 /100WBC 07/06/24 04:09 Sodium 133 mmol/L (136-145) L 07/06/24 04:09 Potassium 5.0 mmol/L (3.5-5.1) 07/06/24 04:09 Chloride 103 mmol/L (98-107) 07/06/24 04:09 Carbon Dioxide 18 mmol/L (22-29) L 07/06/24 04:09 Anion Gap 17.0 (5-19) 07/06/24 04:09 BUN 50 mg/dL (8-23) H 07/06/24 04:09 Creatinine 2.7 mg/dL (0.5-0.9) H 07/06/24 04:09 GFR Calculation 17.7 mL/min (90-130) L 07/06/24 04:09 Glucose 199 mg/dL (65-115) H 07/06/24 04:09 POC Glucose 210 mg/dL (70-110) H 07/04/24 16:30 Calculated Osmolality 295 mOsm/kg (285-295) 07/06/24 04:09 Calcium 8.3 mg/dL (8.5-10.5) L 07/06/24 04:09 Total Bilirubin 0.4 mg/dL (0.15-1.2) 07/03/24 11:37 AST 14 U/L (0-32) 07/03/24 11:37 ALT 10 U/L (0-33) 07/03/24 11:37 Alkaline Phosphatase 114 U/L (35-105) H 07/03/24 11:37 NT-Pro-B Natriuret Pep 22543 pg/mL (0-125) H 07/03/24 11:37 Total Protein 7.1 g/dL (6.6-8.7) 07/03/24 11:37 Albumin 3.8 g/dL (3.5-5.2) 07/03/24 11:37 Globulin 3.3 g/dL (1.3-4.6) 07/03/24 11:37 Blood Type O Positive 07/04/24 06:38 Rho(D) Type Rh positive 07/04/24 06:38 Antibody Screen Negative 07/04/24 06:38 Crossmatch See Detail 07/04/24 06:38 Vitals Last Vital Signs Temp 98.0 F 07/06/24 08:00 Pulse 65 07/06/24 08:00 Resp 16 07/06/24 08:00 BP 171/74 07/06/24 08:00 Pulse Ox 93 07/06/24 08:00 O2 Del Method Nasal Cannula 07/06/24 08:00 O2 Flow Rate 2 07/06/24 07:40 Discharge Plan Discharge Patient Disposition: Xfer SNF Condition: Stable Prescriptions: New ferrous gluconate 324 mg (37.5 mg iron) Tablet 324 mg PO BREAKFAST 90 Days Qty: 90 0RF Continued multivitamin Tablet 1 tab PO QAM cholecalciferol (vitamin D3) 1,000 unit capsule 2,000 unit PO DAILY cranberry 500 mg capsule 500 mg PO BID Rx Instructions: administer with meals All Day Allergy (cetirizine) 10 mg capsule 10 mg PO QDAY Qty: 30 11RF ipratropium-albuterol 0.5 mg-3 mg(2.5 mg base)/3 mL Solution For Nebulization 3 ml INHALATION Q4H PRN (Reason: Shortness Of Breath Or Wheezing) ondansetron HCl 8 mg Tablet 8 mg PO Q8H PRN (Reason: Nausea And Vomiting) loperamide 2 mg Tablet 2 mg PO Q6H PRN (Reason: Diarrhea) acetaminophen 500 mg Tablet 1,000 mg PO BID guaifenesin [Era-Tussin] 100 mg/5 mL Liquid 200 mg PO Q4H PRN (Reason: COUGH AND CONGESTION) magnesium hydroxide [Milk of Magnesia] 400 mg/5 mL Suspension 30 ml PO DAILY PRN (Reason: Constipation) bisacodyl 10 mg Suppository 10 mg NE DAILY PRN (Reason: Constipation) Fleet Enema 19-7 gram/118 mL Enema 118 ml NE DAILY PRN (Reason: Constipation) albuterol sulfate [Ventolin HFA] 90 mcg/actuation Hfa Aerosol Inhaler 2 puff INHALATION BID PRN (Reason: Shortness Of Breath) bisacodyl 5 mg Tablet 5 mg PO DAILY PRN (Reason: Constipation) ranolazine 500 mg Tablet Extended Release 12 Hr 500 mg PO BID budesonide-formoterol [Symbicort] 160-4.5 mcg/actuation Hfa Aerosol Inhaler 2 puff INHALATION BID guaifenesin [Mucinex] 600 mg Tablet Extended Release 12hr 600 mg PO Q12H PRN (Reason: EXPECTORANT) glucagon HCl [Glucagon (HCl) Emergency Kit] 1 mg Recon Soln 1 mg SUBCUT Q20M PRN (Reason: BLOOD SUGAR) Rx Instructions: until target blood sugar attained nystatin 100,000 unit/gram cream 1 applic topical BID PRN (Reason: Skin Irritation) fluticasone propionate 50 mcg/actuation spray,suspension 1 spray intranasal DAILY nystatin 100,000 unit/gram Powder See Rx Instructions .ROUTE .COMPLEX Rx Instructions: APPLY TO REDDENED AREAS EVERY DAY AND EVENING SHIFT. hydrocodone-acetaminophen 5-325 mg tablet 1 tab PO BEDTIME Rx Instructions: take 1 tablet by mouth every morning and at bedtime nitroglycerin 0.4 mg tablet, sublingual 0.4 mg sublingual Q5M PRN (Reason: Chest Pain) Rx Instructions: do not exceed 3 doses per episode Call ambulance if you have to take the third Nitro. hydralazine 25 mg Tablet 25 mg PO TID Qty: 60 0RF furosemide 40 mg Tablet See Rx Instructions .ROUTE .COMPLEX Qty: 30 0RF Rx Instructions: 80mg in AM and 40mg in PM clopidogrel 75 mg Tablet 75 mg PO DAILY Qty: 90 0RF aspirin 81 mg Tablet,Delayed Release (Dr/Ec) 81 mg PO DAILY Qty: 90 0RF metoprolol tartrate 25 mg Tablet 12.5 mg PO BID@0900,2100 Qty: 45 0RF atorvastatin 80 mg tablet 40 mg PO QPM Qty: 1 0RF Rx Instructions: Dose change only insulin aspart U-100 [Novolog FlexPen U-100 Insulin] 100 unit/mL (3 mL) Insulin Pen See Rx Instructions .ROUTE .COMPLEX Qty: 15 0RF Rx Instructions: INJECT PER SLIDING SCALE: BS 141-180=4 UNITS, 181-220=6 UNITS, 221-260=8 UNITS, 261-300=10 UNITS, 301-350=12 UNITS, 351+ =14 UNITS AND NOTIFY melatonin 10 mg Tablet 10 mg PO DAILY Discharge Orders: Discharge Order (Routine); Ordered 07/06/24 Ordered By: Mandy Eldridge Referrals: Nadiya Torre, CERTIFIED SURGICAL TECH/FIRST ASSISTANT [Primary Care Provider] - Discharge Diet: Cardiac Discharge Activity: Increase activity as tolerated Patient Instructions: Iron Supplements (By mouth), Opioid Safety Discharge Attestations Time Spent in Discharge Care*: less than 30 min Quality Metrics Clinical Quality Measures [ No reported AMI, CVA or VTE this stay] Coding Level of Care Code Acute Code for Chg Fwd Diagnoses Acute kidney injury superimposed on CKD N17.9; N18.9 Hypertension I10 Atrial fibrillation I48.91 CHF (NYHA class IV, ACC/AHA stage D) I50.84 NSTEMI (non-ST elevated myocardial infarction) I21.4 Type 2 diabetes mellitus with diabetic polyneuropathy E11.42 Body mass index [BMI] 50.0-59.9, adult Z68.43 COPD (chronic obstructive pulmonary disease) J44.9 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
[2024-07-06] MEDS: cyanocobalamin 1,000 mcg/mL SDV 1000 MCG IM (10:33)
--- NOTE | 2024-07-06 11:21 | PC.NURSE ---
Report called and given to Ric at [facility]. All skin and wound updates given. New medications and medication changes explained. All questions and concerns addressed. Transport being provided by facility.
== END 2024-07-06 13:54 | disposition skilled nursing facility (03) | DRG 683 ==
LOC: ER 13:08 → CSU 13:49 → MEDSURG 07-05 06:47
PROVIDERS: Admitting Provider Internal Medicine; Emergency Provider Emergency Medicine; PCP Nurse Practitioner Family; Visit Provider Internal Medicine
DX: N17.9 Acute kidney failure, unspecified (principal); I13.0 Hypertensive heart and chronic kidney disease with heart failure and stage 1 through stage 4 chronic kidney disease, or unspecified chronic kidney disease; Z68.42 Body mass index [BMI] 45.0-49.9, adult; L97.121 Non-pressure chronic ulcer of left thigh limited to breakdown of skin; I25.810 Atherosclerosis of coronary artery bypass graft(s) without angina pectoris; E87.5 Hyperkalemia; I25.10 Atherosclerotic heart disease of native coronary artery without angina pectoris; E66.01 Morbid (severe) obesity due to excess calories; E11.22 Type 2 diabetes mellitus with diabetic chronic kidney disease; N18.9 Chronic kidney disease, unspecified; I48.91 Unspecified atrial fibrillation; I50.84 End stage heart failure; J44.9 Chronic obstructive pulmonary disease, unspecified; I25.2 Old myocardial infarction; G47.33 Obstructive sleep apnea (adult) (pediatric); K21.9 Gastro-esophageal reflux disease without esophagitis; E11.42 Type 2 diabetes mellitus with diabetic polyneuropathy; F41.9 Anxiety disorder, unspecified; F32.A Depression, unspecified; Z86.16 Personal history of COVID-19; D64.9 Anemia, unspecified; Z79.899 Other long term (current) drug therapy; Z79.4 Long term (current) use of insulin; Z79.82 Long term (current) use of aspirin; Z88.2 Allergy status to sulfonamides; Z88.8 Allergy status to other drugs, medicaments and biological substances; Z99.81 Dependence on supplemental oxygen; Z87.440 Personal history of urinary (tract) infections
CPT/HCPCS: 36415; 36416; 36430; 71045; 80048; 80053; 82962; 83880; 85025; 86850; 86900; 86920; 93005; 94640; 94664; 96361; 96372; 96374; 99212; 99285; G0378; J0612; J1644; J1815; J3420; J7030; J7613; J7626; J7799; P9016